=== PATIENT | female | born 1955 | race Caucasian/White ===

== ENCOUNTER 2018-10-12 14:00 | Outpatient (AMBR) | payer OTHER, SELFPAY ==
--- NOTE | 2018-10-03 14:55 | PT.OIERPT ---
PT OP Initial Eval Patient Information Visit Reasons: right knee Medical Diagnosis: S83.241D Treatment Dx #1: Right Knee Pain Start of Care: 10/03/18 Date of Onset: 1 year ago Initial Assessment Subjective Pt is a 63 y/o female c/o chronic right knee pain (8/10) started 1 year ago. Pt further mention that she has other issues chest pain, L foot fracture, and frequent falls at home. Pt's past MRI showed a torn medial meniscus; according to patient she is not a surgical candidate due to her heart problem. Pt currently has difficulty with prolonged walking, standing, steps, chores, self care, cooking, getting in/out of the car, and performing normal ADLs. Objective Right Knee: -29 deg to 92 deg Right Knee MMTs Quads: 4-/5 Hs: 4-/5 Right Hip MMTs Glute Med: 3-/5 Glute Max: 3-/5 Muscle Length: decrease Hs length Palpation: TTP medial joint line Gait Observation: antalgic gait with decrease stance on R due to inability to completely WB Assessment Pt demonstrate right knee pain and limited AROM leading to decline function and difficulty with ADLs. Pt will attempt physical therapy if pain persist Pt will be refer back to surgeon for further consultation. 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 1) Decrease knee pain to 3/10 in 6 wks to be able to ambulate more than 30 mins with AD 2) Increase right knee MMTs to 4/5 in 6 wks to be able to perform chores 3) Increase right knee AROM WNL in 6 wks to be able to perform self care activities 4) Increase right hip MMTs to 4-/5 in 6 wks to be able to perfrom steps 5) Indep with HEP Treatment Plan 1) Manual Therapy 2) Therapeutic Activities 3) Therapeutic Exercises 4) Modalities (ice, heat) 5) Gait Training 6) Balance Training Frequency and Duration 2 x wk for 6 wks Certification Dates: 10/03/18 to 12/31/18 Office Procedures PT Procedures PT Date of Service: 10/03/18 OP PT Eval Mod Complex 30 minutes: Yes
--- NOTE | 2018-10-06 16:53 | PT.ODAYNRPT ---
PT Outpatient Daily Note Date of Service: October 06, 2018 OP Daily Note Visit Reasons: right knee Outpatient Physical Therapy Treatment Date: 10/06/18 Subjective: pt c/o having a lot of pain of the R knee but also her L foot is fractured in 4 places neither can have surgery due to other heart conditions. Objective: see flow sheet. Assessment: pt was willing to attempt all ther ex but was not going to guarantee to complete all reps due to poor endurance and pain. pt was having popping of the knee during some exercises. pt ambulates with no AD and WBOS with unsteadiness. advised pt to use AD for safety and more support. pt was able to use schi-fit for very short time before having increase in pain. Plan: continue POC per PT. Length of Time (minutes) of Treatment: 30 Minutes Office Procedures PT Procedures PT Date of Service: 10/03/18 OP PT Eval Mod Complex 30 minutes: Yes PT Procedures PT Date of Service: 10/06/18 Therapeutic Exercise 30 minutes: Yes
--- NOTE | 2018-10-12 15:18 | PTNOTE_ITS ---
PT OP Progress/Discharge Note Date of Service: October 12, 2018 Progress Note/DC Note Progress Note/Discharge Note: DC Note Patient Information Visit Reasons: right knee Medical Diagnosis: S83.241 Treatment Dx #1: Right Knee Pain Service Continue Service or Discharge: Discharge Discharge Date: 10/12/18 Status Subjective: Pt mention that her knee is hurting more after each PT treatment session. Pt continues to have 8/10 knee pain with all activities. She's been in/ out of the hospital due to chest pain. Pt continues to have limitation with prolonged walking, standing, chores, cooking, cleaning, and recreational activities. Objective: Right Knee AROM: -15 deg to 95 deg Right Knee MMTs Quads: 4-/5 Hs: 4-/5 Right Hip MMTs Glute Med: 3/5 Glute Max: 3/5 Assessment: Pt continues to have knee pain with limited mobility leading to decline function and difficulty with ambulation. Pt seems to have increase knee pain after each therapy session. At this time Pt will be d/c from physical therapy due to minimal progression towards goals. Pt was instructed on HEP last session and educated to continue exercises to maintain overall mobility. Pt performed all exercises safely, thank you for your referrals. Plan: D/C home with HEP and follow up with MD PORTILLO Office Procedures PT Procedures PT Date of Service: 10/03/18 OP PT Eval Mod Complex 30 minutes: Yes PT Procedures PT Date of Service: 10/06/18 Therapeutic Exercise 30 minutes: Yes PT Procedures PT Date of Service: 10/12/18 Therapeutic Exercise 15 minutes: Yes
== END 2018-10-20 23:59 | disposition home or self-care (01) ==
PROVIDERS: PCP Family Medicine; Referring Provider Family Medicine; Visit Provider Family Medicine
DX: S83.241D Other tear of medial meniscus, current injury, right knee, subsequent encounter (principal); G89.29 Other chronic pain; M25.561 Pain in right knee; W19.XXXD Unspecified fall, subsequent encounter; R26.2 Difficulty in walking, not elsewhere classified; R07.9 Chest pain, unspecified; I10 Essential (primary) hypertension
CPT/HCPCS: 97110; 97162

== ENCOUNTER 2024-07-08 18:14 | Emergency (ER) | payer OTHER, SELFPAY ==
[2024-07-08] VITALS (7 sets, daily range): BP systolic 122–154; BP diastolic 69–87; PULSE 103–113; RESP 20–23; TEMP 37.6–39.4; O2SAT 93–97; BMI 41.5
--- NOTE | 2024-07-08 18:34 | EKG_ITS ---
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1955 Requested By: Jesus Alberto Cordova Order Number: [id number] Reading MD: Jesus Alberto Cordova Measurements Intervals [place] Rate: 105 P: 61 SD: 194 QRS: -75 QRSD: 147 T: 71 QT: 470 QTc: 623 Interpretive Statements SINUS TACHYCARDIA RIGHT BUNDLE BRANCH BLOCK [120+ ms QRS DURATION, UPRIGHT V1, 40+ ms S IN I/aVL/V4/V5/V6] LEFT VENTRICULAR HYPERTROPHY AND ST-T CHANGE [VOLTAGE CRITERIA PLUS ST/T ABNORMALITY] INFERIOR MYOCARDIAL INFARCTION , POSSIBLY ACUTE [40+ ms Q WAVE AND/OR ST/T ABNORMALITY IN II/aVF] ANTEROLATERAL MYOCARDIAL INFARCTION , PROBABLY RECENT [40+ ms Q WAVE IN I/aVL/V3-V6] ACUTE [place] Compared to ECG 12/05/2023 08:42:46 Sinus rhythm no longer present ST (T wave) deviation still present Myocardial infarct finding still present /store/S0/[id number]/ecg/[id number].pdf
--- NOTE | 2024-07-08 18:53 | XR_ITS ---
Examination: Upright PA chest single view Technique: Upright PA chest single view Exam date and time: July 08, 2024 at 1915 hrs. Comparison December 05, 2023 Indications: Coughing congestion fever sore throat beginning 3 days ago. Findings: Mild to moderate enlargement left ventricle Stable position transvenous dual-chamber bipolar cardiac leads Moderate vascular congestion including central vascular engorgement Suspicious for early septal edema at the lung bases No lobar pneumonia Impression: Early heart failure No lobar pneumonia
--- NOTE | 2024-07-08 18:54 | EDRME_ITS ---
Rapid Medical Screening Exam [facility] Arrival date/time: 07/08/24 18:14 69F with history of CAD/MO/CHF (w/ pacemaker), HTN, COPD and DM presents to ED with 3 days of cough, sore throat, and non-bloody diarrhea. Chief Complaint: Flu Like Symptoms Time Seen by Provider: 07/08/24 19:19 Vital signs: Vital Signs Temperature 103.0 F H 07/08/24 18:49 Pulse Rate 108 H 07/08/24 18:49 Respiratory Rate 20 07/08/24 18:49 Blood Pressure 154/82 H 07/08/24 18:49 Pulse Oximetry (%) 95 07/08/24 18:49 Oxygen Delivery Method Room Air 07/08/24 18:49
[2024-07-08] MEDS: ACETAMINOPHEN 500 MG TABLET 1000 MG PO (19:03)
--- NOTE | 2024-07-08 19:21 | PD.EDURI ---
Upper Respiratory Inf. RME/HPI General Chief Complaint: Flu Like Symptoms Stated Complaint: diarrhea, cough, fever, sore throat , malaise Time Seen by Provider: 07/08/24 19:19 Arrival date/time: 07/08/24 18:14 RME / HPI RME / HPI Narrative: 07/08/24 18:14 Dr[facility] ED Evaluation: 69F with history of CAD/TN/CHF (w/ pacemaker), HTN, COPD and DM presents to ED with 3 days of cough, sore throat, and non-bloody diarrhea. Patient states she has had flulike symptoms last 2 days with a dry cough. She wears oxygen at home when needed and has been needing it slightly the last few days. Positive sore throat. Patient complains of diarrhea nonbloody yesterday but is not there today. No fevers. Patient feels bad with bodyaches. Tolerating p.o. Related Data Home Medications ?Medication ?Instructions ?Recorded ?Confirmed ticagrelor 90 mg tablet (Brilinta) 60 mg PO BID 05/08/21 10/14/23 insulin glargine 100 unit/mL (3 30 unit subcut BID 12/10/21 10/14/23 mL) subcutaneous pen (Lantus Solostar U-100 Insulin) omeprazole 40 mg capsule,delayed 40 mg PO QDAY 05/28/22 10/14/23 release pregabalin 75 mg capsule (Lyrica) 100 mg PO QDAY 09/17/22 10/14/23 meloxicam 15 mg tablet 15 mg PO QDAY 03/06/23 10/14/23 tizanidine 4 mg tablet 4 mg PO Q8HR PRN Muscle Spasm 03/06/23 10/14/23 clindamycin HCl 300 mg capsule 300 mg PO 3XD 10/14/23 10/14/23 empagliflozin 25 mg tablet 25 mg PO DAILY 10/14/23 10/14/23 (Jardiance) hydrocodone 10 mg-acetaminophen 10 tab PO PRN PRN Pain (Scale 10/14/23 10/14/23 325 mg tablet Score 7-10) metformin 1,000 mg tablet 1,000 mg PO BID 10/14/23 10/14/23 montelukast 10 mg tablet 10 mg PO DAILY 10/14/23 10/14/23 nitroglycerin 0.4 mg sublingual 0.4 mg buccal 3XD 10/14/23 10/14/23 tablet rosuvastatin 40 mg tablet 40 mg PO DAILY 10/14/23 10/14/23 sacubitril 24 mg-valsartan 26 mg 26 tab PO BID diabetes 10/14/23 10/14/23 tablet (Entresto) semaglutide 2 mg/dose (8 mg/3 mL) 1 mg subcut Q7D 10/14/23 10/14/23 subcutaneous pen injector (Ozempic) Previous Rx's ?Medication ?Instructions ?Recorded aspirin 81 mg tablet,delayed 81 mg PO QDAY 30 days #30 tabs 09/25/22 release atorvastatin 40 mg tablet 40 mg PO HS 30 days #30 tabs 09/25/22 midodrine 10 mg tablet 10 mg PO TID PRN blood pressure 08/29/23 #90 tabs pantoprazole 40 mg tablet,delayed 40 mg PO QDAY #20 tabs 10/28/23 release (Protonix) metoclopramide HCl 10 mg tablet 10 mg PO .TID prn PRN nausea and 11/10/23 (Reglan) vomiting #30 tabs midodrine 10 mg tablet 10 mg PO TID PRN hypotension #30 11/10/23 tabs acetaminophen 500 mg capsule 500 mg PO Q6H PRN pain #30 caps 06/11/24 dexamethasone 6 mg tablet 6 mg PO QDAY 5 days #5 tabs 07/08/24 Allergies Allergy/AdvReac Type Severity Reaction Status Date / Time adhesive Allergy Severe SKIN GETS Verified 06/11/24 09:01 RAW ketorolac AdvReac Severe SHARP Verified 10/14/23 07:42 PAINS THROUGHOUT ENTIRE BODY morphine AdvReac Severe CAUSES Verified 10/14/23 07:42 BEHAVIORAL PROBLEMS Review of Systems Review of Systems Systems Reviewed: All systems reviewed, normal except as documented Past Medical History Past Medical History NEUROLOGIC: Positive Neurological Disorders and Peripheral Neuropathy; Negative Cerebrovascular Accident, Transient Ischemic Attacks (TIA), Dementia, Alzheimer's Disease, Parkinson's Disease, Brain Tumor, Meningitis, Seizures, Epilepsy, Multiple Sclerosis, Cerebral Palsy, Amyotrophic Lateral Sclerosis (ALS/Genoveva Gehrig's), Guillain-Union Syndrome, Spina Bifida, Paralysis, Gaitan's Palsy, Subdural Hematoma, Migraine, Head Trauma, Spinal Cord Injury or Traumatic Brain Injury CARDIAC: Positive Cardiac Disorders, Myocardial Infarction, Cardiac Arrhythmia, Angina, Coronary Artery Disease, Atherosclerotic Heart Disease, Peripheral Vascular Disease, Hypercholesterolemia, Aneurysm, Edema, Cellulitis, Hypertension and Hypotension; Negative Atrial Fibrillation, Heart Murmur, Congestive Heart Failure, Congenital Heart Disease, Valvular Heart Disease, Rheumatic Fever, Cardiomyopathy, Pericarditis, Deep Vein Thrombosis or Varicose Veins RESPIRATORY: Positive Bronchitis and Pneumonia; Negative Chronic Obstructive Pulmonary Disease (COPD), Asthma, Emphysema, Pulmonary Fibrosis, Cystic Fibrosis, Tuberculosis, Pulmonary Embolism, Pulmonary Edema or Sleep Apnea GASTROINTESTINAL: Positive Gastrointestinal Disorders, Gall Bladder Disease, Hiatal Hernia, Gastroesophageal Reflux Disease and Obesity; Negative Hepatitis, Cirrhosis, Pancreatitis, Celiac Disease, Gastrointestinal Bleed, Esophageal Varices, Coleman's Esophagus, Colitis, Ulcerative Colitis, Diverticulitis, Diverticulosis, Ulcer, Colorectal Cancer, Irritable Bowel, Crohn's Disease, Obstructive Bowel or Hemorrhoids GENITOURINARY: Positive Genitourinary Disorders; Negative Renal Disease, Kidney Stones, Polycystic Kidney Disease, Neurogenic Bladder, Inguinal Hernia, Dialysis, Prostate Cancer or Benign Prostatic Hyperplasia REPRODUCTIVE: Negative Breast Cancer, Endometriosis, Genital Herpes, Gonorrhea, Pelvic Inflammatory Disease, Previous Pregnancies, Syphilis, Testicular Cancer or Uterine Prolapse MUSCULOSKELETAL: Positive Musculoskeletal Disorders and Fractures; Negative Muscular Dystrophy, Myasthenia Gravis, Marfan's Syndrome, Bone Cancer, Arthritis, Rheumatoid Arthritis, Osteoporosis, Degenerative Disk Disease, Gout, Scoliosis, Carpal Tunnel Syndrome, Fibromyalgia, Degenerative Joint Disease, Osteomyelitis or Poliovirus ENT: Negative Cataracts, Glaucoma, Blind, Retinal Detachment, Macular Degeneration, Ear Infection, Deafness, Head Trauma or Eye Prosthesis ENDOCRINE: Positive Endocrine Disorders and Diabetes Mellitus Type 2; Negative Diabetes Mellitus Type 1, Hypoglycemia, London's Syndrome, Grafton's Disease, Hyperthyroidism, Hypothyroidism, Parathyroid Disease, Pituitary Disease, Systemic Lupus Erythematosus, Syndrome of Inappropriate Antidiuretic Hormone (SIADH), Adrenal Disease or Graves' Disease HEMATOLOGIC: Negative Blood Disorders, Anemia, Leukemia, Hemophilia, Thalassemia, Sickle Cell Disease or Clotting Problems PSYCHO/SOCIAL: Positive Depression and Anxiety; Negative Psychiatric Problems, Schizophrenia, Recreational Drug Use, Bipolar Disorder, Behavior Problems, Self-Mutilation, Attention Deficit Disorder, Attention Deficit Hyperactivity Disorder, Depression, Post Traumatic Stress Disorder or Eating Disorder OTHER HISTORY: Positive Hospitalization, Falls and MRSA; Negative Autoimmune Disease, Down Syndrome, Autism, Developmental Delay, Shingles, Blood Transfusions, Blood Transfusion Reaction, Anesthesia Reactions, Organ Transplant, Chemotherapy, Radiation Therapy, Hyperbaric Therapy, VRSA, Vancomycin-Resistant Enterococci, Human Immunodeficiency Virus (HIV), Chicken Pox, Measles, Mumps, Rubella (Slovak Measles), Pertussis, Clostridium Difficile, Cancer, Breast Cancer, Cervical Cancer, Colorectal Cancer, Lung Cancer, Ovarian Cancer, Prostate Cancer or Testicular Cancer Family History FAMILY HISTORY: Positive Family Neurologic Problems (Mother had dementia.), Family Cardiac Disorders (father of heart attack) and Family Cancer (hx of family leukemia); Negative Family Psychiatric Problems, Family Respiratory Disorders, Family Gastrointestinal Problems, Family Surgery or Family Anesthesia Reaction Surgical History SURGICAL: Positive Cardiac Surgery, Coronary Stent, Cardiac Catheterization, Pacemaker, Angiogram, Tonsillectomy and Abdominal Surgery; Negative Open Heart Surgery, Coronary Artery Bypass Graft, Valve Replacement, Vascular Surgery, Auto Implanted Cardiovert Defib, Carotid Endarterectomy, Endocrine Surgery, Thyroidectomy, Ear Surgery, Tympanostomy Tube, Eye Surgery, Nose Surgery, Oral Surgery, Adenoidectomy, Cochlear Implant, Corneal Transplant, Throat Surgery, Tracheostomy, Gastric Bypass Surgery, Gastrostomy, Bowel Surgery, Nephrectomy, Transurethral Resection, Joint Replacement, Amputation, Open Reduction Internal Fixation, Arthroscopy, Neurologic Surgery, Brain Shunt, Mastectomy, Lumpectomy, Hysterectomy, Tubal Ligation, Section, Vasectomy or Organ Transplant Social History SMOKING STATUS: Former smoker SECOND HAND EXPOSURE: No SUBSTANCE USE: does not use ED Exam Narrative Physical exam: Patient lying in the bed, appears in minimal distress coughing, no stridor. Not using accessory muscles to breathe Head Head exam: Present atraumatic Eye Eye exam: Present normal appearance, PERRL and EOMI ENT ENT exam: Present normal exam, normal oropharynx and mucous membranes moist Neck Neck exam: Present normal inspection, full ROM and trachea midline Chest Chest inspection: Present normal inspection and symmetric chest wall rise Respiratory Respiratory exam: Present wheezes (Mild wheezing) and other (Decreased breath sounds at the bases) Cardiovascular Cardiovascular exam: Present regular rate, normal rhythm and normal heart sounds Abdominal Exam Abdominal exam: Present soft and other (Large abdomen nontender no rebound) Extremities Exam Extremities exam: Present other (Large extremities, no pedal edema) Back Exam Back exam: Present normal inspection and full ROM Neurological Exam Neurological exam: Present alert, oriented X3 and CN II-XII intact Psychiatric Psychiatric exam: Present normal affect and normal mood Skin Skin exam: Present warm, dry, intact and normal color Course Course Course Narrative: CXR is ordered for determining the etiology of fever. 1923: EKG at 1848 shows sinus tachycardia, rate of 105. Right bundle branch block. LVH. QTc 531. She does have ST-T wave changes but this is similar to her previous EKG in the past. The patient is not having chest pain and she had a sepsis alert called at 1850. At this time I do not believe the patient is having an acute TN. 1924: Bed is requested. 1856: NS IVF started. Quality Measures Possible source: pulmonary Blood cultures ordered: yes Antibiotic ordered: Yes Pertinent labs: 07/08/24 19:03 Lactic Acid 1.5 mMol/L (0.4-2.0) Procalcitonin 0.07 ng/ml (0.0-0.49) sepsis Orders Category Date Time Status Bedside COVID-19 Antigen Test NOW Care 07/08/24 18:34 Completed Bedside Influenza A&B Antigen Test NOW Care 07/08/24 18:34 Completed EKG (ED ONLY) *Do not use* NOW Care 07/08/24 18:34 Completed Insert IV NOW Care 07/08/24 18:53 Completed EKG (ED Only) Stat Exams 07/08/24 18:34 Draft XR chest 1V portable Stat Exams 07/08/24 18:53 Completed B-Type Natriuretic Peptide Stat Lab 07/08/24 19:03 Completed Blood Culture (Lab) Stat Lab 07/08/24 19:23 Results CBC Stat Lab 07/08/24 19:03 Completed Comprehensive Metabolic Panel Stat Lab 07/08/24 19:03 Completed Lactate (Lactic Acid) Stat Lab 07/08/24 19:03 Completed Lipase Stat Lab 07/08/24 19:03 Completed Magnesium Stat Lab 07/08/24 19:03 Completed Partial Thromboplastin Time Stat Lab 07/08/24 19:03 Completed Procalcitonin Stat Lab 07/08/24 19:03 Completed Prothrombin Time with INR Stat Lab 07/08/24 19:03 Completed Troponin I Stat Lab 07/08/24 19:03 Completed Urinalysis Stat Lab 07/08/24 19:18 Completed Urine Culture Stat Lab 07/08/24 19:18 Received Acetaminophen Tab [Tylenol ES Tab] Med 07/08/24 18:53 Discontinued 1,000 mg PO X1 ONE Dexamethasone Inj [Decadron Inj] Med 07/08/24 21:36 Discontinued 6 mg IVP X1 ONE HYDROcodone*/APAP 5/325 [[place] 5/325] Med 07/08/24 21:08 Discontinued 1 tab PO X1 ONE Sodium Chloride 0.9% 1000 ml [Ns] 1,000 ml Med 07/08/24 18:53 Discontinued IV 999 mls/hr Vital Signs Vital signs: Vital Signs Temperature 103.0 F H 07/08/24 18:49 Pulse Rate 108 H 07/08/24 18:49 Respiratory Rate 20 07/08/24 18:49 Blood Pressure 154/82 H 07/08/24 18:49 Pulse Oximetry (%) 95 07/08/24 18:49 Oxygen Delivery Method Room Air 07/08/24 18:49 Pulse ox is 95% on room air, which is normal according to my interpretation. Upper Respiratory Infection Patient data External records reviewed:: [facility] previous records (Per chart review, patient was seen here on 06/11/24 for arthralgia of right knee.) Clinical information provided by:: patient Social determinants that could affect healthcare access:: none Patient has the following chronic illnesses:: CAD, TN, CHF, COPD, HTN, DM How is presenting disease/condition affected by chronic disease/condition?: uneffected by Evaluation data The following diagnostics were reviewed and interpreted by me:: lab results, radiology exam(s) and EKG tracing(s) Lab and/or radiology exams considered but not ordered:: none Interpretation Summary: CBC is normal, CMP is normal, Glucose is 236, troponin is normal, lipase is normal, Procalcitonin is normal, Lactate is normal at 1.5, UA shows 3+ glucose, 8 WBCs, and 1+ bacteria, Bedside COVID is positive, CXR shows pacemaker wires in place, mild cardiomegaly, poor inspiratory effort, haziness in the left lower base, no definitive pneumonia, no pleural effusion, mild vascular markings, possible CHF, according to my interpretation. EKG done at 1848, sinus tachycardia, rate of 105, RBBB, LVH, nonspecific ST-T wave changes, no STEMI, similar ST-T wave changes on previous EKG done on 12/05/23. ---- I have personally reviewed the radiology data and agree with the radiologist's interpretation below: [facility] Report Signed Patient: JAMIL COOK Record#: [id number] Birthdate: 1955 Age/Sex: 69 / F Location: [facility] [place] Attending Dr: Ordering Physician: Jesus Alberto Cordova PA-C Date of Service: 07/08/24 Procedure(s): XR chest 1V portable Accession Number(s): [id number] cc: Killian Donovan MD; Roney Almanzar MD; Jesus Alberto Cordova PA-C~ Examination: Upright PA chest single view Technique: Upright PA chest single view Exam date and time: July 08, 2024 at 1915 hrs. Comparison December 05, 2023 Indications: Coughing congestion fever sore throat beginning 3 days ago. Findings: Mild to moderate enlargement left ventricle Stable position transvenous dual-chamber bipolar cardiac leads Moderate vascular congestion including central vascular engorgement Suspicious for early septal edema at the lung bases No lobar pneumonia Impression: Early heart failure No lobar pneumonia Dictated By: Roney Almanzar MD Signed By: <Electronically signed by Roney Almanzar MD in OV> 07/08/241941 Medications / Prescriptions Medications or Prescriptions considered but not ordered:: none Medication administrations:: Medication Administration History Discontinued Medications Acetaminophen (Acetaminophen 500 Mg Tablet) 1,000 mg PO X1 ONE Stop: 07/08/24 18:54 Last Admin: 07/08/24 19:03 Dose: 1,000 mg Documented By: YOON Hydrocodone Bitart/Acetaminophen (Hydrocodone/Apap 5/325 Tablet) 1 tab PO X1 ONE Stop: 07/08/24 21:09 Last Admin: 07/08/24 21:19 Dose: 1 tab Documented By: RIINA Dexamethasone Sodium Phosphate (Dexamethasone Sod Phos Inj 4 Mg/Ml Vial) 6 mg IVP X1 ONE; Protocol Stop: 07/08/24 21:37 Last Admin: 07/08/24 21:49 Dose: 6 mg Documented By: IRINA Sodium Chloride (Ns) 1,000 mls @ 999 mls/hr IV .Q1H1M ONE Stop: 07/08/24 19:53 Last Infusion: 07/08/24 21:06 Dose: Infused Documented By: Admin: 07/08/24 19:57 Dose: 999 mls/hr Documented By: SF see above Consultations Consultation(s) initiated? (list below): No Diagnosis Upper Respiratory Differential Diagnosis: upper respiratory infection, bronchitis, influenza and other (COVID) Most likely diagnosis given after review of the tests above:: see below Admission Indicated Admission indicated?: not indicated Admission Request Was there a request for admission?: No Disposition Plan Disposition Plan: Discharge Discharge Attestation Discharge Attestation: The patient and all family members were given an opportunity to ask questions and understood the discharge instructions. Discharge instructions specifically effects, indications for sooner follow up or return to the emergency department, and the expected course of current diagnosis. Patient condition: Stable Discharge Plan Plan Patient Disposition: HOME (Self Care) Patient condition on transfer: Stable Prescriptions/Referrals Prescriptions/Med Rec: New dexamethasone 6 mg tablet 6 mg PO QDAY 5 Days Qty: 5 0RF No Action Brilinta 90 mg Tablet 60 mg PO BID insulin glargine [Lantus Solostar U-100 Insulin] 100 unit/mL (3 mL) Insulin Pen 30 unit SUBCUT BID pregabalin [Lyrica] 75 mg capsule 100 mg PO QDAY aspirin 81 mg Tablet,Delayed Release (Dr/Ec) 81 mg PO QDAY 30 Days Qty: 30 1RF atorvastatin 40 mg tablet 40 mg PO HS 30 Days Qty: 30 1RF tizanidine 4 mg tablet 4 mg PO Q8HR PRN (Reason: Muscle Spasm) Patient Comments: TAKE 1 TABLET BY MOUTH EVERY 8 HOURS NEEDED NOT TO EXCEED 3 DOSES IN 24 HOURS meloxicam 15 mg tablet 15 mg PO QDAY midodrine 10 mg tablet 10 mg PO TID PRN (Reason: blood pressure) Qty: 90 0RF Rx Instructions: do not give last dose of day after 6PM or within 4 hrs of bedtime clindamycin HCl 300 mg capsule 300 mg PO 3XD hydrocodone-acetaminophen 10-325 mg tablet 10 tab PO PRN PRN (Reason: Pain (Scale Score 7-10)) nitroglycerin 0.4 mg tablet, sublingual 0.4 mg BUCCAL 3XD montelukast 10 mg tablet 10 mg PO DAILY rosuvastatin 40 mg tablet 40 mg PO DAILY Entresto 24-26 mg tablet 26 tab PO BID Ozempic 2 mg/dose (8 mg/3 mL) pen injector 1 mg SUBCUT Q7D metformin 1,000 mg tablet 1,000 mg PO BID Jardiance 25 mg tablet 25 mg PO DAILY pantoprazole [Protonix] 40 mg tablet,delayed release (DR/EC) 40 mg PO QDAY Qty: 20 0RF acetaminophen 500 mg capsule 500 mg PO Q6H PRN (Reason: pain) Qty: 30 0RF omeprazole 40 mg capsule,delayed release(DR/EC) 40 mg PO QDAY metoclopramide HCl [Reglan] 10 mg tablet 10 mg PO .TID prn PRN (Reason: nausea and vomiting) Qty: 30 0RF midodrine 10 mg tablet 10 mg PO TID PRN (Reason: hypotension) Qty: 30 0RF Rx Instructions: do not give last dose of day after 6PM or within 4 hrs of bedtime Referrals: Killian Donovan MD [Primary Care Provider] - In 1 week Problem List Clinical Impression: 2019 novel coronavirus-infected pneumonia (NCIP) Patient/Caregiver Discharge Instructions Education Materials: COVID-19 Home Care Additional Instructions: Continue your medication as prescribed. Return to emergency department for worsening symptoms, or any other concerns. Print Language: [place] Stand Alone Forms: [employer] Award Info., Patient Portal Info Letter
[2024-07-08 19:25] LABS: Lactate (Lactic Acid) 1.5 mMol/L (0.4-2.0)
[2024-07-08 19:27] LABS: Collection Type, Urine Clean Catch; RBC,Urine 0 /hpf (0-3)
[2024-07-08 19:28] LABS: Basophils % (Auto) 0 % (0-2.5); Eosinophils % (Auto) 0 % (0-10); Hematocrit 39.2 % (36.0-46.0); Hemoglobin 12.9 g/dL (12.0-16.0); Immature Granulocytes % (Auto) 0 % (0-0); Immature Granulocytes Auto 0.04 Thou/mm3 (0.00-0.00); Lymphocytes % (Auto) 11 % (10-50); Mean Corpuscular HGB Conc 32.9 g/dl (31.0-37.0); Mean Corpuscular Hemoglobin 26.5 pg (25.0-35.0); Mean Corpuscular Volume 81 fL (80-100); Monocytes # (Auto) 0.7 Thou/mm3 (0.0-0.8); Monocytes % (Auto) 7 % (0-12); Neutrophils # (Auto) 7.5 Thou/mm3 (1.8-7.7); Neutrophils % (Auto) 81 % (37-80); Nucleated Red Blood Cell % 0 /100 WBC (0); Platelet Count 206 Thou/mm3 (140-440); RDW Standard Deviation 39.9 fL (36.4-46.3); Red Blood Count 4.86 Miln/mm3 (4.00-5.20); White Blood Count 9.3 Thou/mm3 (3.6-11.0)
[2024-07-08 19:33] LABS: Bacteria,Urine 1+; Bilirubin,Urine Negative (Negative); Blood,Urine Negative (Negative); Clarity,Urine Clear (Clear/Hazy); Color,Urine Lt-Yellow (Lt Yel-Yel); Glucose, Urine 3+ (Negative); Ketones,Urine Negative (Negative); Leukocyte Esterase,Urine Positive (Negative); Nitrite,Urine Positive (Negative); Protein,Urine Trace (Neg - Trace); Specific Gravity,Urine 1.024 (1.001-1.035); Squamous Epithelial Cell,Urine 2 /hpf (0-5); Urobilinogen,Urine Negative mg/dL (0.0-1.0); WBC,Urine 8 /hpf (0-5)
[2024-07-08 19:46] LABS: B-Type Natriuretic Peptide 325 pg/mL (0-100)
[2024-07-08 19:48] LABS: Partial Thromboplastin Time 29.6 Seconds (22.0-36.0); Prothrombin Time 11.1 Seconds (9.0-12.2)
[2024-07-08 19:49] LABS: Alanine Aminotransferase 11 U/L (10-49); Albumin, Serum 4.3 gm/dL (3.4-4.8); Albumin/Globulin Ratio 1.5 (1.2-2.2); Alkaline Phosphatase 99 U/L (46-116); Anion Gap 5 (7-16); Aspartate Amino Transferase 15 U/L (0-34); BUN/Creatinine Ratio 16 Ratio (12-20); Bilirubin,Total 0.5 mg/dL (0.3-1.2); Blood Urea Nitrogen 14 mg/dL (9-23); Calcium 9.6 mg/dL (8.3-10.6); Calcium (Corrected) 9.6 mg/dL (8.5-10.1); Carbon Dioxide 28.6 mMol/L (20.0-31.0); Chloride 103 mMol/L (98-107); Creatinine (Component) 0.9 mg/dL (0.6-1.3); Estimated Creatinine Clearance 76.2 mL/min (>60); Globulin 2.8 gm/dL (2.3-3.5); Glucose 236 mg/dL (74-106); Lipase 27 U/L (12-53); Magnesium 1.6 mg/dL (1.6-2.6); Osmolality,Calculated 282 (275-295); Potassium 3.8 mMol/L (3.4-5.1); Sodium 137 mMol/L (136-145); Total Protein 7.1 gm/dL (5.7-8.2); Troponin I 0.023 ng/mL (0.0-0.045); eGFR > 60 See Note
[2024-07-08 19:54] LABS: Procalcitonin 0.07 ng/ml (0.0-0.49)
[2024-07-08] MEDS: SODIUM CHLORIDE 0.9% 1000 ML 1,000 ML 999 ML IV (19:57)
[2024-07-08] MEDS: HYDROcodone/APAP 5/325 TABLET 1 TAB PO (21:19)
[2024-07-08] MEDS: DEXAMETHASONE SOD PHOS INJ 4 MG/ML VIAL 6 MG IVP (21:49)
== END 2024-07-08 22:20 | disposition home or self-care (01) ==
PROVIDERS: Physician Assistant; Emergency Provider Emergency Medicine; PCP Family Medicine
DX: U07.1 COVID-19 (principal); J44.0 Chronic obstructive pulmonary disease with (acute) lower respiratory infection; J12.82 Pneumonia due to coronavirus disease 2019; I11.0 Hypertensive heart disease with heart failure; I50.9 Heart failure, unspecified; R00.0 Tachycardia, unspecified; I45.10 Unspecified right bundle-branch block; I25.2 Old myocardial infarction; Z95.0 Presence of cardiac pacemaker; Z87.891 Personal history of nicotine dependence
CPT/HCPCS: 36415; 71045; 80053; 81001; 83605; 83690; 83735; 83880; 84145; 84484; 85025; 85610; 85730; 87040; 87077; 87086; 87186; 87400; 87811; 93005; 96361; 96374; 99284; J1100; J7030; A9270

== ENCOUNTER 2024-07-11 18:20 | Emergency (ER) | payer OTHER, SELFPAY ==
[2024-07-11 18:21] VITALS: BMI 41.5
[2024-07-11 19:17] VITALS: BP 151/74; PULSE 87; RESP 18; TEMP 37.1; O2SAT 95
--- NOTE | 2024-07-11 19:31 | XR_ITS ---
Examination: PA lateral chest 2 views Technique: Upright PA lateral chest 2 views Exam date and time: July 11, 2024 1950 hrs. Comparison July 08, 2024 Indications: Onset chest pain today Findings: Mild to moderate enlargement left ventricle Cardiac leads satisfactory position Moderate vascular congestion Mild septal edema at the lung bases Impression: Early heart failure
--- NOTE | 2024-07-11 19:31 | EKG_ITS ---
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1955 Requested By: Byron Mckeon ([facility]) Order Number: [id number] Reading MD: Byron Mckeon ([facility]) Measurements Intervals [place] Rate: 88 P: 53 VA: 196 QRS: -71 QRSD: 153 T: 83 QT: 413 QTc: 500 Interpretive Statements SINUS RHYTHM WITH OCCASIONAL VENTRICULAR PREMATURE COMPLEXES INTRAVENTRICULAR CONDUCTION DELAY [130+ ms QRS DURATION] LEFT VENTRICULAR HYPERTROPHY AND ST-T CHANGE [VOLTAGE CRITERIA PLUS ST/T ABNORMALITY] INFERIOR MYOCARDIAL INFARCTION , OF INDETERMINATE AGE [40+ ms Q WAVE AND/OR ST/T ABNORMALITY IN II/aVF] ANTEROLATERAL MYOCARDIAL INFARCTION , OF INDETERMINATE AGE [40+ ms Q WAVE IN I/aVL/V3-V6] Compared to ECG 07/08/2024 18:48:11 Ventricular premature complex(es) now present Intraventricular conduction delay now present Sinus tachycardia no longer present Right bundle-branch block no longer present ST (T wave) deviation still present Myocardial infarct finding still present /store/S0/[id number]/[id number].pdf
--- NOTE | 2024-07-11 19:31 | PD.EDRME ---
Rapid Medical Screening Exam RME Arrival date/time: 07/11/24 18:20 69-year-old female with past medical history of CAD with pacemaker and recent COVID-19 infection presents emergency department complaining of chest pain and shortness of breath. Chief Complaint: Flu Like Symptoms Time Seen by Provider: 07/11/24 19:19 Vital signs: Vital Signs Temperature 98.8 F 07/11/24 19:17 Pulse Rate 87 07/11/24 19:17 Respiratory Rate 18 07/11/24 19:17 Blood Pressure 151/74 H 07/11/24 19:17 Pulse Oximetry (%) 95 07/11/24 19:17 Oxygen Delivery Method Room Air 07/11/24 19:17 Vital signs reviewed by provider: Yes
[2024-07-11 20:16] LABS: Collection Type, Urine Clean Catch
[2024-07-11 20:20] LABS: Basophils % (Auto) 0 % (0-2.5); Eosinophils % (Auto) 0 % (0-10); Hemoglobin 13.3 g/dL (12.0-16.0); Immature Granulocytes % (Auto) 0 % (0-0); Immature Granulocytes Auto 0.06 Thou/mm3 (0.00-0.00); Lymphocytes % (Auto) 7 % (10-50); Mean Corpuscular HGB Conc 32.4 g/dl (31.0-37.0); Mean Corpuscular Hemoglobin 26.3 pg (25.0-35.0); Mean Corpuscular Volume 81 fL (80-100); Monocytes # (Auto) 0.6 Thou/mm3 (0.0-0.8); Monocytes % (Auto) 4 % (0-12); Neutrophils # (Auto) 11.9 Thou/mm3 (1.8-7.7); Neutrophils % (Auto) 88 % (37-80); Nucleated Red Blood Cell % 0 /100 WBC (0); Platelet Count 290 Thou/mm3 (140-440); RDW Standard Deviation 40.5 fL (36.4-46.3); Red Blood Count 5.06 Miln/mm3 (4.00-5.20); White Blood Count 13.5 Thou/mm3 (3.6-11.0)
[2024-07-11 20:25] LABS: Bacteria,Urine Rare; Bilirubin,Urine Negative (Negative); Blood,Urine Negative (Negative); Clarity,Urine Clear (Clear/Hazy); Color,Urine Colorless (Lt Yel-Yel); Culture Indicated,Urine Not Indicated; Glucose, Urine 4+ (Negative); Ketones,Urine Negative (Negative); Leukocyte Esterase,Urine Negative (Negative); Nitrite,Urine Negative (Negative); Protein,Urine Negative (Neg - Trace); RBC,Urine 3 /hpf (0-3); Specific Gravity,Urine 1.033 (1.001-1.035); Squamous Epithelial Cell,Urine < 1 /hpf (0-5); Urobilinogen,Urine Negative mg/dL (0.0-1.0); WBC,Urine 2 /hpf (0-5)
[2024-07-11 20:49] LABS: B-Type Natriuretic Peptide 915 pg/mL (0-100)
[2024-07-11 20:53] LABS: Alanine Aminotransferase 17 U/L (10-49); Albumin, Serum 4.7 gm/dL (3.4-4.8); Albumin/Globulin Ratio 1.6 (1.2-2.2); Alkaline Phosphatase 177 U/L (46-116); Anion Gap 7 (7-16); Aspartate Amino Transferase 25 U/L (0-34); BUN/Creatinine Ratio 15 Ratio (12-20); Bilirubin,Total 0.3 mg/dL (0.3-1.2); Blood Urea Nitrogen 17 mg/dL (9-23); Calcium 9.6 mg/dL (8.3-10.6); Calcium (Corrected) 9.6 mg/dL (8.5-10.1); Carbon Dioxide 25.3 mMol/L (20.0-31.0); Chloride 102 mMol/L (98-107); Creatinine (Component) 1.1 mg/dL (0.6-1.3); Estimated Creatinine Clearance 62.3 mL/min (>60); Globulin 2.9 gm/dL (2.3-3.5); Magnesium 2.2 mg/dL (1.6-2.6); Osmolality,Calculated 293 (275-295); Sodium 134 mMol/L (136-145); Total Protein 7.6 gm/dL (5.7-8.2); Troponin I 0.026 ng/mL (0.0-0.045); eGFR 55 See Note
[2024-07-11 20:56] LABS: Glucose 531 mg/dL (74-106)
[2024-07-11 21:07] VITALS: BP 165/98; PULSE 88; RESP 22; O2SAT 96
[2024-07-11 21:07] LABS: INR 0.9 (0.9-1.3); Partial Thromboplastin Time 27.9 Seconds (22.0-36.0); Prothrombin Time 10.2 Seconds (9.0-12.2)
--- NOTE | 2024-07-11 21:13 | PD.EDADULT ---
ED General RME/HPI General Chief complaint: Flu Like Symptoms Stated complaint: +COVID, CHEST PAIN, WEAKNEES, BLOOD SUGAR HI Time Seen by Provider: 07/11/24 19:19 Arrival date/time: 07/11/24 18:20 CC: Cough with shortness of breath HPI ongoing for the past 3 days. Patient apparently tells us that she is COVID-positive. Elevated glucose today. Patient states that she has a persistent cough when she lays flat. Patient states she stopped smoking 10 years ago. Patient is speaking in full sentences oxygen saturations are 95% or greater on room air. During the course of the conversation the patient implied that she is too weak to go home and care for herself, the patient also states that she was not seen by physician at her last visit which was several days ago at which time she was diagnosed with COVID. RME / HPI RME / HPI narrative: 07/11/24 18:20 69-year-old female with past medical history of CAD with pacemaker and recent COVID-19 infection presents emergency department complaining of chest pain and shortness of breath. Related Data Home Medications ?Medication ?Instructions ?Recorded ?Confirmed ticagrelor 90 mg tablet (Brilinta) 60 mg PO BID 05/08/21 10/14/23 insulin glargine 100 unit/mL (3 30 unit subcut BID 12/10/21 10/14/23 mL) subcutaneous pen (Lantus Solostar U-100 Insulin) omeprazole 40 mg capsule,delayed 40 mg PO QDAY 05/28/22 10/14/23 release pregabalin 75 mg capsule (Lyrica) 100 mg PO QDAY 09/17/22 10/14/23 meloxicam 15 mg tablet 15 mg PO QDAY 03/06/23 10/14/23 tizanidine 4 mg tablet 4 mg PO Q8HR PRN Muscle Spasm 03/06/23 10/14/23 clindamycin HCl 300 mg capsule 300 mg PO 3XD 10/14/23 10/14/23 empagliflozin 25 mg tablet 25 mg PO DAILY 10/14/23 10/14/23 (Jardiance) hydrocodone 10 mg-acetaminophen 10 tab PO PRN PRN Pain (Scale 10/14/23 10/14/23 325 mg tablet Score 7-10) metformin 1,000 mg tablet 1,000 mg PO BID 10/14/23 10/14/23 montelukast 10 mg tablet 10 mg PO DAILY 10/14/23 10/14/23 nitroglycerin 0.4 mg sublingual 0.4 mg buccal 3XD 10/14/23 10/14/23 tablet rosuvastatin 40 mg tablet 40 mg PO DAILY 10/14/23 10/14/23 sacubitril 24 mg-valsartan 26 mg 26 tab PO BID diabetes 10/14/23 10/14/23 tablet (Entresto) semaglutide 2 mg/dose (8 mg/3 mL) 1 mg subcut Q7D 10/14/23 10/14/23 subcutaneous pen injector (Ozempic) Previous Rx's ?Medication ?Instructions ?Recorded aspirin 81 mg tablet,delayed 81 mg PO QDAY 30 days #30 tabs 09/25/22 release atorvastatin 40 mg tablet 40 mg PO HS 30 days #30 tabs 09/25/22 midodrine 10 mg tablet 10 mg PO TID PRN blood pressure 08/29/23 #90 tabs pantoprazole 40 mg tablet,delayed 40 mg PO QDAY #20 tabs 10/28/23 release (Protonix) metoclopramide HCl 10 mg tablet 10 mg PO .TID prn PRN nausea and 11/10/23 (Reglan) vomiting #30 tabs midodrine 10 mg tablet 10 mg PO TID PRN hypotension #30 11/10/23 tabs acetaminophen 500 mg capsule 500 mg PO Q6H PRN pain #30 caps 06/11/24 Allergies Allergy/AdvReac Type Severity Reaction Status Date / Time adhesive Allergy Severe SKIN GETS Verified 07/11/24 18:23 RAW ketorolac AdvReac Severe SHARP Verified 07/11/24 18:23 PAINS THROUGHOUT ENTIRE BODY morphine AdvReac Severe CAUSES Verified 07/11/24 18:23 BEHAVIORAL PROBLEMS Review of Systems Review of Systems Narrative Review of Systems: GEN: No fever, no chills, no weight loss EYES: No discharge, no visual changes, no pain HEENT: No ear pain, no congestion, no sore throat PULM: + shortness of breath, no cough, no congestion CV: + chest pain, no dyspnea on exertion, no palpitations GI: No nausea, no vomiting, no diarrhea, no pain, no constipation : No frequency, no urgency, no dysuria MUSC/SKEL: No joint pain, no back pain SKIN: No rash PSYCH: No hallucinations, no depression HEME/LYMPH: No easy bleeding or bruising tendencies NEURO: No weakness, no headache Past Medical History Past Medical History NEUROLOGIC: Positive Neurological Disorders and Peripheral Neuropathy; Negative Cerebrovascular Accident, Transient Ischemic Attacks (TIA), Dementia, Alzheimer's Disease, Parkinson's Disease, Brain Tumor, Meningitis, Seizures, Epilepsy, Multiple Sclerosis, Cerebral Palsy, Amyotrophic Lateral Sclerosis (ALS/Genoveva Gehrig's), Guillain-[place] Syndrome, Spina Bifida, Paralysis, Gaitan's Palsy, Subdural Hematoma, Migraine, Head Trauma, Spinal Cord Injury or Traumatic Brain Injury CARDIAC: Positive Cardiac Disorders, Myocardial Infarction, Cardiac Arrhythmia, Angina, Coronary Artery Disease, Atherosclerotic Heart Disease, Peripheral Vascular Disease, Hypercholesterolemia, Aneurysm, Edema, Cellulitis, Hypertension and Hypotension; Negative Atrial Fibrillation, Heart Murmur, Congestive Heart Failure, Congenital Heart Disease, Valvular Heart Disease, Rheumatic Fever, Cardiomyopathy, Pericarditis, Deep Vein Thrombosis or Varicose Veins RESPIRATORY: Positive Bronchitis and Pneumonia; Negative Chronic Obstructive Pulmonary Disease (COPD), Asthma, Emphysema, Pulmonary Fibrosis, Cystic Fibrosis, Tuberculosis, Pulmonary Embolism, Pulmonary Edema or Sleep Apnea GASTROINTESTINAL: Positive Gastrointestinal Disorders, Gall Bladder Disease, Hiatal Hernia, Gastroesophageal Reflux Disease and Obesity; Negative Hepatitis, Cirrhosis, Pancreatitis, Celiac Disease, Gastrointestinal Bleed, Esophageal Varices, Coleman's Esophagus, Colitis, Ulcerative Colitis, Diverticulitis, Diverticulosis, Ulcer, Colorectal Cancer, Irritable Bowel, Crohn's Disease, Obstructive Bowel or Hemorrhoids GENITOURINARY: Positive Genitourinary Disorders; Negative Renal Disease, Kidney Stones, Polycystic Kidney Disease, Neurogenic Bladder, Inguinal Hernia, Dialysis, Prostate Cancer or Benign Prostatic Hyperplasia REPRODUCTIVE: Negative Breast Cancer, Endometriosis, Genital Herpes, Gonorrhea, Pelvic Inflammatory Disease, Previous Pregnancies, Syphilis, Testicular Cancer or Uterine Prolapse MUSCULOSKELETAL: Positive Musculoskeletal Disorders and Fractures; Negative Muscular Dystrophy, Myasthenia Gravis, Marfan's Syndrome, Bone Cancer, Arthritis, Rheumatoid Arthritis, Osteoporosis, Degenerative Disk Disease, Gout, Scoliosis, Carpal Tunnel Syndrome, Fibromyalgia, Degenerative Joint Disease, Osteomyelitis or Poliovirus ENT: Negative Cataracts, Glaucoma, Blind, Retinal Detachment, Macular Degeneration, Ear Infection, Deafness, Head Trauma or Eye Prosthesis ENDOCRINE: Positive Endocrine Disorders and Diabetes Mellitus Type 2; Negative Diabetes Mellitus Type 1, Hypoglycemia, Glendale's Syndrome, Harlan's Disease, Hyperthyroidism, Hypothyroidism, Parathyroid Disease, Pituitary Disease, Systemic Lupus Erythematosus, Syndrome of Inappropriate Antidiuretic Hormone (SIADH), Adrenal Disease or Graves' Disease HEMATOLOGIC: Negative Blood Disorders, Anemia, Leukemia, Hemophilia, Thalassemia, Sickle Cell Disease or Clotting Problems PSYCHO/SOCIAL: Positive Depression and Anxiety; Negative Psychiatric Problems, Schizophrenia, Recreational Drug Use, Bipolar Disorder, Behavior Problems, Self-Mutilation, Attention Deficit Disorder, Attention Deficit Hyperactivity Disorder, Depression, Post Traumatic Stress Disorder or Eating Disorder OTHER HISTORY: Positive Hospitalization, Falls and MRSA; Negative Autoimmune Disease, Down Syndrome, Autism, Developmental Delay, Shingles, Blood Transfusions, Blood Transfusion Reaction, Anesthesia Reactions, Organ Transplant, Chemotherapy, Radiation Therapy, Hyperbaric Therapy, VRSA, Vancomycin-Resistant Enterococci, Human Immunodeficiency Virus (HIV), Chicken Pox, Measles, Mumps, Rubella ([place] Measles), Pertussis, Clostridium Difficile, Cancer, Breast Cancer, Cervical Cancer, Colorectal Cancer, Lung Cancer, Ovarian Cancer, Prostate Cancer or Testicular Cancer Family History FAMILY HISTORY: Positive Family Neurologic Problems (Mother had dementia.), Family Cardiac Disorders and Family Cancer; Negative Family Psychiatric Problems, Family Respiratory Disorders, Family Gastrointestinal Problems, Family Surgery or Family Anesthesia Reaction Surgical History SURGICAL: Positive Cardiac Surgery, Coronary Stent, Cardiac Catheterization, Pacemaker, Angiogram, Tonsillectomy and Abdominal Surgery; Negative Open Heart Surgery, Coronary Artery Bypass Graft, Valve Replacement, Vascular Surgery, Auto Implanted Cardiovert Defib, Carotid Endarterectomy, Endocrine Surgery, Thyroidectomy, Ear Surgery, Tympanostomy Tube, Eye Surgery, Nose Surgery, Oral Surgery, Adenoidectomy, Cochlear Implant, Corneal Transplant, Throat Surgery, Tracheostomy, Gastric Bypass Surgery, Gastrostomy, Bowel Surgery, Nephrectomy, Transurethral Resection, Joint Replacement, Amputation, Open Reduction Internal Fixation, Arthroscopy, Neurologic Surgery, Brain Shunt, Mastectomy, Lumpectomy, Hysterectomy, Tubal Ligation, Section, Vasectomy or Organ Transplant Social History SMOKING STATUS: Former smoker SECOND HAND EXPOSURE: No SUBSTANCE USE: does not use ED Exam Narrative Physical exam: [General: Morbidly obese not in any acute distress Head normocephalic HEENT: Within acceptable limits Neck is supple nontender Chest equal chest rise nontender to palpation Respiratory: Clear to auscultation no wheezes crackles or rubs when laying flat, the patient has a wet nonproductive cough., Diminished in bases CV: Rate rhythm is regular no murmurs rubs or clicks Abdomen is grossly distended secondary to body habitus soft nontender no masses positive bowel sounds all 4 quadrants Back: No CVA tenderness no spinous process tenderness from cervical spine thoracic and lumbar spine Skin: Intact no petechiae rash induration ulceration or crepitus Extremities: Moving all extremity against resistance cap refill less than 2 seconds neurosensory intact. No lower extremity edema Neuro: Awake alert oriented x3 Glascow coma 15 no focal deficits] Course Quality Measures none Orders Category Date Time Status EKG (ED ONLY) *Do not use* NOW Care 07/11/24 19:31 Completed Glucose [Bedside Blood Glucose] Q1HR Care 07/11/24 21:40 Completed EKG (ED Only) Stat Exams 07/11/24 19:31 Draft XR chest 2V Stat Exams 07/11/24 19:31 Completed B-Type Natriuretic Peptide Stat Lab 07/11/24 20:00 Completed CBC Stat Lab 07/11/24 20:00 Completed Comprehensive Metabolic Panel Stat Lab 07/11/24 20:00 Completed LDH (Lactate Dehydrogenase) Stat Lab 07/11/24 20:00 Completed Magnesium Stat Lab 07/11/24 20:00 Completed Partial Thromboplastin Time Stat Lab 07/11/24 20:00 Completed Prothrombin Time with INR Stat Lab 07/11/24 20:00 Completed Troponin I Stat Lab 07/11/24 20:00 Completed Troponin I Stat Lab 07/11/24 22:40 Completed Urinalysis, C/S if Indicated Stat Lab 07/11/24 19:55 Completed Furosemide [Lasix] Med 07/11/24 21:23 Discontinued 40 mg PO X1 ONE Insulin Regular Med 07/11/24 21:17 Discontinued 10 unit SC X1 ONE Ondansetron Odt [Zofran Odt] Med 07/11/24 23:06 Discontinued 4 mg PO X1 ONE Ondansetron Odt [Zofran Odt] Med 07/11/24 23:06 Discontinued 4 mg PO X1 ONE Vital Signs Vital signs: Vital Signs Temperature 98.8 F 07/11/24 19:17 Pulse Rate 87 07/11/24 19:17 Respiratory Rate 18 07/11/24 19:17 Blood Pressure 151/74 H 07/11/24 19:17 Pulse Oximetry (%) 95 07/11/24 19:17 Oxygen Delivery Method Room Air 07/11/24 19:17 [facility] Patient data External records reviewed:: [facility] previous records Clinical information provided by:: patient Social determinants that could affect healthcare access:: none Patient has the following chronic illnesses:: Morbid obesity diabetes hyperlipidemia How is presenting disease/condition affected by chronic disease/condition?: exacerbated by Evaluation data The following diagnostics were reviewed and interpreted by me:: lab results and radiology exam(s) Lab and/or radiology exams considered but not ordered:: CBC shows a mild leukocytosis of 13.5 no anemia thrombocytopenia EKG performed at 1951 shows a ventricular rate of 88 AK interval 196 QRS of 153 QTc of 458 shows a sinus rhythm occasional PAC nonspecific ST segment changes probable old SC went and route compared to an old EKG of 07/08/2024 there are no significant changes. CMP shows glucose of 531, all other electrolytes within acceptable limits. No. Troponin is 0.026 BNP of 915 Urine is negative for urinary tract infection. Coags within acceptable limits Interpretation Summary: Patient is COVID-positive from the prior visit there is no significant pneumonia. The patient although complaining of shortness of breath his speaking in full sentences has an oxygen saturation of 95% on room air. EKG is unremarkable troponin is negative. During the patient's conversation suspect the patient is looking to be able to stay here overnight. Medications Medications considered but not ordered:: None Medication administrations:: Medication Administration History Discontinued Medications Furosemide (Furosemide 40 Mg Tablet) 40 mg PO X1 ONE Stop: 07/11/24 21:24 Last Admin: 07/11/24 21:26 Dose: 40 mg Documented By: JADA Insulin Human Regular (Insulin Hum Regular 1 Unit/0.01 Ml (Per Unit)) 10 unit SC X1 ONE Stop: 07/11/24 21:18 Last Admin: 07/11/24 21:26 Dose: 10 unit Documented By: JADA Co-signed By: CVFoster Ondansetron HCl (Ondansetron Odt 4 Mg Tabrap) 4 mg PO X1 ONE; Protocol Stop: 07/11/24 23:07 Last Admin: 07/11/24 23:19 Dose: Not Given Documented By: JADA Non-Admin Reason: Duplicate Medication on eMAR Ondansetron HCl (Ondansetron Odt 4 Mg Tabrap) 4 mg PO X1 ONE; Protocol Stop: 07/11/24 23:07 Last Admin: 07/11/24 23:25 Dose: 4 mg Documented By: CB None Consultations Consultation(s) initiated? (list below): No Diagnosis Differential Diagnosis ED Complaint MDM: ACS SC pneumonia Most likely diagnosis given after review of the tests above:: Chest pain COVID Admission Indicated Admission indicated?: not indicated Explain why admission is indicated or not indicated:: Stable for outpatient follow-up Admission Request Was there a request for admission?: No Disposition Plan Disposition Plan: Discharge Discharge Attestation Discharge Attestation: The patient and all family members were given an opportunity to ask questions and understood the discharge instructions. Discharge instructions specifically effects, indications for sooner follow up or return to the emergency department, and the expected course of current diagnosis. Patient condition: Stable Medical Decision Making Differential Diagnosis Differential Diagnosis: ACS SC pneumonia Lab Data 07/11/24 20:00 07/11/24 20:00 Labs: Lab Results 07/11/24 07/11/24 07/11/24 Range/Units 19:55 20:00 22:40 WBC 13.5 H D (3.6-11.0) Thou/mm3 RBC 5.06 (4.00-5.20) Miln/mm3 Hgb 13.3 (12.0-16.0) g/dL Hct 41.0 (36.0-46.0) % MCV 81 (80-100) fL MCH 26.3 (25.0-35.0) pg MCHC 32.4 (31.0-37.0) g/dl RDW Std Deviation 40.5 (36.4-46.3) fL Plt Count 290 D (140-440) Thou/mm3 Neut % (Auto) 88 H (37-80) % Lymph % (Auto) 7 L (10-50) % [place] % (Auto) 4 (0-12) % Eos % (Auto) 0 (0-10) % Baso % (Auto) 0 (0-2.5) % Neut # (Auto) 11.9 H (1.8-7.7) Thou/mm3 Lymph # (Auto) 1.0 (1.0-4.8) Thou/mm3 [place] # (Auto) 0.6 (0.0-0.8) Thou/mm3 Eos # (Auto) 0.0 (0.0-0.5) Thou/mm3 Baso # (Auto) 0.0 (0.0-0.2) Thou/mm3 Immature Gran # (Auto) 0.06 H (0.00-0.00) Thou/mm3 Absolute Nucleated RBC 0.00 (0.00-0.00) Thou/mm3 Immature Gran % 0 (0-0) % Nucleated RBC % 0 (0) /100 WBC PT 10.2 (9.0-12.2) Seconds INR 0.9 (0.9-1.3) APTT 27.9 (22.0-36.0) Seconds Sodium 134 L (136-145) mMol/L Potassium 4.0 (3.4-5.1) mMol/L Chloride 102 (98-107) mMol/L Carbon Dioxide 25.3 (20.0-31.0) mMol/L Anion Gap 7 (7-16) BUN 17 (9-23) mg/dL Creatinine 1.1 (0.6-1.3) mg/dL Estim Creat Clear Calc 62.3 (>60) mL/min eGFR 55 L (60 - ) See Note BUN/Creatinine Ratio 15 (12-20) Ratio Glucose 531 H* (74-106) mg/dL Calculated Osmolality 293 (275-295) Calcium 9.6 (8.3-10.6) mg/dL Corrected Calcium 9.6 (8.5-10.1) mg/dL Magnesium 2.2 (1.6-2.6) mg/dL Total Bilirubin 0.3 (0.3-1.2) mg/dL AST 25 (0-34) U/L ALT 17 (10-49) U/L Alkaline Phosphatase 177 H (46-116) U/L Lactate Dehydrogenase 205 (120-246) U/L Troponin I 0.026 0.033 (0.0-0.045) ng/mL B-Natriuretic Peptide 915 H* (0-100) pg/mL Total Protein 7.6 (5.7-8.2) gm/dL Albumin 4.7 (3.4-4.8) gm/dL Globulin 2.9 (2.3-3.5) gm/dL Albumin/Globulin Ratio 1.6 (1.2-2.2) Ur Collection Type Clean Catch Urine Color Colorless A (Lt Yel-Yel) Urine Clarity Clear (Clear/Hazy) Urine pH 6.0 (5.0-7.0) Ur Specific [place] 1.033 (1.001-1.035) Urine Protein Negative (Neg - Trace) Urine Glucose (UA) 4+ A (Negative) Urine Ketones Negative (Negative) Urine Blood Negative (Negative) Urine Nitrite Negative (Negative) Urine Bilirubin Negative (Negative) Urine Urobilinogen (Auto) Negative (0.0-1.0) mg/dL Ur Leukocyte Esterase Negative (Negative) Urine RBC 3 (0-3) /hpf Urine WBC 2 (0-5) /hpf Ur Squamous Epith Cells < 1 (0-5) /hpf Urine Bacteria Rare (None) Ur Culture Indicated? Not Indicated Discharge Plan Plan Patient Disposition: HOME (Self Care) Patient condition on transfer: Stable Prescriptions/Referrals Prescriptions/Med Rec: No Action Brilinta 90 mg Tablet 60 mg PO BID insulin glargine [Lantus Solostar U-100 Insulin] 100 unit/mL (3 mL) Insulin Pen 30 unit SUBCUT BID pregabalin [Lyrica] 75 mg capsule 100 mg PO QDAY aspirin 81 mg Tablet,Delayed Release (Dr/Ec) 81 mg PO QDAY 30 Days Qty: 30 1RF atorvastatin 40 mg tablet 40 mg PO HS 30 Days Qty: 30 1RF tizanidine 4 mg tablet 4 mg PO Q8HR PRN (Reason: Muscle Spasm) Patient Comments: TAKE 1 TABLET BY MOUTH EVERY 8 HOURS NEEDED NOT TO EXCEED 3 DOSES IN 24 HOURS meloxicam 15 mg tablet 15 mg PO QDAY midodrine 10 mg tablet 10 mg PO TID PRN (Reason: blood pressure) Qty: 90 0RF Rx Instructions: do not give last dose of day after 6PM or within 4 hrs of bedtime clindamycin HCl 300 mg capsule 300 mg PO 3XD hydrocodone-acetaminophen 10-325 mg tablet 10 tab PO PRN PRN (Reason: Pain (Scale Score 7-10)) nitroglycerin 0.4 mg tablet, sublingual 0.4 mg BUCCAL 3XD montelukast 10 mg tablet 10 mg PO DAILY rosuvastatin 40 mg tablet 40 mg PO DAILY Entresto 24-26 mg tablet 26 tab PO BID Ozempic 2 mg/dose (8 mg/3 mL) pen injector 1 mg SUBCUT Q7D metformin 1,000 mg tablet 1,000 mg PO BID Jardiance 25 mg tablet 25 mg PO DAILY pantoprazole [Protonix] 40 mg tablet,delayed release (DR/EC) 40 mg PO QDAY Qty: 20 0RF acetaminophen 500 mg capsule 500 mg PO Q6H PRN (Reason: pain) Qty: 30 0RF omeprazole 40 mg capsule,delayed release(DR/EC) 40 mg PO QDAY metoclopramide HCl [Reglan] 10 mg tablet 10 mg PO .TID prn PRN (Reason: nausea and vomiting) Qty: 30 0RF midodrine 10 mg tablet 10 mg PO TID PRN (Reason: hypotension) Qty: 30 0RF Rx Instructions: do not give last dose of day after 6PM or within 4 hrs of bedtime Referrals: Killian Donovan MD [Primary Care Provider] - In 1 week Problem List Clinical Impression: Cough, COVID-19 virus infection, Chest pain, Shortness of breath Patient/Caregiver Discharge Instructions Other Activity Instructions:: Rest drink plenty of fluids follow-up with your primary care provider if there is worsening of symptoms return the emergency room for reevaluation. Education Materials: ED Chest Pain, Uncertain Cause Print Language: Burmese Stand Alone Forms: [employer] Award Info., Patient Portal Info Letter
[2024-07-11 21:26] VITALS: BP 165/98; PULSE 88
[2024-07-11] MEDS: INSULIN HUM REGULAR 1 UNIT/0.01 ML (PER UNIT) 10 UNIT SC (21:26)
[2024-07-11] MEDS: Furosemide 40 MG TABLET PO (21:26)
[2024-07-11 21:36] LABS: LDH (Lactate Dehydrogenase) 205 U/L (120-246)
[2024-07-11 23:23] LABS: Troponin I 0.033 ng/mL (0.0-0.045)
[2024-07-11] MEDS: ONDANSETRON ODT 4 MG TABRAP PO (23:25)
[2024-07-12 00:32] VITALS: BP 143/78; PULSE 78; RESP 18; TEMP 36.6; O2SAT 98
== END 2024-07-12 00:34 | disposition home or self-care (01) ==
PROVIDERS: Registered Nurse General Practice; Emergency Provider Emergency Medicine; PCP Family Medicine
DX: U07.1 COVID-19 (principal); I49.3 Ventricular premature depolarization; I45.89 Other specified conduction disorders; E78.00 Pure hypercholesterolemia, unspecified; I10 Essential (primary) hypertension; Z87.891 Personal history of nicotine dependence
CPT/HCPCS: 36415; 71046; 80053; 81001; 83615; 83735; 83880; 84484; 85025; 85610; 85730; 93005; 96372; 99283; J1815; Q0162; A9270

== ENCOUNTER 2024-08-28 13:41 | Emergency (ER) | payer OTHER, SELFPAY ==
--- NOTE | 2024-08-28 14:06 | XR_ITS ---
Examination: Duplex scan of the lower extremity, unilateral right Date and time of exam: August 28, 2024 1424 hours INDICATIONS: Right leg filling and pain beginning 2 days ago Technique: Duplex scan of the extremity veins using B-mode/grayscale imaging and Doppler spectral analysis and color flow Attention is directed to internal echogenicity, compression and augmentation involving these veins, color flow assessment, spectral analysis Findings: Major deep venous structures in the extremity demonstrate normal course and caliber. There is no evidence of deep vein thrombosis. Normal color flow and spectral analysis Impression: Negative for DVT..
[2024-08-28 14:07] VITALS: BP 129/80; PULSE 84; RESP 18; TEMP 36.6; O2SAT 96; BMI 43.6
--- NOTE | 2024-08-28 14:07 | PD.EDLOWEX ---
Lower Extremity Injury RME/HPI General Chief Complaint: Extremity Injury, Lower Stated Complaint: RIGHT LEG PAIN Time Seen by Provider: 08/28/24 14:07 Source: patient Arrival date/time: 08/28/24 13:41 69-year-old female with a history of hyperlipidemia, type 2 diabetes, hypertension, obesity presents to the emergency room with a chief complaint of right thigh pain and tenderness, swelling x 2 days.. Mode of arrival: ambulatory Limitations: no limitations Related Data Home Medications ?Medication ?Instructions ?Recorded ?Confirmed ticagrelor 90 mg tablet (Brilinta) 60 mg PO BID 05/08/21 10/14/23 insulin glargine 100 unit/mL (3 30 unit subcut BID 12/10/21 10/14/23 mL) subcutaneous pen (Lantus Solostar U-100 Insulin) omeprazole 40 mg capsule,delayed 40 mg PO QDAY 05/28/22 10/14/23 release pregabalin 75 mg capsule (Lyrica) 100 mg PO QDAY 09/17/22 10/14/23 meloxicam 15 mg tablet 15 mg PO QDAY 03/06/23 10/14/23 tizanidine 4 mg tablet 4 mg PO Q8HR PRN Muscle Spasm 03/06/23 10/14/23 clindamycin HCl 300 mg capsule 300 mg PO 3XD 10/14/23 10/14/23 empagliflozin 25 mg tablet 25 mg PO DAILY 10/14/23 10/14/23 (Jardiance) hydrocodone 10 mg-acetaminophen 10 tab PO PRN PRN Pain (Scale 10/14/23 10/14/23 325 mg tablet Score 7-10) metformin 1,000 mg tablet 1,000 mg PO BID 10/14/23 10/14/23 montelukast 10 mg tablet 10 mg PO DAILY 10/14/23 10/14/23 nitroglycerin 0.4 mg sublingual 0.4 mg buccal 3XD 10/14/23 10/14/23 tablet rosuvastatin 40 mg tablet 40 mg PO DAILY 10/14/23 10/14/23 sacubitril 24 mg-valsartan 26 mg 26 tab PO BID diabetes 10/14/23 10/14/23 tablet (Entresto) semaglutide 2 mg/dose (8 mg/3 mL) 1 mg subcut Q7D 10/14/23 10/14/23 subcutaneous pen injector (Ozempic) Previous Rx's ?Medication ?Instructions ?Recorded aspirin 81 mg tablet,delayed 81 mg PO QDAY 30 days #30 tabs 09/25/22 release atorvastatin 40 mg tablet 40 mg PO HS 30 days #30 tabs 09/25/22 midodrine 10 mg tablet 10 mg PO TID PRN blood pressure 08/29/23 #90 tabs pantoprazole 40 mg tablet,delayed 40 mg PO QDAY #20 tabs 10/28/23 release (Protonix) metoclopramide HCl 10 mg tablet 10 mg PO .TID prn PRN nausea and 11/10/23 (Reglan) vomiting #30 tabs midodrine 10 mg tablet 10 mg PO TID PRN hypotension #30 11/10/23 tabs acetaminophen 500 mg capsule 500 mg PO Q6H PRN pain #30 caps 06/11/24 Allergies Allergy/AdvReac Type Severity Reaction Status Date / Time adhesive Allergy Severe SKIN GETS Verified 07/11/24 18:23 RAW ketorolac AdvReac Severe SHARP Verified 07/11/24 18:23 PAINS THROUGHOUT ENTIRE BODY morphine AdvReac Severe CAUSES Verified 07/11/24 18:23 BEHAVIORAL PROBLEMS ED Exam General Limitations: Present no limitations Course Quality Measures none Orders Category Date Time Status US venous doppler LE RT Stat Exams 08/28/24 14:06 Completed CBC Stat Lab 08/28/24 15:01 Completed CMP [Comprehensive Metabolic Panel] Stat Lab 08/28/24 15:01 Completed D-Dimer Stat Lab 08/28/24 15:01 Completed PT [Prothrombin Time with INR] Stat Lab 08/28/24 15:01 Received PTT [Partial Thromboplastin Time] Stat Lab 08/28/24 15:01 Received Vital Signs Vital signs: Vital Signs Temperature 98 F 08/28/24 14:07 Pulse Rate 84 08/28/24 14:07 Respiratory Rate 18 08/28/24 14:07 Blood Pressure 129/80 08/28/24 14:07 Pulse Oximetry (%) 96 08/28/24 14:07 Oxygen Delivery Method Room Air 08/28/24 14:07 Extremity Injury, Lower MDM Narrative MDM Narrative:: 69-year-old female with a history of hyperlipidemia, type 2 diabetes, hypertension, obesity presents to the emergency room with a chief complaint of right thigh pain and tenderness, swelling x 2 days. Clinically the patient appears nontoxic and in no apparent distress. Physical examination shows tenderness to the right groin area. The Wells score was used and the patient scored a 1. The ultrasound Doppler was completed and shows no DVT. The patient does not have calf swelling or calf pain her right upper thigh area has pain with palpation. Patient denies any shortness of breath or respiratory distress. Patient was discharged and educated to follow-up with her primary care provider and return to the emergency room for any evidence of worsening signs or symptoms Patient data External records reviewed:: [facility] previous records Clinical information provided by:: patient Social determinants that could affect healthcare access:: none Patient has the following chronic illnesses:: Hyper lipidemia, type 2 diabetes, hypertension How is presenting disease/condition affected by chronic disease/condition?: caused by Evaluation data The following diagnostics were reviewed and interpreted by me:: lab results and radiology exam(s) Lab and/or radiology exams considered but not ordered:: Labs and radiology exams considered and ordered Interpretation Summary: Ultrasound Doppler-Findings: Major deep venous structures in the extremity demonstrate normal course and caliber. There is no evidence of deep vein thrombosis. Normal color flow and spectral analysis Impression: Negative for DVT.. Medications / Prescriptions Medications or Prescriptions considered but not ordered:: No medication given Medication administrations:: No medication given Consultations Consultation(s) initiated? (list below): No Diagnosis Extremity Injury, Lower Differential Diagnosis: other (DVT/right leg pain/cellulitis) Most likely diagnosis given after review of the tests above:: Right leg pain Admission Indicated Admission indicated?: not indicated Admission Request Was there a request for admission?: No Disposition Plan Disposition Plan: Discharge Discharge Attestation Discharge Attestation: The patient and all family members were given an opportunity to ask questions and understood the discharge instructions. Discharge instructions specifically effects, indications for sooner follow up or return to the emergency department, and the expected course of current diagnosis. Patient condition: Stable Discharge Plan Plan Patient Disposition: HOME (Self Care) Disposition Comment: Stable Prescriptions/Referrals Prescriptions/Med Rec: No Action Brilinta 90 mg Tablet 60 mg PO BID insulin glargine [Lantus Solostar U-100 Insulin] 100 unit/mL (3 mL) Insulin Pen 30 unit SUBCUT BID pregabalin [Lyrica] 75 mg capsule 100 mg PO QDAY aspirin 81 mg Tablet,Delayed Release (Dr/Ec) 81 mg PO QDAY 30 Days Qty: 30 1RF atorvastatin 40 mg tablet 40 mg PO HS 30 Days Qty: 30 1RF tizanidine 4 mg tablet 4 mg PO Q8HR PRN (Reason: Muscle Spasm) Patient Comments: TAKE 1 TABLET BY MOUTH EVERY 8 HOURS NEEDED NOT TO EXCEED 3 DOSES IN 24 HOURS meloxicam 15 mg tablet 15 mg PO QDAY midodrine 10 mg tablet 10 mg PO TID PRN (Reason: blood pressure) Qty: 90 0RF Rx Instructions: do not give last dose of day after 6PM or within 4 hrs of bedtime clindamycin HCl 300 mg capsule 300 mg PO 3XD hydrocodone-acetaminophen 10-325 mg tablet 10 tab PO PRN PRN (Reason: Pain (Scale Score 7-10)) nitroglycerin 0.4 mg tablet, sublingual 0.4 mg BUCCAL 3XD montelukast 10 mg tablet 10 mg PO DAILY rosuvastatin 40 mg tablet 40 mg PO DAILY Entresto 24-26 mg tablet 26 tab PO BID Ozempic 2 mg/dose (8 mg/3 mL) pen injector 1 mg SUBCUT Q7D metformin 1,000 mg tablet 1,000 mg PO BID Jardiance 25 mg tablet 25 mg PO DAILY pantoprazole [Protonix] 40 mg tablet,delayed release (DR/EC) 40 mg PO QDAY Qty: 20 0RF acetaminophen 500 mg capsule 500 mg PO Q6H PRN (Reason: pain) Qty: 30 0RF omeprazole 40 mg capsule,delayed release(DR/EC) 40 mg PO QDAY metoclopramide HCl [Reglan] 10 mg tablet 10 mg PO .TID prn PRN (Reason: nausea and vomiting) Qty: 30 0RF midodrine 10 mg tablet 10 mg PO TID PRN (Reason: hypotension) Qty: 30 0RF Rx Instructions: do not give last dose of day after 6PM or within 4 hrs of bedtime Referrals: Killian Donovan MD [Primary Care Provider] - In 1 week Problem List Clinical Impression: Acute pain of right lower extremity Patient/Caregiver Discharge Instructions Education Materials: ED Pain, Acute, Uncertain Cause Additional Instructions: Please follow-up with your primary care provider in the next 24 to 48 hours Ultrasound of your right thigh and leg was completed and was negative for any acute findings. For any evidence of worsening signs or symptoms please return to the emergency room immediately Print Language: Nepali Stand Alone Forms: Kaelyn Award Info., Patient Portal Info Letter PA/SURVEYING OR SPATIAL SCIENCE TECHNICIAN Supervising Physician PA/ELIZABET Supervising Physician: Dr Padilla
[2024-08-28 15:17] LABS: Basophils % (Auto) 1 % (0-2.5); Eosinophils # (Auto) 0.1 Thou/mm3 (0.0-0.5); Eosinophils % (Auto) 2 % (0-10); Hematocrit 39.8 % (36.0-46.0); Hemoglobin 13.2 g/dL (12.0-16.0); Immature Granulocytes % (Auto) 0 % (0-0); Immature Granulocytes Auto 0.02 Thou/mm3 (0.00-0.00); Lymphocytes # (Auto) 1.8 Thou/mm3 (1.0-4.8); Lymphocytes % (Auto) 34 % (10-50); Mean Corpuscular HGB Conc 33.2 g/dl (31.0-37.0); Mean Corpuscular Hemoglobin 26.5 pg (25.0-35.0); Mean Corpuscular Volume 80 fL (80-100); Monocytes # (Auto) 0.3 Thou/mm3 (0.0-0.8); Monocytes % (Auto) 6 % (0-12); Neutrophils % (Auto) 56 % (37-80); Nucleated Red Blood Cell % 0 /100 WBC (0); Platelet Count 112 Thou/mm3 (140-440); RDW Standard Deviation 40.1 fL (36.4-46.3); Red Blood Count 4.99 Miln/mm3 (4.00-5.20); White Blood Count 5.3 Thou/mm3 (3.6-11.0)
[2024-08-28 15:34] LABS: D-Dimer 729 ng/mL (<600)
[2024-08-28 15:42] LABS: Alanine Aminotransferase < 7 U/L (10-49); Albumin, Serum 4.6 gm/dL (3.4-4.8); Albumin/Globulin Ratio 1.8 (1.2-2.2); Alkaline Phosphatase 108 U/L (46-116); Anion Gap 8 (7-16); Aspartate Amino Transferase 12 U/L (0-34); BUN/Creatinine Ratio 19 Ratio (12-20); Bilirubin,Total 0.3 mg/dL (0.3-1.2); Blood Urea Nitrogen 19 mg/dL (9-23); Calcium 9.5 mg/dL (8.3-10.6); Calcium (Corrected) 9.5 mg/dL (8.5-10.1); Carbon Dioxide 26.5 mMol/L (20.0-31.0); Chloride 103 mMol/L (98-107); Estimated Creatinine Clearance 70.4 mL/min (>60); Globulin 2.5 gm/dL (2.3-3.5); Glucose 288 mg/dL (74-106); Osmolality,Calculated 287 (275-295); Potassium 4.4 mMol/L (3.4-5.1); Sodium 137 mMol/L (136-145); Total Protein 7.1 gm/dL (5.7-8.2); eGFR > 60 See Note
== END 2024-08-28 16:38 | disposition home or self-care (01) ==
PROVIDERS: Nurse Practitioner Family; Emergency Provider Emergency Medicine; PCP Family Medicine
DX: M79.651 Pain in right thigh (principal)
CPT/HCPCS: 36415; 80053; 85025; 85379; 85610; 85730; 93971; 99284

== ENCOUNTER → 2024-10-06 | Outpatient (CLI) | payer OTHER, SELFPAY ==
[2024-10-06 15:49] LABS: Collection Type, Urine Clean Catch
[2024-10-06 17:06] LABS: Basophils % (Auto) 0 % (0-2.5); Eosinophils # (Auto) 0.2 Thou/mm3 (0.0-0.5); Eosinophils % (Auto) 3 % (0-10); Hematocrit 41.5 % (36.0-46.0); Hemoglobin 13.7 g/dL (12.0-16.0); Immature Granulocytes % (Auto) 0 % (0-0); Immature Granulocytes Auto 0.03 Thou/mm3 (0.00-0.00); Lymphocytes # (Auto) 2.4 Thou/mm3 (1.0-4.8); Lymphocytes % (Auto) 31 % (10-50); Mean Corpuscular Hemoglobin 26.8 pg (25.0-35.0); Mean Corpuscular Volume 81 fL (80-100); Monocytes # (Auto) 0.6 Thou/mm3 (0.0-0.8); Monocytes % (Auto) 7 % (0-12); Neutrophils # (Auto) 4.4 Thou/mm3 (1.8-7.7); Neutrophils % (Auto) 58 % (37-80); Nucleated Red Blood Cell % 0 /100 WBC (0); Platelet Count 239 Thou/mm3 (140-440); RDW Standard Deviation 40.6 fL (36.4-46.3); Red Blood Count 5.11 Miln/mm3 (4.00-5.20); White Blood Count 7.7 Thou/mm3 (3.6-11.0)
[2024-10-06 17:24] LABS: Bilirubin,Urine Negative (Negative); Blood,Urine Negative (Negative); Clarity,Urine Clear (Clear/Hazy); Color,Urine Lt-Yellow (Lt Yel-Yel); Glucose, Urine 4+ (Negative); Ketones,Urine Negative (Negative); Leukocyte Esterase,Urine Negative (Negative); Nitrite,Urine Negative (Negative); PH,Urine 5.5 (5.0-7.0); Protein,Urine Negative (Neg - Trace); RBC,Urine 5 /hpf (0-3); Specific Gravity,Urine 1.032 (1.001-1.035); Squamous Epithelial Cell,Urine 4 /hpf (0-5); Urobilinogen,Urine Negative mg/dL (0.0-1.0); WBC,Urine 1 /hpf (0-5)
[2024-10-06 17:34] LABS: Creatinine MALB Rnd Ur 53 mg/dL (30-125); Microalbumin, Random Urine < 3 mg/L (0-300)
[2024-10-06 17:41] LABS: Glucose Estimated Average 226 mg/dL (80-131); Hemoglobin A1C 9.5 % Hgb (4.8-6.0)
[2024-10-06 17:55] LABS: Alanine Aminotransferase 12 U/L (10-49); Albumin, Serum 4.3 gm/dL (3.4-4.8); Albumin/Globulin Ratio 1.9 (1.2-2.2); Alkaline Phosphatase 84 U/L (46-116); Anion Gap 9 (7-16); Aspartate Amino Transferase 24 U/L (0-34); BUN/Creatinine Ratio 14 Ratio (12-20); Bilirubin,Total 0.4 mg/dL (0.3-1.2); Blood Urea Nitrogen 13 mg/dL (9-23); Carbon Dioxide 25.7 mMol/L (20.0-31.0); Cardiac Risk Estimate 2.6 RATIO (3.7-5.6); Chloride 107 mMol/L (98-107); Cholesterol 111 mg/dL (132-200); Creatinine (Component) 0.9 mg/dL (0.6-1.3); Globulin 2.3 gm/dL (2.3-3.5); Glucose 174 mg/dL (74-106); HDL Cholesterol 42 mg/dL (40-60); LDL Cholesterol,Calculated 25 mg/dL (0-130); Osmolality,Calculated 287 (275-295); Potassium 4.6 mMol/L (3.4-5.1); Sodium 142 mMol/L (136-145); Thyroid Stimulating Hormone 1.34 uIU/mL (0.55-4.78); Total Protein 6.6 gm/dL (5.7-8.2); Triglycerides 222 mg/dL (30-150); Uric Acid 4.4 mg/dL (3.1-7.8); eGFR > 60 See Note
== END | disposition home or self-care (01) ==
LOC: COPL 14:56
PROVIDERS: PCP Family Medicine; Referring Provider Family Medicine; Visit Provider Family Medicine
DX: Z00.00 Encounter for general adult medical examination without abnormal findings (principal); E11.40 Type 2 diabetes mellitus with diabetic neuropathy, unspecified; I25.119 Atherosclerotic heart disease of native coronary artery with unspecified angina pectoris; E78.2 Mixed hyperlipidemia; E79.0 Hyperuricemia without signs of inflammatory arthritis and tophaceous disease
CPT/HCPCS: 36415; 80053; 80061; 81001; 82043; 82570; 83036; 84443; 84550; 85025

== ENCOUNTER → 2024-10-10 | Outpatient (CLI) | payer OTHER, SELFPAY ==
--- NOTE | 2024-10-10 09:00 | XR_ITS ---
Examination: CTA abdominal aorta iliofemoral runoff. 2-D sagittal coronal reconstructions. 3-D reconstructions, vascular October 10, 2024 0936 hours INDICATIONS: Left leg and knee pain 2 years Technique: Multiple CTA images of the abdominal aorta iliofemoral runoff arterial vessels, 2.0 mm slice thickness, post intravenous administration 130 cc [id number] 2-D sagittal coronal reconstructions. 3-D reconstructions, vascular 3-D postprocessing, including vascular maximum intensity projection images, 3-D volume rendering Low dose protocols were performed. One or more of the following dose reduction techniques were used; automated exposure control, adjustment of the mA and/or KV according to patient size, use of iterative reconstruction technique. Findings: Mild to moderate enlargement cardiac contour No focal liver or splenic lesions Absent gallbladder No pancreatic or adrenal mass Moderate bilateral renal parenchymal scar formation, no hydronephrosis renal or ureteral calculi Normal appendix Small anterior abdominal wall hernia defect, axial image 176, 26 mm containing small bowel but no incarcerated bowel Colonic diverticulosis Bladder intact Heavy abdominal aortic calcification 50% stenosis proximal celiac axis No critical stenoses common iliac and external iliac arteries. Occlusion right superficial femoral artery with reconstitution in its mid to distal portion Popliteal artery intact Multiple occlusions proximal right anterior tibial artery and proximal right posterior tibial artery, main continuation trunk is attenuated but fills to the ankle Heavy calcification left superficial femoral artery no critical stenoses Popliteal artery does fill although there is 90% stenosis distal left popliteal artery image 418 Multiple occlusions throughout the entire left anterior tibial artery Left posterior tibial artery is attenuated but fills to the ankle IMPRESSION: Occlusion right superficial femoral artery with reconstitution in its mid to distal portion Multiple occlusions beginning proximal right anterior tibial artery and proximal right posterior tibial artery 90% stenosis distal left popliteal artery Multiple occlusions entire left anterior tibial artery
== END | disposition home or self-care (01) ==
LOC: CCTX 09:18
PROVIDERS: Referring Provider Internal Medicine; Visit Provider Internal Medicine
DX: I70.202 Unspecified atherosclerosis of native arteries of extremities, left leg (principal)
CPT/HCPCS: 75635; A4649; Q9967

== ENCOUNTER 2024-12-04 19:59 | Emergency (ER) | payer OTHER, SELFPAY ==
[2024-12-04 19:59] VITALS: BMI 41.5
[2024-12-04 20:11] VITALS: BP 124/82; PULSE 106; RESP 20; TEMP 37.2; O2SAT 95
--- NOTE | 2024-12-04 20:25 | XR_ITS ---
Examination: PA lateral chest 2 views Technique: Upright PA lateral chest 2 views Exam date and time: December 04, 20242053 hrs. Indications: Generalized weakness today Findings: Moderate enlargement left ventricle Moderate vascular congestion No abdias pulmonary edema No lobar pneumonia Transvenous dual-chamber bipolar cardiac leads satisfactory Impression: Moderate vascular congestion
--- NOTE | 2024-12-04 20:26 | PD.EDRME ---
Rapid Medical Screening Exam RME Arrival date/time: 12/04/24 19:59 69 yo f present to ED for c/o of elevated blood glucose I have greeted and performed a focused initial assessment of this patient. A comprehensive ED assessment and evaluation of the patient, analysis of all test results, and completion of the medical decision making process will be conducted by additional ED providers. Chief Complaint: General Adult/Misc Complain Time Seen by Provider: 12/04/24 20:21 Vital signs: Vital Signs Temperature 99.0 F 12/04/24 20:11 Pulse Rate 106 H 12/04/24 20:11 Respiratory Rate 20 12/04/24 20:11 Blood Pressure 124/82 12/04/24 20:11 Pulse Oximetry (%) 95 12/04/24 20:11 Oxygen Delivery Method Room Air 12/04/24 20:11
--- NOTE | 2024-12-04 21:00 | PC.NURSE ---
PT ALERT AND IN NO ACUTE DISTRESS, COMING IN TODAY C/O HIGH BLOOD SUGAR AND GENERAL WEAKNESS. PT STATES HER BLOOD SUGAR AT HOME WAS GREATER THAT 500. PT STATES THAT SHE HAS ONLY BEEN TAKING HER LANTUS WHICH HASN'T BEEN HELPING. PT STANDBY ASSIST TO BEDSIDE COMMODE, PT WILL GET WORK UP AND THEN RE-EVALUATION BY ER MD, WILL CONTINUE TO MONITOR
--- NOTE | 2024-12-04 21:18 | PD.EDADULT ---
ED General RME/HPI General Chief complaint: General Adult/Misc Complain Stated complaint: HIGH FS 600, GENERAL WEAKNESS Time Seen by Provider: 12/04/24 20:21 Arrival date/time: 12/04/24 19:59 Limitations: no limitations RME / HPI RME / HPI narrative: 12/04/24 19:59 69 yo f present to ED for c/o of elevated blood glucose I have greeted and performed a focused initial assessment of this patient. A comprehensive ED assessment and evaluation of the patient, analysis of all test results, and completion of the medical decision making process will be conducted by additional ED providers. Dr. Cabezas's Main ED Evaluation: 69yo female with a history of DM, HTN, HLD, CAD with pacemaker on Brillinta presents to the ED for a chief complaint of elevated blood sugar. Patient states her blood sugar has been over 500 for the last 4 days, which is unusual for her. She states her high blood sugar is usually around 200. Patient endorses having BLE swelling. She denies any chest pain, shortness of breath, abdominal pain, dysuria or any other associated symptoms. Related Data Home Medications ?Medication ?Instructions ?Recorded ?Confirmed ticagrelor 90 mg tablet (Brilinta) 60 mg PO BID 05/08/21 10/14/23 insulin glargine 100 unit/mL (3 30 unit subcut BID 12/10/21 10/14/23 mL) subcutaneous pen (Lantus Solostar U-100 Insulin) omeprazole 40 mg capsule,delayed 40 mg PO QDAY 05/28/22 10/14/23 release pregabalin 75 mg capsule (Lyrica) 100 mg PO QDAY 09/17/22 10/14/23 meloxicam 15 mg tablet 15 mg PO QDAY 03/06/23 10/14/23 tizanidine 4 mg tablet 4 mg PO Q8HR PRN Muscle Spasm 03/06/23 10/14/23 clindamycin HCl 300 mg capsule 300 mg PO 3XD 10/14/23 10/14/23 empagliflozin 25 mg tablet 25 mg PO DAILY 10/14/23 10/14/23 (Jardiance) hydrocodone 10 mg-acetaminophen 10 tab PO PRN PRN Pain (Scale 10/14/23 10/14/23 325 mg tablet Score 7-10) metformin 1,000 mg tablet 1,000 mg PO BID 10/14/23 10/14/23 montelukast 10 mg tablet 10 mg PO DAILY 10/14/23 10/14/23 nitroglycerin 0.4 mg sublingual 0.4 mg buccal 3XD 10/14/23 10/14/23 tablet rosuvastatin 40 mg tablet 40 mg PO DAILY 10/14/23 10/14/23 sacubitril 24 mg-valsartan 26 mg 26 tab PO BID diabetes 10/14/23 10/14/23 tablet (Entresto) semaglutide 2 mg/dose (8 mg/3 mL) 1 mg subcut Q7D 10/14/23 10/14/23 subcutaneous pen injector (Ozempic) Previous Rx's ?Medication ?Instructions ?Recorded aspirin 81 mg tablet,delayed 81 mg PO QDAY 30 days #30 tabs 09/25/22 release atorvastatin 40 mg tablet 40 mg PO HS 30 days #30 tabs 09/25/22 midodrine 10 mg tablet 10 mg PO TID PRN blood pressure 08/29/23 #90 tabs pantoprazole 40 mg tablet,delayed 40 mg PO QDAY #20 tabs 10/28/23 release (Protonix) metoclopramide HCl 10 mg tablet 10 mg PO .TID prn PRN nausea and 11/10/23 (Reglan) vomiting #30 tabs midodrine 10 mg tablet 10 mg PO TID PRN hypotension #30 11/10/23 tabs acetaminophen 500 mg capsule 500 mg PO Q6H PRN pain #30 caps 06/11/24 Allergies Allergy/AdvReac Type Severity Reaction Status Date / Time adhesive Allergy Severe SKIN GETS Verified 07/11/24 18:23 RAW ketorolac AdvReac Severe SHARP Verified 07/11/24 18:23 PAINS THROUGHOUT ENTIRE BODY morphine AdvReac Severe CAUSES Verified 07/11/24 18:23 BEHAVIORAL PROBLEMS Review of Systems Review of Systems Systems Reviewed: All systems reviewed, normal except as documented Past Medical History Past Medical History NEUROLOGIC: Positive Neurological Disorders and Peripheral Neuropathy; Negative Cerebrovascular Accident, Transient Ischemic Attacks (TIA), Dementia, Alzheimer's Disease, Parkinson's Disease, Brain Tumor, Meningitis, Seizures, Epilepsy, Multiple Sclerosis, Cerebral Palsy, Amyotrophic Lateral Sclerosis (ALS/Genoveva Gehrig's), Guillain-Union Syndrome, Spina Bifida, Paralysis, Gaitan's Palsy, Subdural Hematoma, Migraine, Head Trauma, Spinal Cord Injury or Traumatic Brain Injury CARDIAC: Positive Cardiac Disorders, Myocardial Infarction, Cardiac Arrhythmia, Angina, Coronary Artery Disease, Atherosclerotic Heart Disease, Peripheral Vascular Disease, Hypercholesterolemia, Aneurysm, Edema, Cellulitis, Hypertension and Hypotension; Negative Atrial Fibrillation, Heart Murmur, Congestive Heart Failure, Congenital Heart Disease, Valvular Heart Disease, Rheumatic Fever, Cardiomyopathy, Pericarditis, Deep Vein Thrombosis or Varicose Veins RESPIRATORY: Positive Bronchitis and Pneumonia; Negative Chronic Obstructive Pulmonary Disease (COPD), Asthma, Emphysema, Pulmonary Fibrosis, Cystic Fibrosis, Tuberculosis, Pulmonary Embolism, Pulmonary Edema or Sleep Apnea GASTROINTESTINAL: Positive Gastrointestinal Disorders, Gall Bladder Disease, Hiatal Hernia, Gastroesophageal Reflux Disease and Obesity; Negative Hepatitis, Cirrhosis, Pancreatitis, Celiac Disease, Gastrointestinal Bleed, Esophageal Varices, Coleman's Esophagus, Colitis, Ulcerative Colitis, Diverticulitis, Diverticulosis, Ulcer, Colorectal Cancer, Irritable Bowel, Crohn's Disease, Obstructive Bowel or Hemorrhoids GENITOURINARY: Positive Genitourinary Disorders; Negative Renal Disease, Kidney Stones, Polycystic Kidney Disease, Neurogenic Bladder, Inguinal Hernia, Dialysis, Prostate Cancer or Benign Prostatic Hyperplasia REPRODUCTIVE: Negative Breast Cancer, Endometriosis, Genital Herpes, Gonorrhea, Pelvic Inflammatory Disease, Previous Pregnancies, Syphilis, Testicular Cancer or Uterine Prolapse MUSCULOSKELETAL: Positive Musculoskeletal Disorders and Fractures; Negative Muscular Dystrophy, Myasthenia Gravis, Marfan's Syndrome, Bone Cancer, Arthritis, Rheumatoid Arthritis, Osteoporosis, Degenerative Disk Disease, Gout, Scoliosis, Carpal Tunnel Syndrome, Fibromyalgia, Degenerative Joint Disease, Osteomyelitis or Poliovirus ENT: Negative Cataracts, Glaucoma, Blind, Retinal Detachment, Macular Degeneration, Ear Infection, Deafness, Head Trauma or Eye Prosthesis ENDOCRINE: Positive Endocrine Disorders and Diabetes Mellitus Type 2; Negative Diabetes Mellitus Type 1, Hypoglycemia, Scobey's Syndrome, Delphos's Disease, Hyperthyroidism, Hypothyroidism, Parathyroid Disease, Pituitary Disease, Systemic Lupus Erythematosus, Syndrome of Inappropriate Antidiuretic Hormone (SIADH), Adrenal Disease or Graves' Disease HEMATOLOGIC: Negative Blood Disorders, Anemia, Leukemia, Hemophilia, Thalassemia, Sickle Cell Disease or Clotting Problems PSYCHO/SOCIAL: Positive Depression and Anxiety; Negative Psychiatric Problems, Schizophrenia, Recreational Drug Use, Bipolar Disorder, Behavior Problems, Self-Mutilation, Attention Deficit Disorder, Attention Deficit Hyperactivity Disorder, Depression, Post Traumatic Stress Disorder or Eating Disorder OTHER HISTORY: Positive Hospitalization, Falls and MRSA; Negative Autoimmune Disease, Down Syndrome, Autism, Developmental Delay, Shingles, Blood Transfusions, Blood Transfusion Reaction, Anesthesia Reactions, Organ Transplant, Chemotherapy, Radiation Therapy, Hyperbaric Therapy, VRSA, Vancomycin-Resistant Enterococci, Human Immunodeficiency Virus (HIV), Chicken Pox, Measles, Mumps, Rubella ([place] Measles), Pertussis, Clostridium Difficile, Cancer, Breast Cancer, Cervical Cancer, Colorectal Cancer, Lung Cancer, Ovarian Cancer, Prostate Cancer or Testicular Cancer Family History FAMILY HISTORY: Positive Family Neurologic Problems (Mother had dementia.), Family Cardiac Disorders and Family Cancer; Negative Family Psychiatric Problems, Family Respiratory Disorders, Family Gastrointestinal Problems, Family Surgery or Family Anesthesia Reaction Surgical History SURGICAL: Positive Cardiac Surgery, Coronary Stent, Cardiac Catheterization, Pacemaker, Angiogram, Tonsillectomy and Abdominal Surgery; Negative Open Heart Surgery, Coronary Artery Bypass Graft, Valve Replacement, Vascular Surgery, Auto Implanted Cardiovert Defib, Carotid Endarterectomy, Endocrine Surgery, Thyroidectomy, Ear Surgery, Tympanostomy Tube, Eye Surgery, Nose Surgery, Oral Surgery, Adenoidectomy, Cochlear Implant, Corneal Transplant, Throat Surgery, Tracheostomy, Gastric Bypass Surgery, Gastrostomy, Bowel Surgery, Nephrectomy, Transurethral Resection, Joint Replacement, Amputation, Open Reduction Internal Fixation, Arthroscopy, Neurologic Surgery, Brain Shunt, Mastectomy, Lumpectomy, Hysterectomy, Tubal Ligation, Section, Vasectomy or Organ Transplant Social History SMOKING STATUS: Never smoker SECOND HAND EXPOSURE: No SUBSTANCE USE: does not use ED Exam General Limitations: Present no limitations General appearance: Present alert, in no apparent distress and other (laying in the bed) Head Head exam: Present atraumatic Eye Eye exam: Present normal appearance, PERRL and EOMI ENT ENT exam: Present normal exam, normal oropharynx and mucous membranes moist Neck Neck exam: Present normal inspection, full ROM and trachea midline Chest Chest inspection: Present normal inspection and symmetric chest wall rise Respiratory Respiratory exam: Present normal lung sounds bilaterally Cardiovascular Cardiovascular exam: Present regular rate, normal rhythm and normal heart sounds Abdominal Exam Abdominal exam: Present soft and normal bowel sounds Extremities Exam Extremities exam: Present full ROM and other (mild BLE swelling, no pitting edema; minimal erythema to the anterior cleary without any warmth or tenderness) Back Exam Back exam: Present normal inspection and full ROM Neurological Exam Neurological exam: Present alert, oriented X3 and CN II-XII intact Psychiatric Psychiatric exam: Present normal affect and normal mood Skin Skin exam: Present warm, dry, intact and normal color Course Course Course Narrative: CXR is ordered for determining the etiology of weakness per MAE Padilla. Quality Measures none Orders Category Date Time Status Bedside Influenza A&B Antigen Test NOW Care 12/04/24 20:24 Completed Blood glucose [Bedside Blood Glucose] NOW Care 12/04/24 20:23 Completed IV [Insert IV] STAT Care 12/04/24 20:23 Completed IV [Insert IV] STAT Care 12/04/24 20:29 Completed XR chest 2V Stat Exams 12/04/24 20:25 Completed CBC Stat Lab 12/04/24 21:24 Completed CMP [Comprehensive Metabolic Panel] Stat Lab 12/04/24 21:24 Completed Lactic Acid [Lactate (Lactic Acid)] Stat Lab 12/04/24 21:24 Completed Lipase Stat Lab 12/04/24 21:24 Completed Mag [Magnesium] Stat Lab 12/04/24 21:24 Completed Troponin I Stat Lab 12/04/24 21:24 Completed UA [Urinalysis] Stat Lab 12/04/24 21:09 Completed Acetaminophen Tab [Tylenol ES Tab] Med 12/04/24 21:45 Discontinued 1,000 mg PO X1 ONE Insulin Regular Med 12/04/24 23:29 Discontinued 10 unit IV X1 ONE Sodium Chloride 0.9% 1000 ml [Ns] 1,000 ml Med 12/04/24 20:24 Discontinued IV 999 mls/hr Vital Signs Vital signs: Vital Signs Temperature 99.0 F 12/04/24 20:11 Pulse Rate 106 H 12/04/24 20:11 Respiratory Rate 20 12/04/24 20:11 Blood Pressure 124/82 12/04/24 20:11 Pulse Oximetry (%) 95 12/04/24 20:11 Oxygen Delivery Method Room Air 12/04/24 20:11 [facility] Patient data External records reviewed:: [facility] previous records (Per chart review, patient was seen here on 08/28/24 for RLE pain.) Clinical information provided by:: patient Social determinants that could affect healthcare access:: none Patient has the following chronic illnesses:: DM, HTN, HLD, CAD with pacemaker on Brillinta How is presenting disease/condition affected by chronic disease/condition?: caused by Evaluation data The following diagnostics were reviewed and interpreted by me:: lab results and radiology exam(s) Lab and/or radiology exams considered but not ordered:: none Interpretation Summary: Bedside Influenza is negative, CBC is normal, Glucose is 459, Lactic Acid is normal, Troponin is normal, UA is positive for 4+ glucose, according to my interpretation. -------- [facility] Report Signed Patient: JAMIL COOK Record#: [id number] Birthdate: 1955 Age/Sex: 69 / F Location: [facility] Attending Dr: Ordering Physician: Isaac Padilla PA-C Date of Service: 12/04/24 Procedure(s): XR chest 2V Accession Number(s): [id number] cc: Roney Almanzar MD; Isaac Padilla PA-C; Temporary Provider,ED ~ Examination: PA lateral chest 2 views Technique: Upright PA lateral chest 2 views Exam date and time: December 04, 20242053 hrs. Indications: Generalized weakness today Findings: Moderate enlargement left ventricle Moderate vascular congestion No abdias pulmonary edema No lobar pneumonia Transvenous dual-chamber bipolar cardiac leads satisfactory Impression: Moderate vascular congestion Dictated By: Roney Almanzar MD Signed By: <Electronically signed by Roney Almanzar MD in OV> 12/04/242102 Medications Medications considered but not ordered:: none Medication administrations:: Medication Administration History Discontinued Medications Acetaminophen (Acetaminophen 500 Mg Tablet) 1,000 mg PO X1 ONE Stop: 12/04/24 21:46 Last Admin: 12/04/24 22:08 Dose: 1,000 mg Documented By: MARY Sodium Chloride (Ns) 1,000 mls @ 999 mls/hr IV .Q1H1M ONE Stop: 12/04/24 21:24 Last Infusion: 12/04/24 22:48 Dose: Infused Documented By: Admin: 12/04/24 21:34 Dose: 999 mls/hr Documented By: MARY Insulin Human Regular (Insulin Hum Regular 1 Unit/0.01 Ml (Per Unit)) 10 unit IV X1 ONE Stop: 12/04/24 23:30 Last Admin: 12/04/24 23:39 Dose: 10 unit Documented By: MARY Co-signed By: BRIDGET see above Consultations Consultation(s) initiated? (list below): No Diagnosis Differential Diagnosis ED Complaint MDM: electrolyte abnormality, dehydration, UTI, DKA, hyperglycemia Most likely diagnosis given after review of the tests above:: see clinical impression below Admission Indicated Admission indicated?: not indicated Explain why admission is indicated or not indicated:: Admission criteria not met. Admission Request Was there a request for admission?: No Disposition Plan Disposition Plan: Discharge Discharge Attestation Discharge Attestation: The patient and all family members were given an opportunity to ask questions and understood the discharge instructions. Discharge instructions specifically effects, indications for sooner follow up or return to the emergency department, and the expected course of current diagnosis. Patient condition: Stable Medical Decision Making MDM Narrative MDM Narrative: Scribe Attestation: 12/04/24 Janice Gonzalez am scribing for and in the presence of Dr. Cabezas. 0209: Repeat blood sugar is 147 after receiving 1L NS IVF and 10 units. Patient is stable to be discharged home. Differential Diagnosis Differential Diagnosis: electrolyte abnormality, dehydration, UTI, DKA, hyperglycemia Lab Data 12/04/24 21:24 12/04/24 21:24 Labs: Lab Results 12/04/24 12/04/24 Range/Units 21:09 21:24 WBC 8.1 (3.6-11.0) Thou/mm3 RBC 5.41 H (4.00-5.20) Miln/mm3 Hgb 14.4 (12.0-16.0) g/dL Hct 43.6 (36.0-46.0) % MCV 81 (80-100) fL MCH 26.6 (25.0-35.0) pg MCHC 33.0 (31.0-37.0) g/dl RDW Std Deviation 39.1 (36.4-46.3) fL Plt Count 271 (140-440) Thou/mm3 Neut % (Auto) 59 (37-80) % Lymph % (Auto) 31 (10-50) % [place] % (Auto) 7 (0-12) % Eos % (Auto) 2 (0-10) % Baso % (Auto) 1 (0-2.5) % Neut # (Auto) 4.7 (1.8-7.7) Thou/mm3 Lymph # (Auto) 2.5 (1.0-4.8) Thou/mm3 [place] # (Auto) 0.6 (0.0-0.8) Thou/mm3 Eos # (Auto) 0.2 (0.0-0.5) Thou/mm3 Baso # (Auto) 0.1 (0.0-0.2) Thou/mm3 Immature Gran # (Auto) 0.03 H (0.00-0.00) Thou/mm3 Absolute Nucleated RBC 0.00 (0.00-0.00) Thou/mm3 Immature Gran % 0 (0-0) % Nucleated RBC % 0 (0) /100 WBC Sodium 135 L (136-145) mMol/L Potassium 4.4 (3.4-5.1) mMol/L Chloride 105 (98-107) mMol/L Carbon Dioxide 20.3 (20.0-31.0) mMol/L Anion Gap 10 (7-16) BUN 17 (9-23) mg/dL Creatinine 1.3 (0.6-1.3) mg/dL Estim Creat Clear Calc 52.7 L (>60) mL/min eGFR 45 L (60 - ) See Note BUN/Creatinine Ratio 13 (12-20) Ratio Glucose 459 H* (74-106) mg/dL Calculated Osmolality 291 (275-295) Lactic Acid 1.7 (0.4-2.0) mMol/L Calcium 9.4 (8.3-10.6) mg/dL Corrected Calcium 9.4 (8.5-10.1) mg/dL Magnesium 2.0 (1.6-2.6) mg/dL Total Bilirubin 0.2 L (0.3-1.2) mg/dL AST 15 (0-34) U/L ALT < 7 L (10-49) U/L Alkaline Phosphatase 144 H (46-116) U/L Troponin I 0.026 (0.0-0.045) ng/mL Total Protein 7.0 (5.7-8.2) gm/dL Albumin 4.3 (3.4-4.8) gm/dL Globulin 2.7 (2.3-3.5) gm/dL Albumin/Globulin Ratio 1.6 (1.2-2.2) Lipase 35 (12-53) U/L Ur Collection Type Voided Urine Color Colorless A (Lt Yel-Yel) Urine Clarity Clear (Clear/Hazy) Urine pH 6.0 (5.0-7.0) Ur Specific [place] 1.038 H (1.001-1.035) Urine Protein Negative (Neg - Trace) Urine Glucose (UA) 4+ A (Negative) Urine Ketones Negative (Negative) Urine Blood Negative (Negative) Urine Nitrite Negative (Negative) Urine Bilirubin Negative (Negative) Urine Urobilinogen (Auto) Negative (0.0-1.0) mg/dL Ur Leukocyte Esterase Negative (Negative) Urine RBC 4 H (0-3) /hpf Urine WBC 1 (0-5) /hpf Ur Squamous Epith Cells 2 (0-5) /hpf Urine Bacteria None (None) Discharge Plan Plan Patient Disposition: HOME (Self Care) Patient condition on transfer: Stable Prescriptions/Referrals Prescriptions/Med Rec: No Action Brilinta 90 mg Tablet 60 mg PO BID insulin glargine [Lantus Solostar U-100 Insulin] 100 unit/mL (3 mL) Insulin Pen 30 unit SUBCUT BID pregabalin [Lyrica] 75 mg capsule 100 mg PO QDAY aspirin 81 mg Tablet,Delayed Release (Dr/Ec) 81 mg PO QDAY 30 Days Qty: 30 1RF atorvastatin 40 mg tablet 40 mg PO HS 30 Days Qty: 30 1RF tizanidine 4 mg tablet 4 mg PO Q8HR PRN (Reason: Muscle Spasm) Patient Comments: TAKE 1 TABLET BY MOUTH EVERY 8 HOURS NEEDED NOT TO EXCEED 3 DOSES IN 24 HOURS meloxicam 15 mg tablet 15 mg PO QDAY midodrine 10 mg tablet 10 mg PO TID PRN (Reason: blood pressure) Qty: 90 0RF Rx Instructions: do not give last dose of day after 6PM or within 4 hrs of bedtime clindamycin HCl 300 mg capsule 300 mg PO 3XD hydrocodone-acetaminophen 10-325 mg tablet 10 tab PO PRN PRN (Reason: Pain (Scale Score 7-10)) nitroglycerin 0.4 mg tablet, sublingual 0.4 mg BUCCAL 3XD montelukast 10 mg tablet 10 mg PO DAILY rosuvastatin 40 mg tablet 40 mg PO DAILY Entresto 24-26 mg tablet 26 tab PO BID Ozempic 2 mg/dose (8 mg/3 mL) pen injector 1 mg SUBCUT Q7D metformin 1,000 mg tablet 1,000 mg PO BID Jardiance 25 mg tablet 25 mg PO DAILY pantoprazole [Protonix] 40 mg tablet,delayed release (DR/EC) 40 mg PO QDAY Qty: 20 0RF acetaminophen 500 mg capsule 500 mg PO Q6H PRN (Reason: pain) Qty: 30 0RF omeprazole 40 mg capsule,delayed release(DR/EC) 40 mg PO QDAY metoclopramide HCl [Reglan] 10 mg tablet 10 mg PO .TID prn PRN (Reason: nausea and vomiting) Qty: 30 0RF midodrine 10 mg tablet 10 mg PO TID PRN (Reason: hypotension) Qty: 30 0RF Rx Instructions: do not give last dose of day after 6PM or within 4 hrs of bedtime Referrals: Temporary Provider,ED [Physician] - In 1 week Problem List Clinical Impression: Acute hyperglycemia Patient/Caregiver Discharge Instructions Education Materials: High Blood Sugar (Hyperglycemia) Additional Instructions: Return to emerged part for worsening symptoms or other concerns. Please follow-up with your primary care physician in the next 48 to 72 hours. Print Language: German Stand Alone Forms: Ka[facility] Award Info., Patient Portal Info Letter
[2024-12-04 21:33] LABS: Collection Type, Urine Voided
[2024-12-04] MEDS: SODIUM CHLORIDE 0.9% 1000 ML 1,000 ML 999 ML IV (21:34)
[2024-12-04 21:38] LABS: Bilirubin,Urine Negative (Negative); Blood,Urine Negative (Negative); Clarity,Urine Clear (Clear/Hazy); Color,Urine Colorless (Lt Yel-Yel); Glucose, Urine 4+ (Negative); Ketones,Urine Negative (Negative); Leukocyte Esterase,Urine Negative (Negative); Nitrite,Urine Negative (Negative); Protein,Urine Negative (Neg - Trace); RBC,Urine 4 /hpf (0-3); Specific Gravity,Urine 1.038 (1.001-1.035); Squamous Epithelial Cell,Urine 2 /hpf (0-5); Urobilinogen,Urine Negative mg/dL (0.0-1.0); WBC,Urine 1 /hpf (0-5)
[2024-12-04 21:42] LABS: Basophils # (Auto) 0.1 Thou/mm3 (0.0-0.2); Basophils % (Auto) 1 % (0-2.5); Eosinophils # (Auto) 0.2 Thou/mm3 (0.0-0.5); Eosinophils % (Auto) 2 % (0-10); Hematocrit 43.6 % (36.0-46.0); Hemoglobin 14.4 g/dL (12.0-16.0); Immature Granulocytes % (Auto) 0 % (0-0); Immature Granulocytes Auto 0.03 Thou/mm3 (0.00-0.00); Lymphocytes # (Auto) 2.5 Thou/mm3 (1.0-4.8); Lymphocytes % (Auto) 31 % (10-50); Mean Corpuscular Hemoglobin 26.6 pg (25.0-35.0); Mean Corpuscular Volume 81 fL (80-100); Monocytes # (Auto) 0.6 Thou/mm3 (0.0-0.8); Monocytes % (Auto) 7 % (0-12); Neutrophils # (Auto) 4.7 Thou/mm3 (1.8-7.7); Neutrophils % (Auto) 59 % (37-80); Nucleated Red Blood Cell % 0 /100 WBC (0); Platelet Count 271 Thou/mm3 (140-440); RDW Standard Deviation 39.1 fL (36.4-46.3); Red Blood Count 5.41 Miln/mm3 (4.00-5.20); White Blood Count 8.1 Thou/mm3 (3.6-11.0)
[2024-12-04 21:43] LABS: Lactate (Lactic Acid) 1.7 mMol/L (0.4-2.0)
[2024-12-04] MEDS: ACETAMINOPHEN 500 MG TABLET 1000 MG PO (22:08)
[2024-12-04 22:41] LABS: Anion Gap 10 (7-16); Blood Urea Nitrogen 17 mg/dL (9-23); Carbon Dioxide 20.3 mMol/L (20.0-31.0); Chloride 105 mMol/L (98-107); Creatinine (Component) 1.3 mg/dL (0.6-1.3); Potassium 4.4 mMol/L (3.4-5.1); Sodium 135 mMol/L (136-145)
[2024-12-04 22:42] LABS: Alanine Aminotransferase < 7 U/L (10-49); Albumin, Serum 4.3 gm/dL (3.4-4.8); Albumin/Globulin Ratio 1.6 (1.2-2.2); Alkaline Phosphatase 144 U/L (46-116); Aspartate Amino Transferase 15 U/L (0-34); BUN/Creatinine Ratio 13 Ratio (12-20); Bilirubin,Total 0.2 mg/dL (0.3-1.2); Calcium 9.4 mg/dL (8.3-10.6); Calcium (Corrected) 9.4 mg/dL (8.5-10.1); Estimated Creatinine Clearance 52.7 mL/min (>60); Globulin 2.7 gm/dL (2.3-3.5); Lipase 35 U/L (12-53); Osmolality,Calculated 291 (275-295); Troponin I 0.026 ng/mL (0.0-0.045); eGFR 45 See Note
[2024-12-04 22:46] LABS: Glucose 459 mg/dL (74-106)
[2024-12-04] MEDS: INSULIN HUM REGULAR 1 UNIT/0.01 ML (PER UNIT) 10 UNIT IV (23:39)
[2024-12-05 00:16] VITALS: BP 153/95; PULSE 100; RESP 18; TEMP 36.5; O2SAT 96
== END 2024-12-05 03:03 | disposition home or self-care (01) ==
PROVIDERS: Physician Assistant; Emergency Provider Emergency Medicine; PCP Family Medicine
DX: E11.65 Type 2 diabetes mellitus with hyperglycemia (principal); I10 Essential (primary) hypertension; E78.5 Hyperlipidemia, unspecified; I25.10 Atherosclerotic heart disease of native coronary artery without angina pectoris; R53.1 Weakness
CPT/HCPCS: 36415; 71046; 80053; 81001; 83605; 83690; 83735; 84484; 85025; 87400; 96360; 96361; 99284; J1815; J7030; A9270

== ENCOUNTER 2025-01-30 21:46 | Emergency (ER) | payer OTHER, SELFPAY ==
[2025-01-30 21:48] VITALS: PULSE 106; RESP 20; O2SAT 98
[2025-01-30 21:49] VITALS: BMI 43.2
[2025-01-30 21:50] VITALS: BP 132/89; PULSE 100; RESP 19; TEMP 36.8; O2SAT 97
--- NOTE | 2025-01-30 22:43 | EKG_ITS ---
[facility] Test Date: 2025-01-30 Pat Name: JAMIL COOK Department: Room: - Gender: Female Rn Psychiatric: : 1955 Requested By: Jesus Alberto Cordova Order Number: [id number] Reading MD: Jesus Alberto Cordova Measurements Intervals [place] Rate: 100 P: 66 NE: 210 QRS: -81 QRSD: 147 T: 104 QT: 422 QTc: 547 Interpretive Statements SINUS TACHYCARDIA WITH FIRST DEGREE AV BLOCK INTRAVENTRICULAR CONDUCTION DELAY [130+ ms QRS DURATION] INFERIOR MYOCARDIAL INFARCTION , POSSIBLY ACUTE [40+ ms Q WAVE AND/OR ST/T ABNORMALITY IN II/aVF] ANTEROLATERAL MYOCARDIAL INFARCTION , PROBABLY RECENT [40+ ms Q WAVE IN I/aVL/V3-V6] ACUTE [place] Compared to ECG 07/11/2024 19:52:38 First degree AV block now present Sinus rhythm no longer present Ventricular premature complex(es) no longer present Left ventricular hypertrophy no longer present ST (T wave) deviation no longer present Myocardial infarct finding still present /store/S0/[id number].pdf
--- NOTE | 2025-01-30 22:43 | XR_ITS ---
Examination: PA chest single view TECHNIQUE: Upright PA chest single view Date and time: January 30, 2025 1058 hours INDICATIONS: Shortness of breath today FINDINGS: Mild enlargement cardiac contour Moderate vascular congestion. Cardiac leads stable position. No lobar pneumonia. IMPRESSION: Moderate vascular congestion
--- NOTE | 2025-01-30 22:43 | PD.EDRME ---
Rapid Medical Screening Exam [facility] Arrival date/time: 01/30/25 21:46 69F with history CAD/TN/CHF (w/ pacemaker), HTN, COPD and DM presents to ED with several days of cough (though she says not a sick cough, ) as well as SOB and generalized weakness. Chief Complaint: Shortness of Breath/Dyspnea Vital signs: Vital Signs Temperature 98.2 F 01/30/25 21:50 Pulse Rate 100 01/30/25 21:50 Respiratory Rate 19 01/30/25 21:50 Blood Pressure 132/89 H 01/30/25 21:50 Pulse Oximetry (%) 97 01/30/25 21:50 Oxygen Delivery Method Room Air 01/30/25 21:50
[2025-01-30 23:33] LABS: Basophils % (Auto) 1 % (0-2.5); Eosinophils # (Auto) 0.1 Thou/mm3 (0.0-0.5); Eosinophils % (Auto) 2 % (0-10); Hematocrit 44.5 % (36.0-46.0); Hemoglobin 15.6 g/dL (12.0-16.0); Immature Granulocytes % (Auto) 0 % (0-0); Immature Granulocytes Auto 0.02 Thou/mm3 (0.00-0.00); Lymphocytes # (Auto) 2.1 Thou/mm3 (1.0-4.8); Lymphocytes % (Auto) 31 % (10-50); Mean Corpuscular HGB Conc 35.1 g/dl (31.0-37.0); Mean Corpuscular Hemoglobin 27.5 pg (25.0-35.0); Mean Corpuscular Volume 78 fL (80-100); Monocytes # (Auto) 0.4 Thou/mm3 (0.0-0.8); Monocytes % (Auto) 7 % (0-12); Neutrophils % (Auto) 60 % (37-80); Nucleated Red Blood Cell % 0 /100 WBC (0); Platelet Count 273 Thou/mm3 (140-440); RDW Standard Deviation 39.4 fL (36.4-46.3); Red Blood Count 5.68 Miln/mm3 (4.00-5.20); White Blood Count 6.6 Thou/mm3 (3.6-11.0)
[2025-01-30 23:52] LABS: COVID-19 Antigen (In-House) Negative (Negative)
[2025-01-30 23:59] LABS: Alanine Aminotransferase < 7 U/L (10-49); Albumin, Serum 4.4 gm/dL (3.4-4.8); Albumin/Globulin Ratio 1.6 (1.2-2.2); Alkaline Phosphatase 100 U/L (46-116); Anion Gap 11 (7-16); BUN/Creatinine Ratio 7 Ratio (12-20); Bilirubin,Total 0.7 mg/dL (0.3-1.2); Blood Urea Nitrogen 7 mg/dL (9-23); Calcium 9.7 mg/dL (8.3-10.6); Calcium (Corrected) 9.7 mg/dL (8.5-10.1); Carbon Dioxide 23.4 mMol/L (20.0-31.0); Chloride 106 mMol/L (98-107); Estimated Creatinine Clearance 70.1 mL/min (>60); Globulin 2.8 gm/dL (2.3-3.5); Glucose 352 mg/dL (74-106); Osmolality,Calculated 291 (275-295); Sodium 140 mMol/L (136-145); Total Protein 7.2 gm/dL (5.7-8.2); Troponin I 0.032 ng/mL (0.0-0.045); eGFR > 60 See Note
[2025-01-31 00:28] LABS: B-Type Natriuretic Peptide 746 pg/mL (0-100)
--- NOTE | 2025-01-31 01:59 | PD.EDSOB ---
ED SOB =RME/HPI General Chief Complaint: Shortness of Breath/Dyspnea Stated Complaint: SOB Arrival date/time: 01/30/25 21:46 RME / HPI RME / HPI Narrative: 01/30/25 21:46 69F with history CAD/IL/CHF (w/ pacemaker), HTN, COPD and DM presents to ED with several days of cough (though she says not a sick cough, ) as well as SOB and generalized weakness. Dr. Shaffer?s Main ED Evaluation: 69yo female with a history of DM, HTN, HLD, CAD with pacemaker on Brillinta presents to the ED for a chief complaint of shortness of breath. Patient states she's felt anxious for the last few days, reporting she has not been sleeping for the last 3 days due to still grieving the loss of her daughter. Patient endorses feeling short of breath tonight and was concerned, so she came in for evaluation. Patient endorses having a chronic cough. She denies any fever, chills, N/V or any other associated symptoms. Patient is a former tobacco smoker, stating she quit 20 years ago. Related Data Home Medications ?Medication ?Instructions ?Recorded ?Confirmed ticagrelor 90 mg tablet (Brilinta) 60 mg PO BID 05/08/21 10/14/23 insulin glargine 100 unit/mL (3 30 unit subcut BID 12/10/21 10/14/23 mL) subcutaneous pen (Lantus Solostar U-100 Insulin) omeprazole 40 mg capsule,delayed 40 mg PO QDAY 05/28/22 10/14/23 release pregabalin 75 mg capsule (Lyrica) 100 mg PO QDAY 09/17/22 10/14/23 meloxicam 15 mg tablet 15 mg PO QDAY 03/06/23 10/14/23 tizanidine 4 mg tablet 4 mg PO Q8HR PRN Muscle Spasm 03/06/23 10/14/23 clindamycin HCl 300 mg capsule 300 mg PO 3XD 10/14/23 10/14/23 empagliflozin 25 mg tablet 25 mg PO DAILY 10/14/23 10/14/23 (Jardiance) hydrocodone 10 mg-acetaminophen 10 tab PO PRN PRN Pain (Scale 10/14/23 10/14/23 325 mg tablet Score 7-10) metformin 1,000 mg tablet 1,000 mg PO BID 10/14/23 10/14/23 montelukast 10 mg tablet 10 mg PO DAILY 10/14/23 10/14/23 nitroglycerin 0.4 mg sublingual 0.4 mg buccal 3XD 10/14/23 10/14/23 tablet rosuvastatin 40 mg tablet 40 mg PO DAILY 10/14/23 10/14/23 sacubitril 24 mg-valsartan 26 mg 26 tab PO BID diabetes 10/14/23 10/14/23 tablet (Entresto) semaglutide 2 mg/dose (8 mg/3 mL) 1 mg subcut Q7D 10/14/23 10/14/23 subcutaneous pen injector (Ozempic) Previous Rx's ?Medication ?Instructions ?Recorded aspirin 81 mg tablet,delayed 81 mg PO QDAY 30 days #30 tabs 09/25/22 release atorvastatin 40 mg tablet 40 mg PO HS 30 days #30 tabs 09/25/22 midodrine 10 mg tablet 10 mg PO TID PRN blood pressure 08/29/23 #90 tabs pantoprazole 40 mg tablet,delayed 40 mg PO QDAY #20 tabs 10/28/23 release (Protonix) metoclopramide HCl 10 mg tablet 10 mg PO .TID prn PRN nausea and 11/10/23 (Reglan) vomiting #30 tabs midodrine 10 mg tablet 10 mg PO TID PRN hypotension #30 11/10/23 tabs acetaminophen 500 mg capsule 500 mg PO Q6H PRN pain #30 caps 06/11/24 Allergies Allergy/AdvReac Type Severity Reaction Status Date / Time adhesive Allergy Severe SKIN GETS Verified 07/11/24 18:23 RAW ketorolac AdvReac Severe SHARP Verified 07/11/24 18:23 PAINS THROUGHOUT ENTIRE BODY morphine AdvReac Severe CAUSES Verified 07/11/24 18:23 BEHAVIORAL PROBLEMS Review of Systems Review of Systems Systems Reviewed: All systems reviewed, normal except as documented Past Medical History Past Medical History NEUROLOGIC: Positive Neurological Disorders and Peripheral Neuropathy; Negative Cerebrovascular Accident, Transient Ischemic Attacks (TIA), Dementia, Alzheimer's Disease, Parkinson's Disease, Brain Tumor, Meningitis, Seizures, Epilepsy, Multiple Sclerosis, Cerebral Palsy, Amyotrophic Lateral Sclerosis (ALS/Genoveva Gehrig's), Guillain-Ovett Syndrome, Spina Bifida, Paralysis, Gaitan's Palsy, Subdural Hematoma, Migraine, Head Trauma, Spinal Cord Injury or Traumatic Brain Injury CARDIAC: Positive Cardiac Disorders, Myocardial Infarction, Cardiac Arrhythmia, Angina, Coronary Artery Disease, Atherosclerotic Heart Disease, Peripheral Vascular Disease, Hypercholesterolemia, Aneurysm, Edema, Cellulitis, Hypertension and Hypotension; Negative Atrial Fibrillation, Heart Murmur, Congestive Heart Failure, Congenital Heart Disease, Valvular Heart Disease, Rheumatic Fever, Cardiomyopathy, Pericarditis, Deep Vein Thrombosis or Varicose Veins RESPIRATORY: Positive Bronchitis and Pneumonia; Negative Chronic Obstructive Pulmonary Disease (COPD), Asthma, Emphysema, Pulmonary Fibrosis, Cystic Fibrosis, Tuberculosis, Pulmonary Embolism, Pulmonary Edema or Sleep Apnea GASTROINTESTINAL: Positive Gastrointestinal Disorders, Gall Bladder Disease, Hiatal Hernia, Gastroesophageal Reflux Disease and Obesity; Negative Hepatitis, Cirrhosis, Pancreatitis, Celiac Disease, Gastrointestinal Bleed, Esophageal Varices, Coleman's Esophagus, Colitis, Ulcerative Colitis, Diverticulitis, Diverticulosis, Ulcer, Colorectal Cancer, Irritable Bowel, Crohn's Disease, Obstructive Bowel or Hemorrhoids GENITOURINARY: Positive Genitourinary Disorders; Negative Renal Disease, Kidney Stones, Polycystic Kidney Disease, Neurogenic Bladder, Inguinal Hernia, Dialysis, Prostate Cancer or Benign Prostatic Hyperplasia REPRODUCTIVE: Negative Breast Cancer, Endometriosis, Genital Herpes, Gonorrhea, Pelvic Inflammatory Disease, Previous Pregnancies, Syphilis, Testicular Cancer or Uterine Prolapse MUSCULOSKELETAL: Positive Musculoskeletal Disorders and Fractures; Negative Muscular Dystrophy, Myasthenia Gravis, Marfan's Syndrome, Bone Cancer, Arthritis, Rheumatoid Arthritis, Osteoporosis, Degenerative Disk Disease, Gout, Scoliosis, Carpal Tunnel Syndrome, Fibromyalgia, Degenerative Joint Disease, Osteomyelitis or Poliovirus ENT: Negative Cataracts, Glaucoma, Blind, Retinal Detachment, Macular Degeneration, Ear Infection, Deafness, Head Trauma or Eye Prosthesis ENDOCRINE: Positive Endocrine Disorders and Diabetes Mellitus Type 2; Negative Diabetes Mellitus Type 1, Hypoglycemia, Cedar's Syndrome, Yellowstone's Disease, Hyperthyroidism, Hypothyroidism, Parathyroid Disease, Pituitary Disease, Systemic Lupus Erythematosus, Syndrome of Inappropriate Antidiuretic Hormone (SIADH), Adrenal Disease or Graves' Disease HEMATOLOGIC: Negative Blood Disorders, Anemia, Leukemia, Hemophilia, Thalassemia, Sickle Cell Disease or Clotting Problems PSYCHO/SOCIAL: Positive Depression and Anxiety; Negative Psychiatric Problems, Schizophrenia, Recreational Drug Use, Bipolar Disorder, Behavior Problems, Self-Mutilation, Attention Deficit Disorder, Attention Deficit Hyperactivity Disorder, Depression, Post Traumatic Stress Disorder or Eating Disorder OTHER HISTORY: Positive Hospitalization, Falls and MRSA; Negative Autoimmune Disease, Down Syndrome, Autism, Developmental Delay, Shingles, Blood Transfusions, Blood Transfusion Reaction, Anesthesia Reactions, Organ Transplant, Chemotherapy, Radiation Therapy, Hyperbaric Therapy, VRSA, Vancomycin-Resistant Enterococci, Human Immunodeficiency Virus (HIV), Chicken Pox, Measles, Mumps, Rubella (Colombian Measles), Pertussis, Clostridium Difficile, Cancer, Breast Cancer, Cervical Cancer, Colorectal Cancer, Lung Cancer, Ovarian Cancer, Prostate Cancer or Testicular Cancer Family History FAMILY HISTORY: Positive Family Neurologic Problems (Mother had dementia.), Family Cardiac Disorders and Family Cancer; Negative Family Psychiatric Problems, Family Respiratory Disorders, Family Gastrointestinal Problems, Family Surgery or Family Anesthesia Reaction Surgical History SURGICAL: Positive Cardiac Surgery, Coronary Stent, Cardiac Catheterization, Pacemaker, Angiogram, Tonsillectomy and Abdominal Surgery; Negative Open Heart Surgery, Coronary Artery Bypass Graft, Valve Replacement, Vascular Surgery, Auto Implanted Cardiovert Defib, Carotid Endarterectomy, Endocrine Surgery, Thyroidectomy, Ear Surgery, Tympanostomy Tube, Eye Surgery, Nose Surgery, Oral Surgery, Adenoidectomy, Cochlear Implant, Corneal Transplant, Throat Surgery, Tracheostomy, Gastric Bypass Surgery, Gastrostomy, Bowel Surgery, Nephrectomy, Transurethral Resection, Joint Replacement, Amputation, Open Reduction Internal Fixation, Arthroscopy, Neurologic Surgery, Brain Shunt, Mastectomy, Lumpectomy, Hysterectomy, Tubal Ligation, Section, Vasectomy or Organ Transplant Social History SMOKING STATUS: Never smoker SECOND HAND EXPOSURE: No SUBSTANCE USE: does not use ED Exam Narrative Physical exam: GENERAL APPEARANCE: alert and oriented x 4, obese, tearful, well-developed, well-nourished, no acute distress VITALS: All vitals were reviewed and the pulse ox is 97% on room air, which is normal according to my interpretation. HEENT: Normocephalic, atraumatic; pupils equal, round, reactive to light; EOMI; mucous membranes pink, moist; oropharynx clear NECK: Supple LUNGS: CTABL; no wheezes, no rales, no rhonchi HEART: Regular rate, regular rhythm; normal S1, S2; no murmurs ABDOMEN: non distended; normal BS; soft, no tenderness, no guarding, no rebound; no masses, no organomegaly, no hernia BACK: no CVA tenderness EXTREMITIES: atraumatic; no edema NEUROLOGIC: awake; alert and oriented x4; cranial nerves II-XII grossly intact; no focal sensory or motor deficits PSYCHIATRIC: appropriate mood and affect SKIN: warm, dry, normal color; no rashes Course Course Course Narrative: CXR is ordered for determining the etiology of shortness of breath. Quality Measures none Orders Category Date Time Status Bedside Influenza A&B Antigen Test NOW Care 01/30/25 22:43 Active EKG (ED ONLY) *Do not use* NOW Care 01/30/25 22:43 Completed EKG (ED Only) Stat Exams 01/30/25 22:43 Draft XR chest 1V portable Stat Exams 01/30/25 22:43 Completed B-Type Natriuretic Peptide Stat Lab 01/30/25 23:05 Completed CBC Stat Lab 01/30/25 23:05 Completed COVID-19 Antigen (In-House) Stat Lab 01/30/25 22:56 Completed Comprehensive Metabolic Panel Stat Lab 01/30/25 23:05 Completed Troponin I Stat Lab 01/30/25 23:05 Completed Troponin I Stat Lab 01/31/25 02:24 Completed Urinalysis, C/S if Indicated Stat Lab 01/30/25 22:43 Ordered clonazePAM [KlonoPIN] Med 01/31/25 01:59 Discontinued 1 mg PO X1 ONE Vital Signs Vital signs: Vital Signs Temperature 98.2 F 01/30/25 21:50 Pulse Rate 100 01/30/25 21:50 Respiratory Rate 19 01/30/25 21:50 Blood Pressure 132/89 H 01/30/25 21:50 Pulse Oximetry (%) 97 01/30/25 21:50 Oxygen Delivery Method Room Air 01/30/25 21:50 Shortness of Breath / Dyspnea MDM Narrative MDM Narrative:: Scribe Attestation: 01/31/25 Janice Gonzalez am scribing for and in the presence of Dr. Shaffer. Patient data External records reviewed:: [facility] previous records (Per chart review, patient was seen here on 12/04/24 for acute hyperglycemia.) Clinical information provided by:: patient Social determinants that could affect healthcare access:: none Patient has the following chronic illnesses:: DM, HTN, HLD, CAD with pacemaker on Brillinta How is presenting disease/condition affected by chronic disease/condition?: uneffected by Evaluation data The following diagnostics were reviewed and interpreted by me:: lab results, radiology exam(s) and EKG tracing(s) Lab and/or radiology exams considered but not ordered:: none Interpretation Summary: CBC normal, Glucose 352, BNP 746, Troponin normal. Repeat troponin normal. EKG done at 2247, sinus tachycardia, rate of 100, IVCD, ST elevation in lead III and avF, no STEMI, according to my interpretation. [facility] Report Signed Patient: JAMIL COOK Record#: [id number] Birthdate: 1955 Age/Sex: 69 / F Location: [facility] Attending Dr: Ordering Physician: Jesus Alberto Cordova PA-C Date of Service: 01/30/25 Procedure(s): XR chest 1V portable Accession Number(s): [id number] cc: Killian Donovan MD; Roney Almanzar MD; Jesus Alberto Cordova PA-C~ Examination: PA chest single view TECHNIQUE: Upright PA chest single view Date and time: January 30, 2025 1058 hours INDICATIONS: Shortness of breath today FINDINGS: Mild enlargement cardiac contour Moderate vascular congestion. Cardiac leads stable position. No lobar pneumonia. IMPRESSION: Moderate vascular congestion Dictated By: Roney Almanzar MD Signed By: <Electronically signed by Roney Almanzar MD in OV> 01/30/25 2326 Medications / Prescriptions Medications or Prescriptions considered but not ordered:: none Medication administrations:: Medication Administration History Discontinued Medications Clonazepam (Clonazepam 0.5 Mg Tablet) 1 mg PO X1 ONE Stop: 01/31/25 02:00 Last Admin: 01/31/25 02:31 Dose: 1 mg Documented By: CM see above Consultations Consultation(s) initiated? (list below): No Diagnosis Shortness of Breath Differential Diagnosis: community acquired pneumonia and other (COPD, CHF, bronchitis) Most likely diagnosis given after review of the tests above:: see clinical impression below Admission Indicated Admission indicated?: not indicated Explain why admission is indicated or not indicated:: Patient's diagnostics are unremarkable. Patient is stable to be discharged home. Admission Request Was there a request for admission?: No Disposition Plan Disposition Plan: Discharge Discharge Attestation Discharge Attestation: The patient and all family members were given an opportunity to ask questions and understood the discharge instructions. Discharge instructions specifically effects, indications for sooner follow up or return to the emergency department, and the expected course of current diagnosis. Patient condition: Stable Discharge Plan Plan Patient Disposition: HOME (Self Care) Prescriptions/Referrals Prescriptions/Med Rec: No Action Brilinta 90 mg Tablet 60 mg PO BID insulin glargine [Lantus Solostar U-100 Insulin] 100 unit/mL (3 mL) Insulin Pen 30 unit SUBCUT BID pregabalin [Lyrica] 75 mg capsule 100 mg PO QDAY aspirin 81 mg Tablet,Delayed Release (Dr/Ec) 81 mg PO QDAY 30 Days Qty: 30 1RF atorvastatin 40 mg tablet 40 mg PO HS 30 Days Qty: 30 1RF tizanidine 4 mg tablet 4 mg PO Q8HR PRN (Reason: Muscle Spasm) Patient Comments: TAKE 1 TABLET BY MOUTH EVERY 8 HOURS NEEDED NOT TO EXCEED 3 DOSES IN 24 HOURS meloxicam 15 mg tablet 15 mg PO QDAY midodrine 10 mg tablet 10 mg PO TID PRN (Reason: blood pressure) Qty: 90 0RF Rx Instructions: do not give last dose of day after 6PM or within 4 hrs of bedtime clindamycin HCl 300 mg capsule 300 mg PO 3XD hydrocodone-acetaminophen 10-325 mg tablet 10 tab PO PRN PRN (Reason: Pain (Scale Score 7-10)) nitroglycerin 0.4 mg tablet, sublingual 0.4 mg BUCCAL 3XD montelukast 10 mg tablet 10 mg PO DAILY rosuvastatin 40 mg tablet 40 mg PO DAILY Entresto 24-26 mg tablet 26 tab PO BID Ozempic 2 mg/dose (8 mg/3 mL) pen injector 1 mg SUBCUT Q7D metformin 1,000 mg tablet 1,000 mg PO BID Jardiance 25 mg tablet 25 mg PO DAILY pantoprazole [Protonix] 40 mg tablet,delayed release (DR/EC) 40 mg PO QDAY Qty: 20 0RF acetaminophen 500 mg capsule 500 mg PO Q6H PRN (Reason: pain) Qty: 30 0RF omeprazole 40 mg capsule,delayed release(DR/EC) 40 mg PO QDAY metoclopramide HCl [Reglan] 10 mg tablet 10 mg PO .TID prn PRN (Reason: nausea and vomiting) Qty: 30 0RF midodrine 10 mg tablet 10 mg PO TID PRN (Reason: hypotension) Qty: 30 0RF Rx Instructions: do not give last dose of day after 6PM or within 4 hrs of bedtime Referrals: Killian Donovan MD [Primary Care Provider] - In 1 week Problem List Clinical Impression: Dyspnea Patient/Caregiver Discharge Instructions Education Materials: ED Shortness of Breath (Dyspnea) Print Language: Dutch Stand Alone Forms: Kaelyn Award Info., Patient Portal Info Letter
[2025-01-31 02:04] VITALS: BP 143/84; PULSE 108; RESP 19; TEMP 36.7; O2SAT 97
[2025-01-31] MEDS: clonazePAM 0.5 MG TABLET 1 MG PO (02:31)
[2025-01-31 03:04] LABS: Troponin I 0.035 ng/mL (0.0-0.045)
== END 2025-01-31 03:31 | disposition home or self-care (01) ==
PROVIDERS: Physician Assistant; Emergency Provider Emergency Medicine; PCP Family Medicine
DX: R09.89 Other specified symptoms and signs involving the circulatory and respiratory systems (principal); I44.0 Atrioventricular block, first degree; I45.89 Other specified conduction disorders; I25.2 Old myocardial infarction; I25.10 Atherosclerotic heart disease of native coronary artery without angina pectoris; E78.00 Pure hypercholesterolemia, unspecified; I50.9 Heart failure, unspecified; J44.9 Chronic obstructive pulmonary disease, unspecified; I11.0 Hypertensive heart disease with heart failure; Z95.0 Presence of cardiac pacemaker; Z87.891 Personal history of nicotine dependence; Z79.02 Long term (current) use of antithrombotics/antiplatelets; Z79.82 Long term (current) use of aspirin; Z95.5 Presence of coronary angioplasty implant and graft
CPT/HCPCS: 36415; 71045; 80053; 81001; 83880; 84484; 85025; 87811; 93005; 99283; A9270

== ENCOUNTER 2025-03-23 20:35 | Emergency (ER) | payer OTHER, SELFPAY ==
[2025-03-23 21:08] VITALS: PULSE 99; RESP 14; O2SAT 96; BMI 43.9
[2025-03-23 21:11] VITALS: BP 124/81; PULSE 90; RESP 19; TEMP 36.8; O2SAT 95
--- NOTE | 2025-03-23 21:32 | XR_ITS ---
Examination: Duplex scan of the lower extremity, unilateral right Date and time of exam: 10:14 PM INDICATIONS: Right leg pain beginning 5 days ago Technique: Duplex scan of the extremity veins using B-mode/grayscale imaging and Doppler spectral analysis and color flow Attention is directed to internal echogenicity, compression and augmentation involving these veins, color flow assessment, spectral analysis Findings: Major deep venous structures in the extremity demonstrate normal course and caliber. There is no evidence of deep vein thrombosis. Normal color flow and spectral analysis Impression: Negative for DVT..
--- NOTE | 2025-03-23 21:33 | PD.EDRME ---
Rapid Medical Screening Exam RME Arrival date/time: 03/23/25 20:35 70F with history of CAD/HI/CHF (w/ pacemaker), HTN, COPD and DM presents to ED with 4 days of RLE pain and swelling, and as well as bilateral feet redness. Chief Complaint: Extremity Problem,Nontraumatic Vital signs: Vital Signs Temperature 98.3 F 03/23/25 21:11 Pulse Rate 90 03/23/25 21:11 Respiratory Rate 19 03/23/25 21:11 Blood Pressure 124/81 03/23/25 21:11 Pulse Oximetry (%) 95 03/23/25 21:11 Oxygen Delivery Method Room Air 03/23/25 21:11
[2025-03-23 22:25] LABS: Basophils # (Auto) 0.1 Thou/mm3 (0.0-0.2); Basophils % (Auto) 1 % (0-2.5); Eosinophils # (Auto) 0.2 Thou/mm3 (0.0-0.5); Eosinophils % (Auto) 3 % (0-10); Hematocrit 42.2 % (36.0-46.0); Hemoglobin 13.6 g/dL (12.0-16.0); Immature Granulocytes Auto 0.04 Thou/mm3 (0.00-0.00); Lymphocytes # (Auto) 1.5 Thou/mm3 (1.0-4.8); Lymphocytes % (Auto) 24 % (10-50); Mean Corpuscular HGB Conc 32.2 g/dl (31.0-37.0); Mean Corpuscular Hemoglobin 26.7 pg (25.0-35.0); Mean Corpuscular Volume 83 fL (80-100); Monocytes # (Auto) 0.5 Thou/mm3 (0.0-0.8); Monocytes % (Auto) 7 % (0-12); Neutrophils # (Auto) 4.2 Thou/mm3 (1.8-7.7); Neutrophils % (Auto) 65 % (37-80); Nucleated Red Blood Cell # 0.00 Thou/mm3 (0.00-0.00); Nucleated Red Blood Cell % 0 /100 WBC (0); Platelet Count 256 Thou/mm3 (140-440); RDW Standard Deviation 44.6 fL (36.4-46.3); Red Blood Count 5.09 Miln/mm3 (4.00-5.20); White Blood Count 6.5 Thou/mm3 (3.6-11.0)
[2025-03-23 22:36] LABS: INR 1.0 (0.9-1.3); Partial Thromboplastin Time 21.4 Seconds (22.0-36.0); Prothrombin Time 11.4 Seconds (9.0-12.2)
[2025-03-23 23:13] LABS: Sed Rate (ESR) 13 mm/hr (0-30)
[2025-03-23 23:21] LABS: Alanine Aminotransferase 11 U/L (10-49); Albumin, Serum 4.2 gm/dL (3.4-4.8); Anion Gap 12 (7-16); Aspartate Amino Transferase 19 U/L (0-34); BUN/Creatinine Ratio 12 Ratio (12-20); Bilirubin,Total 0.4 mg/dL (0.3-1.2); Blood Urea Nitrogen 14 mg/dL (9-23); Calcium 9.9 mg/dL (8.3-10.6); Carbon Dioxide 22.2 mMol/L (20.0-31.0); Chloride 109 mMol/L (98-107); Creatinine (Component) 1.2 mg/dL (0.6-1.3); Estimated Creatinine Clearance 58.2 mL/min (>60); Glucose 320 mg/dL (74-106); Osmolality,Calculated 297 (275-295); Potassium 4.0 mMol/L (3.4-5.1); Sodium 143 mMol/L (136-145); Total Protein 6.8 gm/dL (5.7-8.2); eGFR 49 See Note
[2025-03-23 23:22] LABS: Albumin/Globulin Ratio 1.6 (1.2-2.2); Alkaline Phosphatase 105 U/L (46-116); Calcium (Corrected) 9.9 mg/dL (8.5-10.1); Globulin 2.6 gm/dL (2.3-3.5)
[2025-03-23 23:36] LABS: C-Reactive Protein 0.9 mg/dL (0.0-0.9)
[2025-03-24] VITALS (8 sets, daily range): BP systolic 110–144; BP diastolic 63–105; PULSE 64–117; RESP 16–23; TEMP 36.4–36.9; O2SAT 95–100
--- NOTE | 2025-03-24 00:42 | EKG_ITS ---
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: : 1955 Requested By: Diana Boyd Order Number: [id number] Reading MD: Diana Boyd Measurements Intervals Ayden Rate: 98 P: 66 WI: 216 QRS: -74 QRSD: 156 T: 102 QT: 521 QTc: 666 Interpretive Statements SINUS RHYTHM WITH FIRST DEGREE AV BLOCK WITH FREQUENT VENTRICULAR PREMATURE COMPLEXES INTRAVENTRICULAR CONDUCTION DELAY [130+ ms QRS DURATION] INFERIOR MYOCARDIAL INFARCTION , POSSIBLY ACUTE [40+ ms Q WAVE AND/OR ST/T ABNORMALITY IN II/aVF] ANTEROLATERAL MYOCARDIAL INFARCTION , PROBABLY RECENT [40+ ms Q WAVE IN I/aVL/V3-V6] PROLONGED QT INTERVAL ACUTE CA Compared to ECG 01/30/2025 22:47:18 Ventricular premature complex(es) now present Prolonged QT interval now present Sinus tachycardia no longer present Myocardial infarct finding still present /store/S0/[id number]/ecg/[id number].pdf
[2025-03-24 01:26] LABS: Troponin I 0.029 ng/mL (0.0-0.045)
[2025-03-24 02:07] LABS: B-Type Natriuretic Peptide 1136 pg/mL (0-100)
[2025-03-24] MEDS: ONDANSETRON ODT 4 MG TABRAP PO (03:35)
--- NOTE | 2025-03-24 08:17 | PD.EDEXREM ---
ED Extremity Problem RME/HPI General Chief complaint: Extremity Problem,Nontraumatic Stated complaint: LEG SWELLING Time Seen by Provider: 03/24/25 07:50 Arrival date/time: 03/23/25 20:35 Limitations: no limitations RME / HPI RME / HPI Narrative: 03/23/25 20:35 70F with history of CAD/AL/CHF (w/ pacemaker), HTN, COPD and DM presents to ED with 4 days of RLE pain and swelling, and as well as bilateral feet redness. DR. EDDY MAIN ED EVALUATION: 70-year-old female with past medical history of diabetes mellitus, hypertension, hyperlipidemia, coronary artery disease with pacemaker placement, and currently on Brilinta presents to the Emergency Department with complaint of bilateral leg swelling. She also reports mild associated shortness of breath. No chest pain, palpitations, or recent travel reported. Related Data Home Medications ?Medication ?Instructions ?Recorded ?Confirmed ticagrelor 90 mg tablet (Brilinta) 60 mg PO BID 05/08/21 10/14/23 insulin glargine 100 unit/mL (3 30 unit subcut BID 12/10/21 10/14/23 mL) subcutaneous pen (Lantus Solostar U-100 Insulin) omeprazole 40 mg capsule,delayed 40 mg PO QDAY 05/28/22 10/14/23 release pregabalin 75 mg capsule (Lyrica) 100 mg PO QDAY 09/17/22 10/14/23 meloxicam 15 mg tablet 15 mg PO QDAY 03/06/23 10/14/23 tizanidine 4 mg tablet 4 mg PO Q8HR PRN Muscle Spasm 03/06/23 10/14/23 clindamycin HCl 300 mg capsule 300 mg PO 3XD 10/14/23 10/14/23 empagliflozin 25 mg tablet 25 mg PO DAILY 10/14/23 10/14/23 (Jardiance) hydrocodone 10 mg-acetaminophen 10 tab PO PRN PRN Pain (Scale 10/14/23 10/14/23 325 mg tablet Score 7-10) metformin 1,000 mg tablet 1,000 mg PO BID 10/14/23 10/14/23 montelukast 10 mg tablet 10 mg PO DAILY 10/14/23 10/14/23 nitroglycerin 0.4 mg sublingual 0.4 mg buccal 3XD 10/14/23 10/14/23 tablet rosuvastatin 40 mg tablet 40 mg PO DAILY 10/14/23 10/14/23 sacubitril 24 mg-valsartan 26 mg 26 tab PO BID diabetes 10/14/23 10/14/23 tablet (Entresto) semaglutide 2 mg/dose (8 mg/3 mL) 1 mg subcut Q7D 10/14/23 10/14/23 subcutaneous pen injector (Ozempic) Previous Rx's ?Medication ?Instructions ?Recorded aspirin 81 mg tablet,delayed 81 mg PO QDAY 30 days #30 tabs 09/25/22 release atorvastatin 40 mg tablet 40 mg PO HS 30 days #30 tabs 09/25/22 midodrine 10 mg tablet 10 mg PO TID PRN blood pressure 08/29/23 #90 tabs pantoprazole 40 mg tablet,delayed 40 mg PO QDAY #20 tabs 10/28/23 release (Protonix) metoclopramide HCl 10 mg tablet 10 mg PO .TID prn PRN nausea and 11/10/23 (Reglan) vomiting #30 tabs midodrine 10 mg tablet 10 mg PO TID PRN hypotension #30 11/10/23 tabs acetaminophen 500 mg capsule 500 mg PO Q6H PRN pain #30 caps 06/11/24 furosemide 20 mg tablet (Lasix) 20 mg PO QDAY LEG EDEMA #7 tabs 03/24/25 potassium chloride 10 mEq 10 meq PO QDAY LASIX USE #7 caps 03/24/25 capsule,extended release Allergies Allergy/AdvReac Type Severity Reaction Status Date / Time adhesive Allergy Severe SKIN GETS Verified 03/23/25 21:07 RAW ketorolac AdvReac Severe SHARP Verified 03/23/25 21:07 PAINS THROUGHOUT ENTIRE BODY morphine AdvReac Severe CAUSES Verified 03/23/25 21:07 BEHAVIORAL PROBLEMS Review of Systems Review of Systems Systems Reviewed: All systems reviewed, normal except as documented Past Medical History Past Medical History NEUROLOGIC: Positive Neurological Disorders and Peripheral Neuropathy CARDIAC: Positive Cardiac Disorders, Myocardial Infarction, Cardiac Arrhythmia, Angina, Coronary Artery Disease, Atherosclerotic Heart Disease, Peripheral Vascular Disease, Hypercholesterolemia, Aneurysm, Congestive Heart Failure, Edema, Cellulitis, Hypertension and Hypotension RESPIRATORY: Positive Bronchitis and Pneumonia GASTROINTESTINAL: Positive Gastrointestinal Disorders, Gall Bladder Disease, Hiatal Hernia, Gastroesophageal Reflux Disease and Obesity GENITOURINARY: Positive Genitourinary Disorders MUSCULOSKELETAL: Positive Musculoskeletal Disorders and Fractures ENDOCRINE: Positive Endocrine Disorders and Diabetes Mellitus Type 2 PSYCHO/SOCIAL: Positive Depression and Anxiety OTHER HISTORY: Positive Hospitalization, Falls and MRSA Family History FAMILY HISTORY: Positive Family Neurologic Problems (Mother had dementia.) and Family Cardiac Disorders Surgical History SURGICAL: Positive Cardiac Surgery, Coronary Stent, Cardiac Catheterization, Pacemaker, Angiogram, Tonsillectomy and Abdominal Surgery Social History SMOKING STATUS: Never smoker SECOND HAND EXPOSURE: No SUBSTANCE USE: does not use ALCOHOL: Never ED Exam General Limitations: Present no limitations General appearance: Present alert and in no apparent distress Head Head exam: Present atraumatic, normocephalic and normal inspection Eye Eye exam: Present normal appearance, PERRL and EOMI ENT ENT exam: Present normal exam, normal oropharynx and mucous membranes moist Neck Neck exam: Present normal inspection, full ROM and trachea midline Chest Chest inspection: Present normal inspection and symmetric chest wall rise Respiratory Respiratory exam: Present normal lung sounds bilaterally Cardiovascular Cardiovascular exam: Present regular rate, normal rhythm and normal heart sounds Abdominal Exam Abdominal exam: Present soft and normal bowel sounds Extremities Exam Extremities exam: Present normal inspection and full ROM Expanded Lower Extremity Exam Lower leg exam: Present swelling (1-2+ pitting edema bilaterally), erythema (mild erythema bilaterally and anterior aspect) and other (some scratch morley bilaterally; stasis dermatitis) Back Exam Back exam: Present normal inspection and full ROM Neurological Exam Neurological exam: Present alert, oriented X3 and CN II-XII intact Psychiatric Psychiatric exam: Present normal affect and normal mood Skin Skin exam: Present warm, dry, intact and normal color Course Quality Measures none Orders Category Date Time Status EKG (ED ONLY) *Do not use* NOW Care 03/24/25 00:42 Completed EKG (ED Only) Stat Exams 03/24/25 00:42 Ordered US venous doppler LE RT Stat Exams 03/23/25 21:32 Completed BNP [B-Type Natriuretic Peptide] Stat Lab 03/24/25 01:00 Completed CBC Stat Lab 03/23/25 21:48 Completed CMP [Comprehensive Metabolic Panel] Stat Lab 03/23/25 21:48 Completed CRP [C-Reactive Protein] Stat Lab 03/23/25 21:48 Completed INR [Prothrombin Time with INR] Stat Lab 03/23/25 21:48 Completed PTT [Partial Thromboplastin Time] Stat Lab 03/23/25 21:48 Completed Sed Rate (ESR) Stat Lab 03/23/25 22:51 Completed Troponin I Stat Lab 03/24/25 00:59 Completed Ondansetron Odt [Zofran Odt] Med 03/24/25 03:15 Discontinued 4 mg PO X1 ONE Vital Signs Vital signs: Vital Signs Temperature 98.3 F 03/23/25 21:11 Pulse Rate 90 03/23/25 21:11 Respiratory Rate 19 03/23/25 21:11 Blood Pressure 124/81 03/23/25 21:11 Pulse Oximetry (%) 95 03/23/25 21:11 Oxygen Delivery Method Room Air 03/23/25 21:11 Extremity Problem MDM Narrative MDM Narrative:: I, Florencia Willoughby, am scribing for and in the presence of Dr. Eddy. Patient data External records reviewed:: [facility] previous records and EMS form Clinical information provided by:: patient and EMS Social determinants that could affect healthcare access:: none Patient has the following chronic illnesses:: diabetes mellitus, hypertension, hyperlipidemia, coronary artery disease with pacemaker placement, and currently on Brilinta How is presenting disease/condition affected by chronic disease/condition?: exacerbated by Evaluation data The following diagnostics were reviewed and interpreted by me:: lab results, radiology exam(s) and EKG tracing(s) Lab and/or radiology exams considered but not ordered:: none Interpretation Summary: My interpretation: EKG performed at 0058 hours, sinus rhythm with first degree AV block with frequent PVCs, rate 98, no acute STEMI Procedure(s): US venous doppler LE RT Accession Number(s): [id number] cc: Killian Donovan MD; Roney Almanzar MD; Jesus Alberto Cordova PA-C~ Examination: Duplex scan of the lower extremity, unilateral right Date and time of exam: 10:14 PM INDICATIONS: Right leg pain beginning 5 days ago Technique: Duplex scan of the extremity veins using B-mode/grayscale imaging and Doppler spectral analysis and color flow Attention is directed to internal echogenicity, compression and augmentation involving these veins, color flow assessment, spectral analysis Findings: Major deep venous structures in the extremity demonstrate normal course and caliber. There is no evidence of deep vein thrombosis. Normal color flow and spectral analysis Impression: Negative for DVT.. Dictated By: Roney Almanzar MD Medications / Prescriptions Medications or Prescriptions considered but not ordered:: none Medication administrations:: Medication Administration History Discontinued Medications Ondansetron HCl (Ondansetron Odt 4 Mg Tabrap) 4 mg PO X1 ONE; Protocol Stop: 03/24/25 03:16 Last Admin: 03/24/25 03:35 Dose: 4 mg Documented By: REA see above Consultations Consultation(s) initiated? (list below): No Diagnosis Extremity Problem Differential Diagnosis: cellulitis and other (CHF exacerbation, venous insufficiency, medication-related fluid retention) Most likely diagnosis given after review of the tests above:: Venous insufficiency CHF compensated Stasis dermatitis Admission Indicated Admission indicated?: not indicated Admission Request Was there a request for admission?: No Disposition Plan Disposition Plan: Discharge Discharge Attestation Discharge Attestation: The patient and all family members were given an opportunity to ask questions and understood the discharge instructions. Discharge instructions specifically effects, indications for sooner follow up or return to the emergency department, and the expected course of current diagnosis. Patient condition: Stable Discharge Plan Plan Patient Disposition: HOME (Self Care) Patient condition on transfer: Stable Prescriptions/Referrals Prescriptions/Med Rec: New furosemide [Lasix] 20 mg tablet 20 mg PO QDAY MDD 1 Qty: 7 0RF potassium chloride 10 mEq capsule, extended release 10 meq PO QDAY MDD 1 Qty: 7 0RF No Action Brilinta 90 mg Tablet 60 mg PO BID insulin glargine [Lantus Solostar U-100 Insulin] 100 unit/mL (3 mL) Insulin Pen 30 unit SUBCUT BID pregabalin [Lyrica] 75 mg capsule 100 mg PO QDAY aspirin 81 mg Tablet,Delayed Release (Dr/Ec) 81 mg PO QDAY 30 Days Qty: 30 1RF atorvastatin 40 mg tablet 40 mg PO HS 30 Days Qty: 30 1RF tizanidine 4 mg tablet 4 mg PO Q8HR PRN (Reason: Muscle Spasm) Patient Comments: TAKE 1 TABLET BY MOUTH EVERY 8 HOURS NEEDED NOT TO EXCEED 3 DOSES IN 24 HOURS meloxicam 15 mg tablet 15 mg PO QDAY midodrine 10 mg tablet 10 mg PO TID PRN (Reason: blood pressure) Qty: 90 0RF Rx Instructions: do not give last dose of day after 6PM or within 4 hrs of bedtime clindamycin HCl 300 mg capsule 300 mg PO 3XD hydrocodone-acetaminophen 10-325 mg tablet 10 tab PO PRN PRN (Reason: Pain (Scale Score 7-10)) nitroglycerin 0.4 mg tablet, sublingual 0.4 mg BUCCAL 3XD montelukast 10 mg tablet 10 mg PO DAILY rosuvastatin 40 mg tablet 40 mg PO DAILY Entresto 24-26 mg tablet 26 tab PO BID Ozempic 2 mg/dose (8 mg/3 mL) pen injector 1 mg SUBCUT Q7D metformin 1,000 mg tablet 1,000 mg PO BID Jardiance 25 mg tablet 25 mg PO DAILY pantoprazole [Protonix] 40 mg tablet,delayed release (DR/EC) 40 mg PO QDAY Qty: 20 0RF acetaminophen 500 mg capsule 500 mg PO Q6H PRN (Reason: pain) Qty: 30 0RF omeprazole 40 mg capsule,delayed release(DR/EC) 40 mg PO QDAY metoclopramide HCl [Reglan] 10 mg tablet 10 mg PO .TID prn PRN (Reason: nausea and vomiting) Qty: 30 0RF midodrine 10 mg tablet 10 mg PO TID PRN (Reason: hypotension) Qty: 30 0RF Rx Instructions: do not give last dose of day after 6PM or within 4 hrs of bedtime Referrals: Killian Donovan MD [Primary Care Provider] - In 1 week Problem List Clinical Impression: Venous insufficiency, Compensated heart failure, Stasis dermatitis Patient/Caregiver Discharge Instructions Additional Instructions: Please use compression socks and elevate your legs. Also, bed rest for 3 days. Please follow-up with your primary care physician within 2-3 days. Return to the Emergency Department as needed. Print Language: Kiswahili Stand Alone Forms: Ka[employer] Award Info., Patient Portal Info Letter
== END 2025-03-24 08:49 | disposition home or self-care (01) ==
PROVIDERS: Emergency Medicine; Physician Assistant; Emergency Provider Family Medicine; PCP Family Medicine
DX: I87.2 Venous insufficiency (chronic) (peripheral) (principal); I11.0 Hypertensive heart disease with heart failure; I50.9 Heart failure, unspecified; I44.0 Atrioventricular block, first degree; I49.3 Ventricular premature depolarization; I25.10 Atherosclerotic heart disease of native coronary artery without angina pectoris; E78.00 Pure hypercholesterolemia, unspecified; Z95.0 Presence of cardiac pacemaker; Z95.5 Presence of coronary angioplasty implant and graft
CPT/HCPCS: 36415; 80053; 83880; 84484; 85025; 85610; 85652; 85730; 86140; 93005; 93971; 99283; Q0162

== ENCOUNTER 2025-04-10 08:23 | Emergency (ER) | payer OTHER, SELFPAY ==
[2025-04-10 08:31] VITALS: PULSE 104; O2SAT 99; BMI 45.7
--- NOTE | 2025-04-10 08:31 | XR_ITS ---
Examination: AP chest single view Technique one AP upright portable chest single view Date and time: April 10, 2025 0914 hours Comparison January 30, 2025 INDICATIONS: Shortness of breath difficulty breathing today. FINDINGS: Moderate enlargement cardiac contour. Mild to moderate vascular congestion. No abdias pulmonary edema No lobar pneumonia. Stable position cardiac leads Prominent osteopenia IMPRESSION: Mild to moderate vascular congestion
--- NOTE | 2025-04-10 08:31 | EKG_ITS ---
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: : 1955 Requested By: Bertrand Rider Order Number: [id number] Reading MD: Bertrand Rider Measurements Intervals [place] Rate: 107 P: 39 RI: 193 QRS: -81 QRSD: 151 T: 93 QT: 355 QTc: 476 Interpretive Statements SINUS TACHYCARDIA WITH FREQUENT SUPRAVENTRICULAR PREMATURE COMPLEXES INTRAVENTRICULAR CONDUCTION DELAY [130+ ms QRS DURATION] INFERIOR MYOCARDIAL INFARCTION , POSSIBLY ACUTE [40+ ms Q WAVE AND/OR ST/T ABNORMALITY IN II/aVF] ANTEROLATERAL MYOCARDIAL INFARCTION , PROBABLY RECENT [40+ ms Q WAVE IN I/aVL/V3-V6] ACUTE NE Compared to ECG 03/24/2025 00:58:22 Sinus rhythm no longer present Ventricular premature complex(es) no longer present First degree AV block no longer present Prolonged QT interval no longer present Myocardial infarct finding still present /store/[id number].pdf
--- NOTE | 2025-04-10 08:34 | EDNOTE_ITS ---
ED General RME/HPI General Chief complaint: Shortness of Breath/Dyspnea Stated complaint: SOB Time Seen by Provider: 04/10/25 08:30 Arrival date/time: 04/10/25 08:23 RME / HPI RME / HPI narrative: 70-year-old female with past medical history of HFrEF (EF 35 to 40%), CAD s/p 13 stents in pacemaker, PAD s/p 2 stents in the right lower extremity, DM2, peripheral neuropathy, and COPD came into the ED with chief complaint of shortness of breath since last night that did not allow her to sleep well. She also mentioned that she was having sweating in her face, but denies any chest pain at this time. She mentioned she uses two pillows to sleep as she cannot sleep flat. Otherwise patient states that her lower extremities are still very swollen and they hurt a lot and that she was recently on antibiotics and finished them on Wednesday, but she has not noticed any improvements. Stated that she does not notice any fevers, but has been having chills. Otherwise no associated complaints. Related Data Home Medications ?Medication ?Instructions ?Recorded ?Confirmed ticagrelor 90 mg tablet (Brilinta) 60 mg PO BID 10/14/23 insulin glargine 100 unit/mL (3 30 unit subcut BID 10/14/23 mL) subcutaneous pen (Lantus Solostar U-100 Insulin) omeprazole 40 mg capsule,delayed 40 mg PO QDAY 2 10/14/23 release pregabalin 75 mg capsule (Lyrica) 100 mg PO QDAY 09/1710/14/23 meloxicam 15 mg tablet 15 mg PO QDAY 03/06/2310/14 tizanidine 4 mg tablet 4 mg PO Q8HR PRN Muscle Spas m 03/06/23 10/14/23 clindamycin HCl 300 mg capsule 300 mg PO 3XD 10/14/23 10/14/23 empagliflozin 25 mg tablet 25 mg PO DAILY 10/14/23 (Jardiance) hydrocodone 10 mg-acetaminophen 10 tab PO PRN PRN Pain (Scale 10/14/23 10/14/23 325 mg tablet Score 7-10) metformin 1,000 mg tablet 1,000 mg PO BID 10/14/23 montelukast 10 mg tablet 10 mg PO DAILY 10/14/2309/24 nitroglycerin 0.4 mg sublingual 0.4 mg buccal 3XD 09/2410/14/23 tablet rosuvastatin 40 mg tablet 40 mg PO DAILY 10/14/2309/24 sacubitril 24 mg-valsartan 26 mg 26 tab PO BID diabete s 10/14/23 10/14/23 tablet (Entresto) semaglutide 2 mg/dose (8 mg/3 mL) 1 mg subcut Q7D 09/2410/14/23 subcutaneous pen injector (Ozempic) Previous Rx's ?Medication ?Instructions ?Recorded aspirin 81 mg tablet,delayed 81 mg PO QDAY 30 days #30 tabs 09/25/22 release atorvastatin 40 mg tablet 40 mg PO HS 30 days #30 tabs 09/25/22 midodrine 10 mg tablet 10 mg PO TID PRN blood press ure 08/29/23 #90 tabs pantoprazole 40 mg tablet,delayed 40 mg PO QDAY #20 ta bs 10/28/23 release (Protonix) metoclopramide HCl 10 mg tablet 10 mg PO .TID prn PRN nausea and 11/10/23 (Reglan) vomiting #30 tabs midodrine 10 mg tablet 10 mg PO TID PRN hypotension #30 11/10/23 tabs acetaminophen 500 mg capsule 500 mg PO Q6H PRN pain #3 0 caps 06/11/24 furosemide 20 mg tablet (Lasix) 20 mg PO QDAY LEG ARTUR A #7 tabs 03/24/25 potassium chloride 10 mEq 10 meq PO QDAY LASIX USE #7 caps 03/24/25 capsule,extended release furosemide 40 mg tablet 40 mg PO QDAY #7 tabs potassium chloride 10 mEq 10 meq PO QDAY #7 tabs 04/10 tablet,extended release Allergies Allergy/AdvReac Type Severity Reaction Status Date / Time adhesive Allergy Severe SKIN GETS Verified 03/23/25 21:07 RAW ketorolac AdvReac Severe SHARP Verified 03/23/25 21:07 PAINS THROUGHOUT ENTIRE BODY morphine AdvReac Severe CAUSES Verified 03/23/25 21:07 BEHAVIORAL PROBLEMS Review of Systems Review of Systems Systems Reviewed: All systems reviewed, normal except as documented Past Medical History Past Medical History NEUROLOGIC: Positive Neurological Disorders and Peripheral Neuropathy CARDIAC: Positive Cardiac Disorders, Myocardial Infarction, Cardiac Arrhythmia, Angina, Coronary Artery Disease, Atherosclerotic Heart Disease, Peripheral Vascu lar Disease, Hypercholesterolemia, Aneurysm, Congestive Heart Failure, Edema, Cellulitis, Hypertension and Hypotension RESPIRATORY: Positive Bronchitis and Pneumonia GASTROINTESTINAL: Positive Gastrointestinal Disorders, Gall Bladder Disease, Hiatal Hernia, Gastroesophageal Reflux Disease and Obesity GENITOURINARY: Positive Genitourinary Disorders MUSCULOSKELETAL: Positive Musculoskeletal Disorders and Fractures ENDOCRINE: Positive Endocrine Disorders and Diabetes Mellitus Type 2 PSYCHO/SOCIAL: Positive Depression and Anxiety OTHER HISTORY: Positive Hospitalization, Falls and MRSA Family History FAMILY HISTORY: Positive Family Neurologic Problems (Mother had dementia.) and Family Cardiac Disorders Surgical History SURGICAL: Positive Cardiac Surgery, Coronary Stent, Cardiac Catheterization, Pacemaker, Angiogram, Tonsillectomy and Abdominal Surgery Social History SMOKING STATUS: Never smoker SECOND HAND EXPOSURE: No SUBSTANCE USE: does not use ALCOHOL: Never ED Exam Narrative Physical exam: Gen: A&O X 3, NAD HEENT: NCAT, EOMI, Pupils reactive KATHY, not icteric. External ears normal. No rhinorrhea. Moist mucous membranes, poor dentation. Neck: Supple, full range of motion, no observable masses, No meningeal sign. Lungs: No Respiratory distress, clear bilateral. CV: RRR, no murmurs. Abdomen: Soft, nondistended, No rebound tenderness. MSK: No joint swelling, no redness, peripheral pulses presents, KATHY LE edema 1+, erythema in R LE with a healing wound in anterior LE. Skin: No rashes, petechiae, lesions. Neuro: No focal neurological deficits appreciated, sensory and motor intact. Psych: Cooperative, appropriate mood and effect. Course Quality Measures none Orders Category Date Time Status Bedside COVID-19 Antigen Test NOW Care 04/10/25 08:37 Active Bedside Influenza A&B Antigen Test NOW Care 04/10/25 08:37 Completed Candle Cutter Q4H START 00 Care 04/10/25 08:31 Active Continuous Pulse Oximetry NOW Care 04/10/25 08:31 Completed EKG (ED ONLY) *Do not use* NOW Care 04/10/25 08:31 Completed Consult to Cardiology Stat Cons 04/10/25 08:58 Ordered CXRP [XR chest 1V portable] Stat Exams 04/10/25 08:31 Completed EKG (ED Only) Stat Exams 04/10/25 08:31 Draft BNP [B-Type Natriuretic Peptide] Stat Lab 04/10/25 09:23 Completed CBC [CBC] Stat Lab 04/10/25 09:23 Results CMP [Comprehensive Metabolic Panel] Stat Lab 04/10/25 09:23 Completed CRP [C-Reactive Protein] Stat Lab 04/10/25 09:23 Completed Drug Screen,Urine Stat Lab 04/10/25 11:14 Completed ESR [Sed Rate (ESR)] Stat Lab 04/10/25 09:23 Results Lactic Acid [Lactate (Lactic Acid)] Stat Lab 04/10/25 09:23 Results Magnesium Stat Lab 04/10/25 09:23 Completed Procalcitonin Stat Lab 04/10/25 09:23 Completed Troponin I Routine Lab 04/10/25 11:33 Completed Troponin I Stat Lab 04/10/25 09:23 Completed UA [Urinalysis] Stat Lab 04/10/25 11:14 Received Albuterol/Ipratr Rt Kalpana [Duoneb Rt Kalpana] Med 04/10/25 08:31 Discontinued 3 ml INH X1 ONE Furosemide Inj [Lasix Inj] Med 04/10/25 09:30 Discontinued 40 mg IVP X1 ONE HYDROmorphone INJ [Dilaudid Inj] Med 04/10/25 09:15 Discontinued 0.5 mg IVP X1 ONE Magnesium Sulfate 2 GM Ivpb [Magnesium Sulfate Ivpb] Med 04/10/25 10:07 Discontinued 2 gm in 50 ml IV X1 Ondansetron Inj [Zofran Inj] Med 04/10/25 09:13 Discontinued 4 mg IVP X1 ONE Vital Signs Vital signs: Vital Signs Pulse Rate 107 H 04/10/25 08:37 Discharge Plan Plan Patient Disposition: HOME (Self Care) Prescriptions/Referrals Prescriptions/Med Rec: New furosemide 40 mg tablet 40 mg PO QDAY Qty: 7 0RF potassium chloride 10 mEq tablet extended release 10 meq PO QDAY Qty: 7 0RF No Action Brilinta 90 mg Tablet 60 mg PO BID insulin glargine [Lantus Solostar U-100 Insulin] 100 unit/mL (3 mL) Insulin Pen 30 unit SUBCUT BID pregabalin [Lyrica] 75 mg capsule 100 mg PO QDAY aspirin 81 mg Tablet,Delayed Release (Dr/Ec) 81 mg PO QDAY 30 Days Qty: 30 1RF atorvastatin 40 mg tablet 40 mg PO HS 30 Days Qty: 30 1RF tizanidine 4 mg tablet 4 mg PO Q8HR PRN (Reason: Muscle Spasm) Patient Comments: TAKE 1 TABLET BY MOUTH EVERY 8 HOURS NEEDED NOT TO EXCEED 3 DOSES IN 24 HOURS meloxicam 15 mg tablet 15 mg PO QDAY midodrine 10 mg tablet 10 mg PO TID PRN (Reason: blood pressure) Qty: 90 0RF Rx Instructions: do not give last dose of day after 6PM or within 4 hrs of bedtime clindamycin HCl 300 mg capsule 300 mg PO 3XD hydrocodone-acetaminophen 10-325 mg tablet 10 tab PO PRN PRN (Reason: Pain (Scale Score 7-10)) nitroglycerin 0.4 mg tablet, sublingual 0.4 mg BUCCAL 3XD montelukast 10 mg tablet 10 mg PO DAILY rosuvastatin 40 mg tablet 40 mg PO DAILY Entresto 24-26 mg tablet 26 tab PO BID Ozempic 2 mg/dose (8 mg/3 mL) pen injector 1 mg SUBCUT Q7D metformin 1,000 mg tablet 1,000 mg PO BID Jardiance 25 mg tablet 25 mg PO DAILY pantoprazole [Protonix] 40 mg tablet,delayed release (DR/EC) 40 mg PO QDAY Qty: 20 0RF acetaminophen 500 mg capsule 500 mg PO Q6H PRN (Reason: pain) Qty: 30 0RF furosemide [Lasix] 20 mg tablet 20 mg PO QDAY MDD 1 Qty: 7 0RF potassium chloride 10 mEq capsule, extended release 10 meq PO QDAY MDD 1 Qty: 7 0RF omeprazole 40 mg capsule,delayed release(DR/EC) 40 mg PO QDAY metoclopramide HCl [Reglan] 10 mg tablet 10 mg PO .TID prn PRN (Reason: nausea and vomiting) Qty: 30 0RF midodrine 10 mg tablet 10 mg PO TID PRN (Reason: hypotension) Qty: 30 0RF Rx Instructions: do not give last dose of day after 6PM or within 4 hrs of bedtime Referrals: Killian Donovan MD [Primary Care Provider] - In 1 week Problem List Clinical Impression: Shortness of breath, CHF exacerbation Patient/Caregiver Discharge Instructions Other Activity Instructions:: Follow-up primary care physician within 1 to 2 days Follow-up with your 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 Recommend daily weights and if he notices 2+ pound weight gain please contact your fashion director party plan [employer] or primary care physician Recommend low-sodium diet and to maintain a max fluid intake of 2 L/day Come back to the ER symptoms persist or worsen. Education Materials: Heart Failure Dc, ED Shortness of Breath (Dyspnea) Print Language: Faroese Stand Alone Forms: Kaelyn Award Info., Patient Portal Info Letter MDM Narrative [facility] hospital course: Patient was seen and evaluated upon arrival by myself. Diagnostic labs and imaging were ordered. EKG that show some questionable ST findings therefore cardiology was consulted. Patient chest x-ray shows some vascular congestion therefore ordered 40 mg of IV Lasix. Patient is WBC was not elevated, Pro-Akash was normal, and CRP was mildly elevated to 1.1 therefore at this time lower extremity swelling most likely secondary to CHF exacerbation. Patient is feeling a lot better and less short of breath at this time. 12: 09: At this time we will discharge patient back home as second troponin is also came back negative and okay by cardiology. Will need follow-up primary care physician and [employer]. Case disclosed with Attending Dr. Leo Rider PGY2 Disclaimer: Even though this this note was dictated by speech recognition and even though it was carefully revised there may still be minor errors in registration officer due to voice recognition software. Medication Administration(s) Medication Administration History Discontinued Medications Albuterol/Ipratropium (Albuterol/Ipratropium (Duoneb) Rt Kalpana 3 Ml Nebu) 3 ml INH X1 ONE Stop: 04/10/25 08:32 Last Admin: 04/10/25 08:51 Dose: 3 ml Documented By: JILLIAN Furosemide (Furosemide Inj 10 Mg/Ml 4ml Vial) 40 mg IVP X1 ONE Stop: 04/10/25 09:31 Last Admin: 04/10/25 10:33 Dose: 40 mg Documented By: SIOMARA Hydromorphone HCl (Hydromorphone Inj 2 Mg/Ml Vial) 0.5 mg IVP X1 ONE Stop: 04/10/25 09:16 Last Admin: 04/10/25 09:30 Dose: 0.5 mg Documented By: SIOMARA Magnesium Sulfate (Magnesium Sulfate Ivpb) 2 gm in 50 mls @ 25 mls/hr IV X1 ONE Stop: 04/10/25 12:06 Last Admin: 04/10/25 10:33 Dose: 25 mls/hr Documented By: SIOMARA Ondansetron HCl (Ondansetron Inj 2 Mg/Ml Inj 2 Ml) 4 mg IVP X1 ONE; Protocol Stop: 04/10/25 09:14 Last Admin: 04/10/25 09:30 Dose: 4 mg Documented By: SIOMARA
[2025-04-10 08:37] VITALS: PULSE 107
[2025-04-10 08:49] VITALS: BP 161/109; PULSE 104; RESP 19; TEMP 36.6; O2SAT 96
[2025-04-10 08:51] VITALS: PULSE 107; RESP 18; O2SAT 93
[2025-04-10] MEDS: ALBUTEROL/IPRATROPIUM (Duoneb) RT SOL 3 ML NEBU INH (08:51)
[2025-04-10] MEDS: ONDANSETRON INJ 2 MG/ML INJ 2 ML 4 MG IVP (09:30)
[2025-04-10] MEDS: HYDROmorphone INJ 2 MG/ML VIAL 0.5 MG IVP (09:30)
[2025-04-10 09:37] LABS: Lactate (Lactic Acid) 2.3 mMol/L (0.4-2.0)
[2025-04-10 09:42] LABS: Basophils # (Auto) 0.1 Thou/mm3 (0.0-0.2); Basophils % (Auto) 1 % (0-2.5); Eosinophils # (Auto) 0.0 Thou/mm3 (0.0-0.5); Eosinophils % (Auto) 0 % (0-10); Hematocrit 45.6 % (36.0-46.0); Hemoglobin 14.1 g/dL (12.0-16.0); Immature Granulocytes Auto 0.05 Thou/mm3 (0.00-0.00); Lymphocytes # (Auto) 1.5 Thou/mm3 (1.0-4.8); Lymphocytes % (Auto) 17 % (10-50); Mean Corpuscular HGB Conc 30.9 g/dl (31.0-37.0); Mean Corpuscular Hemoglobin 25.9 pg (25.0-35.0); Mean Corpuscular Volume 84 fL (80-100); Monocytes # (Auto) 0.5 Thou/mm3 (0.0-0.8); Monocytes % (Auto) 6 % (0-12); Neutrophils # (Auto) 6.6 Thou/mm3 (1.8-7.7); Neutrophils % (Auto) 75 % (37-80); Nucleated Red Blood Cell # 0.00 Thou/mm3 (0.00-0.00); Nucleated Red Blood Cell % 0 /100 WBC (0); Platelet Count 272 Thou/mm3 (140-440); RDW Standard Deviation 44.2 fL (36.4-46.3); Red Blood Count 5.44 Miln/mm3 (4.00-5.20); White Blood Count 8.8 Thou/mm3 (3.6-11.0)
[2025-04-10 09:58] LABS: B-Type Natriuretic Peptide 1448 pg/mL (0-100)
[2025-04-10 10:05] LABS: Alanine Aminotransferase 11 U/L (10-49); Albumin, Serum 4.1 gm/dL (3.4-4.8); Albumin/Globulin Ratio 1.6 (1.2-2.2); Alkaline Phosphatase 98 U/L (46-116); Anion Gap 15 (7-16); Aspartate Amino Transferase 17 U/L (0-34); BUN/Creatinine Ratio 9 Ratio (12-20); Bilirubin,Total 0.8 mg/dL (0.3-1.2); Blood Urea Nitrogen 9 mg/dL (9-23); C-Reactive Protein 1.1 mg/dL (0.0-0.9); Calcium 9.8 mg/dL (8.3-10.6); Calcium (Corrected) 9.8 mg/dL (8.5-10.1); Carbon Dioxide 21.8 mMol/L (20.0-31.0); Chloride 104 mMol/L (98-107); Creatinine (Component) 1.0 mg/dL (0.6-1.3); Estimated Creatinine Clearance 71.5 mL/min (>60); Globulin 2.5 gm/dL (2.3-3.5); Glucose 288 mg/dL (74-106); Magnesium 1.4 mg/dL (1.6-2.6); Osmolality,Calculated 290 (275-295); Potassium 3.6 mMol/L (3.4-5.1); Procalcitonin 0.09 ng/ml (0.0-0.49); Sodium 141 mMol/L (136-145); Total Protein 6.6 gm/dL (5.7-8.2); Troponin I 0.027 ng/mL (0.0-0.045); eGFR > 60 See Note
[2025-04-10 10:33] VITALS: BP 121/93; PULSE 94
[2025-04-10] MEDS: Magnesium Sulfate 2 GM Ivpb 2 GM/50 ML BAG IV (10:33)
[2025-04-10] MEDS: FUROSEMIDE INJ 10 MG/ML 4ML VIAL 40 MG IVP (10:33)
[2025-04-10 11:28] LABS: Collection Type, Urine Voided
[2025-04-10 11:44] LABS: Amphetamine/Methamp Scrn,U Negative (Negative); Barbiturate Screen,Urine Negative (Negative); Benzodiazepines Screen,Urine Negative (Negative); Benzoylecgonine Screen, Ur Negative (Negative); Fentanyl Screen,Urine Negative (Negative); Opiate Screen,Urine Positive (Negative); THC Screen,Urine Negative (Negative)
[2025-04-10 11:50] LABS: Bilirubin,Urine Negative (Negative); Blood,Urine Negative (Negative); Clarity,Urine Clear (Clear/Hazy); Color,Urine Lt-Yellow (Lt Yel-Yel); Glucose, Urine 4+ (Negative); Ketones,Urine 1+ (Negative); Leukocyte Esterase,Urine Positive (Negative); Nitrite,Urine Negative (Negative); PH,Urine 5.5 (5.0-7.0); Protein,Urine Negative (Neg - Trace); RBC,Urine 5 /hpf (0-3); Specific Gravity,Urine 1.017 (1.001-1.035); Squamous Epithelial Cell,Urine 2 /hpf (0-5); Urobilinogen,Urine Negative mg/dL (0.0-1.0); WBC,Urine 2 /hpf (0-5)
[2025-04-10 12:02] LABS: Troponin I 0.029 ng/mL (0.0-0.045)
[2025-04-10 12:33] LABS: Sed Rate (ESR) 19 mm/hr (0-30)
[2025-04-10 12:35] LABS: Reflex Lactate? Y
[2025-04-10 13:05] VITALS: BP 128/84; PULSE 93; RESP 16; O2SAT 95
== END 2025-04-10 13:05 | disposition home or self-care (01) ==
PROVIDERS: PCP Family Medicine
DX: R06.02 Shortness of breath (principal); I50.20 Unspecified systolic (congestive) heart failure; E11.42 Type 2 diabetes mellitus with diabetic polyneuropathy; I25.10 Atherosclerotic heart disease of native coronary artery without angina pectoris; Z95.5 Presence of coronary angioplasty implant and graft
CPT/HCPCS: 36415; 71045; 80053; 80307; 81001; 83605; 83735; 83880; 84145; 84484; 85025; 85652; 86140; 87400; 87811; 93005; 94640; 96365; 96366; 96375; 99283; A9270; J1171; J1938; J2405; J3475

== ENCOUNTER 2025-04-14 02:04 | Inpatient (IN) | payer OTHER, MEDICARE, SELFPAY ==
[2025-04-14] VITALS (22 sets, daily range): BP systolic 99–139; BP diastolic 76–102; PULSE 81–166; RESP 15–92; TEMP 36.3–37.3; O2SAT 93–97; BMI 45.7
--- NOTE | 2025-04-14 02:40 | PD.EDARRY ---
ED Arrhythmia Palp. RME/HPI General Chief Complaint: Arrhythmia/Palpitations Stated Complaint: DEFIBRILLATOR WENT OFF Time Seen by Provider: 04/14/25 02:43 Arrival date/time: 04/14/25 02:04 RME / HPI RME / HPI narrative: DR. IQBAL MAIN ED EVALUATION: 70 y/o female with Hx of COPD, CHF, CAD, HTN, and Cardiac Arrhythmia BIBA from home presents to ED c/o palpitations, shortness of breath, and nausea x 3 hours. Patient was given Zofran en route. Patient has 13 stents in the hearts and 2 stents in the right lower extremity. Patient takes Brilnta 60 mg twice a day. She denies any Hx of atrial fibrillation. No other concerns or complaints expressed at this time. Related Data Home Medications ?Medication ?Instructions ?Recorded ?Confirmed ticagrelor 90 mg tablet (Brilinta) 60 mg PO BID 05/08/21 10/14/23 insulin glargine 100 unit/mL (3 30 unit subcut BID 12/10/21 10/14/23 mL) subcutaneous pen (Lantus Solostar U-100 Insulin) omeprazole 40 mg capsule,delayed 40 mg PO QDAY 05/28/22 10/14/23 release pregabalin 75 mg capsule (Lyrica) 100 mg PO QDAY 09/17/22 10/14/23 meloxicam 15 mg tablet 15 mg PO QDAY 03/06/23 10/14/23 tizanidine 4 mg tablet 4 mg PO Q8HR PRN Muscle Spasm 03/06/23 10/14/23 clindamycin HCl 300 mg capsule 300 mg PO 3XD 10/14/23 10/14/23 empagliflozin 25 mg tablet 25 mg PO DAILY 10/14/23 10/14/23 (Jardiance) hydrocodone 10 mg-acetaminophen 10 tab PO PRN PRN Pain (Scale 10/14/23 10/14/23 325 mg tablet Score 7-10) metformin 1,000 mg tablet 1,000 mg PO BID 10/14/23 10/14/23 montelukast 10 mg tablet 10 mg PO DAILY 10/14/23 10/14/23 nitroglycerin 0.4 mg sublingual 0.4 mg buccal 3XD 10/14/23 10/14/23 tablet rosuvastatin 40 mg tablet 40 mg PO DAILY 10/14/23 10/14/23 sacubitril 24 mg-valsartan 26 mg 26 tab PO BID diabetes 10/14/23 10/14/23 tablet (Entresto) semaglutide 2 mg/dose (8 mg/3 mL) 1 mg subcut Q7D 10/14/23 10/14/23 subcutaneous pen injector (Ozempic) Previous Rx's ?Medication ?Instructions ?Recorded aspirin 81 mg tablet,delayed 81 mg PO QDAY 30 days #30 tabs 09/25/22 release atorvastatin 40 mg tablet 40 mg PO HS 30 days #30 tabs 09/25/22 midodrine 10 mg tablet 10 mg PO TID PRN blood pressure 08/29/23 #90 tabs pantoprazole 40 mg tablet,delayed 40 mg PO QDAY #20 tabs 10/28/23 release (Protonix) metoclopramide HCl 10 mg tablet 10 mg PO .TID prn PRN nausea and 11/10/23 (Reglan) vomiting #30 tabs midodrine 10 mg tablet 10 mg PO TID PRN hypotension #30 11/10/23 tabs acetaminophen 500 mg capsule 500 mg PO Q6H PRN pain #30 caps 06/11/24 furosemide 20 mg tablet (Lasix) 20 mg PO QDAY LEG EDEMA #7 tabs 03/24/25 potassium chloride 10 mEq 10 meq PO QDAY LASIX USE #7 caps 03/24/25 capsule,extended release furosemide 40 mg tablet 40 mg PO QDAY #7 tabs 04/10/25 potassium chloride 10 mEq 10 meq PO QDAY #7 tabs 04/10/25 tablet,extended release Allergies Allergy/AdvReac Type Severity Reaction Status Date / Time adhesive Allergy Severe SKIN GETS Verified 03/23/25 21:07 RAW ketorolac AdvReac Severe SHARP Verified 03/23/25 21:07 PAINS THROUGHOUT ENTIRE BODY morphine AdvReac Severe CAUSES Verified 03/23/25 21:07 BEHAVIORAL PROBLEMS Review of Systems Review of Systems Systems Reviewed: All systems reviewed, normal except as documented Past Medical History Past Medical History NEUROLOGIC: Positive Neurological Disorders and Peripheral Neuropathy CARDIAC: Positive Cardiac Disorders, Myocardial Infarction, Cardiac Arrhythmia, Angina, Coronary Artery Disease, Atherosclerotic Heart Disease, Hypercholesterolemia, Aneurysm, Congestive Heart Failure, Edema, Cellulitis, Hypertension and Hypotension RESPIRATORY: Positive Chronic Obstructive Pulmonary Disease (COPD), Bronchitis and Pneumonia GASTROINTESTINAL: Positive Gastrointestinal Disorders, Gall Bladder Disease, Hiatal Hernia, Gastroesophageal Reflux Disease and Obesity GENITOURINARY: Positive Genitourinary Disorders and Renal Disease (Pt states they formerly did dialysis. No longer on dialysis) MUSCULOSKELETAL: Positive Musculoskeletal Disorders and Fractures ENDOCRINE: Positive Endocrine Disorders and Diabetes Mellitus Type 2 PSYCHO/SOCIAL: Positive Depression and Anxiety OTHER HISTORY: Positive Hospitalization, Falls and MRSA Family History FAMILY HISTORY: Positive Family Neurologic Problems (Mother had dementia.), Family Cardiac Disorders and Family Cancer Surgical History SURGICAL: Positive Cardiac Surgery, Coronary Stent, Cardiac Catheterization, Pacemaker, Angiogram, Tonsillectomy and Abdominal Surgery ED Exam Narrative Physical exam: Generally patient is in no obvious distress, heart shows an irregularly irregular rhythm with tachycardic rate, lungs clear to auscultation bilaterally, abdomen soft obese bowel sounds present nondistended nontender, skin is warm pale and dry, neurologic exam shows no focal deficits. Course Quality Measures none Vital Signs Vital signs: Vital Signs Pulse Rate 149 H 04/14/25 02:34 Respiratory Rate 19 04/14/25 02:34 Blood Pressure 116/76 04/14/25 02:34 Pulse Oximetry (%) 95 04/14/25 02:34 Oxygen Delivery Method Room Air 04/14/25 02:34 Arrhythmia/Palpitations MDM Narrative MDM Narrative:: Scribe Attestation: April Her am scribing for and in the presence of Dr. Iqbal. Provider Notation: Although this document has been carefully reviewed, there may still be some phonetic and other typographical errors. These errors are purely grammatical due to imperfections in the software program and should not be construed in any way to? compromise the substance of the patient's medical care during this visit. Patient was shocked by her AICD. The AICD was interrogated and it appears as if the patient was shocked at 1:19 AM for ventricular tachycardia with 41 J. Patient arrives in what appears to be a wide-complex irregular rhythm with tachycardic rate. It appears this to be atrial fibrillation with a right bundle branch block. Patient has not been in atrial fibrillation in the past. She is not anticoagulated. She denies chest pain. She is not hypotensive. She is on Brilinta for coronary artery disease. Patient was given diltiazem 20 mg IV x 3 which helped bring the heart rate from the 150s and 160s to the 130s. Patient was then bolused with amiodarone and started on amiodarone drip. Troponin slightly elevated at 0.055. This troponin was obtained after the AICD shock. Case was discussed with the hospitalist and the patient will require admission to the hospital for further treatment and evaluation. Electrolytes were within normal limits such as magnesium and potassium. Prior to the patient receiving any amiodarone, the patient's heart rate has decreased to 80. Follow-up EKG is pending. Patient data External records reviewed:: [facility] previous records (Reviewed prior ED records from 04/10/25. Patient was seen for CHF exacerbation.) and EMS form Clinical information provided by:: patient and EMS Social determinants that could affect healthcare access:: none Patient has the following chronic illnesses:: Peripheral Neuropathy, Cardiac Arrhythmia, Angina, Coronary Artery Disease, Atherosclerotic Heart Disease, Hypercholesterolemia, Aneurysm, Congestive Heart Failure, Edema, Cellulitis, Hypertension, Hypotension, Chronic Obstructive Pulmonary Disease (COPD), Gall Bladder Disease, Hiatal Hernia, Gastroesophageal Reflux Disease, Obesity, Renal Disease, Diabetes Mellitus Type 2, Depression and Anxiety How is presenting disease/condition affected by chronic disease/condition?: exacerbated by Evaluation data The following diagnostics were reviewed and interpreted by me:: lab results, radiology exam(s) and EKG tracing(s) Lab and/or radiology exams considered but not ordered:: None Interpretation Summary: None Medications / Prescriptions Medications or Prescriptions considered but not ordered:: None Medication administrations:: See above if any. Consultations Consultation(s) initiated? (list below): Yes Consultation #1 (Physician, Specialty, Details): Hospitalist made aware of the patient?s HPI, PMHx, lab and/or radiology results. Treatment plan was discussed. Will admit for further evaluation and management. Accepts patient for admission. Time: 04:39 Diagnosis Differential diagnosis arrhythmia/palpitations: palpitations, anxiety, sinus tachycardia, artial fibrillation, artial flutter, ventricular premature beats, supraventricular tachycardia and ventricular tachycardia Most likely diagnosis given after review of the tests above:: None Admission Indicated Admission indicated?: indicated Admission Request Was there a request for admission?: Yes Admission Attestation Admission request attestation: Discussed case with [] from Hospitalist service regarding admission. Discussed patients ED course, exam findings, labs, and radiology results. The Hospitalist [agrees,declines] to accept the patient for admission. Disposition Plan Disposition Plan: Admit Critical Care Time Critical Care Time Critical Care Time: Yes Total Critical Care Time (min.): 35 Attestation: Excluding other billable procedures Discharge Plan Plan Patient Disposition: Admit Acute Care w/in Hospital Prescriptions/Referrals Prescriptions/Med Rec: No Action Brilinta 90 mg Tablet 60 mg PO BID insulin glargine [Lantus Solostar U-100 Insulin] 100 unit/mL (3 mL) Insulin Pen 30 unit SUBCUT BID pregabalin [Lyrica] 75 mg capsule 100 mg PO QDAY aspirin 81 mg Tablet,Delayed Release (Dr/Ec) 81 mg PO QDAY 30 Days Qty: 30 1RF atorvastatin 40 mg tablet 40 mg PO HS 30 Days Qty: 30 1RF tizanidine 4 mg tablet 4 mg PO Q8HR PRN (Reason: Muscle Spasm) Patient Comments: TAKE 1 TABLET BY MOUTH EVERY 8 HOURS NEEDED NOT TO EXCEED 3 DOSES IN 24 HOURS meloxicam 15 mg tablet 15 mg PO QDAY midodrine 10 mg tablet 10 mg PO TID PRN (Reason: blood pressure) Qty: 90 0RF Rx Instructions: do not give last dose of day after 6PM or within 4 hrs of bedtime clindamycin HCl 300 mg capsule 300 mg PO 3XD hydrocodone-acetaminophen 10-325 mg tablet 10 tab PO PRN PRN (Reason: Pain (Scale Score 7-10)) nitroglycerin 0.4 mg tablet, sublingual 0.4 mg BUCCAL 3XD montelukast 10 mg tablet 10 mg PO DAILY rosuvastatin 40 mg tablet 40 mg PO DAILY Entresto 24-26 mg tablet 26 tab PO BID Ozempic 2 mg/dose (8 mg/3 mL) pen injector 1 mg SUBCUT Q7D metformin 1,000 mg tablet 1,000 mg PO BID Jardiance 25 mg tablet 25 mg PO DAILY pantoprazole [Protonix] 40 mg tablet,delayed release (DR/EC) 40 mg PO QDAY Qty: 20 0RF acetaminophen 500 mg capsule 500 mg PO Q6H PRN (Reason: pain) Qty: 30 0RF furosemide [Lasix] 20 mg tablet 20 mg PO QDAY MDD 1 Qty: 7 0RF potassium chloride 10 mEq capsule, extended release 10 meq PO QDAY MDD 1 Qty: 7 0RF furosemide 40 mg tablet 40 mg PO QDAY Qty: 7 0RF potassium chloride 10 mEq tablet extended release 10 meq PO QDAY Qty: 7 0RF omeprazole 40 mg capsule,delayed release(DR/EC) 40 mg PO QDAY metoclopramide HCl [Reglan] 10 mg tablet 10 mg PO .TID prn PRN (Reason: nausea and vomiting) Qty: 30 0RF midodrine 10 mg tablet 10 mg PO TID PRN (Reason: hypotension) Qty: 30 0RF Rx Instructions: do not give last dose of day after 6PM or within 4 hrs of bedtime Problem List Clinical Impression: Atrial fibrillation with rapid ventricular response, Elevated troponin, Palpitations, AICD discharge Patient/Caregiver Discharge Instructions Print Language: Bahraini Stand Alone Forms: Kaelyn Award Info., Patient Portal Info Letter
--- NOTE | 2025-04-14 02:44 | XR_ITS ---
Examination: AP chest single view TECHNIQUE: AP portable semiupright chest single view Date and time: April 14, 2025, 0354 hours, comparison April 10, 2025 INDICATIONS: Chest pain shortness of breath today. FINDINGS: Moderate enlargement cardiac contour. Stable positioning cardiac leads. Mild vascular congestion. No lobar pneumonia. No abdias pulmonary edema. Prominent osteopenia IMPRESSION: Again noted moderate enlargement cardiac contour Mild vascular congestion.
--- NOTE | 2025-04-14 02:44 | EKG_ITS ---
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1955 Requested By: Randall Gamez Order Number: [id number] Reading MD: Randall Gamez Measurements Intervals [place] Rate: 78 P: 57 [place]: 224 QRS: -87 QRSD: 164 T: 90 QT: 469 QTc: 537 Interpretive Statements SINUS RHYTHM WITH FIRST DEGREE AV BLOCK WITH OCCASIONAL VENTRICULAR PREMATURE COMPLEXES RIGHT BUNDLE BRANCH BLOCK [120+ ms QRS DURATION, UPRIGHT V1, 40+ ms S IN I/aVL/V4/V5/V6] INFERIOR MYOCARDIAL INFARCTION , POSSIBLY ACUTE [40+ ms Q WAVE AND/OR ST/T ABNORMALITY IN II/aVF] ANTEROLATERAL MYOCARDIAL INFARCTION , PROBABLY RECENT [40+ ms Q WAVE IN I/aVL/V3-V6] ACUTE [place] Compared to ECG 04/10/2025 08:36:27 Ventricular premature complex(es) now present First degree AV block now present Right bundle-branch block now present Sinus tachycardia no longer present Intraventricular conduction delay no longer present Myocardial infarct finding still present /store/S0/[id number].pdf
[2025-04-14] MEDS: DILTIAZEM INJ 5 MG/ML VIAL 5 ML 20 MG IV ×3 (02:51→04:20)
[2025-04-14 03:13] LABS: Basophils # (Auto) 0.1 Thou/mm3 (0.0-0.2); Basophils % (Auto) 1 % (0-2.5); Eosinophils # (Auto) 0.1 Thou/mm3 (0.0-0.5); Eosinophils % (Auto) 1 % (0-10); Hematocrit 45.4 % (36.0-46.0); Hemoglobin 14.4 g/dL (12.0-16.0); Immature Granulocytes Auto 0.08 Thou/mm3 (0.00-0.00); Lymphocytes # (Auto) 1.5 Thou/mm3 (1.0-4.8); Lymphocytes % (Auto) 16 % (10-50); Mean Corpuscular HGB Conc 31.7 g/dl (31.0-37.0); Mean Corpuscular Hemoglobin 25.9 pg (25.0-35.0); Mean Corpuscular Volume 82 fL (80-100); Monocytes # (Auto) 0.7 Thou/mm3 (0.0-0.8); Monocytes % (Auto) 7 % (0-12); Neutrophils # (Auto) 7.5 Thou/mm3 (1.8-7.7); Neutrophils % (Auto) 75 % (37-80); Nucleated Red Blood Cell # 0.00 Thou/mm3 (0.00-0.00); Nucleated Red Blood Cell % 0 /100 WBC (0); RDW Standard Deviation 42.6 fL (36.4-46.3); Red Blood Count 5.57 Miln/mm3 (4.00-5.20); White Blood Count 10.0 Thou/mm3 (3.6-11.0)
[2025-04-14 03:16] LABS: Platelet Count 299 Thou/mm3 (140-440)
[2025-04-14 03:35] LABS: Alanine Aminotransferase 11 U/L (10-49); Albumin, Serum 4.5 gm/dL (3.4-4.8); Albumin/Globulin Ratio 1.5 (1.2-2.2); Alkaline Phosphatase 100 U/L (46-116); Anion Gap 17 (7-16); Aspartate Amino Transferase 22 U/L (0-34); BUN/Creatinine Ratio 9 Ratio (12-20); Bilirubin,Total 0.7 mg/dL (0.3-1.2); Blood Urea Nitrogen 12 mg/dL (9-23); Calcium 9.9 mg/dL (8.3-10.6); Calcium (Corrected) 9.9 mg/dL (8.5-10.1); Carbon Dioxide 24.4 mMol/L (20.0-31.0); Chloride 98 mMol/L (98-107); Creatinine (Component) 1.3 mg/dL (0.6-1.3); Estimated Creatinine Clearance 55.0 mL/min (>60); Globulin 3.0 gm/dL (2.3-3.5); Glucose 376 mg/dL (74-106); Magnesium 2.0 mg/dL (1.6-2.6); Osmolality,Calculated 292 (275-295); Potassium 3.9 mMol/L (3.4-5.1); Sodium 139 mMol/L (136-145); Total Protein 7.5 gm/dL (5.7-8.2); eGFR 45 See Note
[2025-04-14 03:38] LABS: Troponin I 0.055 ng/mL (0.0-0.045)
[2025-04-14] MEDS: HYDROmorphone INJ 2 MG/ML VIAL 0.5 MG IVP (04:17)
[2025-04-14 05:09] LABS: Beta Hydroxybutyrate 1.1 mmol/L (<0.6)
--- NOTE | 2025-04-14 05:31 | ECHO_ITS ---
Transthoracic Echo Report Ht (in): 65 Wt (lb): 275 Exam Location: Echo Lab Status: Emergency Laboratory Technologist: Kathy Thao Indications: Procedure Performed: BP: 117 / 91 HR: 87 MEASUREMENTS (Male / Female) Normal Values 2D ECHO LV Diastolic Diameter PLAX 5.6 cm 4.2 - 5.9 / 3.9 - 5.3 cm LV Systolic Diameter PLAX 4.7 cm IVS Diastolic Thickness 1.1 cm 0.6 - 1.0 / 0.6 - 0.9 cm LVPW Diastolic Thickness 1.2 cm 0.6 - 1.0 / 0.6 - 0.9 cm LV Relative Wall Thickness 0.4 LVOT Diameter 2.1 cm LV Ejection Fraction MOD BP 32.5 % >= 55 % LV Cardiac Index MOD BP 2826.8 cm?/min?m? LV Ejection Fraction MOD 4C 26.9 % LV Cardiac Index MOD 4C 2367.4 cm?/min?m? LV Ejection Fraction 4C AL 25.2 % LV Cardiac Index 4C AL 2309.3 cm?/min?m? LV Ejection Fraction MOD 2C 30.3 % LV Cardiac Index MOD 2C 2367.4 cm?/min?m? LV Ejection Fraction 2C AL 33.9 % LV Cardiac Index 2C AL 2759.7 cm?/min?m? LA Volume Index 34.0 cm?/m? 16 - 28 cm?/m? Ascending Aorta Diameter 3.5 cm M-MODE AV Cusp Separation MM 1.8 cm DOPPLER MV Area PHT 5.6 cm? Mitral E Point Velocity 52.8 cm/s Mitral A Point Velocity 75.8 cm/s Mitral E to A Ratio 0.7 TR Peak Velocity 304.7 cm/s TR Peak Gradient 37.1 mmHg PV Peak Velocity 96.4 cm/s PV Peak Gradient 3.7 mmHg FINDINGS Left Ventricle Dilated left ventricle. Severe systolic dysfunction. Global hypokinesis. Indeterminate LV function due to A- Fib.The ejection fraction is visually estimated at 30-35%. Right Ventricle The right ventricle is mildly dilated. Mild systolic dysfunction. The estimated right ventricular systolic pressure, 54 mmHg. RAP 10. Severe PHT. Pacing wire present. Left Atrium The left atrial cavity size is severely increased. Right Atrium The right atrial cavity size is moderately increased. Atrial Septum The interatrial septum appears normal with no evidence of a shunt. Aorta Mildly dilated ascening aorta measuring 3.5cm. Mitral Valve [id number] mitral regurgitation. Aortic Valve The aortic valve is trileaflet. Mild sclerosis without stenosis. Tricuspid Valve The tricuspid valve is normal by two-dimensional, color flow and Doppler interrogation. There is mild to moderate tricuspid valve regurgitation. Pulmonic Valve The pulmonic valve is not well visualized. There is no significant pulmonic valve regurgitation. Vessels The pulmonary artery appears normal. The inferior vena cava pulmonary and hepatic veins appear normal. Pericardium The pericardium is normal by two-dimensional imaging. There is no significant pericardial effusion. CONCLUSIONS Indication: new onset of A-fib w/ RVR Dilated LV. Severe systolic dysfunction. Global hypokinesis. Estimated EF 30- 35%. Indeterminate LV function due to A-Fib. RV mildly dilated. Mild systolic dysfunction. RVSP 54mmHg. Severe PHT. Pacing wire present Moderate MR, TR. Mild AV sclerosis without stenosis Zainab Goodwin (Electronically Signed) Final Date: 16 April 2025 11:21
--- NOTE | 2025-04-14 05:58 | PD.RESHP ---
Documentation for date of: 04/14/25 HPI History of Present Illness History of present illness: Patient is a 70-year-old female with PMH HFrEF 30-35% (10/14/2023) CAD s/p 13 stents, history of ND x 2 s/p ICD, PAD s/p 2 stents in RLE, T2DM , COPD, meniscus tear in her right knee (not a candidate for surgical repair, received steroids) who presented to the emergency room via EMS with cheif complain of s/p shock for ICD. Patient stated shock was delivered about at approximately 1:19 AM. Patient's status is the first time the ICD has shocked her. Patient denied chest pain or shortness of breath. Patient denied lower peripheral edema, recently started on Lasix after ER visit. Patient uses home oxygen to sleep, 2 liters, overnight stopped working. Denies sick contacts. ICD investigated, noted to have given shock at 1:19, shock of 41 J, and noted to be in ventricular tachycardia. Repeat EKG noted wide complex irregular thythm w/ old right bund branch block. Reepat EKG noted Afib. ER Course: Vitals: 116/76, HR 149, RR 19, T 98.4, SpO2 95% on 4 Liters WBC 10.0 hgb 14.4 hct 45.4 CMP: Na 139, K 3.9, Chloride 98 Anion gap 17 DAPHNE CR 1.3 BUN 12 Troponin 0.055 Amiodarone bolus ordered and Drip ordered. PMH: same as above Past Surgical History: Heart Catherizations 3 Hernia repairs cholecystectomy Home Medication: Pending medication reconciliation, patient could not recall Social History: Denies alochol or illicit drug use Allergies: Ketorolac and morphine Code Status: Full Code Patient admitted for new onset of afib w/ rvr, DAPHNE, and elevated troponin, pending echo and cardio consult Review of Systems Review of Systems Narrative Review of Systems: General appearance: NO weight change, NO fatigue, NO weakness, NO fever, NO chills, NO night sweats, No cough Skin: NO rash, NO itching, NO sores, NO moles HEENT: NO Trauma, NO nausea, NO vomiting, NO visual changes, NO blurry vision, NO double vision, NO tinnitus, NO vertigo, NO ear discharge, NO rhinorrhea, NO stuffiness, NO sneezing, NO allergy, NO epistaxis. NO Hoarseness, NO sore throat, NO swollen neck. Cardiac: NO Palpitations, NO dyspnea on exertion, NO orthopnea, NO paroxysmal nocturnal dyspnea, NO edema Respiratory: NO Shortness of Breath, NO Wheezing, NO Cough, NO Sputum, NO hemoptysis GI:NO appetite, NO nausea, NO vomiting, NO dysphagia, NO changes in bowel frequency, NO stool color, NO diarrhea, NO constipation, NO hemetemesis, NO hemorrhoids, NO melena, NO hematechezia, NO abdominal pain, NO jaundice Renal: NO frequency, NO hesitancy, NO urgency, NO hematuria, NO nocturia, NO incontinence MSK: NO muscle weakness, NO gout, NO arthritis, NO muscle stiffness Neuro: NO headaches, NO tremors, NO weakness, NO paralysis, NO seizures, NO loss of consciousness, NO numbness. Hem: NO anemia, NO easy bruising/bleeding, NO petechiae, NO purpura Endo: NO heat/cold intolerance, NO excessive sweating, NO polyuria, NO polydipsia, NO polyphagia, NO thyroid problems, NO diabetes Pysch: NO mood, NO anxiety, NO depression Exam Vital Signs Temp Pulse Resp BP Pulse Ox O2 Del Method 98.5 F 138 H 17 102/76 93 L Room Air 04/14/25 04:12 04/14/25 04:20 04/14/25 04:12 04/14/25 04:20 04/14/25 04:12 04/14/25 04:12 Narrative Exam General Appearance: Alert & Oriented X3, well-nourished female who is lying in bed in no acute distress HEENT: Skull symmetrical and atraumatic. Conjunctivae pink and moist. Pupils equal, round, reactive to light and accommodation (PERRL). External ear without lesion or discharge. Mucosa appears dry. Cardio: Normal Rate and Rhythm with S1 and S2 heart sounds, difficult to appreciate given body habitus. No murmurs or extra heart sounds auscultated. No bruits on carotid auscultation. No peripheral edema or cyanosis. Lungs: Symmetric with good expansion. Chest and back non-tender. Breath sounds vesicular without crackles, wheezing or rhonchi Abdomen: Non-tender, Non-distended, Normal Reactive Bowel Sounds Neuro: Alert, cooperative, oriented to person, place, and time. Speech clear. CN grossly intact. Upper motor strength 5/5 and Lower motor strength 5/5. Sensation intact. Results: Labs 04/14/25 03:00 04/14/25 03:00 Labs: Short CBC 04/14/25 Range/Units 03:00 WBC 10.0 (3.6-11.0) Thou/mm3 Hgb 14.4 (12.0-16.0) g/dL Hct 45.4 (36.0-46.0) % Plt Count 299 (140-440) Thou/mm3 BMP 04/14/25 03:00 Sodium 139 Potassium 3.9 Chloride 98 Carbon Dioxide 24.4 BUN 12 Creatinine 1.3 Glucose 376 H Calcium 9.9 Cardiac Enzymes 04/14/25 Range/Units 03:00 Troponin I 0.055 H* (0.0-0.045) ng/mL Liver Function 04/14/25 Range/Units 03:00 Total Bilirubin 0.7 (0.3-1.2) mg/dL AST 22 (0-34) U/L ALT 11 (10-49) U/L Alkaline Phosphatase 100 (46-116) U/L Albumin 4.5 (3.4-4.8) gm/dL Quality Measures Quality Measures none Advance care planning discussed with:: patient Medications Home Medications and Allergies Home Medications ?Medication ?Instructions ?Recorded ?Confirmed ?Type ticagrelor 90 mg tablet (Brilinta) 60 mg PO BID 05/08/21 10/14/23 History insulin glargine 100 unit/mL (3 30 unit subcut BID 12/10/21 10/14/23 History mL) subcutaneous pen (Lantus Solostar U-100 Insulin) omeprazole 40 mg capsule,delayed 40 mg PO QDAY 05/28/22 10/14/23 History release pregabalin 75 mg capsule (Lyrica) 100 mg PO QDAY 09/17/22 10/14/23 History meloxicam 15 mg tablet 15 mg PO QDAY 03/06/23 10/14/23 History tizanidine 4 mg tablet 4 mg PO Q8HR PRN Muscle Spasm 03/06/23 10/14/23 History clindamycin HCl 300 mg capsule 300 mg PO 3XD 10/14/23 10/14/23 History empagliflozin 25 mg tablet 25 mg PO DAILY 10/14/23 10/14/23 History (Jardiance) hydrocodone 10 mg-acetaminophen 10 tab PO PRN PRN Pain (Scale 10/14/23 10/14/23 History 325 mg tablet Score 7-10) metformin 1,000 mg tablet 1,000 mg PO BID 10/14/23 10/14/23 History montelukast 10 mg tablet 10 mg PO DAILY 10/14/23 10/14/23 History nitroglycerin 0.4 mg sublingual 0.4 mg buccal 3XD 10/14/23 10/14/23 History tablet rosuvastatin 40 mg tablet 40 mg PO DAILY 10/14/23 10/14/23 History sacubitril 24 mg-valsartan 26 mg 26 tab PO BID diabetes 10/14/23 10/14/23 History tablet (Entresto) semaglutide 2 mg/dose (8 mg/3 mL) 1 mg subcut Q7D 10/14/23 10/14/23 History subcutaneous pen injector (Ozempic) Allergies Allergy/AdvReac Type Severity Reaction Status Date / Time adhesive Allergy Severe SKIN GETS Verified 03/23/25 21:07 RAW ketorolac AdvReac Severe SHARP Verified 03/23/25 21:07 PAINS THROUGHOUT ENTIRE BODY morphine AdvReac Severe CAUSES Verified 03/23/25 21:07 BEHAVIORAL PROBLEMS Visit Medications Acetaminophen (Acetaminophen 325 Mg Tablet) 650 mg PO Q6H PRN PRN Reason: Mild Pain 1-3 Or Fever >100.3 Stop: 05/14/25 05:27 Albuterol/Ipratropium (Albuterol/Ipratropium (Duoneb) Rt Kalpana 3 Ml Nebu) 3 ml INH Q6HRRT PRN PRN Reason: Wheezing Stop: 05/14/25 06:59 Aspirin (Aspirin Ec 81 Mg Tabec) 81 mg PO QDAY BARNEY Stop: 05/14/25 08:59 Dextrose (Dextrose 50%-Water Inj 50 Ml Syringe) 25 ml IV Q15MIN PRN PRN Reason: BG 50-70 responsive npo pt Stop: 05/14/25 05:34 Dextrose (Dextrose 50%-Water Inj 50 Ml Syringe) 50 ml IV Q15MIN PRN PRN Reason: BG <50 OR BG <70 & pt unresponsive Stop: 05/14/25 05:34 Furosemide (Furosemide 20 Mg Tablet) 20 mg PO QAM [facility] Stop: 05/14/25 08:59 Glucagon (Glucagon Inj 1 Mg Vial) 1 mg IM Q15MIN PRN PRN Reason: BG <70, and no IV access Heparin Sodium (Porcine) (Heparin Sod Inj 5000 Unit/Ml Vial) 10,000 unit 80 unit/kg (17143 unit) IV X1 ONE; Protocol Stop: 04/14/25 05:35 Heparin Sodium/Dextrose (Heparin In D5w Ivpb) 25,000 unit in 250 mls @ 22.453 mls/hr IV .Q11H9M [facility]; Protocol Stop: 04/28/25 05:44 Insulin Human Lispro (Insulin Lispro (Admelog) 1 Unit/0.01 Ml Unit) 0 unit SC ACHS [facility]; Protocol Stop: 05/14/25 07:29 Ondansetron HCl (Ondansetron Inj 2 Mg/Ml Inj 2 Ml) 4 mg IVP Q6H PRN; Protocol PRN Reason: NAUSEA OR VOMITING Stop: 05/14/25 05:27 Pantoprazole Sodium (Pantoprazole 40 Mg Tablet) 40 mg PO QDAY [facility] Stop: 05/14/25 08:59 Discontinued Medications Diltiazem HCl (Diltiazem Inj 5 Mg/Ml Vial 5 Ml) 20 mg IV X1 ONE Stop: 04/14/25 02:47 Last Admin: 04/14/25 02:51 Dose: 20 mg Diltiazem HCl (Diltiazem Inj 5 Mg/Ml Vial 5 Ml) 20 mg IV X1 ONE Stop: 04/14/25 03:01 Last Admin: 04/14/25 03:12 Dose: 20 mg Diltiazem HCl (Diltiazem Inj 5 Mg/Ml Vial 5 Ml) 20 mg IV X1 ONE Stop: 04/14/25 03:31 Last Admin: 04/14/25 04:20 Dose: 20 mg Hydromorphone HCl (Hydromorphone Inj 2 Mg/Ml Vial) 0.5 mg IVP X1 ONE Stop: 04/14/25 03:57 Last Admin: 04/14/25 04:17 Dose: 0.5 mg Amiodarone HCl/Dextrose (Nexterone Ivpb) 150 mg in 100 mls @ 600 mls/hr IV .Q10M ONE Stop: 04/14/25 04:41 Amiodarone HCl/Dextrose (Nexterone Ivpb) 360 mg in 200 mls @ 33.333 mls/hr IV .Q6H ONE Stop: 04/14/25 10:30 Amiodarone HCl/Dextrose (Nexterone Ivpb) 360 mg in 200 mls @ 16.667 mls/hr IV .Q12H BARNEY Stop: 04/15/25 04:31 Assessment & Plan Plan Patient is a 70-year-old female with PMH HFrEF 30-35% (10/14/2023) CAD s/p 13 stents, history of ND x 2 s/p ICD, PAD s/p 2 stents in RLE, T2DM , COPD, meniscus tear in her right knee (not a candidate for surgical repair) who was admitted to the emergency room with new onset of Afib w/ RVR. #Atrial Fibrillation w/ RVR #new onset Atrial Fibrillation #VTach, single episode, s/p shock via ICD Patient presented over night with chief complain of shock secondary to Vtach s/p shock after ICD investigation. Afib w/ rvr noted in the ER. Patient remain in Afib w/ rvr despite diltiazem. Amio bolus and amio drip ordered by ER, continue. Paitnet denied chest pain or shortness of breath. denied lower pedal edema. Plan: -Diltiazem 20 mg X 3 -Amidodarone Bolus ordered and Amidodarone drip ordered, please continue -Heparin drip -TSH ordered -Keep K>4 and Mg >2 -Echo ordered -Consult cardiology, Dr. Goodwin, appreciate recommendations. #Troponinemia Patient denied chest pain or shortness of breath. Likely secondary to ICD shock and direct cardiac trauma. No ST elevation noted but NSTEMI type I can not be ruled out given past medical history of CAD. Plan -Trend Troponin Q6HR -Repeat EKG if troponins increased or chest pain noted. -Consult cardiology, Dr. Goodwin, appreciate recommendations. #CAD s/p stents 16 #PAD #HLD Patient has a past medical history of CAD, patient was started on Aspirin 81 gm qday. Unclear home medications/pending medication recondilliation. Plan -Aspirin 81 mg once daily -Atorvastatin 40 mg PO HS -Lipid Panel F/U #DAPHNE DAPHNE noted on admission w/ a Cr change >0.3 from baseline of 1.0 and GFR 45. Patient stated over the last couple days decreased oral intake. Plan -Strict ins and outs -consider fluids, holding off fluids given history of CHF. -Urine electrolytes and urine Cr -renally dose medication -avoid nephrotxins, -consider renal u/s #CHF HFrEF 30 to 35 (10/14/2023) #Systolic Dysfunction Patient has a past medical history of CHF w/ ICD and severe systolic dysfunction w/ EF of 30% who follow Dr. Goodwin. Denied SOB, but home oxygen did stop working, uses home oxygen for sleep only. Minimal lower peripheral edema. Patient can not recall her home CHF medication but was recently started on Lasix 20 mg qday during previous ER visist Echo (10/14/2023): Sever Systolic Dysfucntion. Global hypokinesis. EF 30 to 35%. RVSP 36. Plan -Lasix 20 mg PO Qday -Repeat BNP -Follow up on Cxr -Follow up on Echo -Pending medication reconciliation for GDMT -Fluid restricted 1800 -Pending echo for new onset of afib w/ rvr #Hyperglycemia #Diabetes Mellitus Type 2, insulin dependent Patient has a past medical history of diabetes mellitus type 2, on insulin, patient can not recall home dose. Beta hydroxybutrate 1.1 w/ glucose of 376. Previous A1c 9.5 (09/2024) Plan -Slilding Scale -Regular insulin 5 units x1 -repeat A1c #COPD Past medical history of COPD. Not in acute copd exacerbation Plan -Duonebs added PRN Health Maintenance: Disp: Pt is currently admitted to floors for further management of Afib w/ rvr , awaiting pending cardiac consult FEN: Low carb consistent, fluid restricted 1800 DVT: on subQ heparin Q12HR Code: Full Code - The patient's plan was discussed with attending Dr. Kaz Agrawal MD PGY2 Internal Medicine Attending Provider Attestation/Addendum I have examined the patient, reviewed labs and imaging findings, discussed the case with the resident(s), and reviewed entered orders. I agree with the plan of care as outlined in this note, with these additional summaries/recommendations: After examination of the patient and review of the clinical data, I feel that this patient needs admission to the hospital for further treatment and evaluation. Patient is a 70-year-old female with a medical history of HFrEF, A1CD, CAD x 13 stents, ND x 2, primary hypertension, diabetes mellitus type 2, PAD, COPD, and hyperlipidemia presents to [facility] emergency department on 04/14/2025 with chief complaint of palpitations and shortness of breath. Patient seen at bedside. She reports she was getting ready for bed when her AICD fired. She denied any preceding symptoms such as chest pain, shortness of breath, or palpitations. Only abnormality is she did not use her home oxygen tonight as it was not working. The AICD was interrogated in the emergency room which revealed that 1:19 AM patient received a 41 J shock for ventricular tachycardia. EKGs do show a wide-complex irregular rhythm although most likely patient has new onset atrial fibrillation with right bundle branch block. Patient diagnosed with new onset atrial fibrillation. Trigger possibly hypoxia. Patient's pulse was up into the 150s in the emergency room and received multiple IV pushes of diltiazem with improvement but without resolution of rapid ventricular response. Patient was started on amiodarone gtt. Patient has elevated [id number] score and start heparin gtt. Risks and benefits of anticoagulation explained to patient. Target APTT of 60 to 80 seconds. Patient denies any previous episodes of bleeding. Order transthoracic echocardiogram. Consult cardiology, recommendations appreciated. Troponinemia present. Troponin on admission 0.055. Most likely secondary to defibrillator shock. Trend troponins every 6 hours or until downtrend. EKG as needed for chest pain. Resume home Brilinta and statin therapy. Start insulin sliding scale for diabetes mellitus type 2 with Accu-Cheks. Hyperglycemia of 376 on admission. Order A1c. Hold home antihypertensives for now for soft blood pressure. Resume home goal-directed medical therapy for HFrEF as able. As needed breathing treatments for history of COPD. Patient updated on the plan and in agreement. All questions answered to satisfaction. Please see residents note for additional details and management. Dr. Kaz MD
[2025-04-14 06:58] LABS: Basophils # (Auto) 0.0 Thou/mm3 (0.0-0.2); Basophils % (Auto) 1 % (0-2.5); Eosinophils # (Auto) 0.0 Thou/mm3 (0.0-0.5); Eosinophils % (Auto) 0 % (0-10); Hematocrit 43.9 % (36.0-46.0); Hemoglobin 13.5 g/dL (12.0-16.0); Immature Granulocytes Auto 0.04 Thou/mm3 (0.00-0.00); Lymphocytes # (Auto) 1.0 Thou/mm3 (1.0-4.8); Lymphocytes % (Auto) 12 % (10-50); Mean Corpuscular HGB Conc 30.8 g/dl (31.0-37.0); Mean Corpuscular Hemoglobin 25.1 pg (25.0-35.0); Mean Corpuscular Volume 82 fL (80-100); Monocytes # (Auto) 0.5 Thou/mm3 (0.0-0.8); Monocytes % (Auto) 6 % (0-12); Neutrophils # (Auto) 7.0 Thou/mm3 (1.8-7.7); Neutrophils % (Auto) 81 % (37-80); Nucleated Red Blood Cell # 0.00 Thou/mm3 (0.00-0.00); Nucleated Red Blood Cell % 0 /100 WBC (0); Platelet Count 271 Thou/mm3 (140-440); RDW Standard Deviation 43.1 fL (36.4-46.3); Red Blood Count 5.38 Miln/mm3 (4.00-5.20); White Blood Count 8.6 Thou/mm3 (3.6-11.0)
[2025-04-14 07:32] LABS: INR 1.1 (0.9-1.3); Partial Thromboplastin Time 27.3 Seconds (22.0-36.0); Prothrombin Time 11.9 Seconds (9.0-12.2)
[2025-04-14 07:52] LABS: Alanine Aminotransferase 8 U/L (10-49); Albumin, Serum 4.2 gm/dL (3.4-4.8); Albumin/Globulin Ratio 1.7 (1.2-2.2); Alkaline Phosphatase 93 U/L (46-116); Anion Gap 13 (7-16); Aspartate Amino Transferase 17 U/L (0-34); BUN/Creatinine Ratio 12 Ratio (12-20); Bilirubin,Total 0.6 mg/dL (0.3-1.2); Blood Urea Nitrogen 16 mg/dL (9-23); Calcium 9.8 mg/dL (8.3-10.6); Calcium (Corrected) 9.8 mg/dL (8.5-10.1); Carbon Dioxide 26.4 mMol/L (20.0-31.0); Cardiac Risk Estimate 4.3 RATIO (3.7-5.6); Chloride 100 mMol/L (98-107); Cholesterol 132 mg/dL (132-200); Creatinine (Component) 1.3 mg/dL (0.6-1.3); Estimated Creatinine Clearance 55.0 mL/min (>60); Globulin 2.5 gm/dL (2.3-3.5); Glucose 347 mg/dL (74-106); HDL Cholesterol 31 mg/dL (40-60); LDL Cholesterol,Calculated 66 mg/dL (0-130); Osmolality,Calculated 292 (275-295); Potassium 3.4 mMol/L (3.4-5.1); Sodium 139 mMol/L (136-145); Thyroid Stimulating Hormone 2.35 uIU/mL (0.55-4.78); Total Protein 6.7 gm/dL (5.7-8.2); Triglycerides 174 mg/dL (30-150); eGFR 45 See Note
[2025-04-14 07:55] LABS: Troponin I 0.273 ng/mL (0.0-0.045)
--- NOTE | 2025-04-14 07:55 | PC.NURSE ---
SPOKE TO DR. BERNARDO FOR CLARIFICATION IF OK TO GIVE 3 UNIT OF INSULIN LISPRO AND 5 UNITS OF REGULAR NOVOLIN INSULIN AT THIS TIME; PT'S FSBS 298. PT ALSO HAS BREAKFAST TRAY READY FOR PT. PER DR. COKER, OK TO GIVE PT 3 UNITS OF INSULIN LISPRO AND 5 UNITS OF NOVOLIN AT THIS TIME.
[2025-04-14] MEDS: ONDANSETRON INJ 2 MG/ML INJ 2 ML 4 MG IVP (08:02)
[2025-04-14] MEDS: PANTOPRAZOLE 40 MG TABLET PO (08:04)
[2025-04-14] MEDS: ACETAMINOPHEN 325 MG TABLET 650 MG PO ×2 (08:05→21:45)
[2025-04-14] MEDS: INSULIN HUM REGULAR 1 UNIT/0.01 ML (PER UNIT) 5 UNIT SC (08:05)
[2025-04-14] MEDS: INSULIN LISPRO (AdmeLOG) 1 UNIT/0.01 ML UNIT SC ×4 (08:06→21:44)
[2025-04-14] MEDS: HEPARIN SOD INJ 5000 UNIT/ML VIAL 8000 UNIT IV (08:08)
[2025-04-14] MEDS: Heparin/D5w 25K 250 ML Ivpb 25,000 UNIT/250 ML BAG 18 UNIT IV (08:12)
--- NOTE | 2025-04-14 08:29 | ESPR_ITS ---
<Statement entered by Baudilio Sterling MD - 04/14/25 16:12> Senior Resident Attestation: I supervised/discussed management plan with internet sourcer physician Dr. Lin, and was involved in the care of this patient. I personally saw and examined the patient and discussed the assessment and plan with the entire medicine team, including my attending. I agree with the assessment and plan as documented. Patient reports no complaints other than ongoing weakness. She denies any chest pain or pressure or shortness of breath. Pending cardiology evaluation. Her troponin remains elevated and uptrending, will continue trending troponin. Patient was not started on amiodarone drip overnight therefore was started on metoprolol tartrate 25 mg twice daily and Lasix 40 mg IV twice daily. Patient's care was discussed with attending physician, Dr. Hernández. Baudilio Sterling MD PGY-3. Documentation for date of: 04/14/25 Subjective Subjective Interval history: 04/14/25: ERICEON. Per RN, patient never received Amiodrone. However her afib with RVR converted after the second dose of diltiazem thus amiodrone was never given. Patient currently on heparin drip. Patient is asymptomatic and states that she was at home when the shock was given by her ICD. patient reports feeling nauseaous a couple of hours prior to this event. In regards to her COPD, patient states that she is on 2L of oxygen at home however does not use every night and uses it as needed. Cardiology was consulted for reccomendations. Exam Vital Signs Temp Pulse Resp BP Pulse Ox O2 Del Method O2 Flow Rate 99.1 F 88 19 110/91 H 96 Room Air 2 04/14/25 07:49 04/14/25 07:49 04/14/25 07:49 04/14/25 07:49 04/14/25 07:49 04/14/25 07:49 04/14/25 06:40 Narrative Exam General Appearance: Alert & Oriented X3, well-nourished female who is lying in bed in no acute distress HEENT: NCAT.. Conjunctivae pink and moist. PERRL. External ear without lesion or discharge. Mucosa appears dry. Cardio: RRR with S1 and S2 heart sounds, No murmurs or extra heart sounds auscultated. No peripheral edema or cyanosis. Lungs: Symmetric with good expansion. Chest and back non-tender. CTAB b/l Abdomen: Non-tender, Non-distended, no pritinic signs EXT: no pretibial edema noted. RLE is mildly erythematous tender to palpation Neuro: Alert, cooperative, Speech clear. CN grossly intact. Upper motor strength 5/5 and Lower motor strength 5/5. Sensation intact. Objective Labs 04/14/25 06:20 04/14/25 06:20 Labs: Laboratory Results - last 24 hr 04/14/25 04/14/25 04/14/25 03:00 05:01 06:20 WBC 10.0 8.6 RBC 5.57 H 5.38 H Hgb 14.4 13.5 Hct 45.4 43.9 MCV 82 82 MCH 25.9 25.1 MCHC 31.7 30.8 L RDW Std Deviation 42.6 43.1 Plt Count 299 271 Neut % (Auto) 75 81 H Lymph % (Auto) 16 12 [place] % (Auto) 7 6 Eos % (Auto) 1 0 Baso % (Auto) 1 1 Neut # (Auto) 7.5 7.0 Lymph # (Auto) 1.5 1.0 [place] # (Auto) 0.7 0.5 Eos # (Auto) 0.1 0.0 Baso # (Auto) 0.1 0.0 Immature Gran # (Auto) 0.08 H 0.04 H Absolute Nucleated RBC 0.00 0.00 Immature Gran % 1 H 1 H Nucleated RBC % 0 0 PT 11.9 INR 1.1 APTT 27.3 Sodium 139 139 Potassium 3.9 3.4 D Chloride 98 100 Carbon Dioxide 24.4 26.4 Anion Gap 17 H 13 BUN 12 16 Creatinine 1.3 1.3 Estim Creat Clear Calc 55.0 L 55.0 L eGFR 45 L 45 L BUN/Creatinine Ratio 9 L 12 Glucose 376 H 347 H Calculated Osmolality 292 292 Calcium 9.9 9.8 Corrected Calcium 9.9 9.8 Magnesium 2.0 Total Bilirubin 0.7 0.6 AST 22 17 ALT 11 8 L Alkaline Phosphatase 100 93 Troponin I 0.055 H* 0.273 H* D Total Protein 7.5 6.7 Albumin 4.5 4.2 Globulin 3.0 2.5 Albumin/Globulin Ratio 1.5 1.7 Triglycerides 174 H Cholesterol 132 LDL Cholesterol, Calc 66 HDL Cholesterol 31 L Cholesterol/HDL Ratio 4.3 Beta-Hydroxybutyrate/Acetoacetate 1.1 H TSH 2.35 Quality Measures Quality Measures none Advance care planning discussed with:: patient Assessment & Plan Assessment Current Active Medications: Generic Name Dose Route Start Last Admin Trade Name Freq PRN Reason Stop Dose Admin Acetaminophen 650 mg 04/14/25 05:28 04/14/25 08:05 Acetaminophen 325 Mg Tablet PO 05/14/25 05:27 650 mg Q6H PRN Administration Mild Pain 1-3 Or Fever >100.3 Albuterol/Ipratropium 3 ml 04/14/25 05:36 Albuterol/Ipratropium (Duoneb) Rt Kalpana 3 Ml Nebu INH 05/14/25 06:59 Q6HRRT PRN Wheezing Aspirin 81 mg 04/14/25 09:00 04/14/25 08:16 Aspirin Ec 81 Mg Tabec PO 05/14/25 08:59 Not Given QDAY BARNEY Atorvastatin Calcium 40 mg 04/14/25 21:00 Atorvastatin Calcium 20 Mg Tablet PO 05/14/25 20:59 HS BARNEY Dextrose 25 ml 04/14/25 05:35 Dextrose 50%-Water Inj 50 Ml Syringe IV 05/14/25 05:34 Q15MIN PRN BG 50-70 responsive npo pt Dextrose 50 ml 04/14/25 05:35 Dextrose 50%-Water Inj 50 Ml Syringe IV 05/14/25 05:34 Q15MIN PRN BG <50 OR BG <70 & pt unresponsive Furosemide 20 mg 04/14/25 09:00 Furosemide 20 Mg Tablet PO 05/14/25 08:59 QAM BARNEY Glucagon 1 mg 04/14/25 05:35 Glucagon Inj 1 Mg Vial IM Q15MIN PRN BG <70, and no IV access Heparin Sodium/Dextrose 25,000 unit in 250 mls @ 18 mls/hr 04/14/25 05:45 04/14/25 08:12 Heparin In D5w Ivpb IV 04/28/25 05:44 14.43 units/kg/hr .[id number] BARNEY 18 mls/hr Administration Protocol 14.43 UNITS/KG/HR Insulin Human Lispro 0 unit 04/14/25 07:30 04/14/25 08:06 Insulin Lispro (Admelog) 1 Unit/0.01 Ml Unit SC 05/14/25 07:29 3 unit ACHS BARNEY Administration Protocol Ondansetron HCl 4 mg 04/14/25 05:28 04/14/25 08:02 Ondansetron Inj 2 Mg/Ml Inj 2 Ml IVP 05/14/25 05:27 4 mg Q6H PRN Administration NAUSEA OR VOMITING Protocol Pantoprazole Sodium 40 mg 04/14/25 09:00 04/14/25 08:04 Pantoprazole 40 Mg Tablet PO 05/14/25 08:59 40 mg QDAY BARNEY Administration Plan 70F with PMH HFrEF 30-35% (10/14/2023) CAD s/p 13 stents, history of [place] x 2 s/p ICD, PAD s/p 2 stents in RLE, T2DM , COPD, meniscus tear in her right knee (not a candidate for surgical repair) BIB EMS s/p 41J shock that was delivered by her ICD due to Vtach at around 0100, found to have afib with RVR. #New onset Atrial Fibrillation w/ RVR #VTach, single episode, s/p 41J shock via ICD #Troponinemia Patient presented over night with chief complain of shock secondary to Vtach s/p shock after ICD investigation. Afib w/ rvr noted in the ER which was converted after 2nd dose of diltiazem. No Amio was given. Paitnet denied chest pain or shortness of breath. denied lower pedal edema. TSH:2.35 Trop: 0.05 --> 0.27--> 0.81. Patient denied chest pain or shortness of breath. Likely secondary to ICD shock and direct cardiac trauma. No ST elevation noted but NSTEMI type I can not be ruled out given past medical history of CAD. EKG: RBBB with QTc of 549 BUN:1233 Unclear etiology of the new onset afib at this time but suspecting it to be due to her congestive heart failure. Of note, patient was seen in the ED last week for CHF exacerbation Plan: - Diltiazem 20 mg X 3 was given in the ED with conversion of afib with RVR after the 2nd dose - Trend troponin q6hr - Start Metoprolol 25 BID (hold if SBP <100) - Repeat EKG if troponins increased or chest pain noted. - Start Lasix 40 BID - Heparin drip - Keep K>4 and Mg >2 - Pending Echo - Cardiology, Dr. Goodwin, was consulted, appreciate recommendations. #CAD s/p stents 15 #PAD #HLD Patient has a past medical history of CAD, patient was started on Aspirin 81 gm qday. Unclear home medications/pending medication reconciliation. TG 174, Chol 132, LDL 66, HDL 32 Plan -Aspirin 81 mg once daily -Atorvastatin 40 mg PO HS #DAPHNE DAPHNE noted on admission w/ a Cr change >0.3 from baseline of 1.0 and GFR 45. Patient stated over the last couple days decreased oral intake. Recently started on Lasix for CHF. Cr 04/14 1.3 Differentials: prerenal due to dehydration vs intrinsic 2/2 to diuretic use Plan - CTM -Strict ins and outs -consider fluids, holding off fluids given history of CHF. -renally dose medication -avoid nephrotxins, -consider renal u/s #CHF HFrEF 30 to 35 (10/14/2023) #Systolic Dysfunction Patient has a past medical history of CHF w/ ICD and severe systolic dysfunction w/ EF of 30% who follow Dr. Goodwin. Denied SOB, but home oxygen did stop working, uses home oxygen for sleep only. No lower peripheral edema. Patient can not recall her home CHF medication but was recently started on Lasix 20 mg qday during previous ER visit for CHF exacerbation. Echo (10/14/2023): Sever Systolic Dysfucntion. Global hypokinesis. EF 30 to 35%. RVSP 36. BNP: 1233 CXR: moderate enlargement cardiac contour with mild vascular congestion. Plan - Start Lasix 40 mg PO BID - Pending Echo - Pending medication reconciliation for GDMT - Fluid restricted 1800 #Hyperglycemia #Diabetes Mellitus Type 2, insulin dependent Patient has a past medical history of diabetes mellitus type 2, on insulin, patient can not recall home dose. Beta hydroxybutrate 1.1 w/ glucose of 376. Previous A1c 9.5 (09/2024) A1C: 11.5 Plan -Slilding Scale #COPD Past medical history of COPD. Not in acute copd exacerbation Plan -Duonebs added PRN Health Maintenance: Disp: Pt is currently admitted to floors for further management of Afib w/ rvr , awaiting pending cardiac consult FEN: Low carb consistent, fluid restricted 1800 DVT: on subQ heparin Q12HR Code: Full Code - The patient's plan was discussed with attending Dr. Hernández and senior resident Dr. Hallie Lin, DO PGY-1
[2025-04-14 08:35] LABS: Glucose Estimated Average 283 mg/dL (80-131); Hemoglobin A1C 11.5 % Hgb (4.8-6.0)
[2025-04-14 08:48] LABS: B-Type Natriuretic Peptide 1233 pg/mL (0-100)
--- NOTE | 2025-04-14 08:50 | PC.NURSE ---
SOKE TO DR. ABDUL TO CLARIFY HEPARIN DRIP STARTING DOSE; PER FRANKO, FOLLOW PROTOCOL; START AT 18UNITS/KG/HR.
[2025-04-14] MEDS: Heparin/D5w 25K 250 ML Ivpb 25,000 UNIT/250 ML BAG 22.453 UNIT IV (08:52)
--- NOTE | 2025-04-14 12:38 | EKG_ITS ---
[facility] Test Date: 2025-04-14 Pat Name: JAMIL COOK Department: [facility] Gender: Female Slot [employer] Department Floorperson: : 1955 Requested By: Lottie Lin Order Number: [id number] Reading MD: Lottie Lin Measurements Intervals [place] Rate: 82 P: 55 ID: [id number] QRS: -85 QRSD: 152 T: 88 QT: 469 QTc: 549 Interpretive Statements RIGHT BUNDLE BRANCH BLOCK [120+ ms QRS DURATION, UPRIGHT V1, 40+ ms S IN I/aVL/V4/V5/V6] INFERIOR MYOCARDIAL INFARCTION , POSSIBLY ACUTE [40+ ms Q WAVE AND/OR ST/T ABNORMALITY IN II/aVF] ANTEROLATERAL MYOCARDIAL INFARCTION , PROBABLY RECENT [40+ ms Q WAVE IN I/aVL/V3-V6] ACUTE VT Compared to ECG 04/14/2025 04:50:41 Sinus rhythm no longer present Ventricular premature complex(es) no longer present First degree AV block no longer present Myocardial infarct finding still present /store/S0/[id number]/ecg/[id number].pdf
[2025-04-14] MEDS: FAMOTIDINE 20 MG TABLET PO (13:23)
[2025-04-14 14:08] LABS: Troponin I 0.816 ng/mL (0.0-0.045)
[2025-04-14 15:08] LABS: Partial Thromboplastin Time > 139.0 Seconds (22.0-36.0)
[2025-04-14 16:44] LABS: Troponin I 0.800 ng/mL (0.0-0.045)
[2025-04-14] MEDS: FUROSEMIDE INJ 10 MG/ML 4ML VIAL 40 MG IVP (18:12)
[2025-04-14 19:02] LABS: Troponin I 0.782 ng/mL (0.0-0.045)
[2025-04-14 21:38] LABS: Troponin I 0.680 ng/mL (0.0-0.045)
[2025-04-14] MEDS: ATORVASTATIN CALCIUM 20 MG TABLET 40 MG PO (21:44)
[2025-04-14] MEDS: METOPROLOL TARTRATE 25 MG TABLET PO (21:45)
[2025-04-14 21:53] LABS: Partial Thromboplastin Time 124.8 Seconds (22.0-36.0)
[2025-04-14] MEDS: Heparin/D5w 25K 250 ML Ivpb 25,000 UNIT/250 ML BAG 18.711 UNIT IV (22:05)
[2025-04-15] VITALS (13 sets, daily range): BP systolic 90–126; BP diastolic 68–95; PULSE 74–91; RESP 16–93; TEMP 36.1–36.3; O2SAT 90–97; BMI 44.2
[2025-04-15] MEDS: ONDANSETRON INJ 2 MG/ML INJ 2 ML 4 MG IVP ×3 (00:27→16:18)
[2025-04-15 03:40] LABS: Troponin I 0.560 ng/mL (0.0-0.045)
[2025-04-15] MEDS: FUROSEMIDE INJ 10 MG/ML 4ML VIAL 40 MG IVP ×2 (05:04→17:31)
[2025-04-15 06:26] LABS: Basophils # (Auto) 0.0 Thou/mm3 (0.0-0.2); Basophils % (Auto) 1 % (0-2.5); Eosinophils # (Auto) 0.1 Thou/mm3 (0.0-0.5); Eosinophils % (Auto) 2 % (0-10); Hematocrit 44.7 % (36.0-46.0); Hemoglobin 14.0 g/dL (12.0-16.0); Immature Granulocytes Auto 0.03 Thou/mm3 (0.00-0.00); Lymphocytes # (Auto) 1.5 Thou/mm3 (1.0-4.8); Lymphocytes % (Auto) 23 % (10-50); Mean Corpuscular HGB Conc 31.3 g/dl (31.0-37.0); Mean Corpuscular Hemoglobin 25.7 pg (25.0-35.0); Mean Corpuscular Volume 82 fL (80-100); Monocytes # (Auto) 0.6 Thou/mm3 (0.0-0.8); Monocytes % (Auto) 10 % (0-12); Neutrophils # (Auto) 4.3 Thou/mm3 (1.8-7.7); Neutrophils % (Auto) 65 % (37-80); Nucleated Red Blood Cell # 0.00 Thou/mm3 (0.00-0.00); Nucleated Red Blood Cell % 0 /100 WBC (0); Platelet Count 257 Thou/mm3 (140-440); RDW Standard Deviation 43.6 fL (36.4-46.3); Red Blood Count 5.45 Miln/mm3 (4.00-5.20); White Blood Count 6.6 Thou/mm3 (3.6-11.0)
[2025-04-15 06:29] LABS: Glucose Estimated Average 283 mg/dL (80-131); Hemoglobin A1C 11.5 % Hgb (4.8-6.0)
[2025-04-15 06:32] LABS: Chloride,Urine Random 53.4 mMol/L (55.0-125.0); Creatinine,Random Urine 56 mg/dL (30-125); Potassium,Urine Random 26 mMol/L (12-62); Sodium,Urine Random 53.6 mMol/L (20.0-110.0)
[2025-04-15 06:48] LABS: Partial Thromboplastin Time 89.2 Seconds (22.0-36.0)
[2025-04-15 07:21] LABS: Alanine Aminotransferase 9 U/L (10-49); Albumin, Serum 4.3 gm/dL (3.4-4.8); Albumin/Globulin Ratio 2.0 (1.2-2.2); Alkaline Phosphatase 92 U/L (46-116); Anion Gap 16 (7-16); Aspartate Amino Transferase 19 U/L (0-34); BUN/Creatinine Ratio 18 Ratio (12-20); Bilirubin,Total 0.6 mg/dL (0.3-1.2); Blood Urea Nitrogen 23 mg/dL (9-23); Calcium 9.8 mg/dL (8.3-10.6); Calcium (Corrected) 9.8 mg/dL (8.5-10.1); Carbon Dioxide 25.8 mMol/L (20.0-31.0); Chloride 97 mMol/L (98-107); Creatinine (Component) 1.3 mg/dL (0.6-1.3); Estimated Creatinine Clearance 53.9 mL/min (>60); Globulin 2.2 gm/dL (2.3-3.5); Glucose 243 mg/dL (74-106); Magnesium 1.9 mg/dL (1.6-2.6); Osmolality,Calculated 289 (275-295); Phosphorous 4.1 mg/dL (2.4-5.1); Potassium 3.6 mMol/L (3.4-5.1); Sodium 139 mMol/L (136-145); Total Protein 6.5 gm/dL (5.7-8.2); eGFR 45 See Note
[2025-04-15] MEDS: INSULIN LISPRO (AdmeLOG) 1 UNIT/0.01 ML UNIT SC ×4 (07:33→20:54)
[2025-04-15] MEDS: Magnesium Sulfate 2 GM Ivpb 2 GM/50 ML BAG IV (09:08)
[2025-04-15] MEDS: METOPROLOL TARTRATE 25 MG TABLET PO (09:09)
[2025-04-15] MEDS: PANTOPRAZOLE 40 MG TABLET PO (09:12)
--- NOTE | 2025-04-15 09:31 | ESPR_ITS ---
<Statement entered by Baudilio Sterling MD - 04/15/25 15:51> Senior Resident Attestation: I supervised/discussed management plan with medical student Beltran, and was involved in the care of this patient. I personally saw and examined the patient and discussed the assessment and plan with the entire medicine team, including my attending. I agree with the assessment and plan as documented. Patient reports no new complaints today. Her troponin downtrending. Her home Entresto and ticagrelor were resumed. Pending cardiology evaluation. Patient's care was discussed with attending physician, Dr. Hernández. Baudilio Sterling MD PGY-3. Documentation for date of: 04/15/25 Subjective Subjective Interval history: pt was seen at bedside and was alert and oriented x4. she said that she didnt understand why she was still in the hospital. She was notified about her a fib findings that were found on EKG during her time in the ED. She does not have any further questions or concerns at this time. Exam Vital Signs Temp Pulse Resp BP Pulse Ox O2 Del Method O2 Flow Rate 96.9 F 91 16 119/80 92 L Room Air 2 04/15/25 04:00 04/15/25 09:09 04/15/25 06:52 04/15/25 09:09 04/15/25 04:00 04/15/25 04:00 04/14/25 14:22 Narrative Exam General Appearance: Alert & Oriented X3, well-nourished female who is lying in bed in no acute distress HEENT: NCAT.. Conjunctivae pink and moist. PERRL. External ear without lesion or discharge. Mucosa appears dry. Cardio: RRR with S1 and S2 heart sounds, No murmurs or extra heart sounds auscultated. No peripheral edema or cyanosis. Lungs: Symmetric with good expansion. Chest and back non-tender. CTAB b/l Abdomen: Non-tender, Non-distended, no pritinic signs EXT: no pretibial edema noted. RLE is mildly erythematous tender to palpation Neuro: Alert, cooperative, Speech clear. CN grossly intact. Upper motor strength 5/5 and Lower motor strength 5/5. Sensation intact. Objective Labs 04/15/25 05:21 04/15/25 05:21 Labs: Laboratory Results - last 24 hr 04/14/25 04/14/25 04/14/25 12:38 13:58 15:40 WBC RBC Hgb Hct MCV MCH MCHC RDW Std Deviation Plt Count Neut % (Auto) Lymph % (Auto) [place] % (Auto) Eos % (Auto) Baso % (Auto) Neut # (Auto) Lymph # (Auto) [place] # (Auto) Eos # (Auto) Baso # (Auto) Immature Gran # (Auto) Absolute Nucleated RBC Immature Gran % Nucleated RBC % APTT > 139.0 H* D Sodium Potassium Chloride Carbon Dioxide Anion Gap BUN Creatinine Estim Creat Clear Calc eGFR BUN/Creatinine Ratio Glucose Estimated Ave Glu mg/dL Hemoglobin A1c Calculated Osmolality Calcium Corrected Calcium Phosphorus Magnesium Total Bilirubin AST ALT Alkaline Phosphatase Troponin I 0.816 H* D 0.800 H* Total Protein Albumin Globulin Albumin/Globulin Ratio Ur Random Creatinine Ur Random Sodium Ur Random Potassium Ur Random Chloride 04/14/25 04/14/25 04/15/25 18:04 20:53 02:56 WBC RBC Hgb Hct MCV MCH MCHC RDW Std Deviation Plt Count Neut % (Auto) Lymph % (Auto) [place] % (Auto) Eos % (Auto) Baso % (Auto) Neut # (Auto) Lymph # (Auto) [place] # (Auto) Eos # (Auto) Baso # (Auto) Immature Gran # (Auto) Absolute Nucleated RBC Immature Gran % Nucleated RBC % APTT 124.8 H* D Sodium Potassium Chloride Carbon Dioxide Anion Gap BUN Creatinine Estim Creat Clear Calc eGFR BUN/Creatinine Ratio Glucose Estimated Ave Glu mg/dL Hemoglobin A1c Calculated Osmolality Calcium Corrected Calcium Phosphorus Magnesium Total Bilirubin AST ALT Alkaline Phosphatase Troponin I 0.782 H* 0.680 H* 0.560 H* Total Protein Albumin Globulin Albumin/Globulin Ratio Ur Random Creatinine Ur Random Sodium Ur Random Potassium Ur Random Chloride 04/15/25 04/15/25 05:21 05:40 WBC 6.6 RBC 5.45 H Hgb 14.0 Hct 44.7 MCV 82 MCH 25.7 MCHC 31.3 RDW Std Deviation 43.6 Plt Count 257 Neut % (Auto) 65 Lymph % (Auto) 23 [place] % (Auto) 10 Eos % (Auto) 2 Baso % (Auto) 1 Neut # (Auto) 4.3 Lymph # (Auto) 1.5 [place] # (Auto) 0.6 Eos # (Auto) 0.1 Baso # (Auto) 0.0 Immature Gran # (Auto) 0.03 H Absolute Nucleated RBC 0.00 Immature Gran % 1 H Nucleated RBC % 0 APTT 89.2 H D Sodium 139 Potassium 3.6 Chloride 97 L Carbon Dioxide 25.8 Anion Gap 16 BUN 23 Creatinine 1.3 Estim Creat Clear Calc 53.9 L eGFR 45 L BUN/Creatinine Ratio [address] Glu mg/dL 283 H Hemoglobin A1c 11.5 H Calculated Osmolality 289 Calcium 9.8 Corrected Calcium 9.8 Phosphorus 4.1 Magnesium 1.9 Total Bilirubin 0.6 AST 19 ALT 9 L Alkaline Phosphatase 92 Troponin I Total Protein 6.5 Albumin 4.3 Globulin 2.2 L Albumin/Globulin Ratio 2.0 Ur Random Creatinine 56 Ur Random Sodium 53.6 Ur Random Potassium 26 Ur Random Chloride 53.4 L Quality Measures Quality Measures none Advance care planning discussed with:: patient Assessment & Plan Assessment Current Active Medications: Generic Name Dose Route Start Last Admin Trade Name Freq PRN Reason Stop Dose Admin Acetaminophen 650 mg 04/14/25 05:28 04/14/25 21:45 Acetaminophen 325 Mg Tablet PO 05/14/25 05:27 650 mg Q6H PRN Administration Mild Pain 1-3 Or Fever >100.3 Albuterol/Ipratropium 3 ml 04/14/25 05:36 Albuterol/Ipratropium (Duoneb) Rt [place] 3 Ml Nebu INH 05/14/25 06:59 Q6HRRT PRN Wheezing Aspirin 81 mg 04/14/25 09:00 04/14/25 08:16 Aspirin Ec 81 Mg Tabec PO 05/14/25 08:59 Not Given QDAY BARNEY Atorvastatin Calcium 40 mg 04/14/25 21:00 04/14/25 21:44 Atorvastatin Calcium 20 Mg Tablet PO 05/14/25 20:59 40 mg HS BARNEY Administration Dextrose 25 ml 04/14/25 05:35 Dextrose 50%-Water Inj 50 Ml Syringe IV 05/14/25 05:34 Q15MIN PRN BG 50-70 responsive npo pt Dextrose 50 ml 04/14/25 05:35 Dextrose 50%-Water Inj 50 Ml Syringe IV 05/14/25 05:34 Q15MIN PRN BG <50 OR BG <70 & pt unresponsive Furosemide 40 mg 04/14/25 18:00 04/15/25 05:04 Furosemide Inj 10 Mg/Ml 4ml Vial IVP 05/14/25 17:59 40 mg BIDD BARNEY Administration Glucagon 1 mg 04/14/25 05:35 Glucagon Inj 1 Mg Vial IM Q15MIN PRN BG <70, and no IV access Heparin Sodium/Dextrose 25,000 unit in 250 mls @ 18 mls/hr 04/14/25 08:48 04/15/25 09:17 Heparin In D5w Ivpb IV 04/28/25 08:47 10 units/kg/hr .[id number] BARNEY 12.474 mls/hr Titration Protocol 14.43 UNITS/KG/HR Magnesium Sulfate 2 gm in 50 mls @ 25 mls/hr 04/15/25 08:28 04/15/25 09:08 Magnesium Sulfate Ivpb IV 04/15/25 10:27 25 mls/hr X1 ONE Administration Insulin Human Lispro 0 unit 04/14/25 07:30 04/15/25 07:33 Insulin Lispro (Admelog) 1 Unit/0.01 Ml Unit SC 05/14/25 07:29 1 unit ACHS BARNEY Administration Protocol Metoprolol Tartrate 25 mg 04/14/25 21:00 04/15/25 09:09 Metoprolol Tartrate 25 Mg Tablet PO 05/14/25 20:59 25 mg BID BARNEY Administration Ondansetron HCl 4 mg 04/14/25 05:28 04/15/25 07:32 Ondansetron Inj 2 Mg/Ml Inj 2 Ml IVP 05/14/25 05:27 4 mg Q6H PRN Administration NAUSEA OR VOMITING Protocol Pantoprazole Sodium 40 mg 04/14/25 09:00 04/15/25 09:12 Pantoprazole 40 Mg Tablet PO 05/14/25 08:59 40 mg QDAY BARNEY Administration Plan 70F with PMH HFrEF 30-35% (10/14/2023) CAD s/p 13 stents, history of [place] x 2 s/p ICD, PAD s/p 2 stents in RLE, T2DM , COPD, meniscus tear in her right knee (not a candidate for surgical repair) BIB EMS s/p 41J shock that was delivered by her ICD due to Vtach at around 0100, found to have afib with RVR. #New onset Atrial Fibrillation w/ RVR #VTach, single episode, s/p 41J shock via ICD #Troponinemia Patient presented over night with chief complain of shock secondary to Vtach s/p shock after ICD investigation. Afib w/ rvr noted in the ER which was converted after 2nd dose of diltiazem. No Amio was given. Patient denied chest pain or shortness of breath. denied lower pedal edema. TSH:2.35 Trop: 0.05 --> 0.27--> 0.81. Patient denied chest pain or shortness of breath. Likely secondary to ICD shock and direct cardiac trauma. No ST elevation noted but NSTEMI type I can not be ruled out given past medical history of CAD. EKG: RBBB with QTc of 549 BUN:1233 Unclear etiology of the new onset afib at this time but suspecting it to be due to her congestive heart failure. Of note, patient was seen in the ED last week for CHF exacerbation Plan: - Diltiazem 20 mg X 3 was given in the ED with conversion of afib with RVR after the 2nd dose - Start Metoprolol 50 BID (hold if SBP <100) - Repeat EKG if troponins increased or chest pain noted. - Start Lasix 40 BID - Heparin drip - Keep K>4 and Mg >2 - Pending Echo - Cardiology, Dr. Goodwin, was consulted, appreciate recommendations. #CAD s/p stents 15 #PAD #HLD Patient has a past medical history of CAD, patient was started on Aspirin 81 gm qday. Unclear home medications/pending medication reconciliation. TG 174, Chol 132, LDL 66, HDL 32 Plan -Aspirin 81 mg once daily -Atorvastatin 40 mg PO HS #DAPHNE DAPHNE noted on admission w/ a Cr change >0.3 from baseline of 1.0 and GFR 45. Patient stated over the last couple days decreased oral intake. Recently started on Lasix for CHF. Cr 04/14 1.3 Differentials: prerenal due to dehydration vs intrinsic 2/2 to diuretic use Plan - CTM -Strict ins and outs -consider fluids, holding off fluids given history of CHF. -renally dose medication -avoid nephrotxins, -consider renal u/s #CHF HFrEF 30 to 35 (10/14/2023) #Systolic Dysfunction Patient has a past medical history of CHF w/ ICD and severe systolic dysfunction w/ EF of 30% who follow Dr. Goodwin. Denied SOB, but home oxygen did stop working, uses home oxygen for sleep only. No lower peripheral edema. Patient can not recall her home CHF medication but was recently started on Lasix 20 mg qday during previous ER visit for CHF exacerbation. Echo (10/14/2023): Sever Systolic Dysfucntion. Global hypokinesis. EF 30 to 35%. RVSP 36. BNP: 1233 CXR: moderate enlargement cardiac contour with mild vascular congestion. Plan - Start Lasix 40 mg PO BID - Pending Echo - Pending medication reconciliation for GDMT - Fluid restricted 1800 #Hyperglycemia #Diabetes Mellitus Type 2, insulin dependent Patient has a past medical history of diabetes mellitus type 2, on insulin, patient can not recall home dose. Beta hydroxybutrate 1.1 w/ glucose of 376. Previous A1c 9.5 (09/2024) A1C: 11.5 Plan -Slilding Scale #COPD Past medical history of COPD. Not in acute copd exacerbation Plan -Duonebs added PRN Health Maintenance: Disp: Pt is currently admitted to floors for further management of Afib w/ rvr , awaiting pending cardiac consult FEN: Low carb consistent, fluid restricted 1800 DVT: on subQ heparin Q12HR Code: Full Code - The patient's plan was discussed with attending Dr. Hernández and senior resident Dr. Hallie Hunter (Med Student) Attending Provider Attestation/Addendum I Zaida Hernández MD reviewed the note and agree with the resident's assessment & plan with modifications/additions/exceptions as below. I have personally reviewed labs, imaging, home meds/prior records, examined the patient, formulated and discussed management plan with the IM team. A 70-year-old female with history of DM, HFrEF, PAD, COPD presented to ED after her ICD device shocked at home. On presentation, noted to be in A-fib with RVR (new diagnosis) which resolved following beta-efren and diltiazem boluses. Patient likely HFrEF exacerbation leading to acute CHF exacerbation. obtain echocardiogram, discontinue diltiazem, continue diuresis with Lasix 40 mg IV twice daily, will optimize GDMT as tolerated. Switch metoprolol to 50 mg p.o. patient has high [id number] score and would likely benefit from anticoagulation. Will start on Eliquis 5 mg twice daily and follow-up with cardiology. Device interrogation apparently did not reveal any VT episode however likely A-fib with RVR leading to aberrant conduction and mimicking SVT. There is mild troponin elevation likely due to device shock, HFrEF exacerbation and AF RVR. Will provide GDMT as tolerated, start on therapeutic anticoagulation for A-fib. Cardiology is consulted, pending recommendation.
[2025-04-15 10:06] LABS: Troponin I 0.356 ng/mL (0.0-0.045)
[2025-04-15] MEDS: HYDROmorphone INJ 2 MG/ML VIAL 0.5 MG IVP ×2 (10:48→17:49)
[2025-04-15] MEDS: ASPIRIN EC 81 MG TABEC PO (10:49)
--- NOTE | 2025-04-15 16:15 | PC.SS ---
Per afternoon rounding note: Pending Cardio Evaluation. No d/c date at this time. ?
[2025-04-15] MEDS: PREGABALIN 50 MG CAPSULE 100 MG PO (16:19)
[2025-04-15 16:21] LABS: Partial Thromboplastin Time 29.1 Seconds (22.0-36.0)
[2025-04-15] MEDS: APIXABAN 2.5 MG TABLET 5 MG PO (20:53)
[2025-04-15] MEDS: ATORVASTATIN CALCIUM 20 MG TABLET 40 MG PO (20:53)
[2025-04-15] MEDS: METOPROLOL TARTRATE 25 MG TABLET 50 MG PO (20:58)
[2025-04-16] VITALS (11 sets, daily range): BP systolic 101–121; BP diastolic 59–76; PULSE 64–85; RESP 12–96; TEMP 36.1–37; O2SAT 90–100; BMI 44.3
[2025-04-16] MEDS: HYDROmorphone INJ 2 MG/ML VIAL 0.5 MG IVP (01:10)
[2025-04-16] MEDS: FUROSEMIDE INJ 10 MG/ML 4ML VIAL 40 MG IVP (05:15)
[2025-04-16 05:54] LABS: Basophils # (Auto) 0.0 Thou/mm3 (0.0-0.2); Basophils % (Auto) 1 % (0-2.5); Eosinophils # (Auto) 0.1 Thou/mm3 (0.0-0.5); Eosinophils % (Auto) 2 % (0-10); Hematocrit 43.8 % (36.0-46.0); Hemoglobin 13.8 g/dL (12.0-16.0); Immature Granulocytes Auto 0.02 Thou/mm3 (0.00-0.00); Lymphocytes # (Auto) 1.6 Thou/mm3 (1.0-4.8); Lymphocytes % (Auto) 27 % (10-50); Mean Corpuscular HGB Conc 31.5 g/dl (31.0-37.0); Mean Corpuscular Hemoglobin 25.7 pg (25.0-35.0); Mean Corpuscular Volume 81 fL (80-100); Monocytes # (Auto) 0.7 Thou/mm3 (0.0-0.8); Monocytes % (Auto) 12 % (0-12); Neutrophils # (Auto) 3.4 Thou/mm3 (1.8-7.7); Neutrophils % (Auto) 58 % (37-80); Nucleated Red Blood Cell # 0.00 Thou/mm3 (0.00-0.00); Nucleated Red Blood Cell % 0 /100 WBC (0); Platelet Count 228 Thou/mm3 (140-440); RDW Standard Deviation 44.0 fL (36.4-46.3); Red Blood Count 5.38 Miln/mm3 (4.00-5.20); White Blood Count 5.9 Thou/mm3 (3.6-11.0)
[2025-04-16 06:05] LABS: INR 1.1 (0.9-1.3); Partial Thromboplastin Time 28.9 Seconds (22.0-36.0); Prothrombin Time 12.4 Seconds (9.0-12.2)
[2025-04-16 06:37] LABS: Alanine Aminotransferase 8 U/L (10-49); Albumin, Serum 3.9 gm/dL (3.4-4.8); Albumin/Globulin Ratio 1.6 (1.2-2.2); Alkaline Phosphatase 81 U/L (46-116); Anion Gap 14 (7-16); Aspartate Amino Transferase 15 U/L (0-34); BUN/Creatinine Ratio 14 Ratio (12-20); Bilirubin,Total 0.6 mg/dL (0.3-1.2); Blood Urea Nitrogen 20 mg/dL (9-23); Calcium 9.9 mg/dL (8.3-10.6); Calcium (Corrected) 10.0 mg/dL (8.5-10.1); Carbon Dioxide 25.7 mMol/L (20.0-31.0); Chloride 98 mMol/L (98-107); Creatinine (Component) 1.4 mg/dL (0.6-1.3); Estimated Creatinine Clearance 49.2 mL/min (>60); Globulin 2.5 gm/dL (2.3-3.5); Glucose 221 mg/dL (74-106); Magnesium 2.0 mg/dL (1.6-2.6); Osmolality,Calculated 285 (275-295); Phosphorous 3.8 mg/dL (2.4-5.1); Potassium 3.6 mMol/L (3.4-5.1); Sodium 138 mMol/L (136-145); Total Protein 6.4 gm/dL (5.7-8.2); eGFR 41 See Note
[2025-04-16] MEDS: INSULIN LISPRO (AdmeLOG) 1 UNIT/0.01 ML UNIT SC ×4 (08:13→21:03)
[2025-04-16] MEDS: PREGABALIN 50 MG CAPSULE 100 MG PO (08:14)
[2025-04-16] MEDS: PANTOPRAZOLE 40 MG TABLET PO (08:14)
[2025-04-16] MEDS: APIXABAN 2.5 MG TABLET 5 MG PO ×2 (08:14→20:56)
[2025-04-16] MEDS: ASPIRIN EC 81 MG TABEC PO (08:15)
[2025-04-16] MEDS: METOPROLOL TARTRATE 25 MG TABLET 50 MG PO ×2 (08:15→21:01)
--- NOTE | 2025-04-16 08:18 | PD.IMCONS ---
HPI Data of Consult Requesting Physician: Marc Barker MD Primary Care Provider: Killian Donovan MD Consult Narrative History of present illness: This is a 70-year-old female with PMH HFrEF 30-35% (10/14/2023) CAD s/p 13 stents, history of [place] x 2 s/p ICD, PAD s/p 2 stents in RLE, T2DM , COPD, meniscus tear in her right knee (not a candidate for surgical repair, received steroids) Pt seen in the ER with ICD discharge no chest pain or sob / no palpitations no syncopy ICD interrogration revealed pt had VT and was defibrillated successfully cc:: cc: Marc Barker MD Meds Home Medications and Allergies Home Medications ?Medication ?Instructions ?Recorded ?Confirmed ?Type ticagrelor 90 mg tablet (Brilinta) 60 mg PO BID 05/08/21 04/15/25 History insulin glargine 100 unit/mL (3 30 unit subcut BID 12/10/21 04/15/25 History mL) subcutaneous pen (Lantus Solostar U-100 Insulin) omeprazole 40 mg capsule,delayed 40 mg PO QDAY 05/28/22 04/15/25 History release pregabalin 75 mg capsule (Lyrica) 100 mg PO QDAY 09/17/22 04/15/25 History meloxicam 15 mg tablet 15 mg PO QDAY 03/06/23 04/15/25 History tizanidine 4 mg tablet 4 mg PO Q8HR PRN Muscle Spasm 03/06/23 04/15/25 History Held on 04/15/25. Instructions: Doctor's Order clindamycin HCl 300 mg capsule 300 mg PO 3XD 10/14/23 04/15/25 History empagliflozin 25 mg tablet 25 mg PO DAILY 10/14/23 04/15/25 History (Jardiance) hydrocodone 10 mg-acetaminophen 10 tab PO PRN PRN Pain (Scale 10/14/23 04/15/25 History 325 mg tablet Score 7-10) metformin 1,000 mg tablet 1,000 mg PO BID 10/14/23 04/15/25 History montelukast 10 mg tablet 10 mg PO DAILY 10/14/23 04/15/25 History Held on 04/15/25. Instructions: Doctor's Order nitroglycerin 0.4 mg sublingual 0.4 mg buccal 3XD 10/14/23 04/15/25 History tablet rosuvastatin 40 mg tablet 40 mg PO DAILY 10/14/23 04/15/25 History Held on 04/15/25. Instructions: Doctor's Order sacubitril 24 mg-valsartan 26 mg 26 tab PO BID diabetes 10/14/23 04/15/25 History tablet (Entresto) semaglutide 2 mg/dose (8 mg/3 mL) 1 mg subcut Q7D 10/14/23 04/15/25 History subcutaneous pen injector (Ozempic) Held on 04/15/25. Instructions: Doctor's Order Allergies Allergy/AdvReac Type Severity Reaction Status Date / Time adhesive Allergy Severe SKIN GETS Verified 03/23/25 21:07 RAW ketorolac AdvReac Severe SHARP Verified 03/23/25 21:07 PAINS THROUGHOUT ENTIRE BODY morphine AdvReac Severe CAUSES Verified 03/23/25 21:07 BEHAVIORAL PROBLEMS Exam Vital Signs Temp Pulse Resp BP Pulse Ox O2 Del Method O2 Flow Rate 96.9 F 74 14 115/68 90 L Nasal Cannula 1 04/16/25 08:00 04/16/25 08:00 04/16/25 08:00 04/16/25 08:00 04/16/25 08:00 04/16/25 08:00 04/16/25 08:00 Routine HEENT Exam Head: Present normocephalic and atraumatic Eye: Present EOMI and PERRL ENT: Present mucous membranes moist Routine Neck Exam Neck: Present supple and trachea midline Routine Respiratory Exam Respiratory: Present chest non-tender, lungs clear, normal breath sounds and no resp distress Routine Cardiovascular Exam Cardiovascular: Present RRR Routine Abdominal Exam Abdominal: Present soft and normoactive bowel sounds Routine Extremities Exam Extremities: Present full ROM Routine Skin Exam Skin: Present intact, dry and warm Routine Neurological Exam Neurological: Present alert, oriented X3 and CN II-XII intact Routine Psychiatric Exam Psychiatric: Present normal affect and normal thought process Results Labs 04/16/25 05:26 04/16/25 05:26 Labs: Short CBC 04/16/25 Range/Units 05:26 WBC 5.9 (3.6-11.0) Thou/mm3 Hgb 13.8 (12.0-16.0) g/dL Hct 43.8 (36.0-46.0) % Plt Count 228 (140-440) Thou/mm3 BMP 04/16/25 05:26 Sodium 138 Potassium 3.6 Chloride 98 Carbon Dioxide 25.7 BUN 20 Creatinine 1.4 H Glucose 221 H Calcium 9.9 Cardiac Enzymes 04/15/25 Range/Units 08:48 Troponin I 0.356 H* D (0.0-0.045) ng/mL Liver Function 04/16/25 Range/Units 05:26 Total Bilirubin 0.6 (0.3-1.2) mg/dL AST 15 (0-34) U/L ALT 8 L (10-49) U/L Alkaline Phosphatase 81 (46-116) U/L Albumin 3.9 (3.4-4.8) gm/dL Assessment and Plan Assessment and plan (1) AICD discharge: Status: Acute (2) Palpitations: Status: Acute (3) Elevated troponin: Status: Acute (4) Atrial fibrillation with rapid ventricular response: Status: Acute (5) CHF exacerbation: Status: Acute (6) Obesity: Status: Acute Additional Assessment & Plan Additional Plan: pt had a VT episode and was successfully defibrillated by ICD elevated troponin is most likely due to defibrillation doubt ACS stable hemodynamics
--- NOTE | 2025-04-16 09:46 | PC.SS ---
Patient Juliette Briggs is 70 year old female admitted for New onset AFIB W/RVR. SS conducted bedside contact with the patient to complete initial assessment and to discuss discharge planning. Patient confirmed demographic information. Patient identifies her grandson Luis Miguel Mullen [phone] as her surrogate decision maker. Patient resides at home with her adult grandchildren. Patient states she is able to complete all ADL?s independently, she utilizes a Wheelchair to assist with ambulation. PCP is Dr. Killian Donovan and her pharmacy of choice is [facility]. Discharge plan discussed, and the patient would like to return home. Pts family will provide transportation. client services specialist would be available to address any further concerns. Discharge plan: Home Next of kin: GrandsonLuis Miguel
--- NOTE | 2025-04-16 10:22 | PC.SS ---
SS follow up note; Patient is pending Cardio Rec's. Patient will discharge home when medically cleared.
--- NOTE | 2025-04-16 11:19 | ESPR_ITS ---
<Statement entered by Marc Barker MD - 04/20/25 15:07> I reviewed above note and agree with findings and plans. I have also personally examined the patient with medicine team and went over assessment and plan with medical team including paralegal internship and resident physician. <Statement entered by Macario Kraft MD - 04/16/25 16:31> Patient was examined and case was reviewed with team including attending physician. Note reviewed, I agree with most of its contents and agree with the patient's care as documented by Dr. Lin Patient seen and evaluated at the bedside. Vitals and labs reviewed. No active complaint at this time. As patient in the setting of diuresis will give diuretic holiday today and reevaluate with metabolic panel in AM. Patient is likely discharge in the next 24-48 hours. Case discussed with my attending Dr. Lucero Kraft MD PGY-2 Disclaimer: Despite multiple revisions, due to the dictation software being used, the document bellow may not be free of grammatical errors including phonetic/typographic errors. However, this does not deter from our commitment to providing health care in the patient's best interest in mind. Documentation for date of: 04/16/25 Subjective Subjective Interval history: 04/16/25: [place]. VSS. Patient was evaluated and examined at bedside. Patient denies any shortness of breath, chest pain, palpitations or any other complaints at this time. Patient was noted to have oxygen saturation of 89% at room air this morning when examining her, thus, 3L NC was given with oxygen saturation improvement to 97%. Of note, patient is on 2L oxyegn at home and uses it inconsistently. Exam Vital Signs Temp Pulse Resp BP Pulse Ox O2 Del Method O2 Flow Rate 96.9 F 74 14 121/76 90 L Nasal Cannula 1 04/16/25 08:00 04/16/25 08:15 04/16/25 08:00 04/16/25 08:15 04/16/25 08:00 04/16/25 08:00 04/16/25 08:00 Narrative Exam General Appearance: Alert & Oriented X3, well-nourished female who is lying in bed in no acute distress HEENT: NCAT.. Conjunctivae pink and moist. PERRL. External ear without lesion or discharge. Mucosa appears dry. Cardio: RRR with S1 and S2 heart sounds, No murmurs or extra heart sounds auscultated. No peripheral edema or cyanosis. Lungs: Symmetric with good expansion. Chest and back non-tender. CTAB b/l. saturating 97% on 3L. Abdomen: Non-tender, Non-distended, no pritinic signs EXT: no pretibial edema noted. RLE is mildly erythematous tender to palpation Neuro: Alert, cooperative, Speech clear. CN grossly intact. Upper motor strength 5/5 and Lower motor strength 5/5. Sensation intact. Objective Labs 04/16/25 05:26 04/16/25 05:26 Labs: Laboratory Results - last 24 hr 04/15/25 04/16/25 15:16 05:26 WBC 5.9 RBC 5.38 H Hgb 13.8 Hct 43.8 MCV 81 MCH 25.7 MCHC 31.5 RDW Std Deviation 44.0 Plt Count 228 Neut % (Auto) 58 Lymph % (Auto) 27 Toombs % (Auto) 12 Eos % (Auto) 2 Baso % (Auto) 1 Neut # (Auto) 3.4 Lymph # (Auto) 1.6 Toombs # (Auto) 0.7 Eos # (Auto) 0.1 Baso # (Auto) 0.0 Immature Gran # (Auto) 0.02 H Absolute Nucleated RBC 0.00 Immature Gran % 0 Nucleated RBC % 0 PT 12.4 H INR 1.1 APTT 29.1 D 28.9 Sodium 138 Potassium 3.6 Chloride 98 Carbon Dioxide 25.7 Anion Gap 14 BUN 20 Creatinine 1.4 H Estim Creat Clear Calc 49.2 L eGFR 41 L BUN/Creatinine Ratio 14 Glucose 221 H Calculated Osmolality 285 Calcium 9.9 Corrected Calcium 10.0 Phosphorus 3.8 Magnesium 2.0 Total Bilirubin 0.6 AST 15 ALT 8 L Alkaline Phosphatase 81 Total Protein 6.4 Albumin 3.9 Globulin 2.5 Albumin/Globulin Ratio 1.6 Quality Measures Quality Measures none Advance care planning discussed with:: patient Assessment & Plan Assessment Current Active Medications: Generic Name Dose Route Start Last Admin Trade Name Freq PRN Reason Stop Dose Admin Acetaminophen 650 mg 04/14/25 05:28 04/14/25 21:45 Acetaminophen 325 Mg Tablet PO 05/14/25 05:27 650 mg Q6H PRN Administration Mild Pain 1-3 Or Fever >100.3 Hydrocodone Bitart/Acetaminophen 1 tab 04/15/25 15:36 Hydrocodone/Apap 10/325 Tab PO 04/20/25 15:35 Q8HR PRN Pain 6-10 Albuterol/Ipratropium 3 ml 04/14/25 05:36 Albuterol/Ipratropium (Duoneb) Rt Kalpana 3 Ml Nebu INH 05/14/25 06:59 Q6HRRT PRN Wheezing Apixaban 5 mg 04/15/25 21:00 04/16/25 08:14 Apixaban 2.5 Mg Tablet PO 05/15/25 20:59 5 mg BID BARNEY Administration Aspirin 81 mg 04/14/25 09:00 04/16/25 08:15 Aspirin Ec 81 Mg Tabec PO 05/14/25 08:59 81 mg QDAY BARNEY Administration Atorvastatin Calcium 40 mg 04/14/25 21:00 04/15/25 20:53 Atorvastatin Calcium 20 Mg Tablet PO 05/14/25 20:59 40 mg HS BARNEY Administration Brilinta (Ticagrelor 0 ea 04/15/25 21:00 04/16/25 08:14 ) 60 Mg Tablet PO 05/15/25 20:59 1 tablet BID BARNEY Administration Dextrose 25 ml 04/14/25 05:35 Dextrose 50%-Water Inj 50 Ml Syringe IV 05/14/25 05:34 Q15MIN PRN BG 50-70 responsive npo pt Dextrose 50 ml 04/14/25 05:35 Dextrose 50%-Water Inj 50 Ml Syringe IV 05/14/25 05:34 Q15MIN PRN BG <50 OR BG <70 & pt unresponsive Furosemide 40 mg 04/17/25 09:15 Furosemide 20 Mg Tablet PO 04/17/25 09:16 X1 ONE Glucagon 1 mg 04/14/25 05:35 Glucagon Inj 1 Mg Vial IM Q15MIN PRN BG <70, and no IV access Insulin Human Lispro 0 unit 04/14/25 07:30 04/16/25 08:13 Insulin Lispro (Admelog) 1 Unit/0.01 Ml Unit SC 05/14/25 07:29 1 unit ACHS BARNEY Administration Protocol Metoprolol Tartrate 50 mg 04/15/25 21:00 04/16/25 08:15 Metoprolol Tartrate 25 Mg Tablet PO 05/15/25 20:59 50 mg BID BARNEY Administration Ondansetron HCl 4 mg 04/14/25 05:28 04/15/25 16:18 Ondansetron Inj 2 Mg/Ml Inj 2 Ml IVP 05/14/25 05:27 4 mg Q6H PRN Administration NAUSEA OR VOMITING Protocol Pantoprazole Sodium 40 mg 04/14/25 09:00 04/16/25 08:14 Pantoprazole 40 Mg Tablet PO 05/14/25 08:59 40 mg QDAY BARNEY Administration Pregabalin 100 mg 04/15/25 15:45 04/16/25 08:14 Pregabalin 50 Mg Capsule PO 05/15/25 15:44 100 mg QDAY BARNEY Administration Sacubitril/Valsartan 1 tab 04/15/25 21:00 04/16/25 08:15 Sacubitril 24 Mg/Valsartan 26 Mg Tablet PO 05/15/25 20:59 1 tab BID BARNEY Administration Plan 70F with PMH HFrEF 30-35% (10/14/2023) CAD s/p 13 stents, history of [place] x 2 s/p ICD, PAD s/p 2 stents in RLE, T2DM , COPD, meniscus tear in her right knee (not a candidate for surgical repair) BIB EMS s/p 41J shock that was delivered by her ICD due to Vtach at around 0100, found to have afib with RVR. #New onset paroxysmal atrial fibrillation w/ RVR #VTach, single episode, s/p 41J shock via ICD #Troponinemia Patient presented over night with chief complain of shock secondary to Vtach s/p shock after ICD investigation. Afib w/ rvr noted in the ER which was converted after 2nd dose of diltiazem. No Amio was given. Patient denied chest pain or shortness of breath. denied lower pedal edema. TSH:2.35 Trop: 0.05 --> 0.27--> 0.81 --> 0.56 --> 0.35. Patient denied chest pain or shortness of breath. Likely secondary to ICD shock and direct cardiac trauma. No ST elevation noted but NSTEMI type I can not be ruled out given past medical history of CAD. Initial EKG: RBBB with QTc of 549 BUN:1233 Unclear etiology of the new onset afib at this time but suspecting it to be due to her congestive heart failure. Of note, patient was seen in the ED last week for CHF exacerbation Patient however appears euvolemic on exam Plan: - Cardiology consulted, suggest low suspicion for ACS and the elevated troponin is most likely due to defibrillation. - Diltiazem 20 mg X 3 was given in the ED with conversion of afib with RVR after the 2nd dose - Continue Metoprolol 50 BID (hold if SBP <100) - Repeat EKG if troponins increased or chest pain noted. - Held Lasix IV 40 BID and reassess tomorrow morning. If tolerating and asymptomatic, we will switch to PO 40 qday dose and potentially discharge home. - Keep K>4 and Mg >2 - Patient will need to follow up outpatient with her brick baker and complete and and echo #CAD s/p stents 15 #PAD #HLD Patient has a past medical history of CAD, patient was started on Aspirin 81 qday. Unclear home medications/pending medication reconciliation. TG 174, Chol 132, LDL 66, HDL 32 Plan: - Eliquis 5 BID - Aspirin 81 mg once daily - Atorvastatin 40 mg PO HS #DAPHNE DAPHNE noted on admission w/ a Cr change >0.3 from baseline of 1.0 and GFR 45. Patient stated over the last couple days decreased oral intake. Recently started on Lasix for CHF. Cr 04/14 1.3, 04/16 1.4 Differentials: prerenal due to dehydration vs intrinsic 2/2 to diuretic use Plan - Held lasix IV and reassess tomorrow for kidney function - CTM - Strict ins and outs - consider fluids, holding off fluids given history of CHF. - renally dose medication - avoid nephrotxins, - consider renal u/s #CHF HFrEF 30 to 35 (10/14/2023) #Systolic Dysfunction Patient has a past medical history of CHF w/ ICD and severe systolic dysfunction w/ EF of 30% who follow Dr. Goodwin. Denied SOB, but home oxygen did stop working, uses home oxygen for sleep only. No lower peripheral edema. Patient can not recall her home CHF medication but was recently started on Lasix 20 mg qday during previous ER visit for CHF exacerbation. Echo (10/14/2023): Sever Systolic Dysfucntion. Global hypokinesis. EF 30 to 35%. RVSP 36. BNP: 1233 CXR: moderate enlargement cardiac contour with mild vascular congestion. Patient appear euvolemic on exam Plan - Held Lasix - Patient will need to follow up outpatient with her brick baker and complete and and echo - Fluid restricted 1800 #Hyperglycemia #Diabetes Mellitus Type 2, insulin dependent Patient has a past medical history of diabetes mellitus type 2, on insulin, patient can not recall home dose. Beta hydroxybutrate 1.1 w/ glucose of 376. Previous A1c 9.5 (09/2024) A1C: 11.5 Plan -Slilding Scale #COPD Past medical history of COPD. Not in acute copd exacerbation Plan -Duonebs added PRN Health Maintenance: Disp: Pt is currently admitted to floors for further management of Afib w/ rvr FEN: Low carb consistent, fluid restricted 1800 DVT: on subQ heparin Q12HR Code: Full Code - The patient's plan was discussed with attending Dr. Barker and senior resident Dr. Ramon Lin, DO PGY1
[2025-04-16] MEDS: HYDROmorphone INJ 2 MG/ML VIAL 0.25 MG IVP ×2 (15:24→21:03)
--- NOTE | 2025-04-16 15:49 | PC.SS ---
SS follow up note; Pending Cardiology Rec's. Possible discharge home tomorrow.
[2025-04-16] MEDS: ATORVASTATIN CALCIUM 20 MG TABLET 40 MG PO (20:57)
[2025-04-17] VITALS (9 sets, daily range): BP systolic 89–107; BP diastolic 57–83; PULSE 62–77; RESP 16–18; TEMP 36.1–36.6; O2SAT 93–98; BMI 44.3
[2025-04-17] MEDS: HYDROcodone/APAP 5/325 TABLET 1 TAB PO (02:23)
[2025-04-17] MEDS: HYDROmorphone INJ 2 MG/ML VIAL 0.25 MG IVP ×4 (03:39→21:52)
[2025-04-17 06:18] LABS: Basophils # (Auto) 0.0 Thou/mm3 (0.0-0.2); Basophils % (Auto) 1 % (0-2.5); Eosinophils # (Auto) 0.2 Thou/mm3 (0.0-0.5); Eosinophils % (Auto) 2 % (0-10); Hematocrit 42.1 % (36.0-46.0); Hemoglobin 13.2 g/dL (12.0-16.0); Immature Granulocytes Auto 0.04 Thou/mm3 (0.00-0.00); Lymphocytes # (Auto) 1.3 Thou/mm3 (1.0-4.8); Lymphocytes % (Auto) 17 % (10-50); Mean Corpuscular HGB Conc 31.4 g/dl (31.0-37.0); Mean Corpuscular Hemoglobin 25.7 pg (25.0-35.0); Mean Corpuscular Volume 82 fL (80-100); Monocytes # (Auto) 0.8 Thou/mm3 (0.0-0.8); Monocytes % (Auto) 10 % (0-12); Neutrophils # (Auto) 5.5 Thou/mm3 (1.8-7.7); Neutrophils % (Auto) 71 % (37-80); Nucleated Red Blood Cell # 0.00 Thou/mm3 (0.00-0.00); Nucleated Red Blood Cell % 0 /100 WBC (0); Platelet Count 226 Thou/mm3 (140-440); RDW Standard Deviation 44.0 fL (36.4-46.3); Red Blood Count 5.14 Miln/mm3 (4.00-5.20); White Blood Count 7.8 Thou/mm3 (3.6-11.0)
[2025-04-17 06:48] LABS: Alanine Aminotransferase < 7 U/L (10-49); Albumin, Serum 3.8 gm/dL (3.4-4.8); Albumin/Globulin Ratio 1.7 (1.2-2.2); Alkaline Phosphatase 86 U/L (46-116); Anion Gap 12 (7-16); Aspartate Amino Transferase 13 U/L (0-34); BUN/Creatinine Ratio 17 Ratio (12-20); Bilirubin,Total 0.6 mg/dL (0.3-1.2); Blood Urea Nitrogen 27 mg/dL (9-23); Calcium 9.6 mg/dL (8.3-10.6); Calcium (Corrected) 9.8 mg/dL (8.5-10.1); Carbon Dioxide 27.0 mMol/L (20.0-31.0); Chloride 96 mMol/L (98-107); Creatinine (Component) 1.6 mg/dL (0.6-1.3); Estimated Creatinine Clearance 43.1 mL/min (>60); Globulin 2.2 gm/dL (2.3-3.5); Glucose 341 mg/dL (74-106); Magnesium 1.8 mg/dL (1.6-2.6); Osmolality,Calculated 288 (275-295); Phosphorous 4.8 mg/dL (2.4-5.1); Potassium 3.6 mMol/L (3.4-5.1); Sodium 135 mMol/L (136-145); Total Protein 6.0 gm/dL (5.7-8.2); eGFR 35 See Note
[2025-04-17] MEDS: INSULIN LISPRO (AdmeLOG) 1 UNIT/0.01 ML UNIT SC ×4 (07:40→21:53)
[2025-04-17] MEDS: Magnesium Sulfate 4 GM Ivpb 4 GM/50 ML BAG IV (07:40)
--- NOTE | 2025-04-17 08:02 | ESDS_ITS ---
<Statement entered by Marc Barker MD - 04/20/25 15:13> I reviewed above note and agree with findings and plans. I have also personally examined the patient with medicine team and went over assessment and plan with medical team including phd internship and resident physician. <Statement entered by Macario Kraft MD - 04/17/25 16:59> Patient was examined and case was reviewed with team including attending physician. Note reviewed, I agree with most of its contents and agree with the patient's care as documented by Dr. Riley Kraft MD PGY-2 Planned Discharge Date 04/18/25 DS: Providers Provider Date of admission: 04/14/25 05:26 Primary care physician: Killian Donovan MD Admitting Provider: Adrian Mccurdy MD Attending Provider on Admission: Marc Barker MD Consults: 04/15/25 10:13 Consult to Cardiology Urgent Comment: pt sees Dr. Goodwin outpatient. Consulting Provider: Eren Goodwin Attending Provider on DC: Dr. Barker Discharging Provider: Resident Deandre Anticipated date of discharge: 04/18/25 DS: Diagnosis Problem List Completed Was Problem List Reviewed/Reconciled?: Yes Hospital Course Hospital Course Hospital course: 70F with PMH HFrEF 30-35% (10/14/2023) CAD s/p 13 stents, history of [place] x 2 s/p ICD, PAD s/p 2 stents in RLE, T2DM , COPD, meniscus tear in her right knee (not a candidate for surgical repair) BIB EMS s/p 41J shock that was delivered by her ICD due to Vtach at around 0100, found to have afib with RVR in the ED which was converted after 2nd dose of diltiazem. No Amio was given however heparin drip was given. Patient denied chest pain, shortness of breath, or lower pedal edema. Patient's troponin on presentation was 0.05 which up trended to 0.81 and then down trended to 0.35. This troponinemia is most likely secondary to ICD shock and direct cardiac trauma. No ST segment elevation was noted but NSTEMI type I was not ruled out given extensive past medical history of CAD. Initial EKG showed RBBB with QTc of 549 and BUN was noted to be 1233. Of note, patient was seen in the ED last week for CHF exacerbation and was discharged with Lasix. Metoprolol 50 BID was started for patient for rate control. Patient remained in sinus rhythm with regular rate since her admission. Cardiology was consulted and suggested low suspicion for ACS and the elevated troponin is most likely due to defibrillation. IV lasix was given to patient however it was later discontinued given euvolemic status. TTE was performed which showed severe systolic dysfucntion, global hypokinesis, and EF of 30-35% which is unchanged from her last echo in 2023. However severe pulmonary HTN was noted this time (mild in 2023). CXR: moderate enlargement cardiac contour with mild vascular congestion. Patient's new onset paroxysmal afib could be related to CHF exacerbation vs pulmonary HTN. On admission, patient was noted to have DAPHNE with Cr of 1.3 which later increased to 1.6 (1.0 at baseline) which was most likely secondary to prerenal due to dehydration (decreased PO intake recently) vs intrinsic 2/2 to recently started diuretic use. Patient's elevated Cr improved after discontinuation of lasix and home entresto. Patient appears euvolemic. Of note, on 04/17/25, patient was noted to have a short course (about 10 sec) of Vtach while being asymptomatic which resolved without any intervention. Overall, patient's condition improved during her hospital stay. Cardiology team has seen and evaluated the patient and patient is clear for discharge from cardiology standpoint as of 04/18/25. Patient's all other medical problems were managed accordingly. All questions answered and ED return precautions given. Patient is in stable condition for discharge home and will need to follow up with their PCP and web development consultant within 1 week of discharge. #New onset paroxysmal atrial fibrillation w/ RVR #VTach, s/p 41J shock via ICD #Troponinemia #Pulmonary HTN #CAD s/p stents 15 #PAD #HLD #DAPHNE #CHF HFrEF 30 to 35 (10/14/2023) #Systolic Dysfunction #Hyperglycemia #Diabetes Mellitus Type 2, insulin dependent #COPD - Follow up with primary care physician within 1 week of discharge Follow up with your Senior Designer within 1 week of discharge Please take aspirin and eliquis as prescribed. Please go to the ED if notice any bleeding or fall. Please take your medications as prescribed. Should your symptoms recur or worsen patient is instructed to return to the ED. The patient's plan was discussed with attending Dr. Barker and senior resident Dr. Ramon Lin, DO PGY1 Status at Discharge Functional status at discharge: independent ambulation Overall status at discharge: patient is back to baseline Time Spent with Patient Time attestation: Total time spent providing and/or coordinating discharge services: Time spent: Greater than 30 minutes Exam Vital Signs Temp Pulse Resp BP Pulse Ox O2 Del Method O2 Flow Rate 97.0 F 74 17 96/57 L 96 Room Air 1 04/17/25 04:00 04/17/25 04:00 04/17/25 04:00 04/17/25 04:00 04/17/25 04:00 04/17/25 04:00 04/16/25 08:00 Narrative Exam General Appearance: Alert & Oriented X3, well-nourished female who is lying in bed in no acute distress HEENT: NCAT.. Conjunctivae pink and moist. PERRL. External ear without lesion or discharge. Mucosa appears dry. Cardio: RRR with S1 and S2 heart sounds, No murmurs or extra heart sounds auscultated. No peripheral edema or cyanosis. Lungs: Symmetric with good expansion. Chest and back non-tender. CTAB b/l. saturating 96% at RA. Abdomen: Non-tender, Non-distended, no pritinic signs EXT: no pretibial edema noted. Neuro: Alert, cooperative, Speech clear. CN grossly intact. Upper motor strength 5/5 and Lower motor strength 5/5. Sensation intact. Discharge Plan Plan Patient Disposition: HOME (Self Care) Care Plan Goals: Follow up with primary care physician within 1 week of discharge Follow up with your Senior Designer within 1 week of discharge Please take aspirin and eliquis as prescribed. Please go to the ED if notice any bleeding or fall. Please take your medications as prescribed. Should your symptoms recur or worsen patient is instructed to return to the ED. Prescriptions/Referrals Prescriptions/Med Rec: New Eliquis 5 mg tablet 5 mg PO BID 30 Days Qty: 60 0RF Continued pregabalin [Lyrica] 75 mg capsule 100 mg PO QDAY aspirin 81 mg Tablet,Delayed Release (Dr/Ec) 81 mg PO QDAY 30 Days Qty: 30 1RF atorvastatin 40 mg tablet 40 mg PO HS 30 Days Qty: 30 1RF hydrocodone-acetaminophen 10-325 mg tablet 10 tab PO PRN PRN (Reason: Pain (Scale Score 7-10)) metformin 1,000 mg tablet 1,000 mg PO BID Jardiance 25 mg tablet 25 mg PO DAILY potassium chloride 10 mEq capsule, extended release 10 meq PO QDAY MDD 1 Qty: 7 0RF furosemide 40 mg tablet 40 mg PO QDAY Qty: 7 0RF omeprazole 40 mg capsule,delayed release(DR/EC) 40 mg PO QDAY Discontinued ticagrelor [Brilinta] 90 mg Tablet 60 mg PO BID meloxicam 15 mg tablet 15 mg PO QDAY clindamycin HCl 300 mg capsule 300 mg PO 3XD montelukast 10 mg tablet 10 mg PO DAILY rosuvastatin 40 mg tablet 40 mg PO DAILY sacubitril-valsartan [Entresto] 24-26 mg tablet 26 tab PO BID pantoprazole [Protonix] 40 mg tablet,delayed release (DR/EC) 40 mg PO QDAY Qty: 20 0RF acetaminophen 500 mg capsule 500 mg PO Q6H PRN (Reason: pain) Qty: 30 0RF furosemide [Lasix] 20 mg tablet 20 mg PO QDAY MDD 1 Qty: 7 0RF potassium chloride 10 mEq tablet extended release 10 meq PO QDAY Qty: 7 0RF metoclopramide HCl [Reglan] 10 mg tablet 10 mg PO .TID prn PRN (Reason: nausea and vomiting) Qty: 30 0RF midodrine 10 mg tablet 10 mg PO TID PRN (Reason: hypotension) Qty: 30 0RF Rx Instructions: do not give last dose of day after 6PM or within 4 hrs of bedtime No Action insulin glargine [Lantus Solostar U-100 Insulin] 100 unit/mL (3 mL) Insulin Pen 30 unit SUBCUT BID tizanidine 4 mg tablet 4 mg PO Q8HR PRN (Reason: Muscle Spasm) Patient Comments: TAKE 1 TABLET BY MOUTH EVERY 8 HOURS NEEDED NOT TO EXCEED 3 DOSES IN 24 HOURS midodrine 10 mg tablet 10 mg PO TID PRN (Reason: blood pressure) Qty: 90 0RF Rx Instructions: do not give last dose of day after 6PM or within 4 hrs of bedtime nitroglycerin 0.4 mg tablet, sublingual 0.4 mg BUCCAL 3XD Ozempic 2 mg/dose (8 mg/3 mL) pen injector 1 mg SUBCUT Q7D Referrals: Killian Donovan MD [Primary Care Provider] - Patient/Caregiver Discharge Instructions Print Language: [place]an Stand Alone Forms: Kaelyn Award Info., Patient Portal Info Letter Quality Discharge Quality Measures VTE prophylaxis
--- NOTE | 2025-04-17 08:09 | PD.IMPROG ---
Documentation for date of: 04/17/25 Subjective Subjective Interval history: Patient appears stable No further VT Agree with discharge planning Exam Vital Signs Temp Pulse Resp BP Pulse Ox O2 Del Method O2 Flow Rate 97.0 F 74 17 96/57 L 96 Room Air 1 04/17/25 04:00 04/17/25 04:00 04/17/25 04:00 04/17/25 04:00 04/17/25 04:00 04/17/25 04:00 04/16/25 08:00 Routine HEENT Exam Head: Present normocephalic and atraumatic Eye: Present EOMI and PERRL ENT: Present mucous membranes moist Routine Neck Exam Neck: Present supple and trachea midline Routine Respiratory Exam Respiratory: Present chest non-tender, lungs clear, normal breath sounds and no resp distress Routine Cardiovascular Exam Cardiovascular: Present RRR Routine Abdominal Exam Abdominal: Present soft and normoactive bowel sounds Routine Extremities Exam Extremities: Present full ROM Routine Skin Exam Skin: Present intact, dry and warm Routine Neurological Exam Neurological: Present alert, oriented X3 and CN II-XII intact Routine Psychiatric Exam Psychiatric: Present normal affect and normal thought process Objective Labs 04/17/25 05:00 04/17/25 05:00 Labs: Laboratory Results - last 24 hr 04/17/25 05:00 WBC 7.8 RBC 5.14 Hgb 13.2 Hct 42.1 MCV 82 MCH 25.7 MCHC 31.4 RDW Std Deviation 44.0 Plt Count 226 Neut % (Auto) 71 Lymph % (Auto) 17 [place] % (Auto) 10 Eos % (Auto) 2 Baso % (Auto) 1 Neut # (Auto) 5.5 Lymph # (Auto) 1.3 [place] # (Auto) 0.8 Eos # (Auto) 0.2 Baso # (Auto) 0.0 Immature Gran # (Auto) 0.04 H Absolute Nucleated RBC 0.00 Immature Gran % 1 H Nucleated RBC % 0 Sodium 135 L Potassium 3.6 Chloride 96 L Carbon Dioxide 27.0 Anion Gap 12 BUN 27 H Creatinine 1.6 H Estim Creat Clear Calc 43.1 L eGFR 35 L BUN/Creatinine Ratio 17 Glucose 341 H D Calculated Osmolality 288 Calcium 9.6 Corrected Calcium 9.8 Phosphorus 4.8 Magnesium 1.8 Total Bilirubin 0.6 AST 13 ALT < 7 L Alkaline Phosphatase 86 Total Protein 6.0 Albumin 3.8 Globulin 2.2 L Albumin/Globulin Ratio 1.7 Assessment & Plan A&P Narrative No further VT episodes Agree with discharge plan Time Spent With Patient Time: Total time spent is greater than 50% in coordination of care (as documented) at patient's floor/unit and/or counseling patient:
[2025-04-17] MEDS: INSULIN DEGLUDEC 5 UNIT/0.05 ML (PER 5 UNITS) 10 UNIT SC (08:45)
[2025-04-17] MEDS: METOPROLOL TARTRATE 25 MG TABLET 50 MG PO ×2 (08:47→21:54)
[2025-04-17] MEDS: PREGABALIN 50 MG CAPSULE 100 MG PO (08:53)
[2025-04-17] MEDS: APIXABAN 2.5 MG TABLET 5 MG PO ×2 (08:53→21:52)
[2025-04-17] MEDS: PANTOPRAZOLE 40 MG TABLET PO (08:53)
[2025-04-17] MEDS: ASPIRIN EC 81 MG TABEC PO (08:53)
--- NOTE | 2025-04-17 09:50 | ESPR_ITS ---
<Statement entered by Marc Barker MD - 04/20/25 15:13> I reviewed above note and agree with findings and plans. I have also personally examined the patient with medicine team and went over assessment and plan with medical team including international coordinator and resident physician. <Statement entered by Macario Kraft MD - 04/17/25 17:01> Patient was examined and case was reviewed with team including attending physician. Note reviewed, I agree with most of its contents and agree with the patient's care as documented by Dr. Lin Patient seen today at the bedside found awake, alert, orientedx3. No overnight events reported. Vitals and labs reviewed. Kidney function worsening today we will continue with diuretic holiday at this time and will monitor with a.m. labs. Case discussed with my attending Dr. Lucero Kraft MD PGY-2 Disclaimer: Despite multiple revisions, due to the dictation software being used, the document bellow may not be free of grammatical errors including phonetic/typographic errors. However, this does not deter from our commitment to providing health care in the patient's best interest in mind. Documentation for date of: 04/17/25 Subjective Subjective Interval history: 04/17/25: NAEON. vital signs remain stable. Patient has been complaining of right knee pain which is due to her chronic meniscus tear. Patient reported yesterday that she does not like [place], thus 0.25 of dilaudid was given with good resolution of symptoms. Patient does not have any other complaints at this time. Patient was educated on fluid restrictive diet appropriate for her heart failure diagnosis. Registered dietitian will consult later today. Exam Vital Signs Temp Pulse Resp BP Pulse Ox O2 Del Method O2 Flow Rate 97.4 F 69 17 103/64 93 L Nasal Cannula 2 04/17/25 08:00 04/17/25 08:53 04/17/25 08:00 04/17/25 08:53 04/17/25 08:00 04/17/25 08:00 04/17/25 08:00 Narrative Exam General Appearance: Alert & Oriented X3, well-nourished female who is lying in bed in no acute distress HEENT: NCAT.. Conjunctivae pink and moist. PERRL. External ear without lesion or discharge. Mucosa appears dry. Cardio: RRR with S1 and S2 heart sounds, No murmurs or extra heart sounds auscultated. No peripheral edema or cyanosis. Lungs: Symmetric with good expansion. Chest and back non-tender. CTAB b/l. saturating 96% at RA. Abdomen: Non-tender, Non-distended, no pritinic signs EXT: no pretibial edema noted. RLE is mildly erythematous tender to palpation Neuro: Alert, cooperative, Speech clear. CN grossly intact. Upper motor strength 5/5 and Lower motor strength 5/5. Sensation intact. Objective Labs 04/17/25 05:00 04/17/25 14:16 Labs: Laboratory Results - last 24 hr 04/17/25 05:00 WBC 7.8 RBC 5.14 Hgb 13.2 Hct 42.1 MCV 82 MCH 25.7 MCHC 31.4 RDW Std Deviation 44.0 Plt Count 226 Neut % (Auto) 71 Lymph % (Auto) 17 [place] % (Auto) 10 Eos % (Auto) 2 Baso % (Auto) 1 Neut # (Auto) 5.5 Lymph # (Auto) 1.3 [place] # (Auto) 0.8 Eos # (Auto) 0.2 Baso # (Auto) 0.0 Immature Gran # (Auto) 0.04 H Absolute Nucleated RBC 0.00 Immature Gran % 1 H Nucleated RBC % 0 Sodium 135 L Potassium 3.6 Chloride 96 L Carbon Dioxide 27.0 Anion Gap 12 BUN 27 H Creatinine 1.6 H Estim Creat Clear Calc 43.1 L eGFR 35 L BUN/Creatinine Ratio 17 Glucose 341 H D Calculated Osmolality 288 Calcium 9.6 Corrected Calcium 9.8 Phosphorus 4.8 Magnesium 1.8 Total Bilirubin 0.6 AST 13 ALT < 7 L Alkaline Phosphatase 86 Total Protein 6.0 Albumin 3.8 Globulin 2.2 L Albumin/Globulin Ratio 1.7 Quality Measures Quality Measures none Advance care planning discussed with:: patient Assessment & Plan Assessment Current Active Medications: Generic Name Dose Route Start Last Admin Trade Name Freq PRN Reason Stop Dose Admin Acetaminophen 650 mg 04/14/25 05:28 04/14/25 21:45 Acetaminophen 325 Mg Tablet PO 05/14/25 05:27 650 mg Q6H PRN Administration Mild Pain 1-3 Or Fever >100.3 Hydrocodone Bitart/Acetaminophen 1 tab 04/16/25 13:54 04/17/25 02:23 Hydrocodone/Apap 5/325 Tablet PO 04/21/25 13:53 1 tab Q8HR PRN Administration Pain 6-10 Albuterol/Ipratropium 3 ml 04/14/25 05:36 Albuterol/Ipratropium (Duoneb) Rt [place] 3 Ml Nebu INH 05/14/25 06:59 Q6HRRT PRN Wheezing Apixaban 5 mg 04/15/25 21:00 04/17/25 08:53 Apixaban 2.5 Mg Tablet PO 05/15/25 20:59 5 mg BID BARNEY Administration Aspirin 81 mg 04/14/25 09:00 04/17/25 08:53 Aspirin Ec 81 Mg Tabec PO 05/14/25 08:59 81 mg QDAY BARNEY Administration Atorvastatin Calcium 40 mg 04/14/25 21:00 04/16/25 20:57 Atorvastatin Calcium 20 Mg Tablet PO 05/14/25 20:59 40 mg HS BARNEY Administration Brilinta (Ticagrelor 0 ea 04/15/25 21:00 04/17/25 08:47 ) 60 Mg Tablet PO 05/15/25 20:59 1 tablet BID BARNEY Administration Dextrose 25 ml 04/14/25 05:35 Dextrose 50%-Water Inj 50 Ml Syringe IV 05/14/25 05:34 Q15MIN PRN BG 50-70 responsive npo pt Dextrose 50 ml 04/14/25 05:35 Dextrose 50%-Water Inj 50 Ml Syringe IV 05/14/25 05:34 Q15MIN PRN BG <50 OR BG <70 & pt unresponsive Glucagon 1 mg 04/14/25 05:35 Glucagon Inj 1 Mg Vial IM Q15MIN PRN BG <70, and no IV access Magnesium Sulfate 4 gm in 50 mls @ 12.5 mls/hr 04/17/25 07:33 04/17/25 07:40 Magnesium Sulfate Ivpb IV 04/17/25 11:32 12.5 mls/hr X1 ONE Administration Insulin Degludec 10 unit 04/17/25 09:00 04/17/25 08:45 Insulin Degludec 5 Unit/0.05 Ml (Per 5 Units) SC 05/17/25 08:59 10 unit QDAY BARNEY Administration Insulin Human Lispro 0 unit 04/14/25 07:30 04/17/25 07:40 Insulin Lispro (Admelog) 1 Unit/0.01 Ml Unit SC 05/14/25 07:29 4 unit ACHS BARNEY Administration Protocol Metoprolol Tartrate 50 mg 04/15/25 21:00 04/17/25 08:47 Metoprolol Tartrate 25 Mg Tablet PO 05/15/25 20:59 50 mg BID BARNEY Administration Ondansetron HCl 4 mg 04/14/25 05:28 04/15/25 16:18 Ondansetron Inj 2 Mg/Ml Inj 2 Ml IVP 05/14/25 05:27 4 mg Q6H PRN Administration NAUSEA OR VOMITING Protocol Pantoprazole Sodium 40 mg 04/14/25 09:00 04/17/25 08:53 Pantoprazole 40 Mg Tablet PO 05/14/25 08:59 40 mg QDAY BARNEY Administration Pregabalin 100 mg 04/15/25 15:45 04/17/25 08:53 Pregabalin 50 Mg Capsule PO 05/15/25 15:44 100 mg QDAY BARNEY Administration Plan 70F with PMH HFrEF 30-35% (10/14/2023) CAD s/p 13 stents, history of VA x 2 s/p ICD, PAD s/p 2 stents in RLE, T2DM , COPD, meniscus tear in her right knee (not a candidate for surgical repair) BIB EMS s/p 41J shock that was delivered by her ICD due to Vtach at around 0100, found to have afib with RVR. #New onset paroxysmal atrial fibrillation w/ RVR #VTach, single episode, s/p 41J shock via ICD #Troponinemia Patient presented over night with chief complain of shock secondary to Vtach s/p shock after ICD investigation. Afib w/ rvr noted in the ER which was converted after 2nd dose of diltiazem. No Amio was given. Patient denied chest pain or shortness of breath. denied lower pedal edema. TSH:2.35 Trop: 0.05 --> 0.27--> 0.81 --> 0.56 --> 0.35. Patient denied chest pain or shortness of breath. Likely secondary to ICD shock and direct cardiac trauma. No ST elevation noted but NSTEMI type I can not be ruled out given past medical history of CAD. Initial EKG: RBBB with QTc of 549 BUN:1233 Unclear etiology of the new onset afib at this time but suspecting it to be due to her congestive heart failure vs pulm HTN. Of note, patient was seen in the ED last week for CHF exacerbation Patient however appears euvolemic on exam 04/17/25, patient had a short run of Vtach lasting about 10 secs which was resolved on its own without any shocks given. No intervention was done. Patient remained asymptomatic. Plan: - Cardiology consulted, suggest low suspicion for ACS and the elevated troponin is most likely due to defibrillation. Clear for discharge from cardiology standpoint. - Diltiazem 20 mg X 3 was given in the ED with conversion of afib with RVR after the 2nd dose - Continue Metoprolol 50 BID (hold if SBP <100) - Repeat EKG if troponins increased or chest pain noted. - Held Lasix IV due to volume status and elevated Cr - Keep K>4 and Mg >2 - Patient will need to follow up outpatient with her spa associate #CAD s/p stents 15 #PAD #HLD Patient has a past medical history of CAD, patient was started on Aspirin 81 qday. Unclear home medications/pending medication reconciliation. TG 174, Chol 132, LDL 66, HDL 32 Plan: - Eliquis 5 BID - Aspirin 81 mg once daily - Atorvastatin 40 mg PO HS #DAPHNE DAPHNE noted on admission w/ a Cr change >0.3 from baseline of 1.0 and GFR 45. Patient stated over the last couple days decreased oral intake. Recently started on Lasix for CHF. Cr 04/14 1.3, 04/16 1.4, 04/17 1.6 Differentials: prerenal due to dehydration vs intrinsic 2/2 to diuretic use Plan - Held lasix - Held entresto - Repeat BMP - CTM - Strict ins and outs - consider fluids, holding off fluids given history of HFrEF. - renally dose medication - avoid nephrotxins, - consider renal u/s #CHF HFrEF 30 to 35 (10/14/2023) #Systolic Dysfunction #Severe Pulmonary HTN Patient has a past medical history of CHF w/ ICD and severe systolic dysfunction w/ EF of 30% who follow Dr. Goodwin. Denied SOB, but home oxygen did stop working, uses home oxygen for sleep only. No lower peripheral edema. Patient can not recall her home CHF medication but was recently started on Lasix 20 mg qday during previous ER visit for CHF exacerbation. Echo (10/14/2023): Sever Systolic Dysfucntion. Global hypokinesis. EF 30 to 35%. RVSP 36. BNP: 1233 CXR: moderate enlargement cardiac contour with mild vascular congestion. Repeat Echo (04/17) shows EF of 30-35% which is unchanged from her last echo in 2023. However the recent echo now shows severe pulmonary HTN which is worsened from mild pulmonary HTN found on echo in 2023. Patient appear euvolemic on exam Plan - Held Lasix - Consulted dietitian for fluid restrictive diet - Patient will need to follow up outpatient with her spa associate - Fluid restricted 1800 #Hyperglycemia #Diabetes Mellitus Type 2, insulin dependent Patient has a past medical history of diabetes mellitus type 2, on insulin, patient can not recall home dose. Beta hydroxybutrate 1.1 w/ glucose of 376. Previous A1c 9.5 (09/2024) A1C: 11.5 Finger blood glucose: 309 Plan: - Ordered 10u of insulin degludec - SSI #COPD Past medical history of COPD. Not in acute copd exacerbation Plan -Duonebs added PRN Health Maintenance: Disp: Pt is currently admitted to floors for further management of paroxysmal Afib w/ rvr FEN: Low carb consistent, fluid restricted 1800 DVT: on subQ heparin Q12HR Code: Full Code - The patient's plan was discussed with attending Dr. Barker and senior resident Dr. Ramon Lin, DO PGY1
--- NOTE | 2025-04-17 11:28 | PC.SS ---
SS follow up note; Kidney function being monitored, possible discharge home today or tomorrow.
[2025-04-17] MEDS: ONDANSETRON INJ 2 MG/ML INJ 2 ML 4 MG IVP (14:10)
[2025-04-17 14:50] LABS: Anion Gap 10 (7-16); BUN/Creatinine Ratio 21 Ratio (12-20); Blood Urea Nitrogen 32 mg/dL (9-23); Calcium 9.4 mg/dL (8.3-10.6); Carbon Dioxide 27.7 mMol/L (20.0-31.0); Chloride 96 mMol/L (98-107); Creatinine (Component) 1.5 mg/dL (0.6-1.3); Estimated Creatinine Clearance 45.9 mL/min (>60); Glucose 243 mg/dL (74-106); Osmolality,Calculated 283 (275-295); Potassium 3.9 mMol/L (3.4-5.1); Sodium 134 mMol/L (136-145); eGFR 38 See Note
--- NOTE | 2025-04-17 14:58 | PC.CC ---
Request for [employer] 3 Plus sensor and reader from [employer]IA Sever[employer]. Orders signed by Dr. Barker and submitted to [facility] via [employer] platform.
[2025-04-17] MEDS: ATORVASTATIN CALCIUM 20 MG TABLET 40 MG PO (21:52)
[2025-04-18] VITALS (10 sets, daily range): BP systolic 88–131; BP diastolic 56–90; PULSE 66–100; RESP 14–20; TEMP 36.1–36.5; O2SAT 94–97; BMI 44.3
[2025-04-18] MEDS: METOPROLOL TARTRATE 25 MG TABLET 50 MG PO ×2 (08:08→21:31)
[2025-04-18] MEDS: PANTOPRAZOLE 40 MG TABLET PO (08:08)
[2025-04-18] MEDS: ASPIRIN EC 81 MG TABEC PO (08:08)
[2025-04-18] MEDS: APIXABAN 2.5 MG TABLET 5 MG PO ×2 (08:08→21:31)
[2025-04-18] MEDS: PREGABALIN 50 MG CAPSULE 100 MG PO (08:08)
[2025-04-18] MEDS: INSULIN LISPRO (AdmeLOG) 1 UNIT/0.01 ML UNIT SC ×4 (08:09→21:33)
[2025-04-18] MEDS: INSULIN DEGLUDEC 5 UNIT/0.05 ML (PER 5 UNITS) 10 UNIT SC (08:27)
[2025-04-18 08:57] LABS: Basophils # (Auto) 0.0 Thou/mm3 (0.0-0.2); Basophils % (Auto) 0 % (0-2.5); Eosinophils # (Auto) 0.2 Thou/mm3 (0.0-0.5); Eosinophils % (Auto) 3 % (0-10); Hematocrit 48.3 % (36.0-46.0); Hemoglobin 15.0 g/dL (12.0-16.0); Immature Granulocytes Auto 0.04 Thou/mm3 (0.00-0.00); Lymphocytes # (Auto) 1.4 Thou/mm3 (1.0-4.8); Lymphocytes % (Auto) 19 % (10-50); Mean Corpuscular HGB Conc 31.1 g/dl (31.0-37.0); Mean Corpuscular Hemoglobin 25.3 pg (25.0-35.0); Mean Corpuscular Volume 82 fL (80-100); Monocytes # (Auto) 0.7 Thou/mm3 (0.0-0.8); Monocytes % (Auto) 9 % (0-12); Neutrophils # (Auto) 5.1 Thou/mm3 (1.8-7.7); Neutrophils % (Auto) 69 % (37-80); Nucleated Red Blood Cell # 0.00 Thou/mm3 (0.00-0.00); Nucleated Red Blood Cell % 0 /100 WBC (0); Platelet Count 224 Thou/mm3 (140-440); RDW Standard Deviation 43.4 fL (36.4-46.3); Red Blood Count 5.93 Miln/mm3 (4.00-5.20); White Blood Count 7.5 Thou/mm3 (3.6-11.0)
[2025-04-18] MEDS: HYDROmorphone INJ 2 MG/ML VIAL 0.25 MG IVP ×2 (10:11→22:46)
[2025-04-18 11:10] LABS: Alanine Aminotransferase 9 U/L (10-49); Albumin, Serum 4.2 gm/dL (3.4-4.8); Albumin/Globulin Ratio 1.6 (1.2-2.2); Alkaline Phosphatase 90 U/L (46-116); Anion Gap 11 (7-16); Aspartate Amino Transferase 20 U/L (0-34); BUN/Creatinine Ratio 31 Ratio (12-20); Bilirubin,Total 0.6 mg/dL (0.3-1.2); Blood Urea Nitrogen 43 mg/dL (9-23); Calcium 9.7 mg/dL (8.3-10.6); Calcium (Corrected) 9.7 mg/dL (8.5-10.1); Carbon Dioxide 27.9 mMol/L (20.0-31.0); Chloride 97 mMol/L (98-107); Creatinine (Component) 1.4 mg/dL (0.6-1.3); Estimated Creatinine Clearance 49.2 mL/min (>60); Globulin 2.7 gm/dL (2.3-3.5); Glucose 275 mg/dL (74-106); Magnesium 2.4 mg/dL (1.6-2.6); Osmolality,Calculated 292 (275-295); Phosphorous 4.7 mg/dL (2.4-5.1); Potassium 4.6 mMol/L (3.4-5.1); Sodium 136 mMol/L (136-145); Total Protein 6.9 gm/dL (5.7-8.2); eGFR 41 See Note
[2025-04-18] MEDS: HYDROcodone/APAP 5/325 TABLET 1 TAB PO ×2 (12:15→21:30)
--- NOTE | 2025-04-18 15:46 | PC.SS ---
FURNITURE DETAILER informed by bedside nurse that patient reports home concentrator not working. FURNITURE DETAILER confirmed with patient issue. FURNITURE DETAILER contacted DME vendor, [employer]. Remedy staff informed FURNITURE DETAILER that vendor will contact family to attempt to trouble shoot issue over the phone. Patient reports no one present home until 08:00 pm this evening. [employer] informed FURNITURE DETAILER that vendor cannot trouble shoot issue over the phone until somebody available in presence of concentrator. Patient reports nocturnal use of oxygen. FURNITURE DETAILER informed patient of need to have somebody present in the morning to initiate call to [employer] to address concentrator issue. Patient reports that she can friend, Manisha Verdin ; available in the morning to assist with trouble shooting. FURNITURE DETAILER updated bedside nurse.
[2025-04-18] MEDS: ATORVASTATIN CALCIUM 20 MG TABLET 40 MG PO (21:31)
[2025-04-19] VITALS (7 sets, daily range): BP systolic 104–117; BP diastolic 59–77; PULSE 62–88; RESP 16–19; TEMP 36.1–36.4; O2SAT 96–97; BMI 44.3
[2025-04-19] MEDS: HYDROcodone/APAP 5/325 TABLET 1 TAB PO ×2 (05:34→07:46)
[2025-04-19] MEDS: INSULIN LISPRO (AdmeLOG) 1 UNIT/0.01 ML UNIT SC ×2 (07:46→11:40)
--- NOTE | 2025-04-19 08:04 | ESPR_ITS ---
Documentation for date of: 04/19/25 Subjective Subjective Interval history: Patient appears comfortable No chest pain noted Currently appears to be in sinus rhythm Exam Vital Signs Temp Pulse Resp BP Pulse Ox O2 Del Method O2 Flow Rate 97.0 F 62 19 105/59 L 97 Nasal Cannula 2 04/19/25 04:00 04/19/25 04:00 04/19/25 04:00 04/19/25 04:00 04/19/25 04:00 04/19/25 04:00 04/19/25 04:00 Routine HEENT Exam Head: Present normocephalic and atraumatic Eye: Present EOMI and PERRL ENT: Present mucous membranes moist Routine Neck Exam Neck: Present supple and trachea midline Routine Respiratory Exam Respiratory: Present chest non-tender, lungs clear, normal breath sounds and no resp distress Routine Cardiovascular Exam Cardiovascular: Present RRR Routine Abdominal Exam Abdominal: Present soft and normoactive bowel sounds Routine Extremities Exam Extremities: Present full ROM Routine Skin Exam Skin: Present intact, dry and warm Routine Neurological Exam Neurological: Present alert, oriented X3 and CN II-XII intact Routine Psychiatric Exam Psychiatric: Present normal affect and normal thought process Objective Labs 04/18/25 08:36 04/18/25 10:15 Labs: Laboratory Results - last 24 hr 04/18/25 04/18/25 08:36 10:15 WBC 7.5 RBC 5.93 H Hgb 15.0 Hct 48.3 H MCV 82 MCH 25.3 MCHC 31.1 RDW Std Deviation 43.4 Plt Count 224 Neut % (Auto) 69 Lymph % (Auto) 19 [place] % (Auto) 9 Eos % (Auto) 3 Baso % (Auto) 0 Neut # (Auto) 5.1 Lymph # (Auto) 1.4 [place] # (Auto) 0.7 Eos # (Auto) 0.2 Baso # (Auto) 0.0 Immature Gran # (Auto) 0.04 H Absolute Nucleated RBC 0.00 Immature Gran % 1 H Nucleated RBC % 0 Sodium 136 Potassium 4.6 D Chloride 97 L Carbon Dioxide 27.9 Anion Gap 11 BUN 43 H Creatinine 1.4 H Estim Creat Clear Calc 49.2 L eGFR 41 L BUN/Creatinine Ratio 31 H Glucose 275 H Calculated Osmolality 292 Calcium 9.7 Corrected Calcium 9.7 Phosphorus 4.7 Magnesium 2.4 Total Bilirubin 0.6 AST 20 ALT 9 L Alkaline Phosphatase 90 Total Protein 6.9 Albumin 4.2 Globulin 2.7 Albumin/Globulin Ratio 1.6 Assessment & Plan A&P Narrative No further VT episodes Agree with discharge plan Time Spent With Patient Time: Total time spent is greater than 50% in coordination of care (as documented) at patient's floor/unit and/or counseling patient:
--- NOTE | 2025-04-19 08:27 | ESDS_ITS ---
<Statement entered by Marc Barker MD - 05/01/25 08:44> I reviewed above note and agree with findings and plans. I have also personally examined the patient with medicine team and went over assessment and plan with medical team including internal communications writer and resident physician. <Statement entered by Macario Kraft MD - 04/19/25 17:40> Patient was examined and case was reviewed with team including attending physician. Note reviewed, I agree with most of its contents and agree with the patient's care. Macario Kraft MD PGY-2 Planned Discharge Date 04/19/25 DS: Providers Provider Date of admission: 04/14/25 05:26 Primary care physician: Killian Donovan MD Admitting Provider: Adrian Mccurdy MD Attending Provider on Admission: Marc Barker MD Consults: 04/15/25 10:13 Consult to Cardiology Urgent Comment: pt sees Dr. Goodwin outpatient. Consulting Provider: rEen Goodwin Attending Provider on DC: Dr. Barker Discharging Provider: Resident Deandre Anticipated date of discharge: 04/19/25 DS: Diagnosis Problem List Completed Was Problem List Reviewed/Reconciled?: Yes Hospital Course Hospital Course Hospital course: 70F with PMH HFrEF 30-35% (10/14/2023) CAD s/p 13 stents, history of CA x 2 s/p ICD, PAD s/p 2 stents in RLE, T2DM , COPD, meniscus tear in her right knee (not a candidate for surgical repair) BIB EMS s/p 41J shock that was delivered by her ICD due to Vtach at around 0100, found to have afib with RVR in the ED which was converted after 2nd dose of diltiazem. No Amio was given however heparin drip was given. Patient denied chest pain, shortness of breath, or lower pedal edema. Patient's troponin on presentation was 0.05 which up trended to 0.81 and then down trended to 0.35. This troponinemia is most likely secondary to ICD shock and direct cardiac trauma. No ST segment elevation was noted but NSTEMI type I was not ruled out given extensive past medical history of CAD. Initial EKG showed RBBB with QTc of 549 and BUN was noted to be 1233. Of note, patient was seen in the ED last week for CHF exacerbation and was discharged with Lasix. Metoprolol 50 BID was started for patient for rate control. Patient remained in sinus rhythm with regular rate since her admission. Cardiology was consulted and suggested low suspicion for ACS and the elevated troponin is most likely due to defibrillation. IV lasix was given to patient however it was later discontinued given euvolemic status. TTE was performed which showed severe systolic dysfucntion, global hypokinesis, and EF of 30-35% which is unchanged from her last echo in 2023. However severe pulmonary HTN was noted this time (mild in 2023). CXR: moderate enlargement cardiac contour with mild vascular congestion. Patient's new onset paroxysmal afib could be related to CHF exacerbation vs pulmonary HTN. On admission, patient was noted to have DAPHNE with Cr of 1.3 which later increased to 1.6 (1.0 at baseline) which was most likely secondary to prerenal due to dehydration (decreased PO intake recently) vs intrinsic 2/2 to recently started diuretic use. Patient's elevated Cr improved after discontinuation of lasix and home entresto. Patient appears euvolemic. Of note, on 04/17/25, patient was noted to have a short course (about 10 sec) of Vtach while being asymptomatic which resolved without any intervention. Overall, patient's condition improved during her hospital stay. Cardiology team has seen and evaluated the patient and patient is clear for discharge from c ardiology standpoint as of 04/19/25. Patient's all other medical problems were managed accordingly. All questions answered and ED return precautions given. 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 #New onset paroxysmal atrial fibrillation w/ RVR #VTach, s/p 41J shock via ICD #Troponinemia #Pulmonary HTN #CAD s/p stents 15 #PAD #HLD #DAPHNE #CHF HFrEF 30 to 35 (10/14/2023) #Systolic Dysfunction #Hyperglycemia #Diabetes Mellitus Type 2, insulin dependent #COPD - Follow up with primary care physician within 1 week of discharge Follow up with your Business Services Sales Agent within 1 week of discharge Please take aspirin and eliquis as prescribed. Please go to the ED if notice any bleeding or fall. Please take your medications as prescribed. Should your symptoms recur or worsen patient is instructed to return to the ED. The patient's plan was discussed with attending Dr. Barker and senior resident Dr. Ramon Lin, DO PGY1 Status at Discharge Functional status at discharge: independent ambulation Overall status at discharge: patient is back to baseline Time Spent with Patient Time attestation: Total time spent providing and/or coordinating discharge services: Time spent: Greater than 30 minutes Exam Vital Signs Temp Pulse Resp BP Pulse Ox O2 Del Method O2 Flow Rate 97.0 F 62 19 105/59 L 97 Nasal Cannula 2 04/19/25 04:00 04/19/25 04:00 04/19/25 04:00 04/19/25 04:00 04/19/25 04:00 04/19/25 04:00 04/19/25 04:00 Narrative Exam General Appearance: Alert & Oriented X3, well-nourished female who is lying in bed in no acute distress HEENT: NCAT.. Conjunctivae pink and moist. PERRL. External ear without lesion or discharge. Mucosa appears dry. Cardio: RRR with S1 and S2 heart sounds, No murmurs or extra heart sounds auscul tated. No peripheral edema or cyanosis. Lungs: Symmetric with good expansion. Chest and back non-tender. CTAB b/l. saturating 96% at RA. Abdomen: Non-tender, Non-distended, no pritinic signs EXT: no pretibial edema noted. Neuro: Alert, cooperative, Speech clear. CN grossly intact. Upper motor strength 5/5 and Lower motor strength 5/5. Sensation intact. Discharge Plan Plan Patient Disposition: HOME (Self Care) Care Plan Goals: Follow up with primary care physician within 1 week of discharge Follow up with your Business Services Sales Agent within 1 week of discharge Please take aspirin and eliquis as prescribed. Please go to the ED if notice any bleeding or fall. Please take your medications as prescribed. Should your symptoms recur or worsen patient is instructed to return to the ED. Prescriptions/Referrals Prescriptions/Med Rec: New Eliquis 5 mg tablet 5 mg PO BID 30 Days Qty: 60 0RF Continued insulin glargine [Lantus Solostar U-100 Insulin] 100 unit/mL (3 mL) Insulin Pen 30 unit SUBCUT BID pregabalin [Lyrica] 75 mg capsule 100 mg PO QDAY aspirin 81 mg Tablet,Delayed Release (Dr/Ec) 81 mg PO QDAY 30 Days Qty: 30 1RF atorvastatin 40 mg tablet 40 mg PO HS 30 Days Qty: 30 1RF hydrocodone-acetaminophen 10-325 mg tablet 10 tab PO PRN PRN (Reason: Pain (Scale Score 7-10)) nitroglycerin 0.4 mg tablet, sublingual 0.4 mg BUCCAL 3XD metformin 1,000 mg tablet 1,000 mg PO BID Jardiance 25 mg tablet 25 mg PO DAILY potassium chloride 10 mEq capsule, extended release 10 meq PO QDAY MDD 1 Qty: 7 0RF furosemide 40 mg tablet 40 mg PO QDAY Qty: 7 0RF omeprazole 40 mg capsule,delayed release(DR/EC) 40 mg PO QDAY Discontinued ticagrelor [Brilinta] 90 mg Tablet 60 mg PO BID tizanidine 4 mg tablet 4 mg PO Q8HR PRN (Reason: Muscle Spasm) Patient Comments: TAKE 1 TABLET BY MOUTH EVERY 8 HOURS NEEDED NOT TO EXCEED 3 DOSES IN 24 HOURS meloxicam 15 mg tablet 15 mg PO QDAY midodrine 10 mg tablet 10 mg PO TID PRN (Reason: blood pressure) Qty: 90 0RF Rx Instructions: do not give last dose of day after 6PM or within 4 hrs of bedtime clindamycin HCl 300 mg capsule 300 mg PO 3XD montelukast 10 mg tablet 10 mg PO DAILY rosuvastatin 40 mg tablet 40 mg PO DAILY sacubitril-valsartan [Entresto] 24-26 mg tablet 26 tab PO BID Ozempic 2 mg/dose (8 mg/3 mL) pen injector 1 mg SUBCUT Q7D pantoprazole [Protonix] 40 mg tablet,delayed release (DR/EC) 40 mg PO QDAY Qty: 20 0RF acetaminophen 500 mg capsule 500 mg PO Q6H PRN (Reason: pain) Qty: 30 0RF furosemide [Lasix] 20 mg tablet 20 mg PO QDAY MDD 1 Qty: 7 0RF potassium chloride 10 mEq tablet extended release 10 meq PO QDAY Qty: 7 0RF metoclopramide HCl [Reglan] 10 mg tablet 10 mg PO .TID prn PRN (Reason: nausea and vomiting) Qty: 30 0RF midodrine 10 mg tablet 10 mg PO TID PRN (Reason: hypotension) Qty: 30 0RF Rx Instructions: do not give last dose of day after 6PM or within 4 hrs of bedtime Referrals: Killian Donovan MD [Primary Care Provider] - Patient/Caregiver Discharge Instructions Education Materials: AFL/Afib Print Language: Hebrew Stand Alone Forms: Kaelyn Award Info., Patient Portal Info Letter Discharge Order Discharge Orders: Discharge (Routine); Ordered 04/19/25 Ordered By: Macario Kraft Quality Discharge Quality Measures VTE prophylaxis
[2025-04-19] MEDS: ASPIRIN EC 81 MG TABEC PO (08:37)
[2025-04-19] MEDS: PANTOPRAZOLE 40 MG TABLET PO (08:37)
[2025-04-19] MEDS: APIXABAN 2.5 MG TABLET 5 MG PO (08:37)
[2025-04-19] MEDS: PREGABALIN 50 MG CAPSULE 100 MG PO (08:38)
[2025-04-19] MEDS: INSULIN DEGLUDEC 5 UNIT/0.05 ML (PER 5 UNITS) 10 UNIT SC (08:38)
[2025-04-19] MEDS: METOPROLOL TARTRATE 25 MG TABLET 50 MG PO (08:38)
[2025-04-19] MEDS: INSULIN LISPRO (AdmeLOG) 1 UNIT/0.01 ML UNIT 5 UNIT SC (11:39)
--- NOTE | 2025-04-19 12:30 | PC.SS ---
SS follow up note; SS contacted Luisito and informed Fernando that Patient had discharged already. Fernando informed SS that he would be going out to the home to assist patient with concentrator once patient discharges.
== END 2025-04-19 12:35 | disposition home or self-care (01) | DRG 280 ==
LOC: SERX 05:27 → SERHOLD 05:43 → S2NX 19:59
PROVIDERS: Student in an Organized Health Care Education/Training Program; Admitting Provider Student in an Organized Health Care Education/Training Program; Emergency Provider Emergency Medicine; PCP Family Medicine; Visit Provider Internal Medicine
DX: I48.91 Unspecified atrial fibrillation (principal); I50.23 Acute on chronic systolic (congestive) heart failure; I21.4 Non-ST elevation (NSTEMI) myocardial infarction; N17.9 Acute kidney failure, unspecified; Z68.41 Body mass index [BMI] 40.0-44.9, adult; R57.9 Shock, unspecified; I25.10 Atherosclerotic heart disease of native coronary artery without angina pectoris; I25.2 Old myocardial infarction; I11.0 Hypertensive heart disease with heart failure; J44.9 Chronic obstructive pulmonary disease, unspecified; E11.42 Type 2 diabetes mellitus with diabetic polyneuropathy; I47.20 Ventricular tachycardia, unspecified; I45.10 Unspecified right bundle-branch block; E11.65 Type 2 diabetes mellitus with hyperglycemia; E66.9 Obesity, unspecified; I48.0 Paroxysmal atrial fibrillation; Z88.5 Allergy status to narcotic agent; Z95.810 Presence of automatic (implantable) cardiac defibrillator; Z79.4 Long term (current) use of insulin; Z88.8 Allergy status to other drugs, medicaments and biological substances; Z79.82 Long term (current) use of aspirin; Z79.84 Long term (current) use of oral hypoglycemic drugs; Z79.85 Long-term (current) use of injectable non-insulin antidiabetic drugs; Z79.899 Other long term (current) drug therapy; Z95.5 Presence of coronary angioplasty implant and graft; Z79.01 Long term (current) use of anticoagulants
CPT/HCPCS: 36415; 71045; 80048; 80053; 80061; 82010; 82436; 82570; 83036; 83735; 83880; 84100; 84133; 84300; 84443; 84484; 85025; 85610; 85730; 93005; 93306; 96365; 96366; 96375; 99284; J1171; J1644; J1815; J1938; J2405; J3475; J3490; A9270

== ENCOUNTER 2025-04-24 09:27 | Emergency (ER) | payer OTHER, SELFPAY ==
[2025-04-24 09:28] VITALS: BMI 45.7
[2025-04-24 09:38] VITALS: BP 111/70; PULSE 111; RESP 20; TEMP 36.9; O2SAT 95
--- NOTE | 2025-04-24 10:01 | XR_ITS ---
Examination: PA lateral chest 2 views TECHNIQUE: Upright PA lateral chest 2 views Date and time: April 24, 2025 1033 hours INDICATIONS: Shortness of breath beginning 3 days ago. FINDINGS: Mild heart failure. Moderate enlargement cardiac contour. Prominent vascular congestion. Transvenous dual-chamber bipolar cardiac leads satisfactory position IMPRESSION: Mild heart failure
--- NOTE | 2025-04-24 10:01 | EKG_ITS ---
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: : 1955 Requested By: Dominick Talbot Order Number: [id number] Reading MD: Dominick Talbot Measurements Intervals [place] Rate: 112 P: 38 NV: 195 QRS: -76 QRSD: 150 T: 97 QT: 414 QTc: 567 Interpretive Statements SINUS TACHYCARDIA INTRAVENTRICULAR CONDUCTION DELAY [130+ ms QRS DURATION] LATERAL MYOCARDIAL INFARCTION , PROBABLY RECENT [40+ ms Q WAVE AND/OR ST/T ABNORMALITY IN I/aVL/V5/V6] INFERIOR MYOCARDIAL INFARCTION , POSSIBLY ACUTE [40+ ms Q WAVE AND/OR ST/T ABNORMALITY IN II/aVF] ACUTE CA Compared to ECG 04/14/2025 04:51:32 Intraventricular conduction delay now present Right bundle-branch block no longer present Myocardial infarct finding still present /store/S0/[id number]/ecg/[id number].pdf
--- NOTE | 2025-04-24 10:01 | PD.EDRME ---
Rapid Medical Screening Exam RME Arrival date/time: 04/24/25 09:27 70-year-old female with a history of hyperlipidemia, congestive heart failure, type 2 diabetes, atrial fibrillation, presents to the emergency room with a chief complaint of shortness of breath, generalized weakness, and chest tightness x 2 days I have greeted and performed a focused initial assessment of this patient. A comprehensive ED assessment and evaluation of the patient, analysis of all test results, and completion of the medical decision making process will be conducted by additional ED providers. Chief Complaint: Shortness of Breath/Dyspnea Time Seen by Provider: 04/24/25 09:33 Vital signs: Vital Signs Temperature 98.5 F 04/24/25 09:38 Pulse Rate 111 H 04/24/25 09:38 Respiratory Rate 20 04/24/25 09:38 Blood Pressure 111/70 04/24/25 09:38 Pulse Oximetry (%) 95 04/24/25 09:38 Oxygen Delivery Method Room Air 04/24/25 09:38 Vital signs reviewed by provider: Yes
[2025-04-24 10:56] LABS: Basophils # (Auto) 0.1 Thou/mm3 (0.0-0.2); Basophils % (Auto) 1 % (0-2.5); Eosinophils # (Auto) 0.0 Thou/mm3 (0.0-0.5); Eosinophils % (Auto) 1 % (0-10); Hematocrit 43.1 % (36.0-46.0); Hemoglobin 13.2 g/dL (12.0-16.0); Immature Granulocytes Auto 0.03 Thou/mm3 (0.00-0.00); Lymphocytes # (Auto) 1.1 Thou/mm3 (1.0-4.8); Lymphocytes % (Auto) 14 % (10-50); Mean Corpuscular HGB Conc 30.6 g/dl (31.0-37.0); Mean Corpuscular Hemoglobin 25.4 pg (25.0-35.0); Mean Corpuscular Volume 83 fL (80-100); Monocytes # (Auto) 0.6 Thou/mm3 (0.0-0.8); Monocytes % (Auto) 7 % (0-12); Neutrophils # (Auto) 6.0 Thou/mm3 (1.8-7.7); Neutrophils % (Auto) 77 % (37-80); Nucleated Red Blood Cell # 0.00 Thou/mm3 (0.00-0.00); Nucleated Red Blood Cell % 0 /100 WBC (0); Platelet Count 259 Thou/mm3 (140-440); RDW Standard Deviation 44.5 fL (36.4-46.3); Red Blood Count 5.20 Miln/mm3 (4.00-5.20); White Blood Count 7.7 Thou/mm3 (3.6-11.0)
[2025-04-24 11:16] LABS: B-Type Natriuretic Peptide 2019 pg/mL (0-100)
[2025-04-24 11:27] LABS: Alanine Aminotransferase 12 U/L (10-49); Albumin, Serum 4.2 gm/dL (3.4-4.8); Albumin/Globulin Ratio 1.6 (1.2-2.2); Alkaline Phosphatase 100 U/L (46-116); Anion Gap 13 (7-16); Aspartate Amino Transferase 26 U/L (0-34); BUN/Creatinine Ratio 12 Ratio (12-20); Bilirubin,Total 0.7 mg/dL (0.3-1.2); Blood Urea Nitrogen 17 mg/dL (9-23); Calcium 10.2 mg/dL (8.3-10.6); Calcium (Corrected) 10.2 mg/dL (8.5-10.1); Carbon Dioxide 25.0 mMol/L (20.0-31.0); Chloride 100 mMol/L (98-107); Creatinine (Component) 1.4 mg/dL (0.6-1.3); Estimated Creatinine Clearance 51.1 mL/min (>60); Globulin 2.6 gm/dL (2.3-3.5); Osmolality,Calculated 300 (275-295); Potassium 4.8 mMol/L (3.4-5.1); Sodium 138 mMol/L (136-145); Total Protein 6.8 gm/dL (5.7-8.2); eGFR 41 See Note
[2025-04-24 11:30] LABS: Glucose 520 mg/dL (74-106); Troponin I 0.104 ng/mL (0.0-0.045)
[2025-04-24 11:38] LABS: INR 1.2 (0.9-1.3); Partial Thromboplastin Time 32.1 Seconds (22.0-36.0); Prothrombin Time 12.6 Seconds (9.0-12.2)
--- NOTE | 2025-04-24 11:55 | PD.EDSOB ---
ED SOB =RME/HPI General Chief Complaint: Shortness of Breath/Dyspnea Stated Complaint: SOB, REDNESS R) EYE Time Seen by Provider: 04/24/25 09:33 Arrival date/time: 04/24/25 09:27 RME / HPI RME / HPI Narrative: 04/24/25 09:27 70-year-old female with a history of hyperlipidemia, congestive heart failure, type 2 diabetes, atrial fibrillation, presents to the emergency room with a chief complaint of shortness of breath, generalized weakness, and chest tightness x 2 days I have greeted and performed a focused initial assessment of this patient. A comprehensive ED assessment and evaluation of the patient, analysis of all test results, and completion of the medical decision making process will be conducted by additional ED providers. DR. PARRY MAIN ED EVALUATION 70 year old female with history of HFrEF (30-35% 03/2025), CAD s/p 13 stents, ID s/p ICD, diabetes, COPD, PAD s/p 2 stents in RLE presents to the ED with complaint of shortness of breath beginning 2 days ago. Reportedly was evaluated for similar shortness of breath 1 week ago and advised her symptoms were due to her CHF. Patient additionally complains of right eye pain adding It feels like something is in it . States she has used eye drops at home without improvement. No other associated symptoms reported. Denies fever, chills, sweating. Denies chest pain, cough. Denies nausea, vomiting, diarrhea, constipation. Denies dysuria, urinary frequency and urgency. Related Data Home Medications ?Medication ?Instructions ?Recorded ?Confirmed insulin glargine 100 unit/mL (3 30 unit subcut BID 12/10/21 04/15/25 mL) subcutaneous pen (Lantus Solostar U-100 Insulin) omeprazole 40 mg capsule,delayed 40 mg PO QDAY 05/28/22 04/15/25 release pregabalin 75 mg capsule (Lyrica) 100 mg PO QDAY 09/17/22 04/15/25 empagliflozin 25 mg tablet 25 mg PO DAILY 10/14/23 04/15/25 (Jardiance) hydrocodone 10 mg-acetaminophen 10 tab PO PRN PRN Pain (Scale 10/14/23 04/15/25 325 mg tablet Score 7-10) metformin 1,000 mg tablet 1,000 mg PO BID 10/14/23 04/15/25 nitroglycerin 0.4 mg sublingual 0.4 mg buccal 3XD 10/14/23 04/15/25 tablet Previous Rx's ?Medication ?Instructions ?Recorded aspirin 81 mg tablet,delayed 81 mg PO QDAY 30 days #30 tabs 09/25/22 release atorvastatin 40 mg tablet 40 mg PO HS 30 days #30 tabs 09/25/22 potassium chloride 10 mEq 10 meq PO QDAY LASIX USE #7 caps 03/24/25 capsule,extended release furosemide 40 mg tablet 40 mg PO QDAY #7 tabs 04/10/25 apixaban 5 mg tablet (Eliquis) 5 mg PO BID 1 month #60 tabs 04/18/25 bacitracin 500 unit/gram eye 0.5 inch ophthalmic (eye) Q8H 5 04/24/25 ointment days #3.5 grams furosemide 40 mg tablet (Lasix) 40 mg PO QDAY #30 tabs 04/24/25 Allergies Allergy/AdvReac Type Severity Reaction Status Date / Time adhesive Allergy Severe SKIN GETS Verified 04/24/25 09:31 RAW ketorolac AdvReac Severe SHARP Verified 04/24/25 09:31 PAINS THROUGHOUT ENTIRE BODY morphine AdvReac Severe CAUSES Verified 04/24/25 09:31 BEHAVIORAL PROBLEMS Review of Systems Review of Systems Systems Reviewed: All systems reviewed, normal except as documented Past Medical History Past Medical History NEUROLOGIC: Positive Neurological Disorders and Peripheral Neuropathy CARDIAC: Positive Cardiac Disorders, Myocardial Infarction, Cardiac Arrhythmia, Angina, Coronary Artery Disease, Atherosclerotic Heart Disease, Hypercholesterolemia, Aneurysm, Congestive Heart Failure, Edema, Cellulitis, Hypertension and Hypotension RESPIRATORY: Positive Chronic Obstructive Pulmonary Disease (COPD), Bronchitis and Pneumonia GASTROINTESTINAL: Positive Gastrointestinal Disorders, Gall Bladder Disease, Hiatal Hernia, Gastroesophageal Reflux Disease and Obesity GENITOURINARY: Positive Genitourinary Disorders and Renal Disease MUSCULOSKELETAL: Positive Musculoskeletal Disorders and Fractures ENDOCRINE: Positive Endocrine Disorders and Diabetes Mellitus Type 2 PSYCHO/SOCIAL: Positive Depression and Anxiety OTHER HISTORY: Positive Hospitalization, Falls and MRSA Family History FAMILY HISTORY: Positive Family Neurologic Problems (Mother had dementia.), Family Cardiac Disorders and Family Cancer Surgical History SURGICAL: Positive Cardiac Surgery, Coronary Stent, Cardiac Catheterization, Pacemaker, Angiogram, Tonsillectomy and Abdominal Surgery Social History SMOKING STATUS: Former smoker SECOND HAND EXPOSURE: No SUBSTANCE USE: does not use ED Exam Narrative Physical exam: GENERAL APPEARANCE: alert and oriented x 4, well-developed, well-nourished, obese HEENT: Normocephalic, atraumatic; pupils equal, round, reactive to light; EOMI; mucous membranes pink, moist; oropharynx clear Roca lamp exam: There is a 1mm vertical linear scratch to the cornea overlying the pupil NECK: Supple LUNGS: CTABL; no wheezes, no rales, no rhonchi HEART: Tachycardic; normal S1, S2; no murmurs ABDOMEN: non distended; normal BS; soft, no tenderness, no guarding, no rebound; no masses, no organomegaly, no hernia BACK: no CVA tenderness EXTREMITIES: erythema to bilateral lower extremities consistent with PAD, no edema NEUROLOGIC: awake; alert and oriented x4; cranial nerves II-XII grossly intact; no focal sensory or motor deficits PSYCHIATRIC: appropriate mood and affect SKIN: warm, dry, normal color; no rashes Course Quality Measures none Orders Category Date Time Status Bedside Blood Glucose Q1HR Care 04/24/25 11:52 Completed EKG (ED ONLY) *Do not use* NOW Care 04/24/25 10:01 Completed IV [Insert IV] NOW Care 04/24/25 12:00 Completed EKG (ED Only) Stat Exams 04/24/25 10:01 Draft XR chest 2V Stat Exams 04/24/25 10:01 Completed B-Type Natriuretic Peptide Stat Lab 04/24/25 10:27 Completed CBC Stat Lab 04/24/25 10:27 Completed Comprehensive Metabolic Panel Stat Lab 04/24/25 10:27 Completed Drug Screen,Urine Stat Lab 04/24/25 12:50 Completed Partial Thromboplastin Time Stat Lab 04/24/25 10:27 Completed Prothrombin Time with INR Stat Lab 04/24/25 10:27 Completed Troponin I Stat Lab 04/24/25 10:27 Completed Urinalysis, C/S if Indicated Stat Lab 04/24/25 12:50 Completed Urine Culture Stat Lab 04/24/25 12:50 Received Fluorescein Sodium [Bio-Darlene] Med 04/24/25 12:06 Discontinued 1 mg RIGHT EYE X1 ONE Furosemide Inj [Lasix Inj] Med 04/24/25 12:21 Discontinued 40 mg IVP X1 ONE HYDROmorphone INJ [Dilaudid Inj] Med 04/24/25 15:14 Discontinued 0.5 mg IVP X1 ONE Insulin Regular Med 04/24/25 12:21 Discontinued 5 unit IV X1 ONE Ondansetron Inj [Zofran Inj] Med 04/24/25 15:14 Discontinued 4 mg IVP X1 ONE Vital Signs Vital signs: Vital Signs Temperature 98.5 F 04/24/25 09:38 Pulse Rate 111 H 04/24/25 09:38 Respiratory Rate 20 04/24/25 09:38 Blood Pressure 111/70 04/24/25 09:38 Pulse Oximetry (%) 95 04/24/25 09:38 Oxygen Delivery Method Room Air 04/24/25 09:38 Pulse ox is 95% on room air which is adequate. Shortness of Breath / Dyspnea MDM Narrative MDM Narrative:: I, Luciana Mehta, am scribing for and in the presence of Dr. Parry. Patient provided additional history while I was discussing todays findings. States she was started on Zoloft after the of her daughter and the dose was increased. The patient additionally is requesting grieving resources and says she has yet to consult with her PCP [place]. I consulted with our social media executive worker who has provided the patient with resources. Patient data External records reviewed:: [facility] previous records (I reviewed admission from 04/14/2025 through 04/19/2025 ) Clinical information provided by:: patient Social determinants that could affect healthcare access:: none Patient has the following chronic illnesses:: HFrEF (30-35% 03/2025), CAD s/p 13 stents, ID s/p ICD, diabetes, COPD, PAD s/p 2 stents in RLE How is presenting disease/condition affected by chronic disease/condition?: exacerbated by Evaluation data The following diagnostics were reviewed and interpreted by me:: lab results, radiology exam(s) and EKG tracing(s) (04/24/2025 @ 10:03AM. Sinus tachycardia, rate 112, IVCD, no acute ischemic changes ) Lab and/or radiology exams considered but not ordered:: None Interpretation Summary: Ordering Physician: Dominick Baker Date of Service: 04/24/25 Procedure(s): XR chest 2V Accession Number(s): [id number] cc: Killian Donovan MD; Dominick Baker; Roney Almanzar MD~ Examination: PA lateral chest 2 views TECHNIQUE: Upright PA lateral chest 2 views Date and time: April 24, 2025 1033 hours INDICATIONS: Shortness of breath beginning 3 days ago. FINDINGS: Mild heart failure. Moderate enlargement cardiac contour. Prominent vascular congestion. Transvenous dual-chamber bipolar cardiac leads satisfactory position IMPRESSION: Mild heart failure Dictated By: Roney Almanzar MD Signed By: <Electronically signed by Roney Almanzar MD in OV> 04/24/25 1103 Medications / Prescriptions Medications or Prescriptions considered but not ordered:: None Medication administrations:: Medication Administration History Discontinued Medications Fluorescein Sodium (Fluorescein Sod 1 Mg Strp) 1 mg RIGHT EYE X1 ONE Stop: 04/24/25 12:07 Last Admin: 04/24/25 12:37 Dose: 1 mg Documented By: MICHELLE Comments: admin by dr parry Furosemide (Furosemide Inj 10 Mg/Ml 4ml Vial) 40 mg IVP X1 ONE Stop: 04/24/25 12:22 Last Admin: 04/24/25 12:38 Dose: 40 mg Documented By: MICHELLE Hydromorphone HCl (Hydromorphone Inj 2 Mg/Ml Vial) 0.5 mg IVP X1 ONE Stop: 04/24/25 15:15 Last Admin: 04/24/25 16:31 Dose: 0.5 mg Documented By: MICHELLE Insulin Human Regular (Insulin Hum Regular 1 Unit/0.01 Ml (Per Unit)) 5 unit IV X1 ONE Stop: 04/24/25 12:22 Last Admin: 04/24/25 12:37 Dose: 5 unit Documented By: MICHELLE Co-signed By: STACY Ondansetron HCl (Ondansetron Inj 2 Mg/Ml Inj 2 Ml) 4 mg IVP X1 ONE; Protocol Stop: 04/24/25 15:15 Last Admin: 04/24/25 16:31 Dose: 4 mg Documented By: MICHELLE See above Consultations Consultation(s) initiated? 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 Goodwin. Requesting we send the patient home with Lasix. Time: 16:00 Diagnosis Shortness of Breath Differential Diagnosis: acute exacerbation of chronic obstructive airways disease, congestive heart failure, community acquired pneumonia and asthma with exacerbation Most likely diagnosis given after review of the tests above:: CHF exacerbation Dyspnea Knee pain, left Normal gried reaction Corneal abrasion, right Admission Indicated Admission indicated?: not indicated Admission Request Was there a request for admission?: No Disposition Plan Disposition Plan: Discharge Discharge Attestation Discharge Attestation: The patient and all family members were given an opportunity to ask questions and understood the discharge instructions. Discharge instructions specifically effects, indications for sooner follow up or return to the emergency department, and the expected course of current diagnosis. Patient condition: Stable Discharge Plan Plan Patient Disposition: HOME (Self Care) Prescriptions/Referrals Prescriptions/Med Rec: New bacitracin 500 unit/gram ointment 0.5 inch ophthalmic (eye) Q8H 5 Days Qty: 3.5 0RF Rx Instructions: right eye furosemide [Lasix] 40 mg tablet 40 mg PO QDAY Qty: 30 0RF No Action insulin glargine [Lantus Solostar U-100 Insulin] 100 unit/mL (3 mL) Insulin Pen 30 unit SUBCUT BID pregabalin [Lyrica] 75 mg capsule 100 mg PO QDAY aspirin 81 mg Tablet,Delayed Release (Dr/Ec) 81 mg PO QDAY 30 Days Qty: 30 1RF atorvastatin 40 mg tablet 40 mg PO HS 30 Days Qty: 30 1RF hydrocodone-acetaminophen 10-325 mg tablet 10 tab PO PRN PRN (Reason: Pain (Scale Score 7-10)) nitroglycerin 0.4 mg tablet, sublingual 0.4 mg BUCCAL 3XD metformin 1,000 mg tablet 1,000 mg PO BID Jardiance 25 mg tablet 25 mg PO DAILY potassium chloride 10 mEq capsule, extended release 10 meq PO QDAY MDD 1 Qty: 7 0RF furosemide 40 mg tablet 40 mg PO QDAY Qty: 7 0RF Eliquis 5 mg tablet 5 mg PO BID 30 Days Qty: 60 0RF omeprazole 40 mg capsule,delayed release(DR/EC) 40 mg PO QDAY Referrals: Killian Donovan MD [Primary Care Provider] - In 1 week Eren Goodwin MD [Physician] - Problem List Clinical Impression: CHF exacerbation, Dyspnea, Knee pain, left, Normal grief reaction, Corneal abrasion, right Patient/Caregiver Discharge Instructions Education Materials: Heart Failure Signs of Flare-Up, Grief and Loss Additional Instructions: Dr. Goodwin recommends starting Lasix (furosemide) daily. A prescription was sent electronically to your pharmacy. Follow up with Dr. Goodwin. Call office for appointment. Print Language: Setswana Stand Alone Forms: Kaelyn Award Info., Patient Portal Info Letter
[2025-04-24] MEDS: INSULIN HUM REGULAR 1 UNIT/0.01 ML (PER UNIT) 5 UNIT IV (12:37)
[2025-04-24] MEDS: FLUORESCEIN SOD 1 MG STRP RIGHT EYE (12:37)
[2025-04-24 12:38] VITALS: BP 150/95; PULSE 105
[2025-04-24] MEDS: FUROSEMIDE INJ 10 MG/ML 4ML VIAL 40 MG IVP (12:38)
[2025-04-24 13:05] LABS: Collection Type, Urine Clean Catch
[2025-04-24 13:22] LABS: Bacteria,Urine Rare; Bilirubin,Urine Negative (Negative); Blood,Urine 1+ (Negative); Budding Yeast,Urine Present; Clarity,Urine Clear (Clear/Hazy); Color,Urine Lt-Yellow (Lt Yel-Yel); Glucose, Urine 4+ (Negative); Ketones,Urine Negative (Negative); Leukocyte Esterase,Urine Positive (Negative); Nitrite,Urine Negative (Negative); PH,Urine 6.0 (5.0-7.0); Protein,Urine Negative (Neg - Trace); RBC,Urine 12 /hpf (0-3); Specific Gravity,Urine 1.028 (1.001-1.035); Squamous Epithelial Cell,Urine 2 /hpf (0-5); Urobilinogen,Urine Negative mg/dL (0.0-1.0); WBC,Urine 61 /hpf (0-5)
[2025-04-24 13:23] LABS: Amphetamine/Methamp Scrn,U Negative (Negative); Barbiturate Screen,Urine Negative (Negative); Benzodiazepines Screen,Urine Negative (Negative); Benzoylecgonine Screen, Ur Negative (Negative); Culture Indicated,Urine Yes; Fentanyl Screen,Urine Negative (Negative); Opiate Screen,Urine Positive (Negative); THC Screen,Urine Negative (Negative)
[2025-04-24 13:25] VITALS: BP 140/90; PULSE 108; RESP 18; TEMP 36.7; O2SAT 96
[2025-04-24] MEDS: HYDROmorphone INJ 2 MG/ML VIAL 0.5 MG IVP (16:31)
[2025-04-24] MEDS: ONDANSETRON INJ 2 MG/ML INJ 2 ML 4 MG IVP (16:31)
[2025-04-24 17:00] VITALS: BP 151/96; PULSE 107; RESP 21; TEMP 37.1; O2SAT 94
[2025-04-24 17:56] VITALS: BP 151/96; PULSE 107; RESP 21; TEMP 37.1; O2SAT 94
== END 2025-04-24 16:48 | disposition home or self-care (01) ==
PROVIDERS: Nurse Practitioner Family; Emergency Provider Emergency Medicine; PCP Family Medicine
DX: I11.0 Hypertensive heart disease with heart failure (principal); I50.22 Chronic systolic (congestive) heart failure; F43.20 Adjustment disorder, unspecified; S05.01XA Injury of conjunctiva and corneal abrasion without foreign body, right eye, initial encounter; M25.562 Pain in left knee; R00.0 Tachycardia, unspecified; I45.89 Other specified conduction disorders; I25.2 Old myocardial infarction; I25.10 Atherosclerotic heart disease of native coronary artery without angina pectoris; E78.00 Pure hypercholesterolemia, unspecified; Z95.810 Presence of automatic (implantable) cardiac defibrillator; Z95.5 Presence of coronary angioplasty implant and graft; Z87.891 Personal history of nicotine dependence
CPT/HCPCS: 36415; 71046; 80053; 80307; 81001; 83880; 84484; 85025; 85610; 85730; 87077; 87086; 87186; 93005; 96374; 96375; 99284; J1171; J1815; J1938; J2405

== ENCOUNTER 2025-04-29 15:48 | Emergency (ER) | payer OTHER, SELFPAY ==
[2025-04-29] VITALS (7 sets, daily range): BP systolic 97–136; BP diastolic 52–85; PULSE 79–99; RESP 15–19; TEMP 2.9–37.2; O2SAT 95–97; BMI 44.9
--- NOTE | 2025-04-29 15:55 | EKG_ITS ---
[facility] Test Date: 2025-04-29 Pat Name: JAMIL COOK Department: Room: - Gender: Female Clinical Program Manager: : 1955 Requested By: Ayush Berry Order Number: [id number] Reading MD: Ayush Berry Measurements Intervals [place] Rate: 97 P: 59 HI: 209 QRS: -85 QRSD: 146 T: 93 QT: 430 QTc: 548 Interpretive Statements SINUS RHYTHM RIGHT BUNDLE BRANCH BLOCK [120+ ms QRS DURATION, UPRIGHT V1, 40+ ms S IN I/aVL/V4/V5/V6] INFERIOR MYOCARDIAL INFARCTION , POSSIBLY ACUTE [40+ ms Q WAVE AND/OR ST/T ABNORMALITY IN II/aVF] ANTEROLATERAL MYOCARDIAL INFARCTION , PROBABLY RECENT [40+ ms Q WAVE IN I/aVL/V3-V6] ACUTE IA Compared to ECG 04/24/2025 10:03:25 Right bundle-branch block now present Sinus tachycardia no longer present Intraventricular conduction delay no longer present Myocardial infarct finding still present /store/S0/[id number]/[id number].pdf
--- NOTE | 2025-04-29 15:55 | XR_ITS ---
Examination: AP chest single view Technique AP portable semiupright chest single view Date and time: April 29, 2025, 1711 hrs. Indications: Chest pain today. Findings: Moderate enlargement cardiac contour. Cardiac leads stable position compared with 04 24 2025 No pneumonia or pulmonary edema Moderate osteopenia Impression: No pneumonia or pulmonary edema
--- NOTE | 2025-04-29 15:56 | PD.EDADULT ---
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 EMS report 2 sublingual nitros with significant relief continues to have chest pain/pressure at this time. Patient is awake alert oriented patient states each time she has had chest pain it is different from the previous time. Patient has no active nausea vomiting or diarrhea EMS reports stable vital signs and route. Related Data Home Medications ?Medication ?Instructions ?Recorded ?Confirmed insulin glargine 100 unit/mL (3 30 unit subcut BID 12/10/21 04/15/25 mL) subcutaneous pen (Lantus Solostar U-100 Insulin) omeprazole 40 mg capsule,delayed 40 mg PO QDAY 05/28/22 04/15/25 release pregabalin 75 mg capsule (Lyrica) 100 mg PO QDAY 09/17/22 04/15/25 empagliflozin 25 mg tablet 25 mg PO DAILY 10/14/23 04/15/25 (Jardiance) hydrocodone 10 mg-acetaminophen 10 tab PO PRN PRN Pain (Scale 10/14/23 04/15/25 325 mg tablet Score 7-10) metformin 1,000 mg tablet 1,000 mg PO BID 10/14/23 04/15/25 nitroglycerin 0.4 mg sublingual 0.4 mg buccal 3XD 10/14/23 04/15/25 tablet Previous Rx's ?Medication ?Instructions ?Recorded aspirin 81 mg tablet,delayed 81 mg PO QDAY 30 days #30 tabs 09/25/22 release atorvastatin 40 mg tablet 40 mg PO HS 30 days #30 tabs 09/25/22 potassium chloride 10 mEq 10 meq PO QDAY LASIX USE #7 caps 03/24/25 capsule,extended release furosemide 40 mg tablet 40 mg PO QDAY #7 tabs 04/10/25 apixaban 5 mg tablet (Eliquis) 5 mg PO BID 1 month #60 tabs 04/18/25 furosemide 40 mg tablet (Lasix) 40 mg PO QDAY #30 tabs 04/24/25 Allergies Allergy/AdvReac Type Severity Reaction Status Date / Time adhesive Allergy Severe SKIN GETS Verified 04/29/25 16:41 RAW ketorolac AdvReac Severe SHARP Verified 04/29/25 16:41 PAINS THROUGHOUT ENTIRE BODY morphine AdvReac Severe CAUSES Verified 04/29/25 16:41 BEHAVIORAL PROBLEMS Review of Systems Review of Systems Narrative Review of Systems: GEN: No fever, no chills, no weight loss EYES: No discharge, no visual changes, no pain HEENT: No ear pain, no congestion, no sore throat PULM: No shortness of breath, no cough, no congestion CV: No chest pain, no dyspnea on exertion, no palpitations GI: No nausea, no vomiting, no diarrhea, no pain, no constipation : No frequency, no urgency, no dysuria MUSC/SKEL: No joint pain, no back pain SKIN: No rash PSYCH: No hallucinations, no depression HEME/LYMPH: No easy bleeding or bruising tendencies NEURO: No weakness, no headache Past Medical History Past Medical History NEUROLOGIC: Positive Neurological Disorders and Peripheral Neuropathy; Negative Cerebrovascular Accident, Transient Ischemic Attacks (TIA), Dementia, Alzheimer's Disease, Parkinson's Disease, Brain Tumor, Meningitis, Seizures, Epilepsy, Multiple Sclerosis, Cerebral Palsy, Amyotrophic Lateral Sclerosis (ALS/Genoveva Gehrig's), Guillain-Woodland Syndrome, Spina Bifida, Paralysis, Gaitan's Palsy, Subdural Hematoma, Migraine, Head Trauma, Spinal Cord Injury or Traumatic Brain Injury CARDIAC: Positive Cardiac Disorders, Myocardial Infarction, Cardiac Arrhythmia, Angina, Coronary Artery Disease, Atherosclerotic Heart Disease, Hypercholesterolemia, Aneurysm, Congestive Heart Failure, Edema, Cellulitis, Hypertension and Hypotension; Negative Atrial Fibrillation, Heart Murmur, Peripheral Vascular Disease, Congenital Heart Disease, Valvular Heart Disease, Rheumatic Fever, Cardiomyopathy, Pericarditis, Deep Vein Thrombosis or Varicose Veins RESPIRATORY: Positive Chronic Obstructive Pulmonary Disease (COPD), Bronchitis and Pneumonia; Negative Asthma, Emphysema, Pulmonary Fibrosis, Cystic Fibrosis, Tuberculosis, Pulmonary Embolism, Pulmonary Edema or Sleep Apnea GASTROINTESTINAL: Positive Gastrointestinal Disorders, Gall Bladder Disease, Hiatal Hernia, Gastroesophageal Reflux Disease and Obesity; Negative Hepatitis, Cirrhosis, Pancreatitis, Celiac Disease, Gastrointestinal Bleed, Esophageal Varices, Coleman's Esophagus, Colitis, Ulcerative Colitis, Diverticulitis, Diverticulosis, Ulcer, Colorectal Cancer, Irritable Bowel, Crohn's Disease, Obstructive Bowel or Hemorrhoids GENITOURINARY: Positive Genitourinary Disorders and Renal Disease; Negative Kidney Stones, Polycystic Kidney Disease, Neurogenic Bladder, Inguinal Hernia, Dialysis, Prostate Cancer or Benign Prostatic Hyperplasia REPRODUCTIVE: Negative Breast Cancer, Endometriosis, Genital Herpes, Gonorrhea, Pelvic Inflammatory Disease, Previous Pregnancies, Syphilis, Testicular Cancer or Uterine Prolapse MUSCULOSKELETAL: Positive Musculoskeletal Disorders and Fractures; Negative Muscular Dystrophy, Myasthenia Gravis, Marfan's Syndrome, Bone Cancer, Arthritis, Rheumatoid Arthritis, Osteoporosis, Degenerative Disk Disease, Gout, Scoliosis, Carpal Tunnel Syndrome, Fibromyalgia, Degenerative Joint Disease, Osteomyelitis or Poliovirus ENT: Negative Cataracts, Glaucoma, Blind, Retinal Detachment, Macular Degeneration, Ear Infection, Deafness, Head Trauma or Eye Prosthesis ENDOCRINE: Positive Endocrine Disorders and Diabetes Mellitus Type 2; Negative Diabetes Mellitus Type 1, Hypoglycemia, Marlee's Syndrome, Dent's Disease, Hyperthyroidism, Hypothyroidism, Parathyroid Disease, Pituitary Disease, Systemic Lupus Erythematosus, Syndrome of Inappropriate Antidiuretic Hormone (SIADH), Adrenal Disease or Graves' Disease HEMATOLOGIC: Negative Blood Disorders, Anemia, Leukemia, Hemophilia, Thalassemia, Sickle Cell Disease or Clotting Problems PSYCHO/SOCIAL: Positive Depression and Anxiety; Negative Psychiatric Problems, Schizophrenia, Recreational Drug Use, Bipolar Disorder, Behavior Problems, Self-Mutilation, Attention Deficit Disorder, Attention Deficit Hyperactivity Disorder, Depression, Post Traumatic Stress Disorder or Eating Disorder OTHER HISTORY: Positive Hospitalization, Falls and MRSA; Negative Autoimmune Disease, Down Syndrome, Autism, Developmental Delay, Shingles, Blood Transfusions, Blood Transfusion Reaction, Anesthesia Reactions, Organ Transplant, Chemotherapy, Radiation Therapy, Hyperbaric Therapy, VRSA, Vancomycin-Resistant Enterococci, Human Immunodeficiency Virus (HIV), Chicken Pox, Measles, Mumps, Rubella (Guinean Measles), Pertussis, Clostridium Difficile, Cancer, Breast Cancer, Cervical Cancer, Colorectal Cancer, Lung Cancer, Ovarian Cancer, Prostate Cancer or Testicular Cancer Family History FAMILY HISTORY: Positive Family Neurologic Problems (Mother had dementia.), Family Cardiac Disorders and Family Cancer; Negative Family Psychiatric Problems, Family Respiratory Disorders, Family Gastrointestinal Problems, Family Surgery or Family Anesthesia Reaction Surgical History SURGICAL: Positive Cardiac Surgery, Coronary Stent, Cardiac Catheterization, Pacemaker, Angiogram, Tonsillectomy and Abdominal Surgery; Negative Open Heart Surgery, Coronary Artery Bypass Graft, Valve Replacement, Vascular Surgery, Auto Implanted Cardiovert Defib, Carotid Endarterectomy, Endocrine Surgery, Thyroidectomy, Ear Surgery, Tympanostomy Tube, Eye Surgery, Nose Surgery, Oral Surgery, Adenoidectomy, Cochlear Implant, Corneal Transplant, Throat Surgery, Tracheostomy, Gastric Bypass Surgery, Gastrostomy, Bowel Surgery, Nephrectomy, Transurethral Resection, Joint Replacement, Amputation, Open Reduction Internal Fixation, Arthroscopy, Neurologic Surgery, Brain Shunt, Mastectomy, Lumpectomy, Hysterectomy, Tubal Ligation, Section, Vasectomy or Organ Transplant Social History SMOKING STATUS: Former smoker SECOND HAND EXPOSURE: No SUBSTANCE USE: does not use ED Exam Narrative Physical exam: [General: Obese not in any acute distress Head normocephalic HEENT: Within acceptable limits Neck is supple nontender Chest equal chest rise nontender to palpation Respiratory: Clear to auscultation no wheezes crackles or rubs CV: Rate rhythm is regular no murmurs rubs or clicks Abdomen is distended secondary to body habitus soft nontender no masses positive bowel sounds all 4 quadrants Back: No CVA tenderness no spinous process tenderness from cervical spine thoracic and lumbar spine Skin: Intact no petechiae rash induration ulceration or crepitus Extremities: Moving all extremity against resistance cap refill less than 2 seconds neurosensory intact. Nonpitting lower extremity edema. Neuro: Awake alert oriented x3 Glascow coma 15 no focal deficits] Course Quality Measures none Orders Category Date Time Status EKG (ED ONLY) *Do not use* NOW Care 04/29/25 15:55 Completed EKG (ED Only) Stat Exams 04/29/25 15:55 Draft XR chest 1V Stat Exams 04/29/25 15:55 Completed B-Type Natriuretic Peptide Stat Lab 04/29/25 16:54 Completed CBC Stat Lab 04/29/25 16:54 Completed Comprehensive Metabolic Panel Stat Lab 04/29/25 16:54 Completed Drug Screen,Urine Stat Lab 04/29/25 19:40 Completed LDH (Lactate Dehydrogenase) Stat Lab 04/29/25 16:54 Completed Magnesium Stat Lab 04/29/25 16:54 Completed Partial Thromboplastin Time Stat Lab 04/29/25 16:32 Completed Prothrombin Time with INR Stat Lab 04/29/25 16:32 Completed Troponin I Stat Lab 04/29/25 16:54 Completed Troponin I Stat Lab 04/29/25 20:31 Completed Urinalysis, C/S if Indicated Stat Lab 04/29/25 19:40 Completed Urine Culture Stat Lab 04/29/25 19:40 Received HYDROmorphone INJ [Dilaudid Inj] Med 04/29/25 18:58 Discontinued 0.5 mg IVP X1 ONE Ondansetron Inj [Zofran Inj] Med 04/29/25 18:55 Discontinued 4 mg IVP X1 ONE Vital Signs Vital signs: Vital Signs Temperature 98.5 F 04/29/25 15:52 Pulse Rate 99 04/29/25 15:52 Respiratory Rate 19 04/29/25 15:52 Blood Pressure 97/68 04/29/25 15:52 Pulse Oximetry (%) 96 04/29/25 15:52 Oxygen Delivery Method Room Air 04/29/25 15:52 Discharge Plan Plan Patient Disposition: HOME (Self Care) Patient condition on transfer: Stable Prescriptions/Referrals Prescriptions/Med Rec: No Action insulin glargine [Lantus Solostar U-100 Insulin] 100 unit/mL (3 mL) Insulin Pen 30 unit SUBCUT BID pregabalin [Lyrica] 75 mg capsule 100 mg PO QDAY aspirin 81 mg Tablet,Delayed Release (Dr/Ec) 81 mg PO QDAY 30 Days Qty: 30 1RF atorvastatin 40 mg tablet 40 mg PO HS 30 Days Qty: 30 1RF hydrocodone-acetaminophen 10-325 mg tablet 10 tab PO PRN PRN (Reason: Pain (Scale Score 7-10)) nitroglycerin 0.4 mg tablet, sublingual 0.4 mg BUCCAL 3XD metformin 1,000 mg tablet 1,000 mg PO BID Jardiance 25 mg tablet 25 mg PO DAILY potassium chloride 10 mEq capsule, extended release 10 meq PO QDAY MDD 1 Qty: 7 0RF furosemide 40 mg tablet 40 mg PO QDAY Qty: 7 0RF Eliquis 5 mg tablet 5 mg PO BID 30 Days Qty: 60 0RF furosemide [Lasix] 40 mg tablet 40 mg PO QDAY Qty: 30 0RF omeprazole 40 mg capsule,delayed release(DR/EC) 40 mg PO QDAY Referrals: Rosita Pfeiffer MD [Primary Care Provider, Nephrology] - In 1 week Problem List Clinical Impression: Chest pain Patient/Caregiver Discharge Instructions Education Materials: ED Chest Pain, Uncertain Cause Print Language: Georgian Stand Alone Forms: Kaelyn Award Info., Patient Portal Info Letter PA/MAKEUP EDITOR Supervising Physician PA/MAKEUP EDITOR Supervising Physician: Ayush BAEZ Clinical Information Provided by patient and EMS Medical Records Reviewed [facility] and EMS Meds/Rx Considered, not Ordered None Labs/Rad/Tests considered, not Ordered None Chronic Illness/Social Conditions which may negatively complicate care or outcome(s)-explain: CHF/CAD/Cardiac illness EKG EKG Interpretation narrative: EKG performed at 1702 shows a ventricular rate of 9 1 IN interval 224 QRS of 144 QTc of 537 this is sinus rhythm first-degree block. It is unchanged from EKGs both in March and January of this year. Repeat EKG at 1655 shows a ventricular rate of 97 IN interval 209 QRS of 146 and QTc of 485 shows right bundle branch block unchanged from previous EKG today or the EKGs from March and January of this year. Lab Interpretation Lab(s) interpretation(s): CBC shows no acute leukocytosis anemia thrombocytopenia Coags within acceptable limits CMP shows no significant electrolyte imbalances glucose at 258 mag 1.6 T. bili is not elevated no transaminitis. LDH at 302. Troponin is 0.034 BNP is 768. Repeat troponin is 0.044. Note all prior troponins to this where much higher. And there is no change in the EKG at this time patient will be discharged back home with a diagnosis of chest pain. Imaging Provider imaging interpretation(s): Chest x-ray interpreted by me shows cardiomegaly pacer in place I do not appreciate any large infiltrates. Medication Administration(s) Medication Administration History Discontinued Medications Hydromorphone HCl (Hydromorphone Inj 2 Mg/Ml Vial) 0.5 mg IVP X1 ONE Stop: 04/29/25 18:59 Last Admin: 04/29/25 20:05 Dose: 0.5 mg Documented By: MICHI Ondansetron HCl (Ondansetron Inj 2 Mg/Ml Inj 2 Ml) 4 mg IVP X1 ONE; Protocol Stop: 04/29/25 18:56 Last Admin: 04/29/25 20:05 Dose: 4 mg Documented By: MICHI
[2025-04-29 17:11] LABS: Basophils # (Auto) 0.0 Thou/mm3 (0.0-0.2); Basophils % (Auto) 1 % (0-2.5); Eosinophils # (Auto) 0.1 Thou/mm3 (0.0-0.5); Eosinophils % (Auto) 2 % (0-10); Hematocrit 42.4 % (36.0-46.0); Hemoglobin 13.0 g/dL (12.0-16.0); Immature Granulocytes Auto 0.04 Thou/mm3 (0.00-0.00); Lymphocytes # (Auto) 1.3 Thou/mm3 (1.0-4.8); Lymphocytes % (Auto) 18 % (10-50); Mean Corpuscular HGB Conc 30.7 g/dl (31.0-37.0); Mean Corpuscular Hemoglobin 25.3 pg (25.0-35.0); Mean Corpuscular Volume 83 fL (80-100); Monocytes # (Auto) 0.5 Thou/mm3 (0.0-0.8); Monocytes % (Auto) 7 % (0-12); Neutrophils # (Auto) 5.2 Thou/mm3 (1.8-7.7); Neutrophils % (Auto) 72 % (37-80); Nucleated Red Blood Cell # 0.00 Thou/mm3 (0.00-0.00); Nucleated Red Blood Cell % 0 /100 WBC (0); Platelet Count 254 Thou/mm3 (140-440); RDW Standard Deviation 45.2 fL (36.4-46.3); Red Blood Count 5.13 Miln/mm3 (4.00-5.20); White Blood Count 7.1 Thou/mm3 (3.6-11.0)
[2025-04-29 17:19] LABS: INR 1.1 (0.9-1.3); Partial Thromboplastin Time 23.5 Seconds (22.0-36.0); Prothrombin Time 11.7 Seconds (9.0-12.2)
[2025-04-29 17:33] LABS: Alanine Aminotransferase < 7 U/L (10-49); Albumin, Serum 3.9 gm/dL (3.4-4.8); Albumin/Globulin Ratio 1.6 (1.2-2.2); Alkaline Phosphatase 83 U/L (46-116); Anion Gap 10 (7-16); Aspartate Amino Transferase 22 U/L (0-34); BUN/Creatinine Ratio 9 Ratio (12-20); Bilirubin,Total 0.4 mg/dL (0.3-1.2); Blood Urea Nitrogen 10 mg/dL (9-23); Calcium 9.7 mg/dL (8.3-10.6); Calcium (Corrected) 9.8 mg/dL (8.5-10.1); Carbon Dioxide 26.7 mMol/L (20.0-31.0); Chloride 103 mMol/L (98-107); Creatinine (Component) 1.1 mg/dL (0.6-1.3); Estimated Creatinine Clearance 64.3 mL/min (>60); Globulin 2.4 gm/dL (2.3-3.5); Glucose 258 mg/dL (74-106); LDH (Lactate Dehydrogenase) 302 U/L (120-246); Magnesium 1.6 mg/dL (1.6-2.6); Osmolality,Calculated 287 (275-295); Potassium 4.6 mMol/L (3.4-5.1); Sodium 140 mMol/L (136-145); Total Protein 6.3 gm/dL (5.7-8.2); Troponin I 0.034 ng/mL (0.0-0.045); eGFR 55 See Note
[2025-04-29 17:55] LABS: B-Type Natriuretic Peptide 756 pg/mL (0-100)
[2025-04-29 20:05] LABS: Collection Type, Urine Clean Catch
[2025-04-29] MEDS: HYDROmorphone INJ 2 MG/ML VIAL 0.5 MG IVP (20:05)
[2025-04-29] MEDS: ONDANSETRON INJ 2 MG/ML INJ 2 ML 4 MG IVP (20:05)
[2025-04-29 20:37] LABS: Bacteria,Urine 3+; Bilirubin,Urine Negative (Negative); Blood,Urine 1+ (Negative); Clarity,Urine Turbid (Clear/Hazy); Color,Urine Yellow (Lt Yel-Yel); Glucose, Urine 3+ (Negative); Ketones,Urine Negative (Negative); Leukocyte Esterase,Urine Positive (Negative); Nitrite,Urine Positive (Negative); PH,Urine 6.0 (5.0-7.0); Protein,Urine 1+ (Neg - Trace); RBC,Urine 18 /hpf (0-3); Specific Gravity,Urine 1.019 (1.001-1.035); Squamous Epithelial Cell,Urine 5 /hpf (0-5); Urobilinogen,Urine Negative mg/dL (0.0-1.0); WBC,Urine 526 /hpf (0-5)
[2025-04-29 20:38] LABS: Culture Indicated,Urine Yes
[2025-04-29 20:42] LABS: Amphetamine/Methamp Scrn,U Negative (Negative); Barbiturate Screen,Urine Negative (Negative); Benzodiazepines Screen,Urine Negative (Negative); Benzoylecgonine Screen, Ur Negative (Negative); Fentanyl Screen,Urine Negative (Negative); Opiate Screen,Urine Positive (Negative); THC Screen,Urine Negative (Negative)
[2025-04-29 21:21] LABS: Troponin I 0.044 ng/mL (0.0-0.045)
== END 2025-04-29 22:01 | disposition home or self-care (01) ==
PROVIDERS: Registered Nurse General Practice; Emergency Provider Emergency Medicine; PCP Internal Medicine
DX: R07.9 Chest pain, unspecified (principal)
CPT/HCPCS: 36415; 71045; 80053; 80307; 81001; 83615; 83735; 83880; 84484; 85025; 85610; 85730; 87077; 87086; 87186; 93005; 96374; 96375; 99284; J1171; J2405

== ENCOUNTER 2025-05-07 12:07 | Emergency (ER) | payer OTHER, SELFPAY ==
[2025-05-07 12:23] VITALS: BP 120/79; PULSE 98; RESP 22; TEMP 37.2; O2SAT 92
--- NOTE | 2025-05-07 12:23 | XR_ITS ---
Examination: AP chest single view Technique one AP portable semiupright chest single view Date and time: May 05, 2025, 12:44 PM, comparison 04/29/2025 INDICATIONS: Chest pain this morning. FINDINGS: Moderate enlargement left ventricle Transvenous dual-chamber bipolar cardiac leads satisfactory position. Mild to moderate vascular congestion. No lobar pneumonia or abdias pulmonary edema. Prominent osteopenia IMPRESSION: Moderate enlargement left ventricle Mild to moderate vascular congestion.
--- NOTE | 2025-05-07 12:23 | EKG_ITS ---
[facility] Test Date: 2025-05-07 Pat Name: JAMIL COOK Department: Room: - Gender: Female Color Tester: : 1955 Requested By: Ayush Berry Order Number: [id number] Reading MD: Ayush Berry Measurements Intervals [place] Rate: 100 P: 63 IN: 213 QRS: -79 QRSD: 148 T: 93 QT: 511 QTc: 660 Interpretive Statements SINUS TACHYCARDIA WITH FIRST DEGREE AV BLOCK RIGHT BUNDLE BRANCH BLOCK [120+ ms QRS DURATION, UPRIGHT V1, 40+ ms S IN I/aVL/V4/V5/V6] INFERIOR MYOCARDIAL INFARCTION , POSSIBLY ACUTE [40+ ms Q WAVE AND/OR ST/T ABNORMALITY IN II/aVF] ANTEROLATERAL MYOCARDIAL INFARCTION , PROBABLY RECENT [40+ ms Q WAVE IN I/aVL/V3-V6] ACUTE ID Compared to ECG 04/29/2025 16:55:02 First degree AV block now present Sinus rhythm no longer present Myocardial infarct finding still present /store/S0/[id number]/[id number]
--- NOTE | 2025-05-07 12:24 | EDNOTE_ITS ---
<Statement entered by María Shaffer MD - 05/08/25 06:32> As co-signing physician, I was present and available for consult prn. I concur with the plan and care as documented by the midlevel provider. ED General RME/HPI General Chief complaint: Chest Pain Stated complaint: CHEST PAIN Time Seen by Provider: 05/07/25 12:22 Arrival date/time: 05/07/25 12:07 CC: Chest pain HPI onset last night progressive increase in severity out of her nitro, called EMS, this morning patient presents to the ER at 1224 with minimal chest pain after Nitropaste and oral nitro glycerin was given by EMS. Patient has significant cardiac history, was seen here for workup 1 week ago for similar complaint patient states she currently chest pain is a 1 on a 10 scale she is mildly nauseated. EMS report stable vital signs. Patient states she wears oxygen as needed , which results in 3-4 times a week at nighttime while sleeping. Stopped smoking 15 years ago. Patient is awake alert oriented nontoxic-appearing in mild discomfort. Note: Patient ran out of her nitroglycerin tablets which she states she is using 2-3 times a week. And as of last week was unable to get a refill. Related Data Home Medications ?Medication ?Instructions ?Recorded ?Confirmed insulin glargine 100 unit/mL (3 30 unit subcut BID 04/15/25 mL) subcutaneous pen (Lantus Solostar U-100 Insulin) omeprazole 40 mg capsule,delayed 40 mg PO QDAY 2 04/15/25 release pregabalin 75 mg capsule (Lyrica) 100 mg PO QDAY 09/1704/15/25 empagliflozin 25 mg tablet 25 mg PO DAILY 10/14/23 (Jardiance) hydrocodone 10 mg-acetaminophen 10 tab PO PRN PRN Pain (Scale 10/14/23 04/15/25 325 mg tablet Score 7-10) metformin 1,000 mg tablet 1,000 mg PO BID 10/14/23 nitroglycerin 0.4 mg sublingual 0.4 mg buccal 3XD 09/2404/15/25 tablet Previous Rx's ?Medication ?Instructions ?Recorded aspirin 81 mg tablet,delayed 81 mg PO QDAY 30 days #30 tabs 09/25/22 release atorvastatin 40 mg tablet 40 mg PO HS 30 days #30 tabs 09/25/22 potassium chloride 10 mEq 10 meq PO QDAY LASIX USE #7 caps 03/24/25 capsule,extended release furosemide 40 mg tablet 40 mg PO QDAY #7 tabs apixaban 5 mg tablet (Eliquis) 5 mg PO BID 1 month #60 tabs 04/18/25 furosemide 40 mg tablet (Lasix) 40 mg PO QDAY #30 tabs 04/24/25 nitrofurantoin 100 mg PO BID UTI 10 days #2 0 caps 05/03/25 monohydrate/macrocrystals 100 mg capsule (Macrobid) Allergies Allergy/AdvReac Type Severity Reaction Status Date / Time adhesive Allergy Severe SKIN GETS Verified 04/29/25 16:41 RAW ketorolac AdvReac Severe SHARP Verified 04/29/25 16:41 PAINS THROUGHOUT ENTIRE BODY morphine AdvReac Severe CAUSES Verified 04/29/25 16:41 BEHAVIORAL PROBLEMS Review of Systems Review of Systems Narrative Review of Systems: GEN: No fever, no chills, no weight loss EYES: No discharge, no visual changes, no pain HEENT: No ear pain, no congestion, no sore throat PULM: No shortness of breath, no cough, no congestion CV: + chest pain, no dyspnea on exertion, no palpitations GI: No nausea, no vomiting, no diarrhea, no pain, no constipation : No frequency, no urgency, no dysuria MUSC/SKEL: No joint pain, no back pain SKIN: No rash PSYCH: No hallucinations, no depression HEME/LYMPH: No easy bleeding or bruising tendencies NEURO: No weakness, no headache Past Medical History Past Medical History NEUROLOGIC: Positive Neurological Disorders and Peripheral Neuropathy; Negative Cerebrovascular Accident, Transient Ischemic Attacks (TIA), Dementia, Alzheimer's Disease, Parkinson's Disease, Brain Tumor, Meningitis, Seizures, Epilepsy, Multiple Sclerosis, Cerebral Palsy, Amyotrophic Lateral Sclerosis (ALS/Genoveva Gehrig's), Guillain-Withee Syndrome, Spina Bifida, Paralysis, Gaitan's Palsy, Subdural Hematoma, Migraine, Head Trauma, Spinal Cord Injury or Traumatic Brain Injury CARDIAC: Positive Cardiac Disorders, Myocardial Infarction, Cardiac Arrhythmia, Angina, Coronary Artery Disease, Atherosclerotic Heart Disease, Hypercholesterolemia, Aneurysm, Congestive Heart Failure, Edema, Cellulitis, Hypertension and Hypotension; Negative Atrial Fibrillation, Heart Murmur, Peripheral Vascular Disease, Congenital Heart Disease, Valvular Heart Disease, Rheumatic Fever, Cardiomyopathy, Pericarditis, Deep Vein Thrombosis or Varicose Veins RESPIRATORY: Positive Chronic Obstructive Pulmonary Disease (COPD), Bronchitis and Pneumonia; Negative Asthma, Emphysema, Pulmonary Fibrosis, Cystic Fibrosis, Tuberculosis, Pulmonary Embolism, Pulmonary Edema or Sleep Apnea GASTROINTESTINAL: Positive Gastrointestinal Disorders, Gall Bladder Disease, Hiatal Hernia, Gastroesophageal Reflux Disease and Obesity; Negative Hepatitis, Cirrhosis, Pancreatitis, Celiac Disease, Gastrointestinal Bleed, Esophageal Varices, Coleman's Esophagus, Colitis, Ulcerative Colitis, Diverticulitis, Diverticulosis, Ulcer, Colorectal Cancer, Irritable Bowel, Crohn's Disease, Obstructive Bowel or Hemorrhoids GENITOURINARY: Positive Genitourinary Disorders and Renal Disease; Negative Kidney Stones, Polycystic Kidney Disease, Neurogenic Bladder, Inguinal Hernia, Dialysis, Prostate Cancer or Benign Prostatic Hyperplasia REPRODUCTIVE: Negative Breast Cancer, Endometriosis, Genital Herpes, Gonorrhea, Pelvic Inflammatory Disease, Previous Pregnancies, Syphilis, Testicular Cancer or Uterine Prolapse MUSCULOSKELETAL: Positive Musculoskeletal Disorders and Fractures; Negative Muscular Dystrophy, Myasthenia Gravis, Marfan's Syndrome, Bone Cancer, Arthritis, Rheumatoid Arthritis, Osteoporosis, Degenerative Disk Disease, Gout, Scoliosis, Carpal Tunnel Syndrome, Fibromyalgia, Degenerative Joint Disease, Osteomyelitis or Poliovirus ENT: Negative Cataracts, Glaucoma, Blind, Retinal Detachment, Macular Degeneration, Ear Infection, Deafness, Head Trauma or Eye Prosthesis ENDOCRINE: Positive Endocrine Disorders and Diabetes Mellitus Type 2; Negative Diabetes Mellitus Type 1, Hypoglycemia, Marlee's Syndrome, [place]'s Disease, Hyperthyroidism, Hypothyroidism, Parathyroid Disease, Pituitary Disease, Systemic Lupus Erythematosus, Syndrome of Inappropriate Antidiuretic Hormone (SIADH), Adrenal Disease or Graves' Disease HEMATOLOGIC: Negative Blood Disorders, Anemia, Leukemia, Hemophilia, Thalassemia, Sickle Cell Disease or Clotting Problems PSYCHO/SOCIAL: Positive Depression and Anxiety; Negative Psychiatric Problems, Schizophrenia, Recreational Drug Use, Bipolar Disorder, Behavior Problems, Self-Mutilation, Attention Deficit Disorder, Attent ion Deficit Hyperactivity Disorder, Depression, Post Traumatic Stress Disorder or Eating Disorder OTHER HISTORY: Positive Hospitalization, Falls and MRSA; Negative Autoimmune Disease, Down Syndrome, Autism, Developmental Delay, Shingles, Blood Transfusions, Blood Transfusion Reaction, Anesthesia Reactions, Organ Transplant, Chemotherapy, Radiation Therapy, Hyperbaric Therapy, VRSA, Van comycin-Resistant Enterococci, Human Immunodeficiency Virus (HIV), Chicken Pox, Measles, Mumps, Rubella (Martiniquais Measles), Pertussis, Clostridium Difficile, Cancer, Breast Cancer, Cervical Cancer, Colorectal Cancer, Lung Cancer, Ovarian Cancer, Prostate Cancer or Testicular Cancer Family History FAMILY HISTORY: Positive Family Neurologic Problems (Mother had dementia.), Fam ovidio Cardiac Disorders and Family Cancer; Negative Family Psychiatric Problems, Family Respiratory Disorders, Family Gastrointestinal Problems, Family Surgery or Family Anesthesia Reaction Surgical History SURGICAL: Positive Cardiac Surgery, Coronary Stent, Cardiac Catheterization, Pacemaker, Angiogram, Tonsillectomy and Abdominal Surgery; Negative Open Heart Surgery, Coronary Artery Bypass Graft, Valve Replacement, Vascular Surgery, Auto Implanted Cardiovert Defib, Carotid Endarterectomy, Endocrine Surgery, Thyroidectomy, Ear Surgery, Tympanostomy Tube, Eye Surgery, Nose Surgery, Oral Surgery, Adenoidectomy, Cochlear Implant, Corneal Transplant, Throat Surgery, Tracheostomy, Gastric Bypass Surgery, Gastrostomy, Bowel Surgery, Nephrectomy, Transurethral Resection, Joint Replacement, Amputation, Open Reduction Internal Fixation, Arthroscopy, Neurologic Surgery, Brain Shunt, Mastectomy, Lumpectomy, Hysterectomy, Tubal Ligation, Section, Vasectomy or Organ Transplant Social History SMOKING STATUS: Former smoker SECOND HAND EXPOSURE: No SUBSTANCE USE: does not use ED Exam Narrative Physical exam: [General: Obese not in any acute distress Head normocephalic HEENT: Within acceptable limits Neck is supple nontender Chest equal chest rise nontender to palpation Respiratory: Clear to auscultation no wheezes crackles or rubs CV: Rate rhythm is regular no murmurs rubs or clicks Abdomen is distended secondary to body habitus soft nontender no masses positive bowel sounds all 4 quadrants Back: No CVA tenderness no spinous process tenderness from cervical spine thoracic and lumbar spine Skin: Intact no petechiae rash induration ulceration or crepitus Extremities: Moving all extremity against resistance cap refill less than 2 seconds neurosensory intact. Nonpitting edema both lower extremities. Neuro: Awake alert oriented x3 Glascow coma 15 no focal deficits] Course Course Course Narrative: At 1335, the patient is complaining of knee pain secondary to arthritis and her nausea has not resolved yet. At this time patient states she is willing to take a Percocet, and we will give her 10 mg of Reglan. At 1630, patient's chest pain is down to a 1. Repeat troponin after 3 hours is also negative. Patient's case again discussed with convertible top installer Dr. Goodwin who recommends the patient follow-up in his office on Wednesday and in the interim if she experiences chest pain to have the ambulance take her to [place]. She will can he will consider bypassing outpatient echo and go directly to angiogram. Quality Measures none Orders Category Date Time Status Air Twister Winder Q4H START 00 Care 05/07/25 12:50 Completed EKG (ED ONLY) *Do not use* NOW Care 05/07/25 12:23 Completed EKG (ED Only) Stat Exams 05/07/25 12:23 Draft XR chest 1V Stat Exams 05/07/25 12:23 Completed B-Type Natriuretic Peptide Stat Lab 05/07/25 13:10 Completed CBC Stat Lab 05/07/25 13:10 Completed Comprehensive Metabolic Panel Stat Lab 05/07/25 13:10 Completed Drug Screen,Urine Stat Lab 05/07/25 12:46 Completed LDH (Lactate Dehydrogenase) Stat Lab 05/07/25 13:10 Completed Magnesium Stat Lab 05/07/25 13:10 Completed Partial Thromboplastin Time Stat Lab 05/07/25 13:10 Completed Prothrombin Time with INR Stat Lab 05/07/25 13:10 Completed Troponin I Stat Lab 05/07/25 13:10 Completed Troponin I Stat Lab 05/07/25 15:40 Completed Urinalysis, C/S if Indicated Stat Lab 05/07/25 12:42 Completed Metoclopramide Inj [Reglan Inj] Med 05/07/25 13:34 Discontinued 10 mg IVP X1 ONE Ondansetron Inj [Zofran Inj] Med 05/07/25 12:23 Discontinued 4 mg IVP X1 ONE oxyCODONE/APAP 5/325 [Percocet 5/325] Med 05/07/25 13:34 Discontinued 1 tab PO X1 ONE Vital Signs Vital signs: Vital Signs Temperature 99 F 05/07/25 12:23 Pulse Rate 98 05/07/25 12:23 Respiratory Rate 22 H 05/07/25 12:23 Blood Pressure 120/79 05/07/25 12:23 Pulse Oximetry (%) 92 L 05/07/25 12:23 Oxygen Delivery Method Room Air 05/07/25 12:23 Discharge Plan Plan Patient Disposition: HOME (Self Care) Patient condition on transfer: Stable Prescriptions/Referrals Prescriptions/Med Rec: No Action insulin glargine [Lantus Solostar U-100 Insulin] 100 unit/mL (3 mL) Insulin Pen 30 unit SUBCUT BID pregabalin [Lyrica] 75 mg capsule 100 mg PO QDAY aspirin 81 mg Tablet,Delayed Release (Dr/Ec) 81 mg PO QDAY 30 Days Qty: 30 1RF atorvastatin 40 mg tablet 40 mg PO HS 30 Days Qty: 30 1RF hydrocodone-acetaminophen 10-325 mg tablet 10 tab PO PRN PRN (Reason: Pain (Scale Score 7-10)) nitroglycerin 0.4 mg tablet, sublingual 0.4 mg BUCCAL 3XD metformin 1,000 mg tablet 1,000 mg PO BID Jardiance 25 mg tablet 25 mg PO DAILY potassium chloride 10 mEq capsule, extended release 10 meq PO QDAY MDD 1 Qty: 7 0RF furosemide 40 mg tablet 40 mg PO QDAY Qty: 7 0RF Eliquis 5 mg tablet 5 mg PO BID 30 Days Qty: 60 0RF furosemide [Lasix] 40 mg tablet 40 mg PO QDAY Qty: 30 0RF omeprazole 40 mg capsule,delayed release(DR/EC) 40 mg PO QDAY nitrofurantoin monohyd/m-cryst [Macrobid] 100 mg capsule 100 mg PO BID MDD 2 10 Days Qty: 20 0RF Rx Instructions: must administer with a meal/food Referrals: Killian Donovan MD [Primary Care Provider, Family Practice] - In 1 week Problem List Clinical Impression: Chest pain Patient/Caregiver Discharge Instructions Education Materials: ED Chest Pain, Uncertain Cause Additional Instructions: Follow-up with Dr. Goodwin's office on Wednesday. If you reexperience chest pain and are in the vicinity of [facility] call 911 and be transported there otherwise return to this hospital for further evaluation. Print Language: Maltese Stand Alone Forms: Kaelyn Award Info., Patient Portal Info Letter PA/HEEL FORMER Supervising Physician PA/ELIZABET Supervising Physician: Ayush Jackson ENP [facility] Clinical Information Provided by patient and EMS Medical Records Reviewed [facility] and EMS Meds/Rx Considered, not Ordered None Labs/Rad/Tests considered, not Ordered None Chronic Illness/Social Conditions which may negatively complicate care or outcome(s)-explain: CHF/CAD/Cardiac illness EKG EKG Interpretation narrative: EKG performed at 1237 shows a ventricular rate of 100 MA interval 213 QRS of 148 QTc of 568 sinus tachycardia first-degree block a right bundle branch block old inferior and anterior lateral. When compared to EKG of April 24, 2025 there are no significant changes. Lab Interpretation Labs: interpreted by me Lab(s) interpretation(s): CBC shows no leukocytosis anemia thrombocytopenia Coags show PT of 13.0 INR PTT within acceptable limits CMP shows sodium of 287 no other electrolyte imbalances renal impairment transaminitis or T. bili elevation Troponin at 0.020 BNP at 1183. Urine 1+ glucose 9 WBCs leukocyte esterase positive no bacteria UTOX positive for opiates Imaging Imaging interpretation: interpreted by me Provider imaging interpretation(s): Chest x-ray as interpreted by me read by radiology shows mild to moderate vascular congestion. Medication Administration(s) none Medication Administration History Discontinued Medications Metoclopramide HCl (Metoclopramide Inj 5 Mg/Ml Vial 2 Ml) 10 mg IVP X1 ONE; Protocol Stop: 05/07/25 13:35 Last Admin: 05/07/25 14:15 Dose: 10 mg Documented By: RABIA Ondansetron HCl (Ondansetron Inj 2 Mg/Ml Inj 2 Ml) 4 mg IVP X1 ONE; Protocol Stop: 05/07/25 12:24 Last Admin: 05/07/25 12:39 Dose: 4 mg Documented By: RABIA Oxycodone/Acetaminophen (Oxycodone/Apap 5/325 Tablet) 1 tab PO X1 ONE Stop: 05/07/25 13:35 Last Admin: 05/07/25 14:15 Dose: 1 tab Documented By: RABIA Diagnosis Differential diagnosis: ACS HI pneumonia Most likely dx, and/or detailed dx discussion: Chest pain
[2025-05-07 12:34] VITALS: PULSE 93; RESP 15; O2SAT 99
[2025-05-07] MEDS: ONDANSETRON INJ 2 MG/ML INJ 2 ML 4 MG IVP (12:39)
[2025-05-07 12:42] VITALS: BMI 45.8
--- NOTE | 2025-05-07 12:42 | PC.NURSE ---
Patient to er via ems with c/o non radiating mid chest pain 11/30 at this time, patient states pain has decreased after medications given en route, patient states pain started at approx. 1am and got worse with nausea since 1124, patient states she feels better now, skin is slightly pale, warm and dry, EKG done and shown to provider. Call light within reach.
[2025-05-07 12:50] LABS: Collection Type, Urine Clean Catch
[2025-05-07 12:51] VITALS: BP 121/78; PULSE 92; RESP 15; O2SAT 97
[2025-05-07 13:20] LABS: Bilirubin,Urine Negative (Negative); Blood,Urine Negative (Negative); Clarity,Urine Clear (Clear/Hazy); Color,Urine Colorless (Lt Yel-Yel); Culture Indicated,Urine Not Indicated; Glucose, Urine 1+ (Negative); Ketones,Urine Negative (Negative); Leukocyte Esterase,Urine Positive (Negative); Nitrite,Urine Negative (Negative); PH,Urine 6.0 (5.0-7.0); Protein,Urine Negative (Neg - Trace); RBC,Urine 3 /hpf (0-3); Specific Gravity,Urine 1.006 (1.001-1.035); Squamous Epithelial Cell,Urine < 1 /hpf (0-5); Urobilinogen,Urine Negative mg/dL (0.0-1.0); WBC,Urine 9 /hpf (0-5)
[2025-05-07 13:34] LABS: Basophils # (Auto) 0.0 Thou/mm3 (0.0-0.2); Basophils % (Auto) 1 % (0-2.5); Eosinophils # (Auto) 0.1 Thou/mm3 (0.0-0.5); Eosinophils % (Auto) 1 % (0-10); Hematocrit 41.7 % (36.0-46.0); Hemoglobin 12.7 g/dL (12.0-16.0); Immature Granulocytes Auto 0.04 Thou/mm3 (0.00-0.00); Lymphocytes # (Auto) 0.9 Thou/mm3 (1.0-4.8); Lymphocytes % (Auto) 13 % (10-50); Mean Corpuscular HGB Conc 30.5 g/dl (31.0-37.0); Mean Corpuscular Hemoglobin 25.1 pg (25.0-35.0); Mean Corpuscular Volume 82 fL (80-100); Monocytes # (Auto) 0.4 Thou/mm3 (0.0-0.8); Monocytes % (Auto) 6 % (0-12); Neutrophils # (Auto) 5.6 Thou/mm3 (1.8-7.7); Neutrophils % (Auto) 79 % (37-80); Nucleated Red Blood Cell # 0.00 Thou/mm3 (0.00-0.00); Nucleated Red Blood Cell % 0 /100 WBC (0); Platelet Count 251 Thou/mm3 (140-440); RDW Standard Deviation 45.1 fL (36.4-46.3); Red Blood Count 5.06 Miln/mm3 (4.00-5.20); White Blood Count 7.1 Thou/mm3 (3.6-11.0)
[2025-05-07 13:41] LABS: INR 1.2 (0.9-1.3); Partial Thromboplastin Time 29.3 Seconds (22.0-36.0); Prothrombin Time 13.0 Seconds (9.0-12.2)
[2025-05-07 13:55] LABS: B-Type Natriuretic Peptide 1183 pg/mL (0-100)
[2025-05-07 13:56] LABS: Amphetamine/Methamp Scrn,U Negative (Negative); Barbiturate Screen,Urine Negative (Negative); Benzodiazepines Screen,Urine Negative (Negative); Benzoylecgonine Screen, Ur Negative (Negative); Fentanyl Screen,Urine Negative (Negative); Opiate Screen,Urine Positive (Negative); THC Screen,Urine Negative (Negative)
[2025-05-07 13:59] LABS: Alanine Aminotransferase 7 U/L (10-49); Albumin, Serum 3.9 gm/dL (3.4-4.8); Albumin/Globulin Ratio 1.6 (1.2-2.2); Alkaline Phosphatase 81 U/L (46-116); Anion Gap 11 (7-16); Aspartate Amino Transferase 15 U/L (0-34); BUN/Creatinine Ratio 9 Ratio (12-20); Bilirubin,Total 0.8 mg/dL (0.3-1.2); Blood Urea Nitrogen 9 mg/dL (9-23); Calcium 9.6 mg/dL (8.3-10.6); Calcium (Corrected) 9.7 mg/dL (8.5-10.1); Carbon Dioxide 24.0 mMol/L (20.0-31.0); Chloride 105 mMol/L (98-107); Creatinine (Component) 1.0 mg/dL (0.6-1.3); Estimated Creatinine Clearance 71.6 mL/min (>60); Globulin 2.5 gm/dL (2.3-3.5); Glucose 287 mg/dL (74-106); LDH (Lactate Dehydrogenase) 230 U/L (120-246); Magnesium 1.6 mg/dL (1.6-2.6); Osmolality,Calculated 288 (275-295); Potassium 4.4 mMol/L (3.4-5.1); Sodium 140 mMol/L (136-145); Total Protein 6.4 gm/dL (5.7-8.2); Troponin I 0.020 ng/mL (0.0-0.045); eGFR > 60 See Note
[2025-05-07] MEDS: METOCLOPRAMIDE INJ 5 MG/ML VIAL 2 ML 10 MG IVP (14:15)
--- NOTE | 2025-05-07 15:32 | PC.NURSE ---
Lab at bedside to draw 2nd troponin.
[2025-05-07 15:57] VITALS: BP 122/80; PULSE 80; RESP 18; TEMP 36.6; O2SAT 98
[2025-05-07 16:05] LABS: Troponin I 0.023 ng/mL (0.0-0.045)
== END 2025-05-07 17:02 | disposition home or self-care (01) ==
PROVIDERS: Registered Nurse General Practice; Emergency Provider Emergency Medicine; PCP Family Medicine
DX: R07.9 Chest pain, unspecified (principal); R00.0 Tachycardia, unspecified; I44.0 Atrioventricular block, first degree; I45.10 Unspecified right bundle-branch block; I25.2 Old myocardial infarction; E78.00 Pure hypercholesterolemia, unspecified; I11.0 Hypertensive heart disease with heart failure; I50.9 Heart failure, unspecified; Z87.891 Personal history of nicotine dependence
CPT/HCPCS: 36415; 71045; 80053; 80307; 81001; 83615; 83735; 83880; 84484; 85025; 85610; 85730; 93005; 96374; 96375; 99284; J2405; J2765; A9270

== ENCOUNTER → 2025-06-01 | Outpatient (CLI) | payer OTHER, SELFPAY ==
[2025-06-01 13:10] LABS: Basophils # (Auto) 0.0 Thou/mm3 (0.0-0.2); Basophils % (Auto) 1 % (0-2.5); Eosinophils # (Auto) 0.2 Thou/mm3 (0.0-0.5); Eosinophils % (Auto) 3 % (0-10); Hematocrit 44.9 % (36.0-46.0); Hemoglobin 13.1 g/dL (12.0-16.0); Immature Granulocytes Auto 0.02 Thou/mm3 (0.00-0.00); Lymphocytes # (Auto) 1.3 Thou/mm3 (1.0-4.8); Lymphocytes % (Auto) 22 % (10-50); Mean Corpuscular HGB Conc 29.2 g/dl (31.0-37.0); Mean Corpuscular Hemoglobin 23.1 pg (25.0-35.0); Mean Corpuscular Volume 79 fL (80-100); Monocytes # (Auto) 0.5 Thou/mm3 (0.0-0.8); Monocytes % (Auto) 9 % (0-12); Neutrophils # (Auto) 3.9 Thou/mm3 (1.8-7.7); Neutrophils % (Auto) 66 % (37-80); Nucleated Red Blood Cell # 0.00 Thou/mm3 (0.00-0.00); Nucleated Red Blood Cell % 0 /100 WBC (0); Platelet Count 241 Thou/mm3 (140-440); RDW Standard Deviation 44.1 fL (36.4-46.3); Red Blood Count 5.67 Miln/mm3 (4.00-5.20); White Blood Count 5.9 Thou/mm3 (3.6-11.0)
[2025-06-01 13:17] LABS: INR 1.1 (0.9-1.3); Partial Thromboplastin Time 31.2 Seconds (22.0-36.0); Prothrombin Time 11.6 Seconds (9.0-12.2)
[2025-06-01 13:25] LABS: Anion Gap 12 (7-16); BUN/Creatinine Ratio 9 Ratio (12-20); Blood Urea Nitrogen 10 mg/dL (9-23); Calcium 9.7 mg/dL (8.3-10.6); Carbon Dioxide 23.8 mMol/L (20.0-31.0); Chloride 108 mMol/L (98-107); Creatinine (Component) 1.1 mg/dL (0.6-1.3); Glucose 131 mg/dL (74-106); Osmolality,Calculated 287 (275-295); Potassium 3.9 mMol/L (3.4-5.1); Sodium 144 mMol/L (136-145); eGFR 55 See Note
== END | disposition home or self-care (01) ==
LOC: COPL 12:14
PROVIDERS: PCP Family Medicine; Referring Provider Internal Medicine; Visit Provider Internal Medicine
DX: I25.10 Atherosclerotic heart disease of native coronary artery without angina pectoris (principal); I48.91 Unspecified atrial fibrillation
CPT/HCPCS: 36415; 80048; 85025; 85610; 85730